=== PATIENT | male | born 1940 | race Caucasian/White ===

== ENCOUNTER → 2016-07-22 | Outpatient (CLI) | payer MEDICARE ==
[~2016-07-22] MED LIST: ASPI81TA85 PO; DULO30CA PO; FENT50PA TD; FURO40TA2 PO; HUMU70IN SC; LISI10TA4 PO; LUNE1TAB9 PO; METO25TAB PO; OXYC-299 PO; OXYCTAB PO; PLAV75TA PO; PRIL20CA PO; vitamin B PO
== END ==
LOC: M PT 08:46
PROVIDERS: ATTEND Nurse Practitioner Family
DX: Z74.09 Other reduced mobility (principal)
CPT/HCPCS: 97162; G8978; G8979; G8980

== ENCOUNTER 2016-09-10 09:26 | Emergency (ER) | payer MEDICARE, MEDICAID ==
[~2016-09-10 09:26] MED LIST changes: -PLAV75TA PO; +PLAV75TA38 PO; -PRIL20CA PO; +PRIL20CA9 PO
[2016-09-10] MEDS ORDERED: oxyCODONE 10 MG CR TAB As Ordered ONE (10:08)
--- NOTE | 2016-09-10 10:26 | REP ---
Clinical: Chest pain . Comparison: 07/13/2015 . Technique: PA and lateral. Findings: The mediastinum and cardiac silhouette are normal. The lung comer are essentially clear and without acute consolidation, effusion, or pneumothorax. However, trace left basilar atelectasis cannot be excluded and should be correlated clinically. The skeletal structures are intact and normal. Impression: Possible trace left basilar atelectasis. Signed by Jethro Goodwin MD 09/10/2016 10:18 A
[2016-09-10 10:41] LABS: BASO % 0.2 % (0.0-1.0); EOS % 0.3 % (0.0-3.0); LARGE UNSTAINED CELL # 0.1 K/mm3 (0.0-0.4); LARGE UNSTAINED CELL % 1.3 % (0.0-4.0); LYMPH # 0.8 K/mm3 (1.5-4.5); LYMPH % 8.6 % (24.0-44.0); MEAN CORPUSCULAR HEMOGLOBIN 29.6 pg (27.0-33.0); MEAN CORPUSCULAR HGB CONC 32.3 g/dl (32.0-36.5); MEAN CORPUSCULAR VOLUME 91.7 fl (80.0-96.0); MONO # 0.8 K/mm3 (0.0-0.8); MONO % 9.5 % (0.0-5.0); NEUTROPHILS # 6.8 K/mm3 (1.8-7.7); NEUTROPHILS % 80.1 % (36.0-66.0); PLATELET COUNT, AUTOMATED 152 k/mm3 (150-450); RED CELL DISTRIBUTION WIDTH 14.8 % (11.5-14.5); WHITE BLOOD COUNT 8.5 K/mm3 (4.0-10.0)
[2016-09-10 11:09] LABS: ALBUMIN 3.3 GM/DL (3.2-5.2); ALBUMIN/GLOBULIN RATIO 1.18 (1.00-1.93); ALKALINE PHOSPHATASE 78 U/L (45-117); ALT/SGPT 16 U/L (12-78); ANION GAP 7 MEQ/L (8-16); AST/SGOT 17 U/L (15-37); BILIRUBIN,DIRECT 0.2 MG/DL (0.0-0.2); BILIRUBIN,TOTAL 0.6 MG/DL (0.2-1.0); BLOOD UREA NITROGEN 16 MG/DL (7-18); CALCIUM LEVEL 8.4 MG/DL (8.8-10.2); CARBON DIOXIDE LEVEL 31 MEQ/L (21-32); CHLORIDE LEVEL 101 MEQ/L (98-107); CREATININE FOR GFR 1.11 MG/DL (0.70-1.30); GLOMERULAR FILTRATION RATE > 60.0 (>42); GLUCOSE, FASTING 219 MG/DL (83-110); SODIUM LEVEL 139 MEQ/L (136-145); TOTAL PROTEIN 6.1 GM/DL (6.4-8.2)
[2016-09-10] MEDS ORDERED: ISOVUE-370 76% 100ML VIAL (Q9967) As Ordered ONE (13:37)
--- NOTE | 2016-09-10 14:12 | REP ---
Clinical: Acute chest pain. Technique: Axial contrast enhanced images from the thoracic inlet to the upper abdomen using 100 ml Isovue 370 intravenous contrast material with coronal and sagittal re-formations. Findings: Satisfactory enhancement of the pulmonary vasculature is achieved and no filling defects are identified to suggest pulmonary embolus. Lung comer demonstrate minimal bibasilar atelectasis and small pleural reactions. Cardiomegaly is appreciated with atherosclerotic changes to the thoracic aorta and coronary arteries. No pericardial effusion. No significant adenopathy. Musculoskeletal structures are intact. Limited evaluation of the upper abdomen demonstrates bilateral renal cysts. Impression: No evidence for pulmonary embolus. Mild bibasilar atelectasis and small pleural reactions. Signed by Jethro Goodwin MD 09/10/2016 02:03 P
--- NOTE | 2016-09-10 14:31 | EDDOCDS ---
Physician Documentation [facility] Name: Jaden Peña Age: 75 yrs Sex: Male : 1940 Arrival Date: 09/10/2016 Time: 09:26 Bed 5 Private MD: Disposition: 09/10 14:05 Critical Care: Critical care not applicable. pc Disposition: 09/10/16 14:07 Discharged to Home/Self Care. Impression: Chest pain, unspecified. - Condition is Stable. - Discharge Instructions: Nonspecific Chest Pain. - Medication Reconciliation, Local Pharmacy Hours form. - Follow up: Emanuel Charles MD; When: Call to arrange an appointment; Reason: Further diagnostic work-up, To establish care. Follow up: Patsy Lamb; When: Call to arrange an appointment; Reason: Continuance of care. - Problem is new. - Symptoms have improved. HPI: 10:02 This 75 yrs old Male presents to ER via Ambulance with complaints of Chest pc Pain. 10:02 The history is obtained from the patient, the patient's spouse. Symptoms began suddenly pc at 22:00, and are unchanged since the onset. Symptoms are ongoing and are constant. Symptoms He was just laying in bed to go to sleep when he developed pain in his chest. At its worst, the symptoms were a 9 out of 10. In the emergency department, the symptoms are a 9 out of 10. The chest pain is described as a pressure, a tightness. It is located primarily in the substernal area. The pain radiates to the back. The chest pain was associated with it hurt to breath a few times last night but none today. The patient's known risk factors for coronary artery disease include: diabetes, high cholesterol, hypertension, a family history of coronary artery disease. The patient has not experienced similar symptoms in the past. The patient has not recently seen a physician. Historical: - Allergies: No known drug Allergies; - Home Meds: 1. vitamin E 400 unit Oral tab daily (Last dose: 09/10/2016 04:00) 2. fentanyl 75 mcg/hr Topical pt72 every 72 hours (Last dose: 09/10/2016 04:00) 3. Plavix 75 mg Oral tab 1 tab once daily (Last dose: 09/10/2016 04:00) 4. omeprazole 20 mg Oral cpDR 1 cap once daily (Last dose: 09/10/2016 04:00) 5. furosemide 40 mg Oral tab once daily (Last dose: 09/10/2016 04:00) 6. Vitamin B-12 1,000 mcg Oral tab daily (Last dose: 09/10/2016 04:00) 7. escitalopram oxalate 10 mg oral tab 1 tab once daily (Last dose: 09/10/2016 04:00) 8. metoprolol tartrate 100 mg Oral tab 2 times per day (Last dose: 09/10/2016 04:00) 9. Humalog 100 unit/mL Sub-Q soln 22 unit before meals (Last dose: 09/10/2016 04:00) 10. oxycodone 10 mg Oral tab 1 tab 5 times per day (Last dose: 09/10/2016 04:00) 11. Crestor 5 mg Oral tab 1 tab once daily (Last dose: 09/10/2016 04:00) 12. eszopiclone 2 mg oral tab nightly (Last dose: 09/09/2016) 13. Lyrica 75 mg oral cap 3 times per day (Last dose: 09/10/2016 04:00) 14. insulin levemir 40 unit daily in morning (Last dose: 09/10/2016 04:00) 15. aspirin 81 mg Oral TbEC 1 tab once daily (Last dose: 09/10/2016 04:00) - PMHx: Acute Renal Failure; neuropathy; Hypertension; Diabetes - IDDM: controlled; Chronic Pain; PVD; Spinal Stenosis; - PSHx: stents in left leg; - The history from nurses notes was reviewed: and I agree with what is documented. - Social history: Smoking status: Patient states former smoker of tobacco. No barriers to communication noted, The patient speaks fluent [place], Speaks appropriately for age. - : The pt / caregiver states he / she is on anticoagulants: Plavix. Home medication list is obtained from the patient. - Hospitalizations: : No recent hospitalization is reported. - Exposure Risk Screening:: None identified. - Immunization history:: All immunizations up-to-date. - Family history: Pertinent for diabetes, heart disease, hypertension. - Social history:: the patient is a non-smoker, the patient does not drink alcohol. ROS: 10:02 All systems are negative except as listed. The cardiovascular, respiratory, pc gastrointestinal and neurological components are also addressed in the HPI. Exam: 10:02 General Appearance: alert, no acute distress. pc 10:02 ENT: ear, nose and throat normal, pharynx normal. 10:02 Neck: supple, non-tender, no masses are appreciated, no carotid bruits. 10:02 Respiratory: no respiratory distress, normal breath sounds. 10:02 Respiratory: Chest tenderness in the mid-sternal area, is associated with palpation. 10:02 Cardiovascular: regular pulse rate, regular heart rhythm, normal heart sounds, equal and full pulses bilaterally. 10:02 Abdomen: soft, non-tender, no organomegaly, normal bowel sounds. 10:02 Skin: skin color is normal, warm, dry. 10:02 Extremities: The extremities have a grossly normal appearance, are non-tender, without acute ROM abnormalities, chronic stasis dermatitis . 10:02 Neuro: alert, oriented to person, place and time, cranial nerves normal as tested, no motor deficits, no sensory deficits. 10:02 Psych: normal mood. Vital Signs: 09:35 BP 138 / 71 (auto/); jo3 09:35 Pulse 86 MON; Pulse Ox 95% ; jo3 09:38 BP 138 / 71; Pulse 88; Resp 20; Temp 99.9; Pulse Ox 99% ; Weight 102.97 kg / 227.01 jo3 lbs; Height 5 ft. 9 in. (175.26 cm); Pain 10; 09:45 BP 122 / 58 (auto/); jo3 09:45 Pulse 82 MON; Pulse Ox 99% ; jo3 10:00 BP 139 / 62 (auto/); jo3 10:00 Pulse 86 MON; Pulse Ox 97% ; jo3 10:15 BP 129 / 60 (auto/); jo3 10:15 Pulse 80 MON; Pulse Ox 95% ; jo3 10:30 BP 134 / 63 (auto/); jo3 10:30 Pulse 76 MON; Pulse Ox 96% ; jo3 10:45 Pulse 76 MON; Pulse Ox 95% ; jo3 10:45 BP 132 / 64 (auto/); jo3 11:00 BP 128 / 60 (auto/); jo3 11:00 Pulse 80 MON; Pulse Ox 94% ; jo3 11:15 BP 124 / 56 (auto/); jo3 11:15 Pulse 80 MON; Pulse Ox 93% ; jo3 11:30 BP 124 / 60 (auto/); jo3 11:30 Pulse 80 MON; Pulse Ox 95% ; jo3 11:45 BP 128 / 59 (auto/); jo3 11:45 Pulse 74 MON; Pulse Ox 93% ; jo3 12:00 BP 119 / 59 (auto/); jo3 12:00 Pulse 76 MON; Pulse Ox 96% ; jo3 09:38 Body Mass Index 33.52 (102.97 kg, 175.26 cm) jo3 MDM: 09:29 ECG WITH READING ER PHYS+CARDIAG ordered. EDMS 10:01 Nurse General Duty/Pulse Ox/q 30 min VS ordered. pc 10:01 IV Saline Lock ordered. pc 10:01 Rhythm Strip to chart ordered. pc 10:02 Basic Metabolic Profile Ordered. EDMS 10:02 CBC with Diff Ordered. EDMS 10:02 Cardiac Injury Profile Ordered. EDMS 10:02 Troponin Ordered. EDMS 10:02 Chest, 2 View (pa\E\lat) Ordered. EDMS 10:02 Differential diagnosis: acute myocardial infarction, coronary artery disease pc esophagitis, gastritis, gastroesophageal reflux disease (GERD), pancreatitis, unstable angina. Plan: labs, EKG, imaging, meds. The patient was medicated with aspirin in the Emergency Department. Test interpretation: EKG. 10:06 oxyCODONE 10 mg PO once ordered. jo3 10:32 Financial registration complete. mm15 10:38 LIPASE Ordered. EDMS 10:38 LIVER PROFILE Ordered. EDMS 11:03 [facility] Payment Agreement was scanned into [employer] and attached to record. mm15 11:05 CBC with Diff Reviewed. pc 11:05 Chest, 2 View (pa\E\lat) Reviewed. pc 11:13 Basic Metabolic Profile Reviewed. pc 11:13 LIVER PROFILE Reviewed. pc 11:13 Cardiac Injury Profile Reviewed. pc 11:13 Troponin Reviewed. pc 11:13 LIPASE Reviewed. pc 11:14 Redraw CIP &Troponin (put time in details section) ordered. pc 11:14 Repeat EKG (put time details section) ordered. pc 11:15 Redraw CIP &Troponin (put time in details section) complete. deg 11:15 Repeat EKG (put time details section) complete. deg 11:16 ECG WITH READING ER PHYS ordered. EDMS 11:16 CARDIAC MARKER PANEL Ordered. EDMS 12:12 Test interpretation: EKG. pc 12:50 CARDIAC MARKER PANEL Reviewed. pc 13:32 CT Chest Angio R/O PE Ordered. EDMS 14:05 Data reviewed: old medical records, vital signs, nurses notes, EKG(s), lab test pc results, all radiology studies and available results. Test interpretation: LAB - all labs as ordered have been reviewed, interpreted and considered in the overall management of the clinical presentation; X-RAY - interpreted by Radiologist and personally reviewed, 1 view chest no acute disease, interpreted by Radiologist and personally reviewed, Chest CT; no PE, bibasilar atelectasis . The patient has been re-examined and re-evaluated. The patient's symptoms have markedly improved after treatment. Physician consultation: Dr. Emanuel Charles MD was contacted at 14:06, regarding patient's condition, and advises the medications/treatment as provided. and agrees with the treatment provided and advises the discharge plans as outlined. Disposition: The historical points, examination findings, and any diagnostic results supporting the provided diagnosis, were discussed with the patient or legal guardian. The need for outpatient follow up with the provider listed on their discharge instructions was discussed. They were encouraged to return to [facility], or the nearest ED, if symptoms worsen/persist, or for any other questions/concerns. EC:02 Rate is 84 beats/min. Rhythm is regular, Normal Sinus Rhythm with Occasional PVCs. QRS pc [place] is Normal. [place] interval is normal. QRS interval is normal. QT interval is normal. No Q waves. T waves are Normal. No ST changes noted. Clinical impression: Normal Sinus Rhythm and Occ. PVC, PRWP. No change from previous ECG in March,. 12:12 Rate is 78 beats/min. Rhythm is regular, Normal Sinus Rhythm. QRS [place] is Normal. [place] pc interval is normal. QRS interval is normal. QT interval is normal. No Q waves. T waves are Normal. No ST changes noted. Clinical impression: Normal Sinus Rhythm and PRWP. Administered Medications: 10:07 CANCELLED (Took prior to arrival ): Aspirin Chewable Tablet 324 mg PO once jo3 10:12 Drug: oxyCODONE 10 mg [oxycodone 5 mg tablet (2 tabs)] Route: PO; jo3 Signatures: Dispatcher [employer] EDSC Terrence Burton MD MD pc Murray, Denise, Metal Inspector Unit deg Jessica Amin RN RN jo3 Ana Sen RN RN Prema Constantino mm15 The chart was reviewed and I authenticate all verbal orders and agree with the evaluation and treatment provided.Corrections: (The following items were deleted from the chart) :56 Home Meds: aspirin 81 mg Oral TbEC 1 tab once daily; :56 Home Meds: insulin levemir 40 unit daily; in morning; jo:56 Home Meds: Crestor 5 mg Oral tab 1 tab once daily; :56 Home Meds: omeprazole 20 mg Oral cpDR 1 cap once daily; : Home Meds: Plavix 75 mg Oral tab 1 tab once daily; :56 Home Meds: escitalopram oxalate 10 mg oral tab 1 tab once daily; :56 Home Meds: oxycodone 10 mg Oral tab 1 tab 5 times per day; jo:56 Home Meds: Lyrica 75 mg oral cap 3 times per day; :56 Home Meds: furosemide 40 mg Oral tab once daily; :56 Home Meds: Humalog 100 unit/mL Sub-Q soln 22 unit before meals; 3 :56 Home Meds: Vitamin B-12 1,000 mcg Oral tab daily; jo:56 Home Meds: vitamin E 400 unit Oral tab daily; jo3 :56 Home Meds: fentanyl 75 mcg/hr Topical pt72 every 72 hours; pt out of this jo3 medication; :56 Home Meds: metoprolol tartrate 100 mg Oral tab 2 times per day; jo:56 Home Meds: eszopiclone 2 mg oral tab nightly; jo3 10:07 10:01 Aspirin Chewable Tablet 324 mg PO once ordered. pc jo3 10:37 10:03 LIVER PROFILE+LAB ordered. EDMS EDMS 10:37 10:03 LIPASE+LAB ordered. EDMS EDMS Attachments: 11:03 [facility] Payment Agreement mm15 [facility]
--- NOTE | 2016-09-10 14:32 | EDDOCDS ---
Nurse's Notes [facility] Name: Jaden Peña Age: 75 yrs Sex: Male : 1940 Arrival Date: 09/10/2016 Time: 09:26 Bed 5 Private MD: Diagnosis: Chest pain, unspecified Presentation: 09/10 09:28 Presenting complaint: EMS states: Chest pain that started last night at 2200. Pt went jo3 to Urgent Care in [place] this morning. No abnormalities noted on EKG or EMS EKG. 324mg ASA given at . 3 SL nitro given by EMS. Pain has decreased from a 10/10 to 8/10. 20g in LAC. Pain worsens with deep respiration. Pain is mid sternal and radiates around to mid back bilaterally. 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 Adult Sepsis Screening: The patient does not have new or worsening altered mentation. Suicide/Homicide risk assessment- the patient denies having any suicidal and/or homicidal ideations and does not present with any other emotional, behavioral or mental health complaints. Status: Patient is not a director of field service or dependent. Transition of care: patient was not received from another setting of care. 09:28 Acuity: WADE Level 2 jo3 09:28 Method Of Arrival: Ambulance jo3 10:03 Adult Sepsis Screening: Patient's respiratory rate is less than 22. Systolic blood jo3 pressure is greater than 100. Patient has a qSOFA score of 0- Negative Sepsis Screen. Triage Assessment: 09:47 General: Appears in no apparent distress, comfortable, Behavior is appropriate for age, jo3 cooperative, pleasant. Pain: Location: mid-sternal area Pain currently is 9 out of 10 on a pain scale. Pain radiates to Bilateral lateral rib area around rto mid back. The patient is triaged at the bedside. See Assessment in Nurses Notes section of ED record. Neurological: Level of Consciousness is awake, alert, Oriented to person, place, time. Cardiovascular: Capillary refill is brisk Chest pain is described as severe, radiates to bilateral back episodes are continuous began 2200 last night. Cardiovascular: Edema is 4+ to left midcalf, left ankle, right midcalf and right ankle pitting to left midcalf, left ankle, right midcalf and right ankle. Respiratory: Airway is patent Respiratory effort is even, unlabored, Breath sounds are clear bilaterally. Breath sounds are diminished in left posterior lower lobe and right posterior lower lobe. GI: Abdomen is obese, Bowel sounds present X 4 quads. : No deficits noted. Derm: Skin is pink, warm & dry. Historical: - Allergies: No known drug Allergies; - Home Meds: 1. vitamin E 400 unit Oral tab daily (Last dose: 09/10/2016 04:00) 2. fentanyl 75 mcg/hr Topical pt72 every 72 hours (Last dose: 09/10/2016 04:00) 3. Plavix 75 mg Oral tab 1 tab once daily (Last dose: 09/10/2016 04:00) 4. omeprazole 20 mg Oral cpDR 1 cap once daily (Last dose: 09/10/2016 04:00) 5. furosemide 40 mg Oral tab once daily (Last dose: 09/10/2016 04:00) 6. Vitamin B-12 1,000 mcg Oral tab daily (Last dose: 09/10/2016 04:00) 7. escitalopram oxalate 10 mg oral tab 1 tab once daily (Last dose: 09/10/2016 04:00) 8. metoprolol tartrate 100 mg Oral tab 2 times per day (Last dose: 09/10/2016 04:00) 9. Humalog 100 unit/mL Sub-Q soln 22 unit before meals (Last dose: 09/10/2016 04:00) 10. oxycodone 10 mg Oral tab 1 tab 5 times per day (Last dose: 09/10/2016 04:00) 11. Crestor 5 mg Oral tab 1 tab once daily (Last dose: 09/10/2016 04:00) 12. eszopiclone 2 mg oral tab nightly (Last dose: 09/09/2016) 13. Lyrica 75 mg oral cap 3 times per day (Last dose: 09/10/2016 04:00) 14. insulin levemir 40 unit daily in morning (Last dose: 09/10/2016 04:00) 15. aspirin 81 mg Oral TbEC 1 tab once daily (Last dose: 09/10/2016 04:00) - PMHx: Acute Renal Failure; neuropathy; Hypertension; Diabetes - IDDM: controlled; Chronic Pain; PVD; Spinal Stenosis; - PSHx: stents in left leg; - The history from nurses notes was reviewed: and I agree with what is documented. - Social history: Smoking status: Patient states former smoker of tobacco. No barriers to communication noted, The patient speaks fluent Palauan, Speaks appropriately for age. - : The pt / caregiver states he / she is on anticoagulants: Plavix. Home medication list is obtained from the patient. - Hospitalizations: : No recent hospitalization is reported. - Exposure Risk Screening:: None identified. - Immunization history:: All immunizations up-to-date. - Family history: Pertinent for diabetes, heart disease, hypertension. - Social history:: the patient is a non-smoker, the patient does not drink alcohol. Screenin:51 Screening information is obtained from the patient. Fall risk: No risks identified. jo3 Assistance ADL's: requires no assistance with activities of daily living. Abuse/DV Screen: The patient / caregiver reports he/she is: not in a situation that causes fear, pain or injury. Nutritional screening: No deficits noted. Advance Directives: There is no active DNR order. home support is adequate. Assessment: 09:52 Reassessment: see triage assessment . jo3 10:40 General: Appears in no apparent distress, comfortable, Behavior is appropriate for age, jo3 cooperative, pleasant. General: Resting on stretcher at this time. Family at bedside. awaiting results. Aware of plan of care . Neurological: Level of Consciousness is awake, alert, Oriented to person, place, time. Cardiovascular: Rhythm is sinus rhythm No ectopy. Respiratory: Airway is patent Respiratory effort is even, unlabored. Derm: Skin is pink, warm & dry. 11:40 Reassessment: Patient appears in no apparent distress at this time. No significant jo3 changes noted in physical assessment status. Awaiting cardiac marker draw at 1200. Aware of plan of care . 12:45 General: Appears in no apparent distress, comfortable, Behavior is appropriate for age, jo3 cooperative. Neurological: No deficits noted. Level of Consciousness is awake, alert, Oriented to person, place, time. Respiratory: Airway is patent Respiratory effort is even, unlabored. Derm: Skin is pink, warm & dry. 13:45 Reassessment: Patient appears in no apparent distress at this time. No significant jo3 changes noted. CT angio completed at this time. Awaiting results for disposition. Aware of plan of care . 14:17 General: Appears in no apparent distress, comfortable, Behavior is appropriate for age, dsf cooperative. Neurological: Level of Consciousness is awake, alert, Oriented to person, place, time. Cardiovascular: Capillary refill < 3 seconds. Respiratory: Airway is patent Respiratory effort is even, unlabored, Respiratory pattern is regular, symmetrical. Derm: Skin is pink, warm & dry. Vital Signs: 09:35 BP 138 / 71 (auto/); jo3 09:35 Pulse 86 MON; Pulse Ox 95% ; jo3 09:38 BP 138 / 71; Pulse 88; Resp 20; Temp 99.9; Pulse Ox 99% ; Weight 102.97 kg; Height 5 jo3 ft. 9 in. (175.26 cm); Pain 9/10; 09:45 BP 122 / 58 (auto/); jo3 09:45 Pulse 82 MON; Pulse Ox 99% ; jo3 10:00 BP 139 / 62 (auto/); jo3 10:00 Pulse 86 MON; Pulse Ox 97% ; jo3 10:15 BP 129 / 60 (auto/); jo3 10:15 Pulse 80 MON; Pulse Ox 95% ; jo3 10:30 BP 134 / 63 (auto/); jo3 10:30 Pulse 76 MON; Pulse Ox 96% ; jo3 10:45 Pulse 76 MON; Pulse Ox 95% ; jo3 10:45 BP 132 / 64 (auto/); jo3 11:00 BP 128 / 60 (auto/); jo3 11:00 Pulse 80 MON; Pulse Ox 94% ; jo3 11:15 BP 124 / 56 (auto/); jo3 11:15 Pulse 80 MON; Pulse Ox 93% ; jo3 11:30 BP 124 / 60 (auto/); jo3 11:30 Pulse 80 MON; Pulse Ox 95% ; jo3 11:45 BP 128 / 59 (auto/); jo3 11:45 Pulse 74 MON; Pulse Ox 93% ; jo3 12:00 BP 119 / 59 (auto/); jo3 12:00 Pulse 76 MON; Pulse Ox 96% ; jo3 09:38 Body Mass Index 33.52 (102.97 kg, 175.26 cm) jo3 Vitals: 09:32 Log In Time N/A - ambulance arrival. jo3 ED Course: 09:27 Patient visited by Brittney Reilly, Commuter Train Operator. deg 09:27 Patient moved to Waiting deg 09:27 Patient moved to 5 deg 09:32 Triage Initiated jo3 09:35 Terrence Burton MD is Attending Physician. pc 09:40 The patient / caregiver is instructed regarding the plan of care and ED course. Cardiac jo3 monitor on. Pulse ox on. NIBP on. 09:40 Maintain field IV. Dressing intact. Good blood return noted. Site clean & dry. Gauge & jo3 site: 20g in LAC . 10:02 Patient visited by Terrence Burton MD. pc 10:36 Basic Metabolic Profile Sent. jo3 10:36 CBC with Diff Sent. jo3 10:36 Cardiac Injury Profile Sent. jo3 10:36 Troponin Sent. jo3 10:40 Patient visited by Jessica Amin,CHACE. jo3 10:40 LIVER PROFILE Sent. jo3 10:40 LIPASE Sent. jo3 10:49 Chest, 2 View (pa\E\lat) Returned. EDMS 11:03 [facility] Payment Agreement was scanned into [email or web address] and attached to record. mm15 11:50 Patient visited by Terrence Burton MD. pc 11:52 Patient visited by Jessica Amin,CHACE. jo3 12:01 CARDIAC MARKER PANEL Sent. jo3 12:05 EKG done. (by ED staff). Reviewed by Terrence Burton MD. dem1 12:06 Patient visited by Jessica Amin,CHACE. jo3 12:10 Patient visited by Desirae Alva. dem1 13:18 Patient visited by Terrence Burton MD. pc 14:07 Emanuel Charles MD is Referral Physician. pc 14:07 Patsy Lamb is Referral Physician. pc 14:17 Discontinued lock intact, bleeding controlled, pressure dressing applied, No dsf redness/swelling at site. No procedures done that require assistance. Administered Medications: 10:07 CANCELLED (Took prior to arrival ): Aspirin Chewable Tablet 324 mg PO once jo3 10:12 Drug: oxyCODONE 10 mg [oxycodone 5 mg tablet (2 tabs)] Route: PO; jo3 Order Results: Lab Order: Basic Metabolic Profile; SPEC'M 09/10/16 10:33 Test: GLUCOSE, FASTING; Value: 219; Range: 83-110; Abnormal: Above high normal; Units: MG/DL; Status: F Test: BLOOD UREA NITROGEN; Value: 16; Range: 7-18; Units: MG/DL; Status: F Test: CREATININE FOR GFR; Value: 1.11; Range: 0.70-1.30; Units: MG/DL; Status: F Test: GLOMERULAR FILTRATION RATE; Value: > 60.0; Range: >42; Status: F Test: SODIUM LEVEL; Value: 139; Range: 136-145; Units: MEQ/L; Status: F Test: POTASSIUM SERUM; Value: 4.0; Range: 3.5-5.1; Units: MEQ/L; Status: F Test: CHLORIDE LEVEL; Value: 101; Range: 98-107; Units: MEQ/L; Status: F Test: CARBON DIOXIDE LEVEL; Value: 31; Range: 21-32; Units: MEQ/L; Status: F Test: ANION GAP; Value: 7; Range: 8-16; Abnormal: Below low normal; Units: MEQ/L; Status: F Test: CALCIUM LEVEL; Value: 8.4; Range: 8.8-10.2; Abnormal: Below low normal; Units: MG/DL; Status: F Test Note: ; Units are mL/min/1.73 m2 Chronic Kidney Disease Staging per NKF: Stage I & II GFR >=60 Normal to Mildly Decreased Stage III GFR 30-59 Moderately Decreased Stage IV GFR 15-29 Severely Decreased Stage V GFR <15 Very Little GFR Left ESRD GFR <15 on STENCIL MACHINE OPERATOR Lab Order: CBC with Diff; SPEC'M 09/10/16 10:33 Test: WHITE BLOOD COUNT; Value: 8.5; Range: 4.0-10.0; Units: K/mm3; Status: F Test: RED BLOOD COUNT; Value: 3.68; Range: 4.30-6.10; Abnormal: Below low normal; Units: M/mm3; Status: F Test: HEMOGLOBIN; Value: 10.9; Range: 14.0-18.0; Abnormal: Below low normal; Units: g/dl; Status: F Test: HEMATOCRIT; Value: 33.7; Range: 42.0-52.0; Abnormal: Below low normal; Units: %; Status: F Test: MEAN CORPUSCULAR VOLUME; Value: 91.7; Range: 80.0-96.0; Units: fl; Status: F Test: MEAN CORPUSCULAR HEMOGLOBIN; Value: 29.6; Range: 27.0-33.0; Units: pg; Status: F Test: MEAN CORPUSCULAR HGB CONC; Value: 32.3; Range: 32.0-36.5; Units: g/dl; Status: F Test: RED CELL DISTRIBUTION WIDTH; Value: 14.8; Range: 11.5-14.5; Abnormal: Above high normal; Units: %; Status: F Test: PLATELET COUNT, AUTOMATED; Value: 152; Range: 150-450; Units: k/mm3; Status: F Test: NEUTROPHILS %; Value: 80.1; Range: 36.0-66.0; Abnormal: Above high normal; Units: %; Status: F Test: LYMPH %; Value: 8.6; Range: 24.0-44.0; Abnormal: Below low normal; Units: %; Status: F Test: MONO %; Value: 9.5; Range: 0.0-5.0; Abnormal: Above high normal; Units: %; Status: F Test: EOS %; Value: 0.3; Range: 0.0-3.0; Units: %; Status: F Test: BASO %; Value: 0.2; Range: 0.0-1.0; Units: %; Status: F Test: LARGE UNSTAINED CELL %; Value: 1.3; Range: 0.0-4.0; Units: %; Status: F Test: NEUTROPHILS #; Value: 6.8; Range: 1.8-7.7; Units: K/mm3; Status: F Test: LYMPH #; Value: 0.8; Range: 1.5-4.5; Abnormal: Below low normal; Units: K/mm3; Status: F Test: MONO #; Value: 0.8; Range: 0.0-0.8; Units: K/mm3; Status: F Test: EOS #; Value: 0.0; Range: 0.0-0.50; Units: K/mm3; Status: F Test: BASO #; Value: 0.0; Range: 0.0-0.2; Units: K/mm3; Status: F Test: LARGE UNSTAINED CELL #; Value: 0.1; Range: 0.0-0.4; Units: K/mm3; Status: F Lab Order: Cardiac Injury Profile; [facility] 09/10/16 10:33 Test: CPK CREATINE PHOSPHOKINASE; Value: 135; Range: 39-308; Units: U/L; Status: F Test: CK-MB VALUE MASS; Value: 2.6; Range: 0.0-3.6; Units: NG/ML; Status: F Test: MB/CK RELATIVE INDEX; Value: 1.92; Range: < OR =4; Status: F Test Note: ; DIAGNOSIS CRITERIA MMB ng/ml Relative Index (RI) NON-AMI < or = 5 N/A MOSS ZONE > 5 < or = 4 AMI > 5 > 4 Lab Order: Troponin; [facility] 09/10/16 10:33 Test: TROPONIN I; Value: < 0.02; Range: < 0.10; Units: NG/ML; Status: F Test Note: ; Troponin I Reference Interval for sickweather LOCI: 99th Percentile= 0.00-0.045 ng/ml Risk Stratification: <= 0.10 ng/ml Decreased Risk for Adverse Clinical Events. 0.10-1.50 ng/ml Increased Risk for Adverse Clinical Events. Evaluation of additional criterion and/or repeat testing in 2-6 hours is suggested to rule out myocardial damage. >= 1.50 ng/ml Indicative of Myocardial Injury. Lab Order: LIPASE; [facility] 09/10/16 10:33 Test: LIPASE; Value: 86; Range: 73-393; Units: U/L; Status: F Lab Order: LIVER PROFILE; [facility] 09/10/16 10:33 Test: AST/SGOT; Value: 17; Range: 15-37; Units: U/L; Status: F Test: ALT/SGPT; Value: 16; Range: 12-78; Units: U/L; Status: F Test: ALKALINE PHOSPHATASE; Value: 78; Range: 45-117; Units: U/L; Status: F Test: BILIRUBIN,TOTAL; Value: 0.6; Range: 0.2-1.0; Units: MG/DL; Status: F Test: BILIRUBIN,DIRECT; Value: 0.2; Range: 0.0-0.2; Units: MG/DL; Status: F Test: TOTAL PROTEIN; Value: 6.1; Range: 6.4-8.2; Abnormal: Below low normal; Units: GM/DL; Status: F Test: ALBUMIN; Value: 3.3; Range: 3.2-5.2; Units: GM/DL; Status: F Test: ALBUMIN/GLOBULIN RATIO; Value: 1.18; Range: 1.00-1.93; Status: F Lab Order: CARDIAC MARKER PANEL; SPEC'M 09/10/16 11:58 Test: CPK CREATINE PHOSPHOKINASE; Value: 123; Range: 39-308; Units: U/L; Status: F Test: CK-MB VALUE MASS; Value: 2.6; Range: 0.0-3.6; Units: NG/ML; Status: F Test: MB/CK RELATIVE INDEX; Value: 2.11; Range: < OR =4; Status: F Test: TROPONIN I; Value: < 0.02; Range: < 0.10; Units: NG/ML; Status: F Test Note: ; DIAGNOSIS CRITERIA MMB ng/ml Relative Index (RI) NON-AMI < or = 5 N/A MOSS ZONE > 5 < or = 4 AMI > 5 > 4 Radiology Order: Chest, 2 View (pa\E\lat) Test: Chest, 2 View (pa\E\lat) REASON FOR EXAMINATION: Chest Pain; Clinical: Chest pain .; ; Comparison: 07/13/2015 .; ; Technique: PA and lateral.; ; Findings:; The mediastinum and cardiac silhouette are normal. The lung comer are; essentially clear and without acute consolidation, effusion, or pneumothorax.; However, trace left basilar atelectasis cannot be excluded and should be; correlated clinically. The skeletal structures are intact and normal.; ; Impression:; Possible trace left basilar atelectasis.; ; ; Signed by; Jethro Goodwin MD 09/10/2016 10:18 A; Outcome: 14:07 Discharge ordered by Provider. pc 14:18 Discharge Assessment: Patient awake, alert and oriented x 3. No cognitive and/or dsf functional deficits noted. Patient verbalized understanding of disposition instructions. patient administered narcotics - yes. Pt provided with safe discharge. The following High Risk Discharge criteria are identified: None. Discharged to home ambulatory. Condition: stable. Discharge instructions given to patient, Instructed on discharge instructions, follow up and referral plans. Demonstrated understanding of instructions, Pt was receptive of discharge instructions/ teaching. CT Study completed. Property sent home with patient. 14:30 Patient left the ED. dsf Signatures: Dispatcher [employer] EDMS Terrence Burton MD MD pc Murray, Denise, Commuter Train Operator Unit deg Jessica Amin RN RN jo3 Ana Sen RN RN dsf Desirae Alva1 Prema Nathan mm15 Corrections: (The following items were deleted from the chart) : Home Meds: aspirin 81 mg Oral TbEC 1 tab once daily; :56 Home Meds: insulin levemir 40 unit daily; in morning; : Home Meds: Crestor 5 mg Oral tab 1 tab once daily; :56 Home Meds: omeprazole 20 mg Oral cpDR 1 cap once daily; :56 Home Meds: Plavix 75 mg Oral tab 1 tab once daily; :56 Home Meds: escitalopram oxalate 10 mg oral tab 1 tab once daily; : Home Meds: oxycodone 10 mg Oral tab 1 tab 5 times per day; : Home Meds: Lyrica 75 mg oral cap 3 times per day; : Home Meds: furosemide 40 mg Oral tab once daily; : Home Meds: Humalog 100 unit/mL Sub-Q soln 22 unit before meals; : Home Meds: Vitamin B-12 1,000 mcg Oral tab daily; : Home Meds: vitamin E 400 unit Oral tab daily; : Home Meds: fentanyl 75 mcg/hr Topical pt72 every 72 hours; pt out of this jo3 medication; :56 Home Meds: metoprolol tartrate 100 mg Oral tab 2 times per day; :56 Home Meds: eszopiclone 2 mg oral tab nightly; jo3 jo3 10:37 10:36 LIPASE+LAB sent. jo3 EDMS 10:37 10:36 LIVER PROFILE+LAB sent. jo3 EDMS MTDD
--- NOTE | 2016-09-11 15:10 | ECGEPIP ---
Stationary ECG Study [facility] - ED Test Date: 2016-09-10 Pat Name: JAI MONTAÑO Department: Room: - Gender: M Epic Ambulatory Specialists: siddharth : 1940 Requested By: Terrence Tucker Order Number: [id number] Reading MD: Jaquelin Lucas Measurements Intervals [place] Rate: 84 P: 4 [place]: 170 QRS: 22 QRSD: 89 T: 58 QT: 348 QTc: 413 Interpretive Statements SINUS RHYTHM WITH OCCASIONAL VENTRICULAR PREMATURE COMPLEXES WITH OCCASIONAL SUPRAVENTRICULAR PREMATURE COMPLEXES POSSIBLE ANTERIOR MYOCARDIAL INFARCTION, OF INDETERMINATE AGE LOW VOLTAGE LIMB DECREASED RATE 04/06/14 Electronically Signed On 09-11-2016 15:10:17 EST by Jaquelin Lucas
--- NOTE | 2016-09-11 15:14 | ECGEPIP ---
Stationary ECG Study [facility] - ED Test Date: 2016-09-10 Pat Name: JAI MONTAÑO Department: Room: - Gender: M Transmission Assembler: cosme : 1940 Requested By: Terrence Tucker Order Number: [id number] Reading MD: Jaquelin Lucas Measurements Intervals [place] Rate: 78 P: 32 [place]: 177 QRS: 20 QRSD: 90 T: 90 QT: 364 QTc: 416 Interpretive Statements SINUS RHYTHM SEPTAL MYOCARDIAL INFARCTION, PROBABLY OLD NSTTW ABNORMALITY LOW VOLTAGE LIMB SIMILAR 09/10/16 9:36 Electronically Signed On 09-11-2016 15:13:56 EST by Jaquelin Lucas
--- NOTE | 2016-09-12 15:31 | EDDOCDS ---
Physician Documentation [facility] Name: Jaden Peña Age: 75 yrs Sex: Male : 1940 Arrival Date: 09/10/2016 Time: 09:26 Bed 5 Private MD: Disposition: 09/10 14:05 Critical Care: Critical care not applicable. pc Disposition: 09/10/16 14:07 Discharged to Home/Self Care. Impression: Chest pain, unspecified. - Condition is Stable. - Discharge Instructions: Nonspecific Chest Pain. - Medication Reconciliation, Local Pharmacy Hours form. - Follow up: Emanuel Charles MD; When: Call to arrange an appointment; Reason: Further diagnostic work-up, To establish care. Follow up: Patsy Lamb; When: Call to arrange an appointment; Reason: Continuance of care. - Problem is new. - Symptoms have improved. HPI: 10:02 This 75 yrs old Male presents to ER via Ambulance with complaints of Chest pc Pain. 10:02 The history is obtained from the patient, the patient's spouse. Symptoms began suddenly pc at 22:00, and are unchanged since the onset. Symptoms are ongoing and are constant. Symptoms He was just laying in bed to go to sleep when he developed pain in his chest. At its worst, the symptoms were a 9 out of 10. In the emergency department, the symptoms are a 9 out of 10. The chest pain is described as a pressure, a tightness. It is located primarily in the substernal area. The pain radiates to the back. The chest pain was associated with it hurt to breath a few times last night but none today. The patient's known risk factors for coronary artery disease include: diabetes, high cholesterol, hypertension, a family history of coronary artery disease. The patient has not experienced similar symptoms in the past. The patient has not recently seen a physician. Historical: - Allergies: No known drug Allergies; - Home Meds: 1. vitamin E 400 unit Oral tab daily (Last dose: 09/10/2016 04:00) 2. fentanyl 75 mcg/hr Topical pt72 every 72 hours (Last dose: 09/10/2016 04:00) 3. Plavix 75 mg Oral tab 1 tab once daily (Last dose: 09/10/2016 04:00) 4. omeprazole 20 mg Oral cpDR 1 cap once daily (Last dose: 09/10/2016 04:00) 5. furosemide 40 mg Oral tab once daily (Last dose: 09/10/2016 04:00) 6. Vitamin B-12 1,000 mcg Oral tab daily (Last dose: 09/10/2016 04:00) 7. escitalopram oxalate 10 mg oral tab 1 tab once daily (Last dose: 09/10/2016 04:00) 8. metoprolol tartrate 100 mg Oral tab 2 times per day (Last dose: 09/10/2016 04:00) 9. Humalog 100 unit/mL Sub-Q soln 22 unit before meals (Last dose: 09/10/2016 04:00) 10. oxycodone 10 mg Oral tab 1 tab 5 times per day (Last dose: 09/10/2016 04:00) 11. Crestor 5 mg Oral tab 1 tab once daily (Last dose: 09/10/2016 04:00) 12. eszopiclone 2 mg oral tab nightly (Last dose: 09/09/2016) 13. Lyrica 75 mg oral cap 3 times per day (Last dose: 09/10/2016 04:00) 14. insulin levemir 40 unit daily in morning (Last dose: 09/10/2016 04:00) 15. aspirin 81 mg Oral TbEC 1 tab once daily (Last dose: 09/10/2016 04:00) - PMHx: Acute Renal Failure; neuropathy; Hypertension; Diabetes - IDDM: controlled; Chronic Pain; PVD; Spinal Stenosis; - PSHx: stents in left leg; - The history from nurses notes was reviewed: and I agree with what is documented. - Social history: Smoking status: Patient states former smoker of tobacco. No barriers to communication noted, The patient speaks fluent [place], Speaks appropriately for age. - : The pt / caregiver states he / she is on anticoagulants: Plavix. Home medication list is obtained from the patient. - Hospitalizations: : No recent hospitalization is reported. - Exposure Risk Screening:: None identified. - Immunization history:: All immunizations up-to-date. - Family history: Pertinent for diabetes, heart disease, hypertension. - Social history:: the patient is a non-smoker, the patient does not drink alcohol. ROS: 10:02 All systems are negative except as listed. The cardiovascular, respiratory, pc gastrointestinal and neurological components are also addressed in the HPI. Exam: 10:02 General Appearance: alert, no acute distress. pc 10:02 ENT: ear, nose and throat normal, pharynx normal. 10:02 Neck: supple, non-tender, no masses are appreciated, no carotid bruits. 10:02 Respiratory: no respiratory distress, normal breath sounds. 10:02 Respiratory: Chest tenderness in the mid-sternal area, is associated with palpation. 10:02 Cardiovascular: regular pulse rate, regular heart rhythm, normal heart sounds, equal and full pulses bilaterally. 10:02 Abdomen: soft, non-tender, no organomegaly, normal bowel sounds. 10:02 Skin: skin color is normal, warm, dry. 10:02 Extremities: The extremities have a grossly normal appearance, are non-tender, without acute ROM abnormalities, chronic stasis dermatitis . 10:02 Neuro: alert, oriented to person, place and time, cranial nerves normal as tested, no motor deficits, no sensory deficits. 10:02 Psych: normal mood. Vital Signs: 09:35 BP 138 / 71 (auto/); jo3 09:35 Pulse 86 MON; Pulse Ox 95% ; jo3 09:38 BP 138 / 71; Pulse 88; Resp 20; Temp 99.9; Pulse Ox 99% ; Weight 102.97 kg / 227.01 jo3 lbs; Height 5 ft. 9 in. (175.26 cm); Pain 10; 09:45 BP 122 / 58 (auto/); jo3 09:45 Pulse 82 MON; Pulse Ox 99% ; jo3 10:00 BP 139 / 62 (auto/); jo3 10:00 Pulse 86 MON; Pulse Ox 97% ; jo3 10:15 BP 129 / 60 (auto/); jo3 10:15 Pulse 80 MON; Pulse Ox 95% ; jo3 10:30 BP 134 / 63 (auto/); jo3 10:30 Pulse 76 MON; Pulse Ox 96% ; jo3 10:45 Pulse 76 MON; Pulse Ox 95% ; jo3 10:45 BP 132 / 64 (auto/); jo3 11:00 BP 128 / 60 (auto/); jo3 11:00 Pulse 80 MON; Pulse Ox 94% ; jo3 11:15 BP 124 / 56 (auto/); jo3 11:15 Pulse 80 MON; Pulse Ox 93% ; jo3 11:30 BP 124 / 60 (auto/); jo3 11:30 Pulse 80 MON; Pulse Ox 95% ; jo3 11:45 BP 128 / 59 (auto/); jo3 11:45 Pulse 74 MON; Pulse Ox 93% ; jo3 12:00 BP 119 / 59 (auto/); jo3 12:00 Pulse 76 MON; Pulse Ox 96% ; jo3 09:38 Body Mass Index 33.52 (102.97 kg, 175.26 cm) jo3 MDM: 09:29 ECG WITH READING ER PHYS+CARDIAG ordered. EDMS 10:01 Manager Money/Pulse Ox/q 30 min VS ordered. pc 10:01 IV Saline Lock ordered. pc 10:01 Rhythm Strip to chart ordered. pc 10:02 Basic Metabolic Profile Ordered. EDMS 10:02 CBC with Diff Ordered. EDMS 10:02 Cardiac Injury Profile Ordered. EDMS 10:02 Troponin Ordered. EDMS 10:02 Chest, 2 View (pa\E\lat) Ordered. EDMS 10:02 Differential diagnosis: acute myocardial infarction, coronary artery disease pc esophagitis, gastritis, gastroesophageal reflux disease (GERD), pancreatitis, unstable angina. Plan: labs, EKG, imaging, meds. The patient was medicated with aspirin in the Emergency Department. Test interpretation: EKG. 10:06 oxyCODONE 10 mg PO once ordered. jo3 10:32 Financial registration complete. mm15 10:38 LIPASE Ordered. EDMS 10:38 LIVER PROFILE Ordered. EDMS 11:03 [facility] Payment Agreement was scanned into [employer] and attached to record. mm15 11:05 CBC with Diff Reviewed. pc 11:05 Chest, 2 View (pa\E\lat) Reviewed. pc 11:13 Basic Metabolic Profile Reviewed. pc 11:13 LIVER PROFILE Reviewed. pc 11:13 Cardiac Injury Profile Reviewed. pc 11:13 Troponin Reviewed. pc 11:13 LIPASE Reviewed. pc 11:14 Redraw CIP &Troponin (put time in details section) ordered. pc 11:14 Repeat EKG (put time details section) ordered. pc 11:15 Redraw CIP &Troponin (put time in details section) complete. deg 11:15 Repeat EKG (put time details section) complete. deg 11:16 ECG WITH READING ER PHYS ordered. EDMS 11:16 CARDIAC MARKER PANEL Ordered. EDMS 12:12 Test interpretation: EKG. pc 12:50 CARDIAC MARKER PANEL Reviewed. pc 13:32 CT Chest Angio R/O PE Ordered. EDMS 14:05 Data reviewed: old medical records, vital signs, nurses notes, EKG(s), lab test pc results, all radiology studies and available results. Test interpretation: LAB - all labs as ordered have been reviewed, interpreted and considered in the overall management of the clinical presentation; X-RAY - interpreted by Radiologist and personally reviewed, 1 view chest no acute disease, interpreted by Radiologist and personally reviewed, Chest CT; no PE, bibasilar atelectasis . The patient has been re-examined and re-evaluated. The patient's symptoms have markedly improved after treatment. Physician consultation: Dr. Emanuel Charles MD was contacted at 14:06, regarding patient's condition, and advises the medications/treatment as provided. and agrees with the treatment provided and advises the discharge plans as outlined. Disposition: The historical points, examination findings, and any diagnostic results supporting the provided diagnosis, were discussed with the patient or legal guardian. The need for outpatient follow up with the provider listed on their discharge instructions was discussed. They were encouraged to return to [facility], or the nearest ED, if symptoms worsen/persist, or for any other questions/concerns. EC:02 Rate is 84 beats/min. Rhythm is regular, Normal Sinus Rhythm with Occasional PVCs. QRS pc [place] is Normal. [place] interval is normal. QRS interval is normal. QT interval is normal. No Q waves. T waves are Normal. No ST changes noted. Clinical impression: Normal Sinus Rhythm and Occ. PVC, PRWP. No change from previous ECG in March,. 12:12 Rate is 78 beats/min. Rhythm is regular, Normal Sinus Rhythm. QRS [place] is Normal. OH pc interval is normal. QRS interval is normal. QT interval is normal. No Q waves. T waves are Normal. No ST changes noted. Clinical impression: Normal Sinus Rhythm and PRWP. Administered Medications: 10:07 CANCELLED (Took prior to arrival ): Aspirin Chewable Tablet 324 mg PO once jo3 10:12 Drug: oxyCODONE 10 mg [oxycodone 5 mg tablet (2 tabs)] Route: PO; jo3 Signatures: Dispatcher [employer] EDMN Terrence Burton MD MD pc Murray, Denise, Executive Staff Assistant Unit deg Jessica Amin RN RN jo3 Ana Sen RN RN Prema Constantino mm15 The chart was reviewed and I authenticate all verbal orders and agree with the evaluation and treatment provided.Corrections: (The following items were deleted from the chart) :56 Home Meds: aspirin 81 mg Oral TbEC 1 tab once daily; :56 Home Meds: insulin levemir 40 unit daily; in morning; jo:56 Home Meds: Crestor 5 mg Oral tab 1 tab once daily; :56 Home Meds: omeprazole 20 mg Oral cpDR 1 cap once daily; : Home Meds: Plavix 75 mg Oral tab 1 tab once daily; :56 Home Meds: escitalopram oxalate 10 mg oral tab 1 tab once daily; :56 Home Meds: oxycodone 10 mg Oral tab 1 tab 5 times per day; jo:56 Home Meds: Lyrica 75 mg oral cap 3 times per day; :56 Home Meds: furosemide 40 mg Oral tab once daily; :56 Home Meds: Humalog 100 unit/mL Sub-Q soln 22 unit before meals; 3 :56 Home Meds: Vitamin B-12 1,000 mcg Oral tab daily; jo:56 Home Meds: vitamin E 400 unit Oral tab daily; jo3 :56 Home Meds: fentanyl 75 mcg/hr Topical pt72 every 72 hours; pt out of this jo3 medication; :56 Home Meds: metoprolol tartrate 100 mg Oral tab 2 times per day; jo:56 Home Meds: eszopiclone 2 mg oral tab nightly; jo3 10:07 10:01 Aspirin Chewable Tablet 324 mg PO once ordered. pc jo3 10:37 10:03 LIVER PROFILE+LAB ordered. EDMS EDMS 10:37 10:03 LIPASE+LAB ordered. EDMS EDMS Attachments: 11:03 [facility] Payment Agreement mm15 Chart Complete MTDD
--- NOTE | 2016-09-12 15:31 | EDDOCDS ---
Nurse's Notes [facility] Name: Jaden Peña Age: 75 yrs Sex: Male : 1940 Arrival Date: 09/10/2016 Time: 09:26 Bed 5 Private MD: Diagnosis: Chest pain, unspecified Presentation: 09/10 09:28 Presenting complaint: EMS states: Chest pain that started last night at 2200. Pt went jo3 to Urgent Care in [place] this morning. No abnormalities noted on EKG or EMS EKG. 324mg ASA given at . 3 SL nitro given by EMS. Pain has decreased from a 10/10 to 8/10. 20g in LAC. Pain worsens with deep respiration. Pain is mid sternal and radiates around to mid back bilaterally. 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 Adult Sepsis Screening: The patient does not have new or worsening altered mentation. Suicide/Homicide risk assessment- the patient denies having any suicidal and/or homicidal ideations and does not present with any other emotional, behavioral or mental health complaints. Status: Patient is not a chief of service or dependent. Transition of care: patient was not received from another setting of care. 09:28 Acuity: WADE Level 2 jo3 09:28 Method Of Arrival: Ambulance jo3 10:03 Adult Sepsis Screening: Patient's respiratory rate is less than 22. Systolic blood jo3 pressure is greater than 100. Patient has a qSOFA score of 0- Negative Sepsis Screen. Triage Assessment: 09:47 General: Appears in no apparent distress, comfortable, Behavior is appropriate for age, jo3 cooperative, pleasant. Pain: Location: mid-sternal area Pain currently is 9 out of 10 on a pain scale. Pain radiates to Bilateral lateral rib area around rto mid back. The patient is triaged at the bedside. See Assessment in Nurses Notes section of ED record. Neurological: Level of Consciousness is awake, alert, Oriented to person, place, time. Cardiovascular: Capillary refill is brisk Chest pain is described as severe, radiates to bilateral back episodes are continuous began 2200 last night. Cardiovascular: Edema is 4+ to left midcalf, left ankle, right midcalf and right ankle pitting to left midcalf, left ankle, right midcalf and right ankle. Respiratory: Airway is patent Respiratory effort is even, unlabored, Breath sounds are clear bilaterally. Breath sounds are diminished in left posterior lower lobe and right posterior lower lobe. GI: Abdomen is obese, Bowel sounds present X 4 quads. : No deficits noted. Derm: Skin is pink, warm & dry. Historical: - Allergies: No known drug Allergies; - Home Meds: 1. vitamin E 400 unit Oral tab daily (Last dose: 09/10/2016 04:00) 2. fentanyl 75 mcg/hr Topical pt72 every 72 hours (Last dose: 09/10/2016 04:00) 3. Plavix 75 mg Oral tab 1 tab once daily (Last dose: 09/10/2016 04:00) 4. omeprazole 20 mg Oral cpDR 1 cap once daily (Last dose: 09/10/2016 04:00) 5. furosemide 40 mg Oral tab once daily (Last dose: 09/10/2016 04:00) 6. Vitamin B-12 1,000 mcg Oral tab daily (Last dose: 09/10/2016 04:00) 7. escitalopram oxalate 10 mg oral tab 1 tab once daily (Last dose: 09/10/2016 04:00) 8. metoprolol tartrate 100 mg Oral tab 2 times per day (Last dose: 09/10/2016 04:00) 9. Humalog 100 unit/mL Sub-Q soln 22 unit before meals (Last dose: 09/10/2016 04:00) 10. oxycodone 10 mg Oral tab 1 tab 5 times per day (Last dose: 09/10/2016 04:00) 11. Crestor 5 mg Oral tab 1 tab once daily (Last dose: 09/10/2016 04:00) 12. eszopiclone 2 mg oral tab nightly (Last dose: 09/09/2016) 13. Lyrica 75 mg oral cap 3 times per day (Last dose: 09/10/2016 04:00) 14. insulin levemir 40 unit daily in morning (Last dose: 09/10/2016 04:00) 15. aspirin 81 mg Oral TbEC 1 tab once daily (Last dose: 09/10/2016 04:00) - PMHx: Acute Renal Failure; neuropathy; Hypertension; Diabetes - IDDM: controlled; Chronic Pain; PVD; Spinal Stenosis; - PSHx: stents in left leg; - The history from nurses notes was reviewed: and I agree with what is documented. - Social history: Smoking status: Patient states former smoker of tobacco. No barriers to communication noted, The patient speaks fluent Bhutanese, Speaks appropriately for age. - : The pt / caregiver states he / she is on anticoagulants: Plavix. Home medication list is obtained from the patient. - Hospitalizations: : No recent hospitalization is reported. - Exposure Risk Screening:: None identified. - Immunization history:: All immunizations up-to-date. - Family history: Pertinent for diabetes, heart disease, hypertension. - Social history:: the patient is a non-smoker, the patient does not drink alcohol. Screenin:51 Screening information is obtained from the patient. Fall risk: No risks identified. jo3 Assistance ADL's: requires no assistance with activities of daily living. Abuse/DV Screen: The patient / caregiver reports he/she is: not in a situation that causes fear, pain or injury. Nutritional screening: No deficits noted. Advance Directives: There is no active DNR order. home support is adequate. Assessment: 09:52 Reassessment: see triage assessment . jo3 10:40 General: Appears in no apparent distress, comfortable, Behavior is appropriate for age, jo3 cooperative, pleasant. General: Resting on stretcher at this time. Family at bedside. awaiting results. Aware of plan of care . Neurological: Level of Consciousness is awake, alert, Oriented to person, place, time. Cardiovascular: Rhythm is sinus rhythm No ectopy. Respiratory: Airway is patent Respiratory effort is even, unlabored. Derm: Skin is pink, warm & dry. 11:40 Reassessment: Patient appears in no apparent distress at this time. No significant jo3 changes noted in physical assessment status. Awaiting cardiac marker draw at 1200. Aware of plan of care . 12:45 General: Appears in no apparent distress, comfortable, Behavior is appropriate for age, jo3 cooperative. Neurological: No deficits noted. Level of Consciousness is awake, alert, Oriented to person, place, time. Respiratory: Airway is patent Respiratory effort is even, unlabored. Derm: Skin is pink, warm & dry. 13:45 Reassessment: Patient appears in no apparent distress at this time. No significant jo3 changes noted. CT angio completed at this time. Awaiting results for disposition. Aware of plan of care . 14:17 General: Appears in no apparent distress, comfortable, Behavior is appropriate for age, dsf cooperative. Neurological: Level of Consciousness is awake, alert, Oriented to person, place, time. Cardiovascular: Capillary refill < 3 seconds. Respiratory: Airway is patent Respiratory effort is even, unlabored, Respiratory pattern is regular, symmetrical. Derm: Skin is pink, warm & dry. Vital Signs: 09:35 BP 138 / 71 (auto/); jo3 09:35 Pulse 86 MON; Pulse Ox 95% ; jo3 09:38 BP 138 / 71; Pulse 88; Resp 20; Temp 99.9; Pulse Ox 99% ; Weight 102.97 kg; Height 5 jo3 ft. 9 in. (175.26 cm); Pain 9/10; 09:45 BP 122 / 58 (auto/); jo3 09:45 Pulse 82 MON; Pulse Ox 99% ; jo3 10:00 BP 139 / 62 (auto/); jo3 10:00 Pulse 86 MON; Pulse Ox 97% ; jo3 10:15 BP 129 / 60 (auto/); jo3 10:15 Pulse 80 MON; Pulse Ox 95% ; jo3 10:30 BP 134 / 63 (auto/); jo3 10:30 Pulse 76 MON; Pulse Ox 96% ; jo3 10:45 Pulse 76 MON; Pulse Ox 95% ; jo3 10:45 BP 132 / 64 (auto/); jo3 11:00 BP 128 / 60 (auto/); jo3 11:00 Pulse 80 MON; Pulse Ox 94% ; jo3 11:15 BP 124 / 56 (auto/); jo3 11:15 Pulse 80 MON; Pulse Ox 93% ; jo3 11:30 BP 124 / 60 (auto/); jo3 11:30 Pulse 80 MON; Pulse Ox 95% ; jo3 11:45 BP 128 / 59 (auto/); jo3 11:45 Pulse 74 MON; Pulse Ox 93% ; jo3 12:00 BP 119 / 59 (auto/); jo3 12:00 Pulse 76 MON; Pulse Ox 96% ; jo3 09:38 Body Mass Index 33.52 (102.97 kg, 175.26 cm) jo3 Vitals: 09:32 Log In Time N/A - ambulance arrival. jo3 ED Course: 09:27 Patient visited by Brittney Reilly, Speech Therapy Director. deg 09:27 Patient moved to Waiting deg 09:27 Patient moved to 5 deg 09:32 Triage Initiated jo3 09:35 Terrence Burton MD is Attending Physician. pc 09:40 The patient / caregiver is instructed regarding the plan of care and ED course. Cardiac jo3 monitor on. Pulse ox on. NIBP on. 09:40 Maintain field IV. Dressing intact. Good blood return noted. Site clean & dry. Gauge & jo3 site: 20g in LAC . 10:02 Patient visited by Terrence Burton MD. pc 10:36 Basic Metabolic Profile Sent. jo3 10:36 CBC with Diff Sent. jo3 10:36 Cardiac Injury Profile Sent. jo3 10:36 Troponin Sent. jo3 10:40 Patient visited by Jessica Amin,CHACE. jo3 10:40 LIVER PROFILE Sent. jo3 10:40 LIPASE Sent. jo3 10:49 Chest, 2 View (pa\E\lat) Returned. EDMS 11:03 [facility] Payment Agreement was scanned into [employer] and attached to record. mm15 11:50 Patient visited by Terrence Burton MD. pc 11:52 Patient visited by Jessica Amin,CHACE. jo3 12:01 CARDIAC MARKER PANEL Sent. jo3 12:05 EKG done. (by ED staff). Reviewed by Terrence Burton MD. dem1 12:06 Patient visited by Jesscia Amin,CHACE. jo3 12:10 Patient visited by Desirae Alva. dem1 13:18 Patient visited by Terrence Burton MD. pc 14:07 Emanuel Charles MD is Referral Physician. pc 14:07 Patsy Lamb is Referral Physician. pc 14:17 Discontinued lock intact, bleeding controlled, pressure dressing applied, No dsf redness/swelling at site. No procedures done that require assistance. 14:56 CT Chest Angio R/O PE Returned. EDMS 09/11 15:14 EKG-ADULT Returned. EDMS 15:14 ECG WITH READING ER PHYS Returned. EDMS Administered Medications: 09/10 10:07 CANCELLED (Took prior to arrival ): Aspirin Chewable Tablet 324 mg PO once jo3 10:12 Drug: oxyCODONE 10 mg [oxycodone 5 mg tablet (2 tabs)] Route: PO; jo3 Order Results: Lab Order: Basic Metabolic Profile; SPEC'M 09/10/16 10:33 Test: GLUCOSE, FASTING; Value: 219; Range: 83-110; Abnormal: Above high normal; Units: MG/DL; Status: F Test: BLOOD UREA NITROGEN; Value: 16; Range: 7-18; Units: MG/DL; Status: F Test: CREATININE FOR GFR; Value: 1.11; Range: 0.70-1.30; Units: MG/DL; Status: F Test: GLOMERULAR FILTRATION RATE; Value: > 60.0; Range: >42; Status: F Test: SODIUM LEVEL; Value: 139; Range: 136-145; Units: MEQ/L; Status: F Test: POTASSIUM SERUM; Value: 4.0; Range: 3.5-5.1; Units: MEQ/L; Status: F Test: CHLORIDE LEVEL; Value: 101; Range: 98-107; Units: MEQ/L; Status: F Test: CARBON DIOXIDE LEVEL; Value: 31; Range: 21-32; Units: MEQ/L; Status: F Test: ANION GAP; Value: 7; Range: 8-16; Abnormal: Below low normal; Units: MEQ/L; Status: F Test: CALCIUM LEVEL; Value: 8.4; Range: 8.8-10.2; Abnormal: Below low normal; Units: MG/DL; Status: F Test Note: ; Units are mL/min/1.73 m2 Chronic Kidney Disease Staging per NKF: Stage I & II GFR >=60 Normal to Mildly Decreased Stage III GFR 30-59 Moderately Decreased Stage IV GFR 15-29 Severely Decreased Stage V GFR <15 Very Little GFR Left ESRD GFR <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 Lab Order: CBC with Diff; SPEC'09/10/16 10:33 Test: WHITE BLOOD COUNT; Value: 8.5; Range: 4.0-10.0; Units: K/mm3; Status: F Test: RED BLOOD COUNT; Value: 3.68; Range: 4.30-6.10; Abnormal: Below low normal; Units: M/mm3; Status: F Test: HEMOGLOBIN; Value: 10.9; Range: 14.0-18.0; Abnormal: Below low normal; Units: g/dl; Status: F Test: HEMATOCRIT; Value: 33.7; Range: 42.0-52.0; Abnormal: Below low normal; Units: %; Status: F Test: MEAN CORPUSCULAR VOLUME; Value: 91.7; Range: 80.0-96.0; Units: fl; Status: F Test: MEAN CORPUSCULAR HEMOGLOBIN; Value: 29.6; Range: 27.0-33.0; Units: pg; Status: F Test: MEAN CORPUSCULAR HGB CONC; Value: 32.3; Range: 32.0-36.5; Units: g/dl; Status: F Test: RED CELL DISTRIBUTION WIDTH; Value: 14.8; Range: 11.5-14.5; Abnormal: Above high normal; Units: %; Status: F Test: PLATELET COUNT, AUTOMATED; Value: 152; Range: 150-450; Units: k/mm3; Status: F Test: NEUTROPHILS %; Value: 80.1; Range: 36.0-66.0; Abnormal: Above high normal; Units: %; Status: F Test: LYMPH %; Value: 8.6; Range: 24.0-44.0; Abnormal: Below low normal; Units: %; Status: F Test: MONO %; Value: 9.5; Range: 0.0-5.0; Abnormal: Above high normal; Units: %; Status: F Test: EOS %; Value: 0.3; Range: 0.0-3.0; Units: %; Status: F Test: BASO %; Value: 0.2; Range: 0.0-1.0; Units: %; Status: F Test: LARGE UNSTAINED CELL %; Value: 1.3; Range: 0.0-4.0; Units: %; Status: F Test: NEUTROPHILS #; Value: 6.8; Range: 1.8-7.7; Units: K/mm3; Status: F Test: LYMPH #; Value: 0.8; Range: 1.5-4.5; Abnormal: Below low normal; Units: K/mm3; Status: F Test: MONO #; Value: 0.8; Range: 0.0-0.8; Units: K/mm3; Status: F Test: EOS #; Value: 0.0; Range: 0.0-0.50; Units: K/mm3; Status: F Test: BASO #; Value: 0.0; Range: 0.0-0.2; Units: K/mm3; Status: F Test: LARGE UNSTAINED CELL #; Value: 0.1; Range: 0.0-0.4; Units: K/mm3; Status: F Lab Order: Cardiac Injury Profile; [facility] 09/10/16 10:33 Test: CPK CREATINE PHOSPHOKINASE; Value: 135; Range: 39-308; Units: U/L; Status: F Test: CK-MB VALUE MASS; Value: 2.6; Range: 0.0-3.6; Units: NG/ML; Status: F Test: MB/CK RELATIVE INDEX; Value: 1.92; Range: < OR =4; Status: F Test Note: ; DIAGNOSIS CRITERIA MMB ng/ml Relative Index (RI) NON-AMI < or = 5 N/A [place]OSS [place]ONE > 5 < or = 4 AMI > 5 > 4 Lab Order: Troponin; [facility] 09/10/16 10:33 Test: TROPONIN I; Value: < 0.02; Range: < 0.10; Units: NG/ML; Status: F Test Note: ; Troponin I Reference Interval for [employer] LOCI: 99th Percentile= 0.00-0.045 ng/ml Risk Stratification: <= 0.10 ng/ml Decreased Risk for Adverse Clinical Events. 0.10-1.50 ng/ml Increased Risk for Adverse Clinical Events. Evaluation of additional criterion and/or repeat testing in 2-6 hours is suggested to rule out myocardial damage. >= 1.50 ng/ml Indicative of Myocardial Injury. Lab Order: LIPASE; [facility] 09/10/16 10:33 Test: LIPASE; Value: 86; Range: 73-393; Units: U/L; Status: F Lab Order: LIVER PROFILE; [facility] 09/10/16 10:33 Test: AST/SGOT; Value: 17; Range: 15-37; Units: U/L; Status: F Test: ALT/SGPT; Value: 16; Range: 12-78; Units: U/L; Status: F Test: ALKALINE PHOSPHATASE; Value: 78; Range: 45-117; Units: U/L; Status: F Test: BILIRUBIN,TOTAL; Value: 0.6; Range: 0.2-1.0; Units: MG/DL; Status: F Test: BILIRUBIN,DIRECT; Value: 0.2; Range: 0.0-0.2; Units: MG/DL; Status: F Test: TOTAL PROTEIN; Value: 6.1; Range: 6.4-8.2; Abnormal: Below low normal; Units: GM/DL; Status: F Test: ALBUMIN; Value: 3.3; Range: 3.2-5.2; Units: GM/DL; Status: F Test: ALBUMIN/GLOBULIN RATIO; Value: 1.18; Range: 1.00-1.93; Status: F Lab Order: CARDIAC MARKER PANEL; SPEC'M 09/10/16 11:58 Test: CPK CREATINE PHOSPHOKINASE; Value: 123; Range: 39-308; Units: U/L; Status: F Test: CK-MB VALUE MASS; Value: 2.6; Range: 0.0-3.6; Units: NG/ML; Status: F Test: MB/CK RELATIVE INDEX; Value: 2.11; Range: < OR =4; Status: F Test: TROPONIN I; Value: < 0.02; Range: < 0.10; Units: NG/ML; Status: F Test Note: ; DIAGNOSIS CRITERIA MMB ng/ml Relative Index (RI) NON-AMI < or = 5 N/A MOSS [place]ONE > 5 < or = 4 AMI > 5 > 4 Radiology Order: EKG-ADULT Test: EKG-ADULT REASON FOR EXAMINATION: Chest Pain; Stationary ECG Study; [facility] - ED; ; Test Date: 2016-09-10; Pat Name: JADEN PEÑA Department:; Room: -; Gender: M 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; : 1940 Requested By: Terrence Tucker; Order Number: [id number] Reading MD: Jaquelin Lucas; Measurements; Intervals [place]; Rate: 84 P: 4; [place]: 170 QRS: 22; QRSD: 89 T: 58; QT: 348; QTc: 413; Interpretive Statements; SINUS RHYTHM WITH OCCASIONAL VENTRICULAR PREMATURE COMPLEXES WITH OCCASIONAL; SUPRAVENTRICULAR PREMATURE COMPLEXES; POSSIBLE ANTERIOR MYOCARDIAL INFARCTION, OF INDETERMINATE AGE; LOW VOLTAGE LIMB; DECREASED RATE 04/06/14; Electronically Signed On 09-11-2016 15:10:17 EST by Jaquelin Lucas; Radiology Order: Chest, 2 View (pa\E\lat) Test: Chest, 2 View (pa\E\lat) REASON FOR EXAMINATION: Chest Pain; Clinical: Chest pain .; ; Comparison: 07/13/2015 .; ; Technique: PA and lateral.; ; Findings:; The mediastinum and cardiac silhouette are normal. The lung comer are; essentially clear and without acute consolidation, effusion, or pneumothorax.; However, trace left basilar atelectasis cannot be excluded and should be; correlated clinically. The skeletal structures are intact and normal.; ; Impression:; Possible trace left basilar atelectasis.; ; ; Signed by; Jethro Goodwin MD 09/10/2016 10:18 A; Radiology Order: CT Chest Angio R/O PE Test: CT Chest Angio R/O PE REASON FOR EXAMINATION: Chest Pain; Clinical: Acute chest pain.; ; Technique: Axial contrast enhanced images from the thoracic inlet to the upper; abdomen using 100 ml Isovue 370 intravenous contrast material with coronal and; sagittal re-formations.; ; Findings: Satisfactory enhancement of the pulmonary vasculature is achieved and; no filling defects are identified to suggest pulmonary embolus. Lung comer; demonstrate minimal bibasilar atelectasis and small pleural reactions.; Cardiomegaly is appreciated with atherosclerotic changes to the thoracic aorta; and coronary arteries. No pericardial effusion. No significant adenopathy.; Musculoskeletal structures are intact. Limited evaluation of the upper abdomen; demonstrates bilateral renal cysts.; ; ; ; Impression:; No evidence for pulmonary embolus.; Mild bibasilar atelectasis and small pleural reactions.; ; ; Signed by; Jethro Goodwin MD 09/10/2016 02:03 P; Outcome: 14:07 Discharge ordered by Provider. pc 14:18 Discharge Assessment: Patient awake, alert and oriented x 3. No cognitive and/or dsf functional deficits noted. Patient verbalized understanding of disposition instructions. patient administered narcotics - yes. Pt provided with safe discharge. The following High Risk Discharge criteria are identified: None. Discharged to home ambulatory. Condition: stable. Discharge instructions given to patient, Instructed on discharge instructions, follow up and referral plans. Demonstrated understanding of instructions, Pt was receptive of discharge instructions/ teaching. CT Study completed. Property sent home with patient. 14:30 Patient left the ED. dsf Signatures: Dispatcher [employer] Terrence Leslie MD MD pc Murray, Denise, Speech Therapy Director Unit deg Jessica Amin RN RN jo3 Fuller, Desiree, RN RN dsf Mack, Demeishia dem1 McGrath, Marlynn mm15 Corrections: (The following items were deleted from the chart) 09:56 Home Meds: aspirin 81 mg Oral TbEC 1 tab once daily; jo 09:56 Home Meds: insulin levemir 40 unit daily; in morning; 09:56 Home Meds: Crestor 5 mg Oral tab 1 tab once daily; 09:56 Home Meds: omeprazole 20 mg Oral cpDR 1 cap once daily; 09:56 Home Meds: Plavix 75 mg Oral tab 1 tab once daily; 09:56 Home Meds: escitalopram oxalate 10 mg oral tab 1 tab once daily; 09:56 Home Meds: oxycodone 10 mg Oral tab 1 tab 5 times per day; 09:56 Home Meds: Lyrica 75 mg oral cap 3 times per day; 09:56 Home Meds: furosemide 40 mg Oral tab once daily; 09:56 Home Meds: Humalog 100 unit/mL Sub-Q soln 22 unit before meals; 09:56 Home Meds: Vitamin B-12 1,000 mcg Oral tab daily; 09:56 Home Meds: vitamin E 400 unit Oral tab daily; 3 09:56 Home Meds: fentanyl 75 mcg/hr Topical pt72 every 72 hours; pt out of this jo3 medication; 09:56 Home Meds: metoprolol tartrate 100 mg Oral tab 2 times per day; 09:56 Home Meds: eszopiclone 2 mg oral tab nightly; jo3 jo3 10:37 10:36 LIPASE+LAB sent. jo3 ETELVINAHI 10:37 10:36 LIVER PROFILE+LAB sent. jo3 EDMS Chart Complete MTDD
--- NOTE | 2016-09-13 21:34 | EDDOCDS ---
Physician Documentation [facility] Name: Jaden Peña Age: 75 yrs Sex: Male : 1940 Arrival Date: 09/10/2016 Time: 09:26 Bed 5 Private MD: Disposition: 09/10 14:05 Critical Care: Critical care not applicable. pc Disposition: 09/10/16 14:07 Discharged to Home/Self Care. Impression: Chest pain, unspecified. - Condition is Stable. - Discharge Instructions: Nonspecific Chest Pain. - Medication Reconciliation, Local Pharmacy Hours form. - Follow up: Emanuel Charles MD; When: Call to arrange an appointment; Reason: Further diagnostic work-up, To establish care. Follow up: Patsy Lamb; When: Call to arrange an appointment; Reason: Continuance of care. - Problem is new. - Symptoms have improved. HPI: 10:02 This 75 yrs old Male presents to ER via Ambulance with complaints of Chest pc Pain. 10:02 The history is obtained from the patient, the patient's spouse. Symptoms began suddenly pc at 22:00, and are unchanged since the onset. Symptoms are ongoing and are constant. Symptoms He was just laying in bed to go to sleep when he developed pain in his chest. At its worst, the symptoms were a 9 out of 10. In the emergency department, the symptoms are a 9 out of 10. The chest pain is described as a pressure, a tightness. It is located primarily in the substernal area. The pain radiates to the back. The chest pain was associated with it hurt to breath a few times last night but none today. The patient's known risk factors for coronary artery disease include: diabetes, high cholesterol, hypertension, a family history of coronary artery disease. The patient has not experienced similar symptoms in the past. The patient has not recently seen a physician. Historical: - Allergies: No known drug Allergies; - Home Meds: 1. vitamin E 400 unit Oral tab daily (Last dose: 09/10/2016 04:00) 2. fentanyl 75 mcg/hr Topical pt72 every 72 hours (Last dose: 09/10/2016 04:00) 3. Plavix 75 mg Oral tab 1 tab once daily (Last dose: 09/10/2016 04:00) 4. omeprazole 20 mg Oral cpDR 1 cap once daily (Last dose: 09/10/2016 04:00) 5. furosemide 40 mg Oral tab once daily (Last dose: 09/10/2016 04:00) 6. Vitamin B-12 1,000 mcg Oral tab daily (Last dose: 09/10/2016 04:00) 7. escitalopram oxalate 10 mg oral tab 1 tab once daily (Last dose: 09/10/2016 04:00) 8. metoprolol tartrate 100 mg Oral tab 2 times per day (Last dose: 09/10/2016 04:00) 9. Humalog 100 unit/mL Sub-Q soln 22 unit before meals (Last dose: 09/10/2016 04:00) 10. oxycodone 10 mg Oral tab 1 tab 5 times per day (Last dose: 09/10/2016 04:00) 11. Crestor 5 mg Oral tab 1 tab once daily (Last dose: 09/10/2016 04:00) 12. eszopiclone 2 mg oral tab nightly (Last dose: 09/09/2016) 13. Lyrica 75 mg oral cap 3 times per day (Last dose: 09/10/2016 04:00) 14. insulin levemir 40 unit daily in morning (Last dose: 09/10/2016 04:00) 15. aspirin 81 mg Oral TbEC 1 tab once daily (Last dose: 09/10/2016 04:00) - PMHx: Acute Renal Failure; neuropathy; Hypertension; Diabetes - IDDM: controlled; Chronic Pain; PVD; Spinal Stenosis; - PSHx: stents in left leg; - The history from nurses notes was reviewed: and I agree with what is documented. - Social history: Smoking status: Patient states former smoker of tobacco. No barriers to communication noted, The patient speaks fluent [place], Speaks appropriately for age. - : The pt / caregiver states he / she is on anticoagulants: Plavix. Home medication list is obtained from the patient. - Hospitalizations: : No recent hospitalization is reported. - Exposure Risk Screening:: None identified. - Immunization history:: All immunizations up-to-date. - Family history: Pertinent for diabetes, heart disease, hypertension. - Social history:: the patient is a non-smoker, the patient does not drink alcohol. ROS: 10:02 All systems are negative except as listed. The cardiovascular, respiratory, pc gastrointestinal and neurological components are also addressed in the HPI. Exam: 10:02 General Appearance: alert, no acute distress. pc 10:02 ENT: ear, nose and throat normal, pharynx normal. 10:02 Neck: supple, non-tender, no masses are appreciated, no carotid bruits. 10:02 Respiratory: no respiratory distress, normal breath sounds. 10:02 Respiratory: Chest tenderness in the mid-sternal area, is associated with palpation. 10:02 Cardiovascular: regular pulse rate, regular heart rhythm, normal heart sounds, equal and full pulses bilaterally. 10:02 Abdomen: soft, non-tender, no organomegaly, normal bowel sounds. 10:02 Skin: skin color is normal, warm, dry. 10:02 Extremities: The extremities have a grossly normal appearance, are non-tender, without acute ROM abnormalities, chronic stasis dermatitis . 10:02 Neuro: alert, oriented to person, place and time, cranial nerves normal as tested, no motor deficits, no sensory deficits. 10:02 Psych: normal mood. Vital Signs: 09:35 BP 138 / 71 (auto/); jo3 09:35 Pulse 86 MON; Pulse Ox 95% ; jo3 09:38 BP 138 / 71; Pulse 88; Resp 20; Temp 99.9; Pulse Ox 99% ; Weight 102.97 kg / 227.01 jo3 lbs; Height 5 ft. 9 in. (175.26 cm); Pain 10; 09:45 BP 122 / 58 (auto/); jo3 09:45 Pulse 82 MON; Pulse Ox 99% ; jo3 10:00 BP 139 / 62 (auto/); jo3 10:00 Pulse 86 MON; Pulse Ox 97% ; jo3 10:15 BP 129 / 60 (auto/); jo3 10:15 Pulse 80 MON; Pulse Ox 95% ; jo3 10:30 BP 134 / 63 (auto/); jo3 10:30 Pulse 76 MON; Pulse Ox 96% ; jo3 10:45 Pulse 76 MON; Pulse Ox 95% ; jo3 10:45 BP 132 / 64 (auto/); jo3 11:00 BP 128 / 60 (auto/); jo3 11:00 Pulse 80 MON; Pulse Ox 94% ; jo3 11:15 BP 124 / 56 (auto/); jo3 11:15 Pulse 80 MON; Pulse Ox 93% ; jo3 11:30 BP 124 / 60 (auto/); jo3 11:30 Pulse 80 MON; Pulse Ox 95% ; jo3 11:45 BP 128 / 59 (auto/); jo3 11:45 Pulse 74 MON; Pulse Ox 93% ; jo3 12:00 BP 119 / 59 (auto/); jo3 12:00 Pulse 76 MON; Pulse Ox 96% ; jo3 09:38 Body Mass Index 33.52 (102.97 kg, 175.26 cm) jo3 MDM: 09:29 ECG WITH READING ER PHYS+CARDIAG ordered. EDMS 10:01 Building Consultant/Pulse Ox/q 30 min VS ordered. pc 10:01 IV Saline Lock ordered. pc 10:01 Rhythm Strip to chart ordered. pc 10:02 Basic Metabolic Profile Ordered. EDMS 10:02 CBC with Diff Ordered. EDMS 10:02 Cardiac Injury Profile Ordered. EDMS 10:02 Troponin Ordered. EDMS 10:02 Chest, 2 View (pa\E\lat) Ordered. EDMS 10:02 Differential diagnosis: acute myocardial infarction, coronary artery disease pc esophagitis, gastritis, gastroesophageal reflux disease (GERD), pancreatitis, unstable angina. Plan: labs, EKG, imaging, meds. The patient was medicated with aspirin in the Emergency Department. Test interpretation: EKG. 10:06 oxyCODONE 10 mg PO once ordered. jo3 10:32 Financial registration complete. mm15 10:38 LIPASE Ordered. EDMS 10:38 LIVER PROFILE Ordered. EDMS 11:03 [facility] Payment Agreement was scanned into [employer] and attached to record. mm15 11:05 CBC with Diff Reviewed. pc 11:05 Chest, 2 View (pa\E\lat) Reviewed. pc 11:13 Basic Metabolic Profile Reviewed. pc 11:13 LIVER PROFILE Reviewed. pc 11:13 Cardiac Injury Profile Reviewed. pc 11:13 Troponin Reviewed. pc 11:13 LIPASE Reviewed. pc 11:14 Redraw CIP &Troponin (put time in details section) ordered. pc 11:14 Repeat EKG (put time details section) ordered. pc 11:15 Redraw CIP &Troponin (put time in details section) complete. deg 11:15 Repeat EKG (put time details section) complete. deg 11:16 ECG WITH READING ER PHYS ordered. EDMS 11:16 CARDIAC MARKER PANEL Ordered. EDMS 12:12 Test interpretation: EKG. pc 12:50 CARDIAC MARKER PANEL Reviewed. pc 13:32 CT Chest Angio R/O PE Ordered. EDMS 14:05 Data reviewed: old medical records, vital signs, nurses notes, EKG(s), lab test pc results, all radiology studies and available results. Test interpretation: LAB - all labs as ordered have been reviewed, interpreted and considered in the overall management of the clinical presentation; X-RAY - interpreted by Radiologist and personally reviewed, 1 view chest no acute disease, interpreted by Radiologist and personally reviewed, Chest CT; no PE, bibasilar atelectasis . The patient has been re-examined and re-evaluated. The patient's symptoms have markedly improved after treatment. Physician consultation: Dr. Emanuel Charles MD was contacted at 14:06, regarding patient's condition, and advises the medications/treatment as provided. and agrees with the treatment provided and advises the discharge plans as outlined. Disposition: The historical points, examination findings, and any diagnostic results supporting the provided diagnosis, were discussed with the patient or legal guardian. The need for outpatient follow up with the provider listed on their discharge instructions was discussed. They were encouraged to return to [facility], or the nearest ED, if symptoms worsen/persist, or for any other questions/concerns. EC:02 Rate is 84 beats/min. Rhythm is regular, Normal Sinus Rhythm with Occasional PVCs. QRS pc [place] is Normal. [place] interval is normal. QRS interval is normal. QT interval is normal. No Q waves. T waves are Normal. No ST changes noted. Clinical impression: Normal Sinus Rhythm and Occ. PVC, PRWP. No change from previous ECG in March,. 12:12 Rate is 78 beats/min. Rhythm is regular, Normal Sinus Rhythm. QRS [place] is Normal. [place] pc interval is normal. QRS interval is normal. QT interval is normal. No Q waves. T waves are Normal. No ST changes noted. Clinical impression: Normal Sinus Rhythm and PRWP. Administered Medications: 10:07 CANCELLED (Took prior to arrival ): Aspirin Chewable Tablet 324 mg PO once jo3 10:12 Drug: oxyCODONE 10 mg [oxycodone 5 mg tablet (2 tabs)] Route: PO; jo3 Signatures: Dispatcher [employer] EDAZ Terrence Burton MD MD pc Murray, Denise, Soliciting Freight Agent Unit deg Jessica Amin RN RN jo3 Ana Sen RN RN Prema Constantino mm15 The chart was reviewed and I authenticate all verbal orders and agree with the evaluation and treatment provided.Corrections: (The following items were deleted from the chart) :56 Home Meds: aspirin 81 mg Oral TbEC 1 tab once daily; :56 Home Meds: insulin levemir 40 unit daily; in morning; jo:56 Home Meds: Crestor 5 mg Oral tab 1 tab once daily; :56 Home Meds: omeprazole 20 mg Oral cpDR 1 cap once daily; : Home Meds: Plavix 75 mg Oral tab 1 tab once daily; :56 Home Meds: escitalopram oxalate 10 mg oral tab 1 tab once daily; :56 Home Meds: oxycodone 10 mg Oral tab 1 tab 5 times per day; jo:56 Home Meds: Lyrica 75 mg oral cap 3 times per day; :56 Home Meds: furosemide 40 mg Oral tab once daily; :56 Home Meds: Humalog 100 unit/mL Sub-Q soln 22 unit before meals; 3 :56 Home Meds: Vitamin B-12 1,000 mcg Oral tab daily; jo:56 Home Meds: vitamin E 400 unit Oral tab daily; jo3 :56 Home Meds: fentanyl 75 mcg/hr Topical pt72 every 72 hours; pt out of this jo3 medication; :56 Home Meds: metoprolol tartrate 100 mg Oral tab 2 times per day; jo:56 Home Meds: eszopiclone 2 mg oral tab nightly; jo3 10:07 10:01 Aspirin Chewable Tablet 324 mg PO once ordered. pc jo3 10:37 10:03 LIVER PROFILE+LAB ordered. EDMS EDMS 10:37 10:03 LIPASE+LAB ordered. EDMS EDMS Attachments: 11:03 [facility] Payment Agreement mm15 Chart Complete MTDD
--- NOTE | 2016-09-13 21:34 | EDDOCDS ---
Physician Documentation [facility] Name: Jaden Peña Age: 75 yrs Sex: Male : 1940 Arrival Date: 09/10/2016 Time: 09:26 Bed 5 Private MD: Disposition: 09/10 14:05 Critical Care: Critical care not applicable. pc Disposition: 09/10/16 14:07 Discharged to Home/Self Care. Impression: Chest pain, unspecified. - Condition is Stable. - Discharge Instructions: Nonspecific Chest Pain. - Medication Reconciliation, Local Pharmacy Hours form. - Follow up: Emanuel Charles MD; When: Call to arrange an appointment; Reason: Further diagnostic work-up, To establish care. Follow up: Patsy Lamb; When: Call to arrange an appointment; Reason: Continuance of care. - Problem is new. - Symptoms have improved. HPI: 10:02 This 75 yrs old Male presents to ER via Ambulance with complaints of Chest pc Pain. 10:02 The history is obtained from the patient, the patient's spouse. Symptoms began suddenly pc at 22:00, and are unchanged since the onset. Symptoms are ongoing and are constant. Symptoms He was just laying in bed to go to sleep when he developed pain in his chest. At its worst, the symptoms were a 9 out of 10. In the emergency department, the symptoms are a 9 out of 10. The chest pain is described as a pressure, a tightness. It is located primarily in the substernal area. The pain radiates to the back. The chest pain was associated with it hurt to breath a few times last night but none today. The patient's known risk factors for coronary artery disease include: diabetes, high cholesterol, hypertension, a family history of coronary artery disease. The patient has not experienced similar symptoms in the past. The patient has not recently seen a physician. Historical: - Allergies: No known drug Allergies; - Home Meds: 1. vitamin E 400 unit Oral tab daily (Last dose: 09/10/2016 04:00) 2. fentanyl 75 mcg/hr Topical pt72 every 72 hours (Last dose: 09/10/2016 04:00) 3. Plavix 75 mg Oral tab 1 tab once daily (Last dose: 09/10/2016 04:00) 4. omeprazole 20 mg Oral cpDR 1 cap once daily (Last dose: 09/10/2016 04:00) 5. furosemide 40 mg Oral tab once daily (Last dose: 09/10/2016 04:00) 6. Vitamin B-12 1,000 mcg Oral tab daily (Last dose: 09/10/2016 04:00) 7. escitalopram oxalate 10 mg oral tab 1 tab once daily (Last dose: 09/10/2016 04:00) 8. metoprolol tartrate 100 mg Oral tab 2 times per day (Last dose: 09/10/2016 04:00) 9. Humalog 100 unit/mL Sub-Q soln 22 unit before meals (Last dose: 09/10/2016 04:00) 10. oxycodone 10 mg Oral tab 1 tab 5 times per day (Last dose: 09/10/2016 04:00) 11. Crestor 5 mg Oral tab 1 tab once daily (Last dose: 09/10/2016 04:00) 12. eszopiclone 2 mg oral tab nightly (Last dose: 09/09/2016) 13. Lyrica 75 mg oral cap 3 times per day (Last dose: 09/10/2016 04:00) 14. insulin levemir 40 unit daily in morning (Last dose: 09/10/2016 04:00) 15. aspirin 81 mg Oral TbEC 1 tab once daily (Last dose: 09/10/2016 04:00) - PMHx: Acute Renal Failure; neuropathy; Hypertension; Diabetes - IDDM: controlled; Chronic Pain; PVD; Spinal Stenosis; - PSHx: stents in left leg; - The history from nurses notes was reviewed: and I agree with what is documented. - Social history: Smoking status: Patient states former smoker of tobacco. No barriers to communication noted, The patient speaks fluent [place]ese, Speaks appropriately for age. - : The pt / caregiver states he / she is on anticoagulants: Plavix. Home medication list is obtained from the patient. - Hospitalizations: : No recent hospitalization is reported. - Exposure Risk Screening:: None identified. - Immunization history:: All immunizations up-to-date. - Family history: Pertinent for diabetes, heart disease, hypertension. - Social history:: the patient is a non-smoker, the patient does not drink alcohol. ROS: 10:02 All systems are negative except as listed. The cardiovascular, respiratory, pc gastrointestinal and neurological components are also addressed in the HPI. Exam: 10:02 General Appearance: alert, no acute distress. pc 10:02 ENT: ear, nose and throat normal, pharynx normal. 10:02 Neck: supple, non-tender, no masses are appreciated, no carotid bruits. 10:02 Respiratory: no respiratory distress, normal breath sounds. 10:02 Respiratory: Chest tenderness in the mid-sternal area, is associated with palpation. 10:02 Cardiovascular: regular pulse rate, regular heart rhythm, normal heart sounds, equal and full pulses bilaterally. 10:02 Abdomen: soft, non-tender, no organomegaly, normal bowel sounds. 10:02 Skin: skin color is normal, warm, dry. 10:02 Extremities: The extremities have a grossly normal appearance, are non-tender, without acute ROM abnormalities, chronic stasis dermatitis . 10:02 Neuro: alert, oriented to person, place and time, cranial nerves normal as tested, no motor deficits, no sensory deficits. 10:02 Psych: normal mood. Vital Signs: 09:35 BP 138 / 71 (auto/); jo3 09:35 Pulse 86 MON; Pulse Ox 95% ; jo3 09:38 BP 138 / 71; Pulse 88; Resp 20; Temp 99.9; Pulse Ox 99% ; Weight 102.97 kg / 227.01 jo3 lbs; Height 5 ft. 9 in. (175.26 cm); Pain 10; 09:45 BP 122 / 58 (auto/); jo3 09:45 Pulse 82 MON; Pulse Ox 99% ; jo3 10:00 BP 139 / 62 (auto/); jo3 10:00 Pulse 86 MON; Pulse Ox 97% ; jo3 10:15 BP 129 / 60 (auto/); jo3 10:15 Pulse 80 MON; Pulse Ox 95% ; jo3 10:30 BP 134 / 63 (auto/); jo3 10:30 Pulse 76 MON; Pulse Ox 96% ; jo3 10:45 Pulse 76 MON; Pulse Ox 95% ; jo3 10:45 BP 132 / 64 (auto/); jo3 11:00 BP 128 / 60 (auto/); jo3 11:00 Pulse 80 MON; Pulse Ox 94% ; jo3 11:15 BP 124 / 56 (auto/); jo3 11:15 Pulse 80 MON; Pulse Ox 93% ; jo3 11:30 BP 124 / 60 (auto/); jo3 11:30 Pulse 80 MON; Pulse Ox 95% ; jo3 11:45 BP 128 / 59 (auto/); jo3 11:45 Pulse 74 MON; Pulse Ox 93% ; jo3 12:00 BP 119 / 59 (auto/); jo3 12:00 Pulse 76 MON; Pulse Ox 96% ; jo3 09:38 Body Mass Index 33.52 (102.97 kg, 175.26 cm) jo3 MDM: 09:29 ECG WITH READING ER PHYS+CARDIAG ordered. EDMS 10:01 Bit Tapper/Pulse Ox/q 30 min VS ordered. pc 10:01 IV Saline Lock ordered. pc 10:01 Rhythm Strip to chart ordered. pc 10:02 Basic Metabolic Profile Ordered. EDMS 10:02 CBC with Diff Ordered. EDMS 10:02 Cardiac Injury Profile Ordered. EDMS 10:02 Troponin Ordered. EDMS 10:02 Chest, 2 View (pa\E\lat) Ordered. EDMS 10:02 Differential diagnosis: acute myocardial infarction, coronary artery disease pc esophagitis, gastritis, gastroesophageal reflux disease (GERD), pancreatitis, unstable angina. Plan: labs, EKG, imaging, meds. The patient was medicated with aspirin in the Emergency Department. Test interpretation: EKG. 10:06 oxyCODONE 10 mg PO once ordered. jo3 10:32 Financial registration complete. mm15 10:38 LIPASE Ordered. EDMS 10:38 LIVER PROFILE Ordered. EDMS 11:03 [facility] Payment Agreement was scanned into [employer] and attached to record. mm15 11:05 CBC with Diff Reviewed. pc 11:05 Chest, 2 View (pa\E\lat) Reviewed. pc 11:13 Basic Metabolic Profile Reviewed. pc 11:13 LIVER PROFILE Reviewed. pc 11:13 Cardiac Injury Profile Reviewed. pc 11:13 Troponin Reviewed. pc 11:13 LIPASE Reviewed. pc 11:14 Redraw CIP &Troponin (put time in details section) ordered. pc 11:14 Repeat EKG (put time details section) ordered. pc 11:15 Redraw CIP &Troponin (put time in details section) complete. deg 11:15 Repeat EKG (put time details section) complete. deg 11:16 ECG WITH READING ER PHYS ordered. EDMS 11:16 CARDIAC MARKER PANEL Ordered. EDMS 12:12 Test interpretation: EKG. pc 12:50 CARDIAC MARKER PANEL Reviewed. pc 13:32 CT Chest Angio R/O PE Ordered. EDMS 14:05 Data reviewed: old medical records, vital signs, nurses notes, EKG(s), lab test pc results, all radiology studies and available results. Test interpretation: LAB - all labs as ordered have been reviewed, interpreted and considered in the overall management of the clinical presentation; X-RAY - interpreted by Radiologist and personally reviewed, 1 view chest no acute disease, interpreted by Radiologist and personally reviewed, Chest CT; no PE, bibasilar atelectasis . The patient has been re-examined and re-evaluated. The patient's symptoms have markedly improved after treatment. Physician consultation: Dr. Emanuel Charles MD was contacted at 14:06, regarding patient's condition, and advises the medications/treatment as provided. and agrees with the treatment provided and advises the discharge plans as outlined. Disposition: The historical points, examination findings, and any diagnostic results supporting the provided diagnosis, were discussed with the patient or legal guardian. The need for outpatient follow up with the provider listed on their discharge instructions was discussed. They were encouraged to return to [facility], or the nearest ED, if symptoms worsen/persist, or for any other questions/concerns. EC:02 Rate is 84 beats/min. Rhythm is regular, Normal Sinus Rhythm with Occasional PVCs. QRS pc [place] is Normal. [place] interval is normal. QRS interval is normal. QT interval is normal. No Q waves. T waves are Normal. No ST changes noted. Clinical impression: Normal Sinus Rhythm and Occ. PVC, PRWP. No change from previous ECG in March,. 12:12 Rate is 78 beats/min. Rhythm is regular, Normal Sinus Rhythm. QRS [place] is Normal. [place] pc interval is normal. QRS interval is normal. QT interval is normal. No Q waves. T waves are Normal. No ST changes noted. Clinical impression: Normal Sinus Rhythm and PRWP. Administered Medications: 10:07 CANCELLED (Took prior to arrival ): Aspirin Chewable Tablet 324 mg PO once jo3 10:12 Drug: oxyCODONE 10 mg [oxycodone 5 mg tablet (2 tabs)] Route: PO; jo3 Signatures: Dispatcher [employer] EDIL Terrence Burton MD MD pc Murray, Denise, V Belt Skiver Unit deg Jessica Amin RN RN jo3 Ana Sen RN RN Prema Constantino mm15 The chart was reviewed and I authenticate all verbal orders and agree with the evaluation and treatment provided.Corrections: (The following items were deleted from the chart) :56 Home Meds: aspirin 81 mg Oral TbEC 1 tab once daily; :56 Home Meds: insulin levemir 40 unit daily; in morning; jo:56 Home Meds: Crestor 5 mg Oral tab 1 tab once daily; :56 Home Meds: omeprazole 20 mg Oral cpDR 1 cap once daily; : Home Meds: Plavix 75 mg Oral tab 1 tab once daily; :56 Home Meds: escitalopram oxalate 10 mg oral tab 1 tab once daily; :56 Home Meds: oxycodone 10 mg Oral tab 1 tab 5 times per day; jo:56 Home Meds: Lyrica 75 mg oral cap 3 times per day; :56 Home Meds: furosemide 40 mg Oral tab once daily; :56 Home Meds: Humalog 100 unit/mL Sub-Q soln 22 unit before meals; 3 :56 Home Meds: Vitamin B-12 1,000 mcg Oral tab daily; jo:56 Home Meds: vitamin E 400 unit Oral tab daily; jo3 :56 Home Meds: fentanyl 75 mcg/hr Topical pt72 every 72 hours; pt out of this jo3 medication; :56 Home Meds: metoprolol tartrate 100 mg Oral tab 2 times per day; jo:56 Home Meds: eszopiclone 2 mg oral tab nightly; jo3 10:07 10:01 Aspirin Chewable Tablet 324 mg PO once ordered. pc jo3 10:37 10:03 LIVER PROFILE+LAB ordered. EDMS EDMS 10:37 10:03 LIPASE+LAB ordered. EDMS EDMS Attachments: 11:03 [facility] Payment Agreement mm15 Chart Complete MTDD
--- NOTE | 2016-09-13 21:34 | EDDOCDS ---
Nurse's Notes [facility] Name: Jaden Peña Age: 75 yrs Sex: Male : 1940 Arrival Date: 09/10/2016 Time: 09:26 Bed 5 Private MD: Diagnosis: Chest pain, unspecified Presentation: 09/10 09:28 Presenting complaint: EMS states: Chest pain that started last night at 2200. Pt went jo3 to Urgent Care in [place] this morning. No abnormalities noted on EKG or EMS EKG. 324mg ASA given at . 3 SL nitro given by EMS. Pain has decreased from a 10/10 to 8/10. 20g in LAC. Pain worsens with deep respiration. Pain is mid sternal and radiates around to mid back bilaterally. Aspirin was taken DIRECTOR STRATEGY. Adult Sepsis Screening: The patient does not have new or worsening altered mentation. Suicide/Homicide risk assessment- the patient denies having any suicidal and/or homicidal ideations and does not present with any other emotional, behavioral or mental health complaints. Status: Patient is not a health equipment servicer or dependent. Transition of care: patient was not received from another setting of care. 09:28 Acuity: WADE Level 2 jo3 09:28 Method Of Arrival: Ambulance jo3 10:03 Adult Sepsis Screening: Patient's respiratory rate is less than 22. Systolic blood jo3 pressure is greater than 100. Patient has a qSOFA score of 0- Negative Sepsis Screen. Triage Assessment: 09:47 General: Appears in no apparent distress, comfortable, Behavior is appropriate for age, jo3 cooperative, pleasant. Pain: Location: mid-sternal area Pain currently is 9 out of 10 on a pain scale. Pain radiates to Bilateral lateral rib area around rto mid back. The patient is triaged at the bedside. See Assessment in Nurses Notes section of ED record. Neurological: Level of Consciousness is awake, alert, Oriented to person, place, time. Cardiovascular: Capillary refill is brisk Chest pain is described as severe, radiates to bilateral back episodes are continuous began 2200 last night. Cardiovascular: Edema is 4+ to left midcalf, left ankle, right midcalf and right ankle pitting to left midcalf, left ankle, right midcalf and right ankle. Respiratory: Airway is patent Respiratory effort is even, unlabored, Breath sounds are clear bilaterally. Breath sounds are diminished in left posterior lower lobe and right posterior lower lobe. GI: Abdomen is obese, Bowel sounds present X 4 quads. : No deficits noted. Derm: Skin is pink, warm & dry. Historical: - Allergies: No known drug Allergies; - Home Meds: 1. vitamin E 400 unit Oral tab daily (Last dose: 09/10/2016 04:00) 2. fentanyl 75 mcg/hr Topical pt72 every 72 hours (Last dose: 09/10/2016 04:00) 3. Plavix 75 mg Oral tab 1 tab once daily (Last dose: 09/10/2016 04:00) 4. omeprazole 20 mg Oral cpDR 1 cap once daily (Last dose: 09/10/2016 04:00) 5. furosemide 40 mg Oral tab once daily (Last dose: 09/10/2016 04:00) 6. Vitamin B-12 1,000 mcg Oral tab daily (Last dose: 09/10/2016 04:00) 7. escitalopram oxalate 10 mg oral tab 1 tab once daily (Last dose: 09/10/2016 04:00) 8. metoprolol tartrate 100 mg Oral tab 2 times per day (Last dose: 09/10/2016 04:00) 9. Humalog 100 unit/mL Sub-Q soln 22 unit before meals (Last dose: 09/10/2016 04:00) 10. oxycodone 10 mg Oral tab 1 tab 5 times per day (Last dose: 09/10/2016 04:00) 11. Crestor 5 mg Oral tab 1 tab once daily (Last dose: 09/10/2016 04:00) 12. eszopiclone 2 mg oral tab nightly (Last dose: 09/09/2016) 13. Lyrica 75 mg oral cap 3 times per day (Last dose: 09/10/2016 04:00) 14. insulin levemir 40 unit daily in morning (Last dose: 09/10/2016 04:00) 15. aspirin 81 mg Oral TbEC 1 tab once daily (Last dose: 09/10/2016 04:00) - PMHx: Acute Renal Failure; neuropathy; Hypertension; Diabetes - IDDM: controlled; Chronic Pain; PVD; Spinal Stenosis; - PSHx: stents in left leg; - The history from nurses notes was reviewed: and I agree with what is documented. - Social history: Smoking status: Patient states former smoker of tobacco. No barriers to communication noted, The patient speaks fluent Togolese, Speaks appropriately for age. - : The pt / caregiver states he / she is on anticoagulants: Plavix. Home medication list is obtained from the patient. - Hospitalizations: : No recent hospitalization is reported. - Exposure Risk Screening:: None identified. - Immunization history:: All immunizations up-to-date. - Family history: Pertinent for diabetes, heart disease, hypertension. - Social history:: the patient is a non-smoker, the patient does not drink alcohol. Screenin:51 Screening information is obtained from the patient. Fall risk: No risks identified. jo3 Assistance ADL's: requires no assistance with activities of daily living. Abuse/DV Screen: The patient / caregiver reports he/she is: not in a situation that causes fear, pain or injury. Nutritional screening: No deficits noted. Advance Directives: There is no active DNR order. home support is adequate. Assessment: 09:52 Reassessment: see triage assessment . jo3 10:40 General: Appears in no apparent distress, comfortable, Behavior is appropriate for age, jo3 cooperative, pleasant. General: Resting on stretcher at this time. Family at bedside. awaiting results. Aware of plan of care . Neurological: Level of Consciousness is awake, alert, Oriented to person, place, time. Cardiovascular: Rhythm is sinus rhythm No ectopy. Respiratory: Airway is patent Respiratory effort is even, unlabored. Derm: Skin is pink, warm & dry. 11:40 Reassessment: Patient appears in no apparent distress at this time. No significant jo3 changes noted in physical assessment status. Awaiting cardiac marker draw at 1200. Aware of plan of care . 12:45 General: Appears in no apparent distress, comfortable, Behavior is appropriate for age, jo3 cooperative. Neurological: No deficits noted. Level of Consciousness is awake, alert, Oriented to person, place, time. Respiratory: Airway is patent Respiratory effort is even, unlabored. Derm: Skin is pink, warm & dry. 13:45 Reassessment: Patient appears in no apparent distress at this time. No significant jo3 changes noted. CT angio completed at this time. Awaiting results for disposition. Aware of plan of care . 14:17 General: Appears in no apparent distress, comfortable, Behavior is appropriate for age, dsf cooperative. Neurological: Level of Consciousness is awake, alert, Oriented to person, place, time. Cardiovascular: Capillary refill < 3 seconds. Respiratory: Airway is patent Respiratory effort is even, unlabored, Respiratory pattern is regular, symmetrical. Derm: Skin is pink, warm & dry. Vital Signs: 09:35 BP 138 / 71 (auto/); jo3 09:35 Pulse 86 MON; Pulse Ox 95% ; jo3 09:38 BP 138 / 71; Pulse 88; Resp 20; Temp 99.9; Pulse Ox 99% ; Weight 102.97 kg; Height 5 jo3 ft. 9 in. (175.26 cm); Pain 9/10; 09:45 BP 122 / 58 (auto/); jo3 09:45 Pulse 82 MON; Pulse Ox 99% ; jo3 10:00 BP 139 / 62 (auto/); jo3 10:00 Pulse 86 MON; Pulse Ox 97% ; jo3 10:15 BP 129 / 60 (auto/); jo3 10:15 Pulse 80 MON; Pulse Ox 95% ; jo3 10:30 BP 134 / 63 (auto/); jo3 10:30 Pulse 76 MON; Pulse Ox 96% ; jo3 10:45 Pulse 76 MON; Pulse Ox 95% ; jo3 10:45 BP 132 / 64 (auto/); jo3 11:00 BP 128 / 60 (auto/); jo3 11:00 Pulse 80 MON; Pulse Ox 94% ; jo3 11:15 BP 124 / 56 (auto/); jo3 11:15 Pulse 80 MON; Pulse Ox 93% ; jo3 11:30 BP 124 / 60 (auto/); jo3 11:30 Pulse 80 MON; Pulse Ox 95% ; jo3 11:45 BP 128 / 59 (auto/); jo3 11:45 Pulse 74 MON; Pulse Ox 93% ; jo3 12:00 BP 119 / 59 (auto/); jo3 12:00 Pulse 76 MON; Pulse Ox 96% ; jo3 09:38 Body Mass Index 33.52 (102.97 kg, 175.26 cm) jo3 Vitals: 09:32 Log In Time N/A - ambulance arrival. jo3 ED Course: 09:27 Patient visited by Brittney Reilly, Envelope Maker. deg 09:27 Patient moved to Waiting deg 09:27 Patient moved to 5 deg 09:32 Triage Initiated jo3 09:35 Terernce Burton MD is Attending Physician. pc 09:40 The patient / caregiver is instructed regarding the plan of care and ED course. Cardiac jo3 monitor on. Pulse ox on. NIBP on. 09:40 Maintain field IV. Dressing intact. Good blood return noted. Site clean & dry. Gauge & jo3 site: 20g in LAC . 10:02 Patient visited by Terrence Burton MD. pc 10:36 Basic Metabolic Profile Sent. jo3 10:36 CBC with Diff Sent. jo3 10:36 Cardiac Injury Profile Sent. jo3 10:36 Troponin Sent. jo3 10:40 Patient visited by Jessica Amin,CHACE. jo3 10:40 LIVER PROFILE Sent. jo3 10:40 LIPASE Sent. jo3 10:49 Chest, 2 View (pa\E\lat) Returned. EDMS 11:03 [facility] Payment Agreement was scanned into [employer] and attached to record. mm15 11:50 Patient visited by Terrence Burton MD. pc 11:52 Patient visited by Jessica Amin,CHACE. jo3 12:01 CARDIAC MARKER PANEL Sent. jo3 12:05 EKG done. (by ED staff). Reviewed by Terrence Burton MD. dem1 12:06 Patient visited by Jessica Amin,CHACE. jo3 12:10 Patient visited by Desirae Alva. dem1 13:18 Patient visited by Terrence Burton MD. pc 14:07 Emanuel Charles MD is Referral Physician. pc 14:07 Patsy Lamb is Referral Physician. pc 14:17 Discontinued lock intact, bleeding controlled, pressure dressing applied, No dsf redness/swelling at site. No procedures done that require assistance. 14:56 CT Chest Angio R/O PE Returned. EDMS 09/11 15:14 EKG-ADULT Returned. EDMS 15:14 ECG WITH READING ER PHYS Returned. EDMS Administered Medications: 09/10 10:07 CANCELLED (Took prior to arrival ): Aspirin Chewable Tablet 324 mg PO once jo3 10:12 Drug: oxyCODONE 10 mg [oxycodone 5 mg tablet (2 tabs)] Route: PO; jo3 Order Results: Lab Order: Basic Metabolic Profile; SPEC'M 09/10/16 10:33 Test: GLUCOSE, FASTING; Value: 219; Range: 83-110; Abnormal: Above high normal; Units: MG/DL; Status: F Test: BLOOD UREA NITROGEN; Value: 16; Range: 7-18; Units: MG/DL; Status: F Test: CREATININE FOR GFR; Value: 1.11; Range: 0.70-1.30; Units: MG/DL; Status: F Test: GLOMERULAR FILTRATION RATE; Value: > 60.0; Range: >42; Status: F Test: SODIUM LEVEL; Value: 139; Range: 136-145; Units: MEQ/L; Status: F Test: POTASSIUM SERUM; Value: 4.0; Range: 3.5-5.1; Units: MEQ/L; Status: F Test: CHLORIDE LEVEL; Value: 101; Range: 98-107; Units: MEQ/L; Status: F Test: CARBON DIOXIDE LEVEL; Value: 31; Range: 21-32; Units: MEQ/L; Status: F Test: ANION GAP; Value: 7; Range: 8-16; Abnormal: Below low normal; Units: MEQ/L; Status: F Test: CALCIUM LEVEL; Value: 8.4; Range: 8.8-10.2; Abnormal: Below low normal; Units: MG/DL; Status: F Test Note: ; Units are mL/min/1.73 m2 Chronic Kidney Disease Staging per NKF: Stage I & II GFR >=60 Normal to Mildly Decreased Stage III GFR 30-59 Moderately Decreased Stage IV GFR 15-29 Severely Decreased Stage V GFR <15 Very Little GFR Left ESRD GFR <15 on ADJUNCT PROFESSOR OF [employer] HISTORY Lab Order: CBC with Diff; SPEC'09/10/16 10:33 Test: WHITE BLOOD COUNT; Value: 8.5; Range: 4.0-10.0; Units: K/mm3; Status: F Test: RED BLOOD COUNT; Value: 3.68; Range: 4.30-6.10; Abnormal: Below low normal; Units: M/mm3; Status: F Test: HEMOGLOBIN; Value: 10.9; Range: 14.0-18.0; Abnormal: Below low normal; Units: g/dl; Status: F Test: HEMATOCRIT; Value: 33.7; Range: 42.0-52.0; Abnormal: Below low normal; Units: %; Status: F Test: MEAN CORPUSCULAR VOLUME; Value: 91.7; Range: 80.0-96.0; Units: fl; Status: F Test: MEAN CORPUSCULAR HEMOGLOBIN; Value: 29.6; Range: 27.0-33.0; Units: pg; Status: F Test: MEAN CORPUSCULAR HGB CONC; Value: 32.3; Range: 32.0-36.5; Units: g/dl; Status: F Test: RED CELL DISTRIBUTION WIDTH; Value: 14.8; Range: 11.5-14.5; Abnormal: Above high normal; Units: %; Status: F Test: PLATELET COUNT, AUTOMATED; Value: 152; Range: 150-450; Units: k/mm3; Status: F Test: NEUTROPHILS %; Value: 80.1; Range: 36.0-66.0; Abnormal: Above high normal; Units: %; Status: F Test: LYMPH %; Value: 8.6; Range: 24.0-44.0; Abnormal: Below low normal; Units: %; Status: F Test: MONO %; Value: 9.5; Range: 0.0-5.0; Abnormal: Above high normal; Units: %; Status: F Test: EOS %; Value: 0.3; Range: 0.0-3.0; Units: %; Status: F Test: BASO %; Value: 0.2; Range: 0.0-1.0; Units: %; Status: F Test: LARGE UNSTAINED CELL %; Value: 1.3; Range: 0.0-4.0; Units: %; Status: F Test: NEUTROPHILS #; Value: 6.8; Range: 1.8-7.7; Units: K/mm3; Status: F Test: LYMPH #; Value: 0.8; Range: 1.5-4.5; Abnormal: Below low normal; Units: K/mm3; Status: F Test: MONO #; Value: 0.8; Range: 0.0-0.8; Units: K/mm3; Status: F Test: EOS #; Value: 0.0; Range: 0.0-0.50; Units: K/mm3; Status: F Test: BASO #; Value: 0.0; Range: 0.0-0.2; Units: K/mm3; Status: F Test: LARGE UNSTAINED CELL #; Value: 0.1; Range: 0.0-0.4; Units: K/mm3; Status: F Lab Order: Cardiac Injury Profile; [facility] 09/10/16 10:33 Test: CPK CREATINE PHOSPHOKINASE; Value: 135; Range: 39-308; Units: U/L; Status: F Test: CK-MB VALUE MASS; Value: 2.6; Range: 0.0-3.6; Units: NG/ML; Status: F Test: MB/CK RELATIVE INDEX; Value: 1.92; Range: < OR =4; Status: F Test Note: ; DIAGNOSIS CRITERIA MMB ng/ml Relative Index (RI) NON-AMI < or = 5 N/A MOSS [place]ONE > 5 < or = 4 AMI > 5 > 4 Lab Order: Troponin; [facility] 09/10/16 10:33 Test: TROPONIN I; Value: < 0.02; Range: < 0.10; Units: NG/ML; Status: F Test Note: ; Troponin I Reference Interval for Creactives LOCI: 99th Percentile= 0.00-0.045 ng/ml Risk Stratification: <= 0.10 ng/ml Decreased Risk for Adverse Clinical Events. 0.10-1.50 ng/ml Increased Risk for Adverse Clinical Events. Evaluation of additional criterion and/or repeat testing in 2-6 hours is suggested to rule out myocardial damage. >= 1.50 ng/ml Indicative of Myocardial Injury. Lab Order: LIPASE; [facility] 09/10/16 10:33 Test: LIPASE; Value: 86; Range: 73-393; Units: U/L; Status: F Lab Order: LIVER PROFILE; [facility] 09/10/16 10:33 Test: AST/SGOT; Value: 17; Range: 15-37; Units: U/L; Status: F Test: ALT/SGPT; Value: 16; Range: 12-78; Units: U/L; Status: F Test: ALKALINE PHOSPHATASE; Value: 78; Range: 45-117; Units: U/L; Status: F Test: BILIRUBIN,TOTAL; Value: 0.6; Range: 0.2-1.0; Units: MG/DL; Status: F Test: BILIRUBIN,DIRECT; Value: 0.2; Range: 0.0-0.2; Units: MG/DL; Status: F Test: TOTAL PROTEIN; Value: 6.1; Range: 6.4-8.2; Abnormal: Below low normal; Units: GM/DL; Status: F Test: ALBUMIN; Value: 3.3; Range: 3.2-5.2; Units: GM/DL; Status: F Test: ALBUMIN/GLOBULIN RATIO; Value: 1.18; Range: 1.00-1.93; Status: F Lab Order: CARDIAC MARKER PANEL; SPEC'M 09/10/16 11:58 Test: CPK CREATINE PHOSPHOKINASE; Value: 123; Range: 39-308; Units: U/L; Status: F Test: CK-MB VALUE MASS; Value: 2.6; Range: 0.0-3.6; Units: NG/ML; Status: F Test: MB/CK RELATIVE INDEX; Value: 2.11; Range: < OR =4; Status: F Test: TROPONIN I; Value: < 0.02; Range: < 0.10; Units: NG/ML; Status: F Test Note: ; DIAGNOSIS CRITERIA MMB ng/ml Relative Index (RI) NON-AMI < or = 5 N/A MOSS [place]ONE > 5 < or = 4 AMI > 5 > 4 Radiology Order: EKG-ADULT Test: EKG-ADULT REASON FOR EXAMINATION: Chest Pain; Stationary ECG Study; [facility] - ED; ; Test Date: 2016-09-10; Pat Name: JADEN PEÑA Department:; Room: -; Gender: M Branch Manager: [email or web address]; : 1940 Requested By: Terrence Tucker; Order Number: [id number] Reading MD: Jaquelin Lucas; Measurements; Intervals [place]; Rate: 84 P: 4; VA: 170 QRS: 22; QRSD: 89 T: 58; QT: 348; QTc: 413; Interpretive Statements; SINUS RHYTHM WITH OCCASIONAL VENTRICULAR PREMATURE COMPLEXES WITH OCCASIONAL; SUPRAVENTRICULAR PREMATURE COMPLEXES; POSSIBLE ANTERIOR MYOCARDIAL INFARCTION, OF INDETERMINATE AGE; LOW VOLTAGE LIMB; DECREASED RATE 04/06/14; Electronically Signed On 09-11-2016 15:10:17 EST by Jaquelin Lucas; Radiology Order: Chest, 2 View (pa\E\lat) Test: Chest, 2 View (pa\E\lat) REASON FOR EXAMINATION: Chest Pain; Clinical: Chest pain .; ; Comparison: 07/13/2015 .; ; Technique: PA and lateral.; ; Findings:; The mediastinum and cardiac silhouette are normal. The lung comer are; essentially clear and without acute consolidation, effusion, or pneumothorax.; However, trace left basilar atelectasis cannot be excluded and should be; correlated clinically. The skeletal structures are intact and normal.; ; Impression:; Possible trace left basilar atelectasis.; ; ; Signed by; Jethro Goodwin MD 09/10/2016 10:18 A; Radiology Order: CT Chest Angio R/O PE Test: CT Chest Angio R/O PE REASON FOR EXAMINATION: Chest Pain; Clinical: Acute chest pain.; ; Technique: Axial contrast enhanced images from the thoracic inlet to the upper; abdomen using 100 ml Isovue 370 intravenous contrast material with coronal and; sagittal re-formations.; ; Findings: Satisfactory enhancement of the pulmonary vasculature is achieved and; no filling defects are identified to suggest pulmonary embolus. Lung comer; demonstrate minimal bibasilar atelectasis and small pleural reactions.; Cardiomegaly is appreciated with atherosclerotic changes to the thoracic aorta; and coronary arteries. No pericardial effusion. No significant adenopathy.; Musculoskeletal structures are intact. Limited evaluation of the upper abdomen; demonstrates bilateral renal cysts.; ; ; ; Impression:; No evidence for pulmonary embolus.; Mild bibasilar atelectasis and small pleural reactions.; ; ; Signed by; Jethro Goodwin MD 09/10/2016 02:03 P; Outcome: 14:07 Discharge ordered by Provider. pc 14:18 Discharge Assessment: Patient awake, alert and oriented x 3. No cognitive and/or dsf functional deficits noted. Patient verbalized understanding of disposition instructions. patient administered narcotics - yes. Pt provided with safe discharge. The following High Risk Discharge criteria are identified: None. Discharged to home ambulatory. Condition: stable. Discharge instructions given to patient, Instructed on discharge instructions, follow up and referral plans. Demonstrated understanding of instructions, Pt was receptive of discharge instructions/ teaching. CT Study completed. Property sent home with patient. 14:30 Patient left the ED. dsf Signatures: Dispatcher [employer] Terrence Leslie MD MD pc Murray, Denise, Envelope Maker Unit deg Jessica Amni RN RN jo3 Fuller, Desiree, RN RN dsf Mack, Demeishia dem1 McGrath, Marlynn mm15 Corrections: (The following items were deleted from the chart) 09:56 Home Meds: aspirin 81 mg Oral TbEC 1 tab once daily; jo 09:56 Home Meds: insulin levemir 40 unit daily; in morning; 09:56 Home Meds: Crestor 5 mg Oral tab 1 tab once daily; 09:56 Home Meds: omeprazole 20 mg Oral cpDR 1 cap once daily; 09:56 Home Meds: Plavix 75 mg Oral tab 1 tab once daily; 09:56 Home Meds: escitalopram oxalate 10 mg oral tab 1 tab once daily; 09:56 Home Meds: oxycodone 10 mg Oral tab 1 tab 5 times per day; 09:56 Home Meds: Lyrica 75 mg oral cap 3 times per day; 09:56 Home Meds: furosemide 40 mg Oral tab once daily; 09:56 Home Meds: Humalog 100 unit/mL Sub-Q soln 22 unit before meals; 09:56 Home Meds: Vitamin B-12 1,000 mcg Oral tab daily; 09:56 Home Meds: vitamin E 400 unit Oral tab daily; 3 09:56 Home Meds: fentanyl 75 mcg/hr Topical pt72 every 72 hours; pt out of this jo3 medication; 09:56 Home Meds: metoprolol tartrate 100 mg Oral tab 2 times per day; 09:56 Home Meds: eszopiclone 2 mg oral tab nightly; jo3 jo3 10:37 10:36 LIPASE+LAB sent. jo3 [place] 10:37 10:36 LIVER PROFILE+LAB sent. jo3 EDMS Chart Complete MTDD
== END 2016-09-10 14:30 | disposition home or self-care (01) ==
LOC: M ED 09:26
DX: R07.9 Chest pain, unspecified (principal); N17.9 Acute kidney failure, unspecified; I10 Essential (primary) hypertension; E10.29 Type 1 diabetes mellitus with other diabetic kidney complication; G89.29 Other chronic pain; M48.00 Spinal stenosis, site unspecified; I73.9 Peripheral vascular disease, unspecified; G62.9 Polyneuropathy, unspecified; Z87.891 Personal history of nicotine dependence; Z79.2 Long term (current) use of antibiotics; Z79.82 Long term (current) use of aspirin; Z79.4 Long term (current) use of insulin; Z79.899 Other long term (current) drug therapy
CPT/HCPCS: 36415; 71020; 71275; 80048; 80076; 82550; 82553; 83690; 84484; 85025; 93005; 93041; 99285; Q9967

== ENCOUNTER → 2016-10-30 | Outpatient (CLI) | payer MEDICARE, MEDICAID ==
[2016-10-30 13:24] LABS: MEAN CORPUSCULAR HGB CONC 31.7 g/dl (32.0-36.5); MEAN CORPUSCULAR VOLUME 91.3 fl (80.0-96.0); RED CELL DISTRIBUTION WIDTH 15.2 % (11.5-14.5)
[2016-10-30 13:30] LABS: ALBUMIN 3.6 GM/DL (3.2-5.2); ALBUMIN/GLOBULIN RATIO 1.33 (1.00-1.93); BILIRUBIN,TOTAL 0.8 MG/DL (0.2-1.0); CREATININE FOR GFR 1.57 MG/DL (0.70-1.30); POTASSIUM SERUM 4.3 MEQ/L (3.5-5.1); TOTAL PROTEIN 6.3 GM/DL (6.4-8.2)
--- NOTE | 2016-10-30 13:53 | REP ---
Right knee series: Six views. History: Pain in the right knee. History of falls. Findings: Five views of the right knee demonstrate diffuse osteopenia and vascular calcification. There is soft tissue swelling in the region of the suprapatellar bursa suggestive of a joint effusion. No fracture is seen. Minimal patellar spurring is noted. Impression: Findings suggestive of a small joint effusion. No fracture seen. Mild patellar spurring. Signed by Mauro Elizalde MD 10/30/2016 03:13 P
== END ==
LOC: M ADAMS 09:52
PROVIDERS: ATTEND Nurse Practitioner Family
DX: M25.761 Osteophyte, right knee (principal); M25.561 Pain in right knee; I12.9 Hypertensive chronic kidney disease with stage 1 through stage 4 chronic kidney disease, or unspecified chronic kidney disease; E11.40 Type 2 diabetes mellitus with diabetic neuropathy, unspecified

== ENCOUNTER 2017-02-09 09:57 | Emergency (ER) | payer MEDICARE, MEDICAID ==
[~2017-02-09] VITALS: Ht 172.7 cm; Wt 112.7 kg
[~2017-02-09 09:57] MED LIST changes: -LUNE1TAB9 PO; +LUNE2TAB23 PO; +OXYC-141 PO; -OXYC-299 PO; +PLAV1TAB2 PO; -PLAV75TA38 PO
[2017-02-09 09:58] VITALS: BP 149/65
[2017-02-09] MEDS ORDERED: LYRI150C PO (10:31)
[2017-02-09] MEDS ORDERED: INSUDET SC (10:31)
[2017-02-09] MEDS ORDERED: METO100T5 PO (10:31)
[2017-02-09] MEDS ORDERED: SERT-155 PO (10:31)
[2017-02-09] MEDS ORDERED: TORS20TA2 PO (10:31)
[2017-02-09] MEDS ORDERED: ROSU5TAB PO (10:31)
[2017-02-09] MEDS ORDERED: HUMA100I5 SC (10:31)
[2017-02-09] MEDS ORDERED: GABA-282 PO (10:32)
[2017-02-09] MEDS ORDERED: OXYC1TAB16 PO (11:09)
[2017-02-09] MEDS ORDERED: FENT12PA TOP (11:09)
== END 2017-02-09 11:25 | disposition home or self-care (01) ==
LOC: M ED 09:57
DX: M51.36 Other intervertebral disc degeneration, lumbar region (principal); M54.31 Sciatica, right side; I10 Essential (primary) hypertension; E78.5 Hyperlipidemia, unspecified; Z95.1 Presence of aortocoronary bypass graft; Z87.891 Personal history of nicotine dependence; Z79.82 Long term (current) use of aspirin; Z79.4 Long term (current) use of insulin; Z79.899 Other long term (current) drug therapy

== ENCOUNTER → 2017-02-12 | Outpatient (CLI) | payer MEDICARE, MEDICAID ==
[~2017-02-12] MED LIST changes: +FENT12PA TOP; +GABA-282 PO; +HUMA100I5 SC; +INSUDET SC; +LYRI150C PO; +METO100T5 PO; +OXYC1TAB16 PO; +ROSU5TAB PO; +SERT-155 PO; +TORS20TA2 PO
--- NOTE | 2017-03-02 00:04 | ECWPNPC ---
PATIENT NAME: JAI MONTAÑO : 1940 GENDER: MALE VISIT DATE: 02/12/2017 DISCHARGE DATE: 02/12/17 1338 VISIT LOCKED DATE TIME: PHYSICIAN: LENA FUENTES RESOURCE: LENA FUENTES REASON FOR APPOINTMENT 1. BACK/LEGS PAIN HISTORY OF PRESENT ILLNESS NEW PATIENT CONSULT: WHEN DID YOUR PAIN FIRST START? . BRIEFLY DESCRIBE HOW YOUR PAIN STARTED? . HOW DOES YOUR PAIN CHANGE WITH TIME? . DOES YOUR PAIN AWAKEN YOU FROM SLEEP? . HOW MANY HOURS OF SLEEP DO YOU NORMALLY GET? . ANY DIAGNOSTIC TESTING? . FACILITY WHERE TESTS WERE DONE? ____. PAIN TREATMENT TREATMENT YES CANCER HAVE YOU EVER HAD ANY TYPE OF CANCER?NO NO. 76 YEAR OLD MALE PATIENT WITH HISTORY OF CHRONIC LOW BACK PAIN. PATIENT DESCRIBES THE PAIN SHARP, TENDER, THROBBING, SORE, AND HAVING IT ALL THE TIME WITH A PAIN SCORE OF 6/10. PATIENT STATES HE HAS HAD PAIN FOR A WHILE BUT IT HAS GOTTEN PROGRESSIVELY WORSE. PATIENT IS CURRENTLY USING OXYCODONE AND LYRICA PRESCRIBED BY HIS PRIMARY. PATIENT STATES THAT ANY TYPE OF ACTIVITY INCLUDING WALKING, STANDING, AND SITTING INCREASES THE PAIN IN HIS LOWER BACK. PATIENT DENIES UNEXPLAINABLE WEIGHT LOSS, FEVER, CHILLS, NEW CHANGES ON HIS URINARY OR BOWEL CONTROL. PAIN SCREENING: PATIENT HAS A COMPLAINT OF ACUTE OR CHRONIC PAIN :YES FALL RISK SCREENING: SCREENING :NO FALLS IN THE PAST YEAR TAPIA INVENTORY: QUESTIONNAIRE ASSESSEDTBD SCORE VALUE CALCULATED TBD CURRENT MEDICATIONS TAKING TORSEMIDE 20 MG TABLET ORALLY TAKING SERTRALINE HCL 50 MG TABLET 1 TABLET ORALLY ONCE A DAY TAKING LYRICA 150 MG CAPSULE 1 CAPSULE ORALLY TWICE A DAY TAKING PLAVIX 75 MG TABLET 1 TABLET ORALLY ONCE A DAY TAKING METOPROLOL TARTRATE 100 MG TABLET 1 TABLET WITH FOOD ORALLY TWICE A DAY TAKING FENTANYL 75 MCG/HR PATCH 72 HOUR 1 PATCH TO SKIN TRANSDERMAL TAKING EPINASTINE HCL 0.05 % SOLUTION 1 DROP INTO AFFECTED EYE OPHTHALMIC TWICE A DAY TAKING FLUTICASONE FUROATE 27.5 MCG/SPRAY SUSPENSION 1 PUFF IN EACH NOSTRIL NASALLY ONCE A DAY TAKING OMEPRAZOLE 20 MG CAPSULE DELAYED RELEASE 1 CAPSULE ORALLY ONCE A DAY TAKING CRESTOR 5 MG TABLET 1 TABLET ORALLY ONCE A DAY TAKING LOPRESSOR 100 MG TABLET 1 TABLET WITH FOOD ORALLY TWICE A DAY TAKING LUNESTA 2 MG TABLET 1 TABLET IMMEDIATELY BEFORE BEDTIME ORALLY ONCE A DAY TAKING ELESTAT 0.05 % SOLUTION 1 DROP INTO AFFECTED EYE OPHTHALMIC TWICE A DAY TAKING FLOVENT DISKUS 100 MCG/BLIST AEROSOL POWDER BREATH ACTIVATED 1 PUFF INHALATION TWICE A DAY TAKING LEVEMIR 100 UNIT/ML SOLUTION SUBCUTANEOUS TAKING BETAMETHASONE DIPROPIONATE 0.05 % GEL 1 APPLICATION TO AFFECTED AREA EXTERNALLY ONCE A DAY TAKING VITAMIN B-12 1000 MCG TABLET CHEWABLE ORALLY TAKING GABAPENTIN 300 MG TABLET 2 TABS ORALLY BEFORE BEDTIME TAKING OXYCODONE-ACETAMINOPHEN 10-325 MG TABLET 1 TABLET NEEDED ORALLY EVERY 6 HRS MEDICATION LIST REVIEWED AND RECONCILED WITH THE PATIENT PAST MEDICAL HISTORY HTN COPD HIGH CHOLESTEROL CHRONIC KIDNEY DISEASE SPINAL STENOSIS DIABETES ALLERGIES STATINS (FOR ALLERGY USE ONLY) GEMMA INHIBITOR (FOR ALLERGIES USE ONLY): RENAL FAILURE SURGICAL HISTORY VASCULAR STENTS IN LEGS 2007 FAMILY HISTORY FATHER: MOTHER: SIBLINGS: ALIVE, DIAGNOSED WITH HYPERTENSION, HEART DISEASE SON(S): ALIVE SOCIAL HISTORY GENERAL: TOBACCO USE ARE YOU A:FORMER SMOKER HOW LONG HAS IT BEEN SINCE YOU LAST SMOKED?> 10 YEARS ALCOHOL SCREENING POINTS0 INTERPRETATIONNEGATIVE PAIN CLINIC PFS, CLERGY, PUBLIC HEALTH REFERRALS CLERGY REFERRAL NEEDED?NO WAS THE PROVIDER NOTIFIED OF ANY PERTINENT INFO?NO PFS REFERRAL NEEDED?NO PUBLIC HEALTH REFERRAL NEEDED?NO PATIENT: ____. HOSPITALIZATION/MAJOR DIAGNOSTIC PROCEDURE KIDNEY FAILURE 2014 REVIEW OF SYSTEMS REVIEWED BY: PROVIDER: LENA FUENTES MD . CONSTITUTIONAL: ANY CHANGE IN YOUR MEDICAL CONDITION? NO . CHILLS NO . FEVER NO . INFECTION: DO YOU HAVE NEW INFECTIONS? NO . DO YOU HAVE HISTORY OF MRSA? NO . MUSCULOSKELETAL: ANY NEW PATTERNS OF PAIN OR NUMBNESS? NO . SYTEMIC LUPUS NO . GASTROENTEROLOGY: ANY NEW CHANGE IN BOWEL CONTROL? NO . BARRETTS ESOPHAGUS NO . CIRRHOSIS NO . HEPATITIS NO . LIVER FAILURE NO . ACID REFLUX NO . UNEXPLAINED WEIGHT LOSS NO . GENITOURINARY: ANY NEW CHANGE IN BLADDER CONTROL? NO . IS THERE A CHANCE YOU COULD BE ? NO . HEMATOLOGY/LYMPH: DO YOU TAKE ANY BLOOD THINNERS? (FOR EXAMPLE- COUMADIN, PLAVIX, AGGRENOX, PLATEL, PRADAXA, OR XARELTO) YES PLAVIX . WHEN WAS YOUR LAST DOSE? DATE: TIME: . LOW PLATELET COUNT NO . SICKLE CELL DISEASE NO . VON WILLIEBRANDS NO . FACTOR V LEIDEN NO . THALLASEMIA NO . ANEMIA NO . EASY BRUISING NO . NEUROLOGY: HAVE YOU FALLEN IN THE PAST 6 MONTHS? YES NEUROPATHY IN LEGS . ANY NEW EXTREMITY NUMBNESS OR WEAKNESS? YES . HEAD INJURY NO . DEMENTIA NO . CEREBRAL PALSY NO . MULTIPLE SCLEROSIS NO . DIZZINESS NO . HEADACHE NO . STROKES NO . VERTIGO NO . CARDIOLOGY: DO YOU HAVE A PACEMAKER OR DEFIBRILLATOR? NO . ANGINA NO . HEART ATTACK NO . HEART SURGERY NO . CONGESTIVE HEART FAILURE/FLUID OVERLOAD NO . CHEST PAIN NO . HIGH BLOOD PRESSURE NO . IRREGULAR HEART BEAT NO . RESPIRATORY: HAVE YOU BEEN SICK IN THE PAST WEEK? NO . FEVER NO . FLU LIKE SYMPTOMS? NO . CPAP NO . BYPAP NO . ASTHMA NO . EMPHYSEMA NO . CHRONIC LUNG DISEASES NO . SHORTNESS OF BREATH ON EXERTION NO . DO YOU USE ANY TYPE OF TOBACCO (SMOKE, SMOKELESS, CHEW)? NO . COUGH NO . SNORING NO . INTEGUMENTARY: DO YOU HAVE ANY RASHES OR OPEN SORES? NO . ALLERGIC/IMMUNO: ARE YOU ALLERGIC TO SHELLFISH OR IV DYE? NO . ANY NEW ALLERGIES? NO . PSYCHIATRIC: DO YOU HAVE THOUGHTS OF HURTING YOURSELF OR SOMEONE ELSE? NO . ARE YOU ABUSED, NEGLECTED, OR IN AN UNSAFE ENVIRONMENT? NO . ENDOCRINOLOGY: ARE YOU DIABETIC? YES . THYROID DISORDER NO . OTHER: DO YOU NEED ANY PRESCRIPTIONS? NO . IF YES, PLEASE LIST: ____ . ANY NEW PROBLEMS WITH YOUR MEDICATIONS? NO . WHEN DID YOU LAST EAT? ____ . WHEN DID YOU LAST DRINK? ____ . WHAT DID YOU LAST DRINK? ____ . NAME OF PERSON DRIVING YOU HOME? ____ . DO YOU HAVE ANY OTHER QUESTIONS OR CONCERNS NO . VITAL SIGNS WT 226 LBS, HT 68 IN, BMI 34.36 INDEX, BP 143/68 MM HG, HR 81 /MIN, RR 18 /MIN, TEMP 98.4 F, OXYGEN SAT % 93%, NA INITIALS SC 12:56. EXAMINATION : PATIENT IS ALERT O X 3 AND COOPERATIVE. TENDERNESS IN THE LOWER BACK AND PARASPINAL MUSCLE GROUP. MRI OF THE LUMBAR SPINE DONE ON 02/01/16 SHOWS MULTIPLE BULGING DISC AND HYPERTROPHY. ASSESSMENTS SPONDYLOSIS WITHOUT MYELOPATHY OR RADICULOPATHY, LUMBAR REGION - M47.816 (PRIMARY) SPONDYLOSIS WITHOUT MYELOPATHY OR RADICULOPATHY, LUMBOSACRAL REGION - M47.817 TREATMENT SPONDYLOSIS WITHOUT MYELOPATHY OR RADICULOPATHY, LUMBAR REGION NOTES: WE DISCUSSED SEVERAL ISSUES WITH MR. MONTAÑO'S PAIN MANAGEMENT CASE. AT THIS TIME THE PATIENT WILL CONTINUE WITH THE SAME MEDICATION REGIME BEFORE. PATIENT IS USING THE FENTANYL AND OXYCODONE FOR THE SOMATIC PAIN. PATIENT WILL SIGN A NARCOTIC AGREEMENT TODAY. PATIENT WILL PERFORM A URINE TOXICOLOGY WELL. WE DISCUSSED THE DCS SYSTEM AND GAVE THE PATIENT INFORMATION TO REVIEW. WE ALSO DISCUSSED MOVING FORWARD WITH LUMBAR FACET BLOCK AT THIS TIME THE PATIENT DOES NOT WANT TO MOVE FORWARD WITH INTERVENTIONS BUT WILL CONSIDER IT IN THE FUTURE. I WOULD ALSO LIKE TO SPEAK TO THE PATIENTS PRIMARY CARE PHYSICIAN ABOUT HIS CASE. PATIENT WILL RETURN TO THE CLINIC IN [address] DOMINGUEZ:THANK YOU FOR YOUR KIND REFERRAL OF MR. MONTAÑO. YOU WANT TO DISCUSS HER CASE WITH ME PLEASE CALL ME AT THE PAIN CENTER AT [phone]. SINCERELY,LENA FUENTES, [facility]. OTHERS REFILL FENTANYL PATCH 72 HOUR, 50 MCG/HR, 1 PATCH TO SKIN, TRANSDERMAL, Q 3 DAYS MDD1, 30 DAY(S), 10, REFILLS 0 REFILL OXYCODONE-ACETAMINOPHEN TABLET, 10-325 MG, 1 TABLET NEEDED, ORALLY, EVERY 4 HRS PRN FOR PAIN MDD5, 30 DAY(S), 140, REFILLS 0 PROCEDURE CODES FA211 ESTABILISHED PATIENT [facility]ILITY CHARGE G8427 DOC MEDS VERIFIED W/PT OR RE G8730 PAIN ASSESS POS TOOL F/U PLAN DOC DISPOSITION & COMMUNICATION FOLLOW UP 3 WEEKS ELECTRONICALLY SIGNED BY LENA FUENTES MD ON 03/01/2017 AT 08:04 PM EDT DISCLAIMER : THIS IS A VISIT SUMMARY EXTRACTED FROM THE [employer] CHART. IT IS NOT A COPY OF THE [employer] PROGRESS NOTE. MTDD
== END ==
LOC: M PAIN 12:40
PROVIDERS: ATTEND Anesthesiology
DX: G89.29 Other chronic pain (principal); M47.816 Spondylosis without myelopathy or radiculopathy, lumbar region; M47.817 Spondylosis without myelopathy or radiculopathy, lumbosacral region; I12.9 Hypertensive chronic kidney disease with stage 1 through stage 4 chronic kidney disease, or unspecified chronic kidney disease; J44.9 Chronic obstructive pulmonary disease, unspecified; E78.00 Pure hypercholesterolemia, unspecified; N18.9 Chronic kidney disease, unspecified; E11.9 Type 2 diabetes mellitus without complications; E66.9 Obesity, unspecified; Z68.34 Body mass index [BMI] 34.0-34.9, adult; Z88.8 Allergy status to other drugs, medicaments and biological substances; Z79.01 Long term (current) use of anticoagulants; Z79.891 Long term (current) use of opiate analgesic; Z79.899 Other long term (current) drug therapy

== ENCOUNTER → 2017-02-17 | Outpatient (REF) | payer MEDICARE, MEDICAID ==
[2017-02-17 13:47] LABS: ALBUMIN 3.6 GM/DL (3.2-5.2); ALBUMIN/GLOBULIN RATIO 1.24 (1.00-1.93); BILIRUBIN,TOTAL 0.5 MG/DL (0.2-1.0); CALCIUM LEVEL 8.7 MG/DL (8.8-10.2); CREATININE FOR GFR 1.35 MG/DL (0.70-1.30); GLOMERULAR FILTRATION RATE 54.7 (>42); POTASSIUM SERUM 3.5 MEQ/L (3.5-5.1); TOTAL PROTEIN 6.5 GM/DL (6.4-8.2)
== END ==
LOC: M SFHCADAM 11:03
PROVIDERS: ATTEND Family Medicine
DX: E11.69 Type 2 diabetes mellitus with other specified complication (principal); R60.9 Edema, unspecified
CPT/HCPCS: 80053; 82043; 83036; G0463

== ENCOUNTER → 2017-03-04 | Outpatient (REF) | payer MEDICARE | LOC: M LAB REF 19:47 → M SFHCADAM 19:47 | PROVIDERS: ATTEND Family Medicine | DX: E11.69 Type 2 diabetes mellitus with other specified complication (principal) ==

== ENCOUNTER → 2017-03-05 | Outpatient (CLI) | payer MEDICARE, MEDICAID ==
--- NOTE | 2017-03-21 23:43 | ECWPNPC ---
PATIENT NAME: JAI MONTAÑO : 1940 GENDER: MALE VISIT DATE: 03/05/2017 DISCHARGE DATE: 03/05/17 1129 VISIT LOCKED DATE TIME: PHYSICIAN: CHARLIE COTTON RESOURCE: CHARLIE COTTON REASON FOR APPOINTMENT 1. BACK PAIN HISTORY OF PRESENT ILLNESS HISTORY OF PRESENT ILLNESS: PAIN THE PATIENT DESCRIBES THE PAIN... FALL RISK SCREENING: SCREENING :NO FALLS IN THE PAST YEAR TODAY'S VISIT: NOTES: RATES PAIN LEVEL TODAY 5/10 AND CAN SPIKE TO 10/10 WHEN MEDS WEAR OFF. . WAS SEEN AT 02/12/[address] HOPPER WHO DID INCREASE FENTANYL TO 50 MCG/HR. HAS NOT HAD ANY ISSUES WITH CONSTIPATION OR SKIN ISSUES. NO OTHER ADVERSE REACTIONS. HAD BEEN ON THE OXY AND THEN FENT ADDED 4-5 YEARS AGO. PAIN IS FROM FEET TO THIGHS. HAS NUMBNESS IN LEGS AND FEET X 6 YEARS. HAS HAD SEVERAL FALLS AND DIFFICULTY WITH WALKING. SLEEP IS GOOD WITH CPAP. . CURRENT MEDICATIONS TAKING DULOXETINE HCL 30 MG CAPSULE DELAYED RELEASE PARTICLES 1 CAPSULE ORALLY TWICE A DAY TAKING EPINASTINE HCL 0.05 % SOLUTION 1 DROP INTO AFFECTED EYE OPHTHALMIC TWICE A DAY, NOTES: DUPLICATE TAKING TORSEMIDE 20 MG TABLET ORALLY TAKING SERTRALINE HCL 50 MG TABLET 1 TABLET ORALLY ONCE A DAY TAKING LYRICA 150 MG CAPSULE 1 CAPSULE ORALLY TWICE A DAY TAKING PLAVIX 75 MG TABLET 1 TABLET ORALLY ONCE A DAY TAKING METOPROLOL TARTRATE 100 MG TABLET 1 TABLET WITH FOOD ORALLY TWICE A DAY TAKING FLUTICASONE FUROATE 27.5 MCG/SPRAY SUSPENSION 1 PUFF IN EACH NOSTRIL NASALLY ONCE A DAY TAKING OMEPRAZOLE 20 MG CAPSULE DELAYED RELEASE 1 CAPSULE ORALLY ONCE A DAY TAKING CRESTOR 5 MG TABLET 1 TABLET ORALLY ONCE A DAY TAKING LUNESTA 2 MG TABLET 1 TABLET IMMEDIATELY BEFORE BEDTIME ORALLY ONCE A DAY TAKING ELESTAT 0.05 % SOLUTION 1 DROP INTO AFFECTED EYE OPHTHALMIC TWICE A DAY TAKING FLOVENT DISKUS 100 MCG/BLIST AEROSOL POWDER BREATH ACTIVATED 1 PUFF INHALATION TWICE A DAY TAKING LEVEMIR 100 UNIT/ML SOLUTION 40 UNITS SUBCUTANEOUS ONCE A DAY TAKING BETAMETHASONE DIPROPIONATE 0.05 % GEL 1 APPLICATION TO AFFECTED AREA EXTERNALLY ONCE A DAY TAKING VITAMIN B-12 1000 MCG TABLET CHEWABLE ORALLY TAKING FENTANYL 50 MCG/HR PATCH 72 HOUR 1 PATCH TO SKIN TRANSDERMAL Q 3 DAYS MDD1 TAKING OXYCODONE-ACETAMINOPHEN 10-325 MG TABLET 1 TABLET NEEDED ORALLY EVERY 4 HRS PRN FOR PAIN MDD5 TAKING HUMALOG KWIKPEN 100 UNIT/ML SOLUTION PEN-INJECTOR INJECT 25 30 UNITS UNDER THE SKIN UP TO 3 TIMES A DAY BEFORE MEALS DIRECTED MAXIMUM DAILY DOSE 12O UNITS SUBCUTANEOUS TAKING LOPRESSOR 100 MG TABLET 1 TABLET WITH FOOD ORALLY TWICE A DAY, NOTES: DUPLICATE DISCONTINUED GABAPENTIN 300 MG TABLET 2 TABS ORALLY BEFORE BEDTIME, NOTES: DISCONTINUED 03-04-17 BY MD MEDICATION LIST REVIEWED AND RECONCILED WITH THE PATIENT PAST MEDICAL HISTORY HTN COPD HIGH CHOLESTEROL CHRONIC KIDNEY DISEASE SPINAL STENOSIS DIABETES MELLITUS TYPE 2 WITH NEUROPATHY DEPRESSION OBSTRUCTIVE SLEEP APNEA, ON CPAP ALLERGIES GEMMA INHIBITOR (FOR ALLERGIES USE ONLY): RENAL FAILURE REVIEW OF SYSTEMS REVIEWED BY: PROVIDER: CHARLIE FREITAS . CONSTITUTIONAL: ANY CHANGE IN YOUR MEDICAL CONDITION? NO . CHILLS NO . FEVER NO . INFECTION: DO YOU HAVE NEW INFECTIONS? NO . DO YOU HAVE HISTORY OF MRSA? NO . MUSCULOSKELETAL: ANY NEW PATTERNS OF PAIN OR NUMBNESS? NO . GASTROENTEROLOGY: ANY NEW CHANGE IN BOWEL CONTROL? NO . GENITOURINARY: ANY NEW CHANGE IN BLADDER CONTROL? NO . IS THERE A CHANCE YOU COULD BE ? NO . HEMATOLOGY/LYMPH: DO YOU TAKE ANY BLOOD THINNERS? (FOR EXAMPLE- COUMADIN, PLAVIX, AGGRENOX, PLATEL, PRADAXA, OR XARELTO) NO . WHEN WAS YOUR LAST DOSE? DATE: TIME: . NEUROLOGY: HAVE YOU FALLEN IN THE PAST 6 MONTHS? YES . ANY NEW EXTREMITY NUMBNESS OR WEAKNESS? NO . CARDIOLOGY: DO YOU HAVE A PACEMAKER OR DEFIBRILLATOR? NO . RESPIRATORY: HAVE YOU BEEN SICK IN THE PAST WEEK? NO . FEVER NO . FLU LIKE SYMPTOMS? NO . COUGH NO . INTEGUMENTARY: DO YOU HAVE ANY RASHES OR OPEN SORES? NO . ALLERGIC/IMMUNO: ARE YOU ALLERGIC TO SHELLFISH OR IV DYE? NO . ANY NEW ALLERGIES? NO . PSYCHIATRIC: DO YOU HAVE THOUGHTS OF HURTING YOURSELF OR SOMEONE ELSE? NO . ARE YOU ABUSED, NEGLECTED, OR IN AN UNSAFE ENVIRONMENT? NO . ENDOCRINOLOGY: ARE YOU DIABETIC? YES A1C = 7 . OTHER: DO YOU NEED ANY PRESCRIPTIONS? NO . IF YES, PLEASE LIST: ____ . ANY NEW PROBLEMS WITH YOUR MEDICATIONS? NO . WHEN DID YOU LAST EAT? ____ . WHEN DID YOU LAST DRINK? ____ . WHAT DID YOU LAST DRINK? ____ . NAME OF PERSON DRIVING YOU HOME? ____ . DO YOU HAVE ANY OTHER QUESTIONS OR CONCERNS NO . VITAL SIGNS WT 227 LBS, HT 68 IN, BMI 34.51 INDEX, BP 124/60 MM HG, HR 85 /MIN, RR 18 /MIN, TEMP 98.0 F, OXYGEN SAT % 94%, NA INITIALS AW 1027, REVIEWED BY: CM. EXAMINATION GENERAL EXAMINATION: PSYCHALERT , ORIENTED X 3 , APPROPRIATE MOOD AND AFFECT . LUNGS:CLEAR TO AUSCULTATION BILATERALLY. HEART:HEART RATE REGULAR. MUSCULOSKELETAL:MUSCLE STRENGTH TESTING 5/5 BILATERAL LOWER EXTREMITIES. TENDER TO PALPATION OVER THE LUMBOSACRAL AXIS ., TRIGGER POINTS AND TIGHT FIBROUS BANDS ELICITED TO PAPATION JACY LUMBAR PARAVERTEBRAL MUSCULATURE. . 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 CLINICAL NOTES: [employer] REGISTRY REVIEWED . PROCEDURE CODES FA211 ESTABILISHED PATIENT [facility] CHARGE G8730 PAIN ASSESS POS TOOL F/U PLAN DOC G8427 DOC MEDS VERIFIED W/PT OR RE DISPOSITION & COMMUNICATION FOLLOW UP 1 MONTH (REASON: MED MANAGMENT/BACK/LEG PAIN) ELECTRONICALLY SIGNED BY VICKIE GROSSMAN ON 03/21/2017 AT 01:52 PM EDT DISCLAIMER : THIS IS A VISIT SUMMARY EXTRACTED FROM THE [employer] CHART. IT IS NOT A COPY OF THE [employer] PROGRESS NOTE. ANATOLIY
== END ==
LOC: M PAIN 10:15
PROVIDERS: ATTEND Nurse Practitioner Family
DX: G89.29 Other chronic pain (principal); M47.816 Spondylosis without myelopathy or radiculopathy, lumbar region; M47.817 Spondylosis without myelopathy or radiculopathy, lumbosacral region; E11.42 Type 2 diabetes mellitus with diabetic polyneuropathy; E66.9 Obesity, unspecified; I12.9 Hypertensive chronic kidney disease with stage 1 through stage 4 chronic kidney disease, or unspecified chronic kidney disease; J44.9 Chronic obstructive pulmonary disease, unspecified; N18.9 Chronic kidney disease, unspecified; F32.9 Major depressive disorder, single episode, unspecified; G47.33 Obstructive sleep apnea (adult) (pediatric); Z79.891 Long term (current) use of opiate analgesic; Z79.4 Long term (current) use of insulin; Z79.899 Other long term (current) drug therapy

== ENCOUNTER → 2017-03-11 | Outpatient (CLI) | payer MEDICARE, MEDICAID ==
--- NOTE | 2017-03-11 12:30 | REP ---
LEFT LOWER EXTREMITY DUPLEX DOPPLER VENOUS ULTRASOUND WITH EVALUATION FOR VENOUS REFLUX: Real-time compression and duplex Doppler interrogation of the left lower extremity deep venous system is performed. The left common femoral, superficial femoral, and popliteal veins are fully compressible with transducer pressure and demonstrate normal spontaneous and phasic flow without evidence of deep venous thrombosis. Evaluation for venous reflux demonstrates no reflux in any of the deep veins. There is an anterior accessory greater saphenous vein present without reflux. There is reflux in the greater saphenous vein at the saphenofemoral junction with a duration of 0.76 seconds, AP diameter of the vessel is 9 mm. There is no reflux in the more peripheral greater saphenous vein at the mid thigh, which measures 5 mm or at the knee where it measures 4 mm. There is no reflux in the lesser saphenous vein, which measures 1.4 mm. Please note that evaluation for reflux was performed with the bed tipped as the patient was unable to stand. A few collateral vessels are seen communicating with the greater saphenous vein, which do not demonstrate reflux. Signed by Sundeep Mcdaniel MD 03/11/2017 03:15 P
== END ==
LOC: M RAD 10:23
PROVIDERS: ATTEND Family Medicine
DX: R60.9 Edema, unspecified (principal)

== ENCOUNTER → 2017-03-12 | Outpatient (CLI) | payer MEDICARE, MEDICAID ==
--- NOTE | 2017-03-12 13:18 | REP ---
RIGHT LOWER EXTREMITY DUPLEX DOPPLER VENOUS ULTRASOUND WITH EVALUATION FOR VENOUS REFLUX: Real-time sonographic compression and duplex Doppler interrogation of the right lower extremity deep venous system is performed. There is no thrombus seen in the right common femoral vein or popliteal vein with those vessels fully compressible with transducer pressure demonstrating normal internal flow. There is partial thrombus in the distal femoral vein which could be acute or chronic. Evaluation for venous reflux is performed with the bed tipped. The patient is unable to stand. There is no reflux in any of the deep veins. There is no evidence of an anterior accessory greater saphenous vein. There is no reflux in any portion of the greater saphenous vein, which measures 5 mm at the saphenofemoral junction, 4 mm in the mid thigh and 3 mm at the level of the knee. There is no reflux in the lesser saphenous vein. IMPRESSION: Partial DVT right distal femoral vein. No evidence of maria t reflux in the superficial or deep system. Signed by Sundeep Mcdaniel MD 03/12/2017 05:21 P
== END ==
LOC: M RAD 10:27
PROVIDERS: ATTEND Family Medicine
DX: I82.411 Acute embolism and thrombosis of right femoral vein (principal)

== ENCOUNTER → 2017-03-17 | Outpatient (REF) | payer MEDICARE, MEDICAID ==
[2017-03-17 12:21] LABS: BASO % 0.5 % (0.0-1.0); EOS # 0.2 K/mm3 (0.0-0.50); EOS % 3.3 % (0.0-3.0); LARGE UNSTAINED CELL # 0.1 K/mm3 (0.0-0.4); LARGE UNSTAINED CELL % 2.3 % (0.0-4.0); LYMPH # 1.2 K/mm3 (1.5-4.5); LYMPH % 20.1 % (24.0-44.0); MEAN CORPUSCULAR HEMOGLOBIN 30.3 pg (27.0-33.0); MEAN CORPUSCULAR HGB CONC 32.5 g/dl (32.0-36.5); MEAN CORPUSCULAR VOLUME 93.1 fl (80.0-96.0); MONO # 0.5 K/mm3 (0.0-0.8); MONO % 8.3 % (0.0-5.0); NEUTROPHILS # 3.6 K/mm3 (1.8-7.7); NEUTROPHILS % 65.4 % (36.0-66.0); PLATELET COUNT, AUTOMATED 130 k/mm3 (150-450); RED CELL DISTRIBUTION WIDTH 15.4 % (11.5-14.5); WHITE BLOOD COUNT 5.5 K/mm3 (4.0-10.0)
[2017-03-17 13:26] LABS: CALCIUM LEVEL 8.5 MG/DL (8.8-10.2); CREATININE FOR GFR 1.52 MG/DL (0.70-1.30); GLOMERULAR FILTRATION RATE 47.7 (>42); POTASSIUM SERUM 4.4 MEQ/L (3.5-5.1)
== END ==
LOC: M SFHCADAM 09:17
PROVIDERS: ATTEND Family Medicine
DX: I82.4Y1 Acute embolism and thrombosis of unspecified deep veins of right proximal lower extremity (principal)
CPT/HCPCS: 80048; 85025; 85610; 85730; G0463

== ENCOUNTER → 2017-04-02 | Outpatient (CLI) | payer MEDICARE, MEDICAID ==
--- NOTE | 2017-04-29 00:56 | ECWPNPC ---
PATIENT NAME: JAI MONTAÑO : 1940 GENDER: MALE VISIT DATE: 04/02/2017 DISCHARGE DATE: 04/02/17 1210 VISIT LOCKED DATE TIME: PHYSICIAN: CHARLIE COTTON RESOURCE: CHARLIE COTTON REASON FOR APPOINTMENT 1. MED MANAGMENT/BACK/LEG PAIN HISTORY OF PRESENT ILLNESS FALL RISK SCREENING: SCREENING :NO FALLS IN THE PAST YEAR PAIN SCREENING: PATIENT HAS A COMPLAINT OF ACUTE OR CHRONIC PAIN :YES TODAY'S VISIT: NOTES: RATES PAIN TODAY 6/10. DESCRIBES PAIN CONSTANT, ACHINH, SHARP/STABBING, THROBBING. REPORTS RECENT FALL, NEW DIAGNOSIS OF DVT RIGHT - RECENTLY STARTED ON PLAVIX AND COUMADIN. DR MCCLOUD IS FOLLOWING WITH THIS. HAS AN ELECTRIC BURN TO LEFT FOREARM - DR DELCID IS MANAGING THIS. FEET BURNING , THROBBING. . CURRENT MEDICATIONS TAKING FENTANYL 50 MCG/HR PATCH 72 HOUR 1 PATCH TO SKIN TRANSDERMAL Q 3 DAYS MDD1 TAKING OXYCODONE-ACETAMINOPHEN 10-325 MG TABLET 1 TABLET NEEDED ORALLY EVERY 4 HRS PRN FOR PAIN MDD5 TAKING SERTRALINE HCL 50 MG TABLET 1 TABLET ORALLY ONCE A DAY TAKING LYRICA 150 MG CAPSULE 1 CAPSULE ORALLY TWICE A DAY TAKING PLAVIX 75 MG TABLET 1 TABLET ORALLY ONCE A DAY TAKING FLUTICASONE FUROATE 27.5 MCG/SPRAY SUSPENSION 1 PUFF IN EACH NOSTRIL NASALLY ONCE A DAY TAKING OMEPRAZOLE 20 MG CAPSULE DELAYED RELEASE 1 CAPSULE ORALLY ONCE A DAY TAKING CRESTOR 5 MG TABLET 1 TABLET ORALLY ONCE A DAY TAKING LUNESTA 2 MG TABLET 1 TABLET IMMEDIATELY BEFORE BEDTIME ORALLY ONCE A DAY TAKING ELESTAT 0.05 % SOLUTION 1 DROP INTO AFFECTED EYE OPHTHALMIC TWICE A DAY TAKING FLOVENT DISKUS 100 MCG/BLIST AEROSOL POWDER BREATH ACTIVATED 1 PUFF INHALATION TWICE A DAY TAKING LEVEMIR 100 UNIT/ML SOLUTION 40 UNITS SUBCUTANEOUS ONCE A DAY TAKING BETAMETHASONE DIPROPIONATE 0.05 % GEL 1 APPLICATION TO AFFECTED AREA EXTERNALLY ONCE A DAY TAKING VITAMIN B-12 1000 MCG TABLET CHEWABLE ORALLY TAKING HUMALOG KWIKPEN 100 UNIT/ML SOLUTION PEN-INJECTOR INJECT 25 30 UNITS UNDER THE SKIN UP TO 3 TIMES A DAY BEFORE MEALS DIRECTED MAXIMUM DAILY DOSE 12O UNITS SUBCUTANEOUS DAILY TAKING TORSEMIDE 20 MG TABLET 1 TAB ORALLY DAILY TAKING LOVENOX 100 MG/ML SOLUTION 1 ML SUBCUTANEOUS BID TAKING WARFARIN SODIUM 5 MG TABLET 1 TABLET ORALLY ONCE A DAY TAKING DULOXETINE HCL 30 MG CAPSULE DELAYED RELEASE PARTICLES 1 CAPSULE ORALLY TWICE A DAY TAKING METOPROLOL TARTRATE 100 MG TABLET 1 TABLET WITH FOOD ORALLY TWICE A DAY NOT-TAKING EPINASTINE HCL 0.05 % SOLUTION 1 DROP INTO AFFECTED EYE OPHTHALMIC TWICE A DAY, NOTES: DUPLICATE NOT-TAKING LOPRESSOR 100 MG TABLET 1 TABLET WITH FOOD ORALLY TWICE A DAY, NOTES: DUPLICATE NOT-TAKING DULOXETINE HCL 30 MG CAPSULE DELAYED RELEASE PARTICLES 1 CAPSULE ORALLY TWICE A DAY MEDICATION LIST REVIEWED AND RECONCILED WITH THE PATIENT PAST MEDICAL HISTORY HTN COPD HIGH CHOLESTEROL CHRONIC KIDNEY DISEASE SPINAL STENOSIS DIABETES MELLITUS TYPE 2 WITH NEUROPATHY DEPRESSION OBSTRUCTIVE SLEEP APNEA, ON CPAP MULTIPLE DVTS, 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 CAFFEINE: YES CAFFEINE USE?YES HOW OFTEN AND HOW MUCH? 2 CUPS PER DAY OCCUPATION: RETIRED. EXERCISE: NO REGULAR EXERCISE. MARITAL STATUS: . NO OTHERS AT HOME. PETS: NONE. LEARNING BARRIERS / SPECIAL NEEDS CHANGE FROM LAST VISIT?YES READINESS TO LEARN?YES LEARNING PREFERENCES?NO SPECIAL DEVICES?YES :[employer] IMMUNIZATION PROGRAM ELIGIBILITY STATUS UNCHANGED:__ PARENT LAST NAME:__ FIRST NAME, MIDDLE INITIAL:__ MOTHER'S MAIDEN NAME:__ MEDICAID/MEDICAID MANAGED CARE PLAN:__ NOT INSURED:__ /[place]:__ UNDERINSURED:__ CHILD HEALTH PLUS B__ INSURANCE:__ INFLUENZA VACCINE:__ FEMALE 6 MONTH RISK ASSESSMENT FOR STD DESCRIBE YOUR SEXUAL PARTNERS:MALE MONOGAMOUS?YES EVER INJECT DRUGS?NO IS THERE ANYTHING ELSE WE SHOULD TALK ABOUT CONCERNING YOUR SEXUAL HISTORY OR PRACTICE?YES PAIN CLINIC PFS, CLERGY, PUBLIC HEALTH REFERRALS WAS THE PROVIDER NOTIFIED OF ANY PERTINENT INFO?YES HAS THE PATIENT BEEN EDUCATED REGARDING HIS/HER PLAN OF CARE?YES HAS THE PATIENT BEEN EDUCATED REGARDING PAIN, THE RISK FOR PAIN, THE IMPORTANCE OF EFFECTIVE PAIN MANAGEMENT, AND THE PAIN ASSESSMENT PROCESS?YES REVIEWED BY: PATRICK. RETIRED: YES, WEEKS/MONTHS/YEARS. OCCUP EXPOSURE: NONE. NO TRAVEL OUTSIDE US. HOUSING: HOUSE. NO LONG-TERM. NO . NO . NO . NO COHABITATING. NO DOMESTIC VIOLENCE . NO ACADEMIC PROBLEMS. HE ENJOYS FISHING AND GARDENING. HOSPITALIZATION/MAJOR DIAGNOSTIC PROCEDURE KIDNEY FAILURE 2014 REVIEW OF SYSTEMS REVIEWED BY: PROVIDER: CHARLIE FREITAS . CONSTITUTIONAL: ANY CHANGE IN YOUR MEDICAL CONDITION? YES, BLOOD CLOT IN RIGHT LEG, FOUND AND TREATED IN FEBRUARY BY PCP, DR WEBER . CHILLS NO . FEVER NO . INFECTION: DO YOU HAVE NEW INFECTIONS? NO . DO YOU HAVE HISTORY OF MRSA? NO . MUSCULOSKELETAL: ANY NEW PATTERNS OF PAIN OR NUMBNESS? NO . SYTEMIC LUPUS NO . GASTROENTEROLOGY: ANY NEW CHANGE IN BOWEL CONTROL? NO . BARRETTS ESOPHAGUS NO . CIRRHOSIS NO . HEPATITIS NO . LIVER FAILURE NO . ACID REFLUX NO . UNEXPLAINED WEIGHT LOSS NO . GENITOURINARY: ANY NEW CHANGE IN BLADDER CONTROL? NO . IS THERE A CHANCE YOU COULD BE ? NO . HEMATOLOGY/LYMPH: DO YOU TAKE ANY BLOOD THINNERS? (FOR EXAMPLE- COUMADIN, PLAVIX, AGGRENOX, PLATEL, PRADAXA, OR XARELTO) NO . WHEN WAS YOUR LAST DOSE? DATE: TIME: . LOW PLATELET COUNT NO . SICKLE CELL DISEASE NO . VON WILLIEBRANDS NO . FACTOR V LEIDEN NO . THALLASEMIA NO . ANEMIA NO . EASY BRUISING NO . NEUROLOGY: HAVE YOU FALLEN IN THE PAST 6 MONTHS? YES, FELL AT HOME, WHILE USING WALKER, NO REPORT TO ED, NO INJURY, EDUCATED ABOUT CAUTION WITH AMBULATING AND REPORTING TO ED IF FALLS RESULT IN HEAD INJURY. . ANY NEW EXTREMITY NUMBNESS OR WEAKNESS? NO . HEAD INJURY NO . DEMENTIA NO . CEREBRAL PALSY NO . MULTIPLE SCLEROSIS NO . DIZZINESS NO . HEADACHE NO . STROKES NO . VERTIGO NO . CARDIOLOGY: DO YOU HAVE A PACEMAKER OR DEFIBRILLATOR? NO . ANGINA NO . HEART ATTACK NO . HEART SURGERY NO . CONGESTIVE HEART FAILURE/FLUID OVERLOAD NO . CHEST PAIN NO . HIGH BLOOD PRESSURE NO . IRREGULAR HEART BEAT NO . RESPIRATORY: HAVE YOU BEEN SICK IN THE PAST WEEK? NO . FEVER NO . FLU LIKE SYMPTOMS? NO . CPAP NO . BYPAP NO . ASTHMA NO . EMPHYSEMA NO . CHRONIC LUNG DISEASES NO . SHORTNESS OF BREATH ON EXERTION NO . COUGH NO . SNORING NO . INTEGUMENTARY: DO YOU HAVE ANY RASHES OR OPEN SORES? YES, PT HAS FRESH SURGICAL SITE ON LEFT FOREARM, PT WAS BURNED AND SURGICAL PROCEDURE TO REMOVE SKIN. . ALLERGIC/IMMUNO: ARE YOU ALLERGIC TO SHELLFISH OR IV DYE? NO . ANY NEW ALLERGIES? NO . PSYCHIATRIC: DO YOU HAVE THOUGHTS OF HURTING YOURSELF OR SOMEONE ELSE? NO . ARE YOU ABUSED, NEGLECTED, OR IN AN UNSAFE ENVIRONMENT? NO . ENDOCRINOLOGY: ARE YOU DIABETIC? YES, BS 148 THIS AM . THYROID DISORDER NO . OTHER: DO YOU NEED ANY PRESCRIPTIONS? YES, . IF YES, PLEASE LIST: ____ . ANY NEW PROBLEMS WITH YOUR MEDICATIONS? NO . WHEN DID YOU LAST EAT? ____ . WHEN DID YOU LAST DRINK? ____ . WHAT DID YOU LAST DRINK? ____ . NAME OF PERSON DRIVING YOU HOME? ____ . DO YOU HAVE ANY OTHER QUESTIONS OR CONCERNS NO . VITAL SIGNS WT 230 LBS, HT 68 IN, BMI 34.97 INDEX, BP 170/71 MM HG, HR 84 /MIN, RR 16 /MIN, TEMP 97.6 F, OXYGEN SAT % 96, NA INITIALS Y, BP SITTING DS. EXAMINATION GENERAL EXAMINATION: PSYCHALERT , ORIENTED X 3 , APPROPRIATE MOOD AND AFFECT . LUNGS:CLEAR TO AUSCULTATION BILATERALLY. HEART:HEART RATE REGULAR. MUSCULOSKELETAL:MUSCLE STRENGTH TESTING 5/5 BILATERAL LOWER EXTREMITIES. TENDER TO PALPATION OVER THE LUMBOSACRAL AXIS .TRIGGER POINTS AND TIGHT FIBROUS BANDS ELICITED WITH PALPATION OVER LUMBAR PARAVERTEBRAL MUSCULATURE. . 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 CALL [facility] ABOUT SCOOTER APPLICATION, FALLS CARE PLAN: 1. RECOMMEND REMOVING ALL THROW RUGS. 2. RECOMMEND NIGHT LIGHTS 3. RECOMMEND WEARING RUBBER SOLED SHOES AND TO NOT GO BAREFOOT. 4.. ADVISED TO CHANGE POSITION SLOWLY FROM SUPINE TO STANDING TO AVOID DIZZINESS. 5. ADVISED TO USE ASSISTIVE DEVICE SUCH CANE OR WALKER 6. USE [employer] SERVICES OR KEEP PORTABLE PHONE READILY AVAILABLE, #128 - SCREENING BMI AND F/U PLAN IN : BMI ABOVE NORMAL TODAY. DISCUSSED WITH PATIENT NUTRITIONAL FOOD CHOICES TO ASSIST WITH WEIGHT LOSS. RECCOMMENDED REDUCING SALT, SUGAR, SODA INTAKE. RECOMMEND INCREASE ACTIVITY TO INCLUDE WALKING ON A REGULAR BASIS. WILL NEED TO RE-EVAL IN FUTURE FOR OPTON OF DCS - NOW WITHONGOING TREATMENT WITH BLOOD THINNERS FOR DVT. CLINICAL NOTES: ISTOP REGISTRY REVIEWED AND DEMNOSTRATES COMPLLIANCE.( REF # [id number]) BRINGS IN MEDICATIONS WHICH IS APPROPRIATE FOR WHAT WAS DISPENSED. RECENT URINE TOXICOLOGY REVIEWED. NO UNAUTHORIZED MEDICATIONS. NO ILLICIT SUBSTANCES AND PRESCRIBED MEDICATIONS WERE PRESENT. PROCEDURE CODES FA211 ESTABILISHED PATIENT [facility] FACILITY CHARGE G8783 BP SCR PRFRM RCMDD DEFIND SCR INTVL G8730 PAIN ASSESS POS TOOL F/U PLAN DOC 3016F PT SCRND UNHLTHY [place] USE 1124F ACP DISCUSS-NO DSCNMKR DOCD 1036F TOBACCO NON-USER G8427 DOC MEDS VERIFIED W/PT OR RE G8417 BMI >=30 CALCUATE W/FOLLOWUP 3288F FALL RISK ASSESSMENT DOCD DISPOSITION & COMMUNICATION FOLLOW UP 2 MONTHS (REASON: LE NEUROPATHY) ELECTRONICALLY SIGNED BY VICKIE GROSSMAN ON 04/28/2017 AT 04:45 PM EDT DISCLAIMER : THIS IS A VISIT SUMMARY EXTRACTED FROM THE [employer] CHART. IT IS NOT A COPY OF THE [employer] PROGRESS NOTE. MTDD
== END ==
LOC: M PAIN 10:30
PROVIDERS: ATTEND Nurse Practitioner Family
DX: M47.816 Spondylosis without myelopathy or radiculopathy, lumbar region (principal); M47.817 Spondylosis without myelopathy or radiculopathy, lumbosacral region; E11.42 Type 2 diabetes mellitus with diabetic polyneuropathy; T23.372A Burn of third degree of left wrist, initial encounter; I82.4Y1 Acute embolism and thrombosis of unspecified deep veins of right proximal lower extremity; N18.9 Chronic kidney disease, unspecified; Z79.891 Long term (current) use of opiate analgesic; Z79.899 Other long term (current) drug therapy; Z79.01 Long term (current) use of anticoagulants; Z79.2 Long term (current) use of antibiotics; Z87.891 Personal history of nicotine dependence; Z79.4 Long term (current) use of insulin; Z88.8 Allergy status to other drugs, medicaments and biological substances

== ENCOUNTER → 2017-05-31 | Outpatient (CLI) | payer MEDICARE ==
--- NOTE | 2017-05-31 12:12 | REP ---
MRI LEFT KNEE: TECHNIQUE: Axial proton density fat saturation, sagittal proton density T2 STIR, water excitation, coronal proton density, proton density fat saturation. There is an extensive complex tear of the anterior and posterior horns of the medial meniscus. Lateral meniscus appears intact. The cruciate and collateral ligaments are intact. The extensor mechanism is intact. There is diffuse edema in the visualized distal biceps femoris muscle, which may indicate a muscle strain. There is mild diffuse chondromalacia of the patellar cartilage. There is moderate diffuse chondromalacia in the medial joint compartment with mild diffuse chondromalacia in the lateral joint compartment. Mild subchondral marrow edema is seen in the medial tibial plateau. Small subchondral cystic changes are seen centrally in the tibial plateau. There is a small joint effusion. A small amount of fluid is seen in the popliteal fossa. IMPRESSION: Extensive complex tear anterior and posterior horns medial meniscus. Moderate diffuse chondromalacia in the medial joint compartment with mild diffuse chondromalacia elsewhere. Mild subchondral cystic changes and marrow edema in the tibial plateau. Small joint effusion. There is diffuse edema in the distal biceps femoris muscle, which may indicate a muscle strain. Signed by Sundeep Mcdaniel MD 05/31/2017 12:45 P
== END ==
LOC: M RAD 09:56
PROVIDERS: ATTEND Family Medicine
DX: S83.242A Other tear of medial meniscus, current injury, left knee, initial encounter (principal); X58.XXXA Exposure to other specified factors, initial encounter; Y92.9 Unspecified place or not applicable; Y93.9 Activity, unspecified; Y99.9 Unspecified external cause status

== ENCOUNTER → 2017-06-02 | Outpatient (CLI) | payer MEDICARE ==
--- NOTE | 2017-06-18 01:51 | ECWPNPC ---
PATIENT NAME: JAI MONTAÑO : 1940 GENDER: MALE VISIT DATE: 06/02/2017 DISCHARGE DATE: 06/02/17 0943 VISIT LOCKED DATE TIME: PHYSICIAN: CHARLIE COTTON RESOURCE: CHARLIE COTTON REASON FOR APPOINTMENT 1. LE NEUROPATHY HISTORY OF PRESENT ILLNESS HISTORY OF PRESENT ILLNESS: PAIN THE PATIENT DESCRIBES THE PAIN... FALL RISK SCREENING: SCREENING :NO FALLS IN THE PAST YEAR TODAY'S VISIT: NOTES: MEDS ARE HELPFUL AND ALLOW FOR SLEEP. RATES PAIN TODAY 01/25. . CURRENT MEDICATIONS TAKING SERTRALINE HCL 50 MG TABLET 1 TABLET ORALLY ONCE A DAY TAKING FLUTICASONE FUROATE 27.5 MCG/SPRAY SUSPENSION 1 PUFF IN EACH NOSTRIL NASALLY ONCE A DAY TAKING OMEPRAZOLE 20 MG CAPSULE DELAYED RELEASE 1 CAPSULE ORALLY ONCE A DAY TAKING CRESTOR 5 MG TABLET 1 TABLET ORALLY ONCE A DAY TAKING ELESTAT 0.05 % SOLUTION 1 DROP INTO AFFECTED EYE OPHTHALMIC TWICE A DAY TAKING FLOVENT DISKUS 100 MCG/BLIST AEROSOL POWDER BREATH ACTIVATED 1 PUFF INHALATION TWICE A DAY TAKING LEVEMIR 100 UNIT/ML SOLUTION 40 UNITS SUBCUTANEOUS ONCE A DAY TAKING BETAMETHASONE DIPROPIONATE 0.05 % GEL 1 APPLICATION TO AFFECTED AREA EXTERNALLY ONCE A DAY TAKING VITAMIN B-12 1000 MCG TABLET CHEWABLE ORALLY TAKING HUMALOG KWIKPEN 100 UNIT/ML SOLUTION PEN-INJECTOR INJECT 25 30 UNITS UNDER THE SKIN UP TO 3 TIMES A DAY BEFORE MEALS DIRECTED MAXIMUM DAILY DOSE 12O UNITS SUBCUTANEOUS DAILY TAKING METOPROLOL TARTRATE 100 MG TABLET 1 TABLET WITH FOOD ORALLY TWICE A DAY TAKING GABAPENTIN 300 MG CAPSULE 2 TABLETS ORALLY AT BEDTIME TAKING PLAVIX 75 MG TABLET 1 TABLET ORALLY ONCE A DAY TAKING OXYCODONE-ACETAMINOPHEN 10-325 MG TABLET 1 TABLET NEEDED ORALLY EVERY 4 HRS PRN FOR PAIN MDD5 TAKING FENTANYL 50 MCG/HR PATCH 72 HOUR 1 PATCH TO SKIN TRANSDERMAL Q 3 DAYS MDD1 TAKING LYRICA 150 MG CAPSULE 1 CAPSULE ORALLY TWICE A DAY TAKING TORSEMIDE 20 MG TABLET 1 TAB ORALLY DAILY TAKING GABAPENTIN 100 MG CAPSULE 1 TABLET ORALLY IN THE A.M. TAKING DULOXETINE HCL 30 MG CAPSULE DELAYED RELEASE PARTICLES 1 CAPSULE ORALLY TWICE A DAY TAKING TORSEMIDE 20 MG TABLET 2 TABS ORALLY BID TAKING WARFARIN SODIUM 6 MG TABLET 1 TABLET ORALLY ONCE A DAY TAKING LUNESTA 2 MG TABLET 1 TABLET IMMEDIATELY BEFORE BEDTIME ORALLY ONCE A DAY TAKING WARFARIN SODIUM 4 MG TABLET 1 TABLET ORALLY EVERY OTHER DAY NOT-TAKING WARFARIN SODIUM 5 MG TABLET 1 TABLET ORALLY EVERY OTHER DAY 3 MG ON OTHER DAYS NOT-TAKING WARFARIN SODIUM 4 MG TABLET 1 TABLET ORALLY EVERY OTHER DAY, NOTES: DUPLICATE NOT-TAKING GABAPENTIN 300 MG CAPSULE 1 CAPSULE ORALLY TWO AT BEDTIME, NOTES: DUPLICATE NOT-TAKING LOVENOX 100 MG/ML SOLUTION 1 ML SUBCUTANEOUS BID NOT-TAKING EPINASTINE HCL 0.05 % SOLUTION 1 DROP INTO AFFECTED EYE OPHTHALMIC TWICE A DAY, NOTES: DUPLICATE NOT-TAKING LOPRESSOR 100 MG TABLET 1 TABLET WITH FOOD ORALLY TWICE A DAY, NOTES: DUPLICATE NOT-TAKING DULOXETINE HCL 30 MG CAPSULE DELAYED RELEASE PARTICLES 1 CAPSULE ORALLY TWICE A DAY MEDICATION LIST REVIEWED AND RECONCILED WITH THE PATIENT PAST MEDICAL HISTORY HTN COPD HIGH CHOLESTEROL CHRONIC KIDNEY DISEASE SPINAL STENOSIS DIABETES MELLITUS TYPE 2 WITH NEUROPATHY DEPRESSION OBSTRUCTIVE SLEEP APNEA, ON BIPAP MULTIPLE DVTS, 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 CONSTITUTIONAL: ANY CHANGE IN YOUR MEDICAL CONDITION? NO . CHILLS NO . FEVER NO . INFECTION: DO YOU HAVE NEW INFECTIONS? NO . DO YOU HAVE HISTORY OF MRSA? NO . MUSCULOSKELETAL: ANY NEW PATTERNS OF PAIN OR NUMBNESS? NO . GASTROENTEROLOGY: ANY NEW CHANGE IN BOWEL CONTROL? NO . GENITOURINARY: ANY NEW CHANGE IN BLADDER CONTROL? NO . IS THERE A CHANCE YOU COULD BE ? NO . HEMATOLOGY/LYMPH: DO YOU TAKE ANY BLOOD THINNERS? (FOR EXAMPLE- COUMADIN, PLAVIX, AGGRENOX, PLATEL, PRADAXA, OR XARELTO) YES . WHEN WAS YOUR LAST DOSE? DATE: TIME: . NEUROLOGY: HAVE YOU FALLEN IN THE PAST 6 MONTHS? YES PT REPORTS A FALL ABOUT 3 WEEKS AGO, FALLING ON HIS KNEE. HE SAW HIS PRIMARY DR. MCCLOUD FOR THIS, HAD AN MRI DONE. . ANY NEW EXTREMITY NUMBNESS OR WEAKNESS? NO . CARDIOLOGY: DO YOU HAVE A PACEMAKER OR DEFIBRILLATOR? NO . RESPIRATORY: HAVE YOU BEEN SICK IN THE PAST WEEK? NO . FEVER NO . FLU LIKE SYMPTOMS? NO . COUGH NO . INTEGUMENTARY: DO YOU HAVE ANY RASHES OR OPEN SORES? NO . ALLERGIC/IMMUNO: ARE YOU ALLERGIC TO SHELLFISH OR IV DYE? NO . ANY NEW ALLERGIES? NO . PSYCHIATRIC: DO YOU HAVE THOUGHTS OF HURTING YOURSELF OR SOMEONE ELSE? NO . ARE YOU ABUSED, NEGLECTED, OR IN AN UNSAFE ENVIRONMENT? NO . ENDOCRINOLOGY: ARE YOU DIABETIC? YES . OTHER: DO YOU NEED ANY PRESCRIPTIONS? YES . IF YES, PLEASE LIST: ____FENTANYL PATCH, OXYCODONE . ANY NEW PROBLEMS WITH YOUR MEDICATIONS? NO . WHEN DID YOU LAST EAT? ____ . WHEN DID YOU LAST DRINK? ____ . WHAT DID YOU LAST DRINK? ____ . NAME OF PERSON DRIVING YOU HOME? ____ . DO YOU HAVE ANY OTHER QUESTIONS OR CONCERNS NO . VITAL SIGNS WT 233.0 LBS, HT 68 IN, BMI 35.42 INDEX, BP 139/66 MM HG, HR 81 /MIN, RR 18 /MIN, TEMP 96.7 F, OXYGEN SAT % 96%, BLOOD GLUCOSE LEVEL 154 THIS AM, SAFE IN ENV? (Y/N) YES, NA INITIALS TL 0848, REVIEWED BY: SUMIT. EXAMINATION GENERAL EXAMINATION: PSYCHALERT , ORIENTED X 3 , APPROPRIATE MOOD AND AFFECT . LUNGS:CLEAR TO AUSCULTATION BILATERALLY. HEART:HEART RATE REGULAR. MUSCULOSKELETAL:MUSCLE STRENGTH TESTING 5/5 BILATERAL LOWER EXTREMITIES. TENDER TO PALPATION OVER THE LUMBOSACRAL AXIS .TRIGGER POINTS AND TIGHT FIBROUS BANDS ELICITED WITH PALPATION OVER LUMBAR PARAVERTEBRAL MUSCULATURE. . 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 CLINICAL NOTES: ISTOP REGISTRY REVIEWED AND DEMNOSTRATES COMPLLIANCE.(REF # [id number]) BRINGS IN MEDICATIONS WHICH IS APPROPRIATE FOR WHAT WAS DISPENSED. RECENT URINE TOXICOLOGY REVIEWED. NO UNAUTHORIZED MEDICATIONS. NO ILLICIT SUBSTANCES AND PRESCRIBED MEDICATIONS WERE PRESENT. PROCEDURE CODES FA211 ESTABILISHED PATIENT [facility] CHARGE G8730 PAIN ASSESS POS TOOL F/U PLAN DOC G8427 DOC MEDS VERIFIED W/PT OR RE DISPOSITION & COMMUNICATION FOLLOW UP 3 MONTHS (REASON: BACK/LEG PAIN) ELECTRONICALLY SIGNED BY VICKIE GROSSMAN ON 06/15/2017 AT 06:38 PM EST DISCLAIMER : THIS IS A VISIT SUMMARY EXTRACTED FROM THE [employer] CHART. IT IS NOT A COPY OF THE [employer] PROGRESS NOTE. ANATOLIY
== END ==
LOC: M PAIN 08:30
PROVIDERS: ATTEND Nurse Practitioner Family
DX: G89.29 Other chronic pain (principal); M47.816 Spondylosis without myelopathy or radiculopathy, lumbar region; M47.817 Spondylosis without myelopathy or radiculopathy, lumbosacral region; E11.42 Type 2 diabetes mellitus with diabetic polyneuropathy; I10 Essential (primary) hypertension; F32.9 Major depressive disorder, single episode, unspecified; G47.33 Obstructive sleep apnea (adult) (pediatric); Z88.8 Allergy status to other drugs, medicaments and biological substances; Z79.01 Long term (current) use of anticoagulants; Z79.4 Long term (current) use of insulin; Z79.891 Long term (current) use of opiate analgesic; Z79.899 Other long term (current) drug therapy

== ENCOUNTER → 2017-06-17 | Outpatient (REF) | payer MEDICARE ==
[2017-06-17 13:52] LABS: ANION GAP 6 MEQ/L (8-16); BLOOD UREA NITROGEN 18 MG/DL (7-18); CALCIUM LEVEL 8.7 MG/DL (8.8-10.2); CARBON DIOXIDE LEVEL 32 MEQ/L (21-32); CHLORIDE LEVEL 103 MEQ/L (98-107); CREATININE FOR GFR 1.22 MG/DL (0.70-1.30); FREE T4 0.76 NG/DL (0.76-1.46); GLOMERULAR FILTRATION RATE > 60.0 (>42); GLUCOSE, FASTING 196 MG/DL (83-110); POTASSIUM SERUM 4.4 MEQ/L (3.5-5.1); SODIUM LEVEL 141 MEQ/L (136-145)
== END ==
LOC: M SFHCADAM 09:35
PROVIDERS: ATTEND Family Medicine
DX: F32.9 Major depressive disorder, single episode, unspecified (principal); R60.9 Edema, unspecified; E11.69 Type 2 diabetes mellitus with other specified complication; Z79.01 Long term (current) use of anticoagulants
CPT/HCPCS: 80048; 83036; 83880; 84439; 84443; 85610; G0463

== ENCOUNTER → 2017-06-25 | Outpatient (CLI) | payer MEDICARE ==
--- NOTE | 2017-06-25 22:04 | ECHO ---
DATE OF PROCEDURE: 06/25/2017 REFERRING PHYSICIAN: Bhakti Smart DO PATIENT LOCATION: Outpatient REASON FOR ECHOCARDIOGRAM: Pedal edema. 2D MEASUREMENTS: IVS: 1.3 cm LV: 4.4 cm LVPW: 1.0 cm LA: 4.2 cm Aorta: 3.3 cm IVC: 1.7 cm DOPPLER MEASUREMENTS: Peak velocity across the aortic valve: 1.5 m/s Peak velocity across the LVOT: 0.7 m/s Mitral E: 0.9, Mitral A: 0.5, with a ratio of 1.7 2D COMMENTS: 1. Normal left ventricular size, with probably mildly increased left ventricular wall thickness. Left ventricular systolic function appeared to be normal estimated at 60%. The basal anterior septum appeared to be mildly hypokinetic in some views. 2. Mildly enlarged left atrium. Normal right atrium and right ventricle. 3. Normal aortic root. 5. No pericardial effusion seen. 6. Mildly calcified aortic valve with normal leaflet excursion. Mildly calcified mitral annulus with normal anterior mitral valve leaflet motion. Normal tricuspid vavle. The pulmonary valve and proximal pulmonary artery branches were not well visualized. 7. The inferior vena cava was normal in size, central venous pressure is probably normal. DOPPLER: Only trace mitral regurgitation detected. Assessment of the left ventricular diastolic function appeared to be normal. IMPRESSION: 1. Normal global left ventricular systolic and diastolic function. . 2. Aortic valve sclerosis without stenosis or aortic regurgitation. 3. Mitral annulus calcification with trace mitral regurgitation and a mildly enlarged left atrium. MTDD
== END ==
LOC: M CARPUL 09:00
PROVIDERS: ATTEND Family Medicine
DX: R60.9 Edema, unspecified (principal)

== ENCOUNTER → 2017-08-04 | Outpatient (REF) | payer MEDICARE ==
[2017-08-04 12:45] LABS: INR 4.99; PROTHROMBIN TIME 49.1 SECONDS (12.4-14.5)
== END ==
LOC: M SFHCADAM 08:50
DX: Z51.81 Encounter for therapeutic drug level monitoring (principal); Z79.01 Long term (current) use of anticoagulants
CPT/HCPCS: 85610

== ENCOUNTER 2017-08-08 08:08 | Inpatient (IN) | payer MEDICARE ==
[2017-08-08 08:39] LABS: HEMATOCRIT 26.4 % (42.0-52.0); HEMOGLOBIN 7.9 g/dl (14.0-18.0); MEAN CORPUSCULAR HEMOGLOBIN 27.4 pg (27.0-33.0); MEAN CORPUSCULAR HGB CONC 29.9 g/dl (32.0-36.5); MEAN CORPUSCULAR VOLUME 91.7 fl (80.0-96.0); PLATELET COUNT, AUTOMATED 199 10^3/uL (150-450); RED BLOOD COUNT 2.88 10^6/uL (4.30-6.10); RED CELL DISTRIBUTION WIDTH 15.6 % (11.5-14.5); WHITE BLOOD COUNT 8.6 10^3/uL (4.0-10.0)
[2017-08-08 08:49] LABS: INR 2.66; PROTHROMBIN TIME 29.5 SECONDS (12.4-14.5)
[2017-08-08 08:50] LABS: PARTIAL THROMBOPLASTIN TIME 42.7 SECONDS (26.8-37.9)
[2017-08-08 08:58] LABS: ALBUMIN 3.2 GM/DL (3.2-5.2); ALBUMIN/GLOBULIN RATIO 1.19 (1.00-1.93); ALKALINE PHOSPHATASE 103 U/L (45-117); ALT/SGPT 23 U/L (12-78); ANION GAP 5 MEQ/L (8-16); AST/SGOT 25 U/L (7-37); BILIRUBIN,TOTAL 0.4 MG/DL (0.2-1.0); BLOOD UREA NITROGEN 23 MG/DL (7-18); CALCIUM LEVEL 8.2 MG/DL (8.8-10.2); CARBON DIOXIDE LEVEL 34 MEQ/L (21-32); CHLORIDE LEVEL 104 MEQ/L (98-107); CREATININE FOR GFR 1.73 MG/DL (0.70-1.30); GLOMERULAR FILTRATION RATE 41.1 (>42); GLUCOSE, FASTING 253 MG/DL (83-110); POTASSIUM SERUM 3.8 MEQ/L (3.5-5.1); SODIUM LEVEL 143 MEQ/L (136-145); TOTAL PROTEIN 5.9 GM/DL (6.4-8.2)
[2017-08-08] MEDS ORDERED: LIDOCAINE 2% MDV 20 ML VIAL As Ordered (09:32)
[2017-08-08 10:05] LABS: CK-MB VALUE MASS 5.8 NG/ML (0.0-3.6); TROPONIN I < 0.02 NG/ML (< 0.10)
[2017-08-08 10:08] LABS: CPK CREATINE PHOSPHOKINASE 224 U/L (39-308); MB/CK RELATIVE INDEX 2.58 (< OR =4); NT-PRO BNP 536 PG/ML (<450)
[2017-08-08] MEDS: OMEPRAZOLE 20 MG CAP PO (13:00)
[2017-08-08] MEDS ORDERED: PERCOCET 5MG/325MG TAB As Ordered (13:13)
[2017-08-08] MEDS: FUROSEMIDE 100 MG/10 ML VIAL (J1940) IV (13:30)
[2017-08-08] MEDS: LEVEMIR (INSULIN DETEMIR) 1 UNITS/0.01ML SC (13:30)
[2017-08-08] MEDS ORDERED: GLUCAGON FOR INJ 1 MG VIAL (J1610) SC (13:30)
[2017-08-08] MEDS ORDERED: DEXTROSE 50% 50 ML SYRINGE IV (13:30)
[2017-08-08] MEDS: PERCOCET 5MG/325MG TAB PO ×3 (13:30→21:32)
[2017-08-08] MEDS ORDERED: GLUCOSE 4 GM CHEW TABLET PO (13:30)
[2017-08-08] MEDS ORDERED: METOCLOPRAMIDE INJ 10MG/2ML VIAL (J2765) IV (13:45)
[2017-08-08] MEDS ORDERED: ONDANSETRON 4 MG TAB (S0181) PO (13:45)
[2017-08-08] MEDS ORDERED: ACETAMINOPHEN TAB 650MG DOSE (2X325MG) PO (13:45)
[2017-08-08] MEDS: KCL 10MEQ IN 100ML SWI (KRUN) 10 MEQ in APPROPRIATE DILUENT 1 EA IV (13:50)
[2017-08-08] MEDS: PHYTONADIONE 2.5 MG **1/2 TAB PO (14:50)
[2017-08-08] MEDS: CYANOCOBALAMIN 500 MCG TAB PO (14:50)
[2017-08-08] MEDS: SERTRALINE HCL 50 MG TAB PO (14:50)
[2017-08-08 17:02] LABS: HEMOGLOBIN 9.3 g/dl (14.0-18.0); MEAN CORPUSCULAR HEMOGLOBIN 28.1 pg (27.0-33.0); MEAN CORPUSCULAR HGB CONC 32.1 g/dl (32.0-36.5); MEAN CORPUSCULAR VOLUME 87.6 fl (80.0-96.0); PLATELET COUNT, AUTOMATED 156 10^3/uL (150-450); RED BLOOD COUNT 3.31 10^6/uL (4.30-6.10); RED CELL DISTRIBUTION WIDTH 15.3 % (11.5-14.5); WHITE BLOOD COUNT 5.3 10^3/uL (4.0-10.0)
[2017-08-08 17:21] LABS: ALBUMIN 3.4 GM/DL (3.2-5.2); ANION GAP 8 MEQ/L (8-16); BLOOD UREA NITROGEN 22 MG/DL (7-18); CALCIUM LEVEL 7.8 MG/DL (8.8-10.2); CARBON DIOXIDE LEVEL 32 MEQ/L (21-32); CHLORIDE LEVEL 103 MEQ/L (98-107); CREATININE FOR GFR 1.44 MG/DL (0.70-1.30); GLOMERULAR FILTRATION RATE 50.8 (>42); GLUCOSE, FASTING 205 MG/DL (83-110); PHOSPHORUS LEVEL 2.7 MG/DL (2.5-4.9); POTASSIUM SERUM 3.2 MEQ/L (3.5-5.1); SODIUM LEVEL 143 MEQ/L (136-145)
[2017-08-08] MEDS: HumaLOG INSULIN (NovoLOG) PER UNIT SC ×2 (17:30→21:29)
[2017-08-08 17:38] LABS: IMMEDIATE SPIN CROSSMATCH 1 2
[2017-08-08] MEDS: PREGABALIN 75 MG CAP(LYRICA) PO (21:26)
[2017-08-08] MEDS: METOPROLOL TARTRATE 100 MG TAB PO (21:26)
[2017-08-08] MEDS: GABAPENTIN 300 MG CAP PO (21:27)
[2017-08-08] MEDS: ROSUVASTATIN 10 MG TAB (CRESTOR) PO (21:27)
[2017-08-08 21:32] LABS: BEDSIDE GLUCOSE 253 MG/DL (83-110)
[2017-08-09] MEDS: BISACODYL 5 MG TAB PO ×2 (00:01→08:32)
[2017-08-09] MEDS: GOLYTELY SOLN 4000 ML BTL PO (00:02)
[2017-08-09] MEDS ORDERED: SLF 3 ML SYR IV (00:15)
[2017-08-09] MEDS: SLF 3 ML SYR IV ×2 (04:21→13:05)
[2017-08-09 05:22] LABS: BASO % 0.5 % (0.0-1.0); EOS # 0.1 10^3/uL (0.0-0.50); EOS % 2.2 % (0.0-3.0); HEMATOCRIT 31.2 % (42.0-52.0); HEMOGLOBIN 10.1 g/dl (14.0-18.0); IMMATURE GRANULOCYTE % 0.3 % (0-0); LYMPH # 1.6 10^3/uL (1.5-4.5); LYMPH % 24.9 % (24.0-44.0); MEAN CORPUSCULAR HEMOGLOBIN 28.3 pg (27.0-33.0); MEAN CORPUSCULAR HGB CONC 32.4 g/dl (32.0-36.5); MEAN CORPUSCULAR VOLUME 87.4 fl (80.0-96.0); MONO # 0.9 10^3/uL (0.0-0.8); MONO % 14.5 % (0.0-5.0); NEUTROPHILS # 3.6 10^3/uL (1.8-7.7); NEUTROPHILS % 57.6 % (36.0-66.0); PLATELET COUNT, AUTOMATED 166 10^3/uL (150-450); RED BLOOD COUNT 3.57 10^6/uL (4.30-6.10); RED CELL DISTRIBUTION WIDTH 15.3 % (11.5-14.5); WHITE BLOOD COUNT 6.3 10^3/uL (4.0-10.0)
[2017-08-09 05:33] LABS: INR 1.72; PROTHROMBIN TIME 20.7 SECONDS (12.4-14.5)
[2017-08-09 05:46] LABS: ANION GAP 8 MEQ/L (8-16); BLOOD UREA NITROGEN 17 MG/DL (7-18); CALCIUM LEVEL 8.7 MG/DL (8.8-10.2); CARBON DIOXIDE LEVEL 35 MEQ/L (21-32); CHLORIDE LEVEL 101 MEQ/L (98-107); CREATININE FOR GFR 1.25 MG/DL (0.70-1.30); GLOMERULAR FILTRATION RATE 59.8 (>42); GLUCOSE, FASTING 152 MG/DL (83-110); POTASSIUM SERUM 3.4 MEQ/L (3.5-5.1); SODIUM LEVEL 144 MEQ/L (136-145)
[2017-08-09] MEDS: HumaLOG INSULIN (NovoLOG) PER UNIT SC ×4 (07:30→21:00)
[2017-08-09] MEDS: SERTRALINE HCL 50 MG TAB PO (08:31)
[2017-08-09] MEDS: GABAPENTIN 100 MG CAP PO (08:31)
[2017-08-09] MEDS: CYANOCOBALAMIN 500 MCG TAB PO (08:31)
[2017-08-09] MEDS: PREGABALIN 75 MG CAP(LYRICA) PO ×2 (08:31→21:08)
[2017-08-09] MEDS: PANTOPRAZOLE 40MG INJ (PROTONIX) (C9113) IV (08:31)
[2017-08-09] MEDS: METOPROLOL TARTRATE 100 MG TAB PO ×2 (08:34→21:09)
[2017-08-09] MEDS: PERCOCET 5MG/325MG TAB PO ×3 (08:35→16:52)
[2017-08-09] MEDS: FLUTICASONE PROP 0.05% NASAL SPRAY 16 GM (FLONASE) (09:00)
[2017-08-09] MEDS: LEVEMIR (INSULIN DETEMIR) 1 UNITS/0.01ML SC (09:00)
[2017-08-09 12:32] LABS: BEDSIDE GLUCOSE 201 MG/DL (83-110)
[2017-08-09] MEDS: POTASSIUM CHLORIDE 10 MEQ SR TABLET PO ×3 (12:58→21:08)
[2017-08-09] MEDS: D5W/0.45% SODIUM CHLORIDE 1,000 ML IV (13:05)
[2017-08-09 13:43] LABS: ANION GAP 6 MEQ/L (8-16); BLOOD UREA NITROGEN 13 MG/DL (7-18); CALCIUM LEVEL 8.3 MG/DL (8.8-10.2); CARBON DIOXIDE LEVEL 36 MEQ/L (21-32); CHLORIDE LEVEL 104 MEQ/L (98-107); CREATININE FOR GFR 1.07 MG/DL (0.70-1.30); GLOMERULAR FILTRATION RATE > 60.0 (>42); GLUCOSE, FASTING 198 MG/DL (70-100); POTASSIUM SERUM 3.4 MEQ/L (3.5-5.1); SODIUM LEVEL 146 MEQ/L (136-145)
[2017-08-09] MEDS ORDERED: LIDOCAINE 2% INJ 100 MG/5 ML SDV (FOR ANES.) As Ordered (14:47)
[2017-08-09] MEDS ORDERED: PROPOFOL 200 MG/20 ML VIAL As Ordered (14:47)
[2017-08-09 17:20] LABS: BEDSIDE GLUCOSE 132 MG/DL (83-110)
[2017-08-09] MEDS: ROSUVASTATIN 10 MG TAB (CRESTOR) PO (21:09)
[2017-08-09 21:19] LABS: BEDSIDE GLUCOSE 199 MG/DL (83-110)
[2017-08-09] MEDS: GABAPENTIN 300 MG CAP PO (21:58)
[2017-08-10 06:11] LABS: BASO % 0.4 % (0.0-1.0); EOS # 0.1 10^3/uL (0.0-0.50); EOS % 1.7 % (0.0-3.0); HEMATOCRIT 28.2 % (42.0-52.0); HEMOGLOBIN 8.8 g/dl (14.0-18.0); IMMATURE GRANULOCYTE % 0.4 % (0-0); LYMPH # 1.2 10^3/uL (1.5-4.5); LYMPH % 25.5 % (24.0-44.0); MEAN CORPUSCULAR HGB CONC 31.2 g/dl (32.0-36.5); MEAN CORPUSCULAR VOLUME 89.8 fl (80.0-96.0); MONO # 0.6 10^3/uL (0.0-0.8); MONO % 12.5 % (0.0-5.0); NEUTROPHILS # 2.8 10^3/uL (1.8-7.7); NEUTROPHILS % 59.5 % (36.0-66.0); PLATELET COUNT, AUTOMATED 143 10^3/uL (150-450); RED BLOOD COUNT 3.14 10^6/uL (4.30-6.10); RED CELL DISTRIBUTION WIDTH 15.8 % (11.5-14.5); WHITE BLOOD COUNT 4.7 10^3/uL (4.0-10.0)
[2017-08-10 06:20] LABS: INR 1.29; PROTHROMBIN TIME 16.4 SECONDS (12.4-14.5)
[2017-08-10] MEDS: SLF 3 ML SYR IV ×4 (06:33→22:08)
[2017-08-10 06:41] LABS: ANION GAP 8 MEQ/L (8-16); BLOOD UREA NITROGEN 9 MG/DL (7-18); CALCIUM LEVEL 8.4 MG/DL (8.8-10.2); CARBON DIOXIDE LEVEL 31 MEQ/L (21-32); CHLORIDE LEVEL 107 MEQ/L (98-107); CREATININE FOR GFR 0.89 MG/DL (0.70-1.30); GLOMERULAR FILTRATION RATE > 60.0 (>42); GLUCOSE, FASTING 166 MG/DL (70-100); MAGNESIUM LEVEL 2.2 MG/DL (1.8-2.4); SODIUM LEVEL 146 MEQ/L (136-145)
[2017-08-10] MEDS: SERTRALINE HCL 50 MG TAB PO (09:00)
[2017-08-10] MEDS: PREGABALIN 75 MG CAP(LYRICA) PO ×2 (09:12→22:05)
[2017-08-10] MEDS: METOPROLOL TARTRATE 100 MG TAB PO ×2 (09:12→22:06)
[2017-08-10] MEDS: GABAPENTIN 100 MG CAP PO (09:12)
[2017-08-10] MEDS: POTASSIUM CHLORIDE 10 MEQ SR TABLET PO ×3 (09:13→22:04)
[2017-08-10] MEDS: fentaNYL 50 MCG/HR PATCH TOP ×2 (09:13→09:28)
[2017-08-10] MEDS: HumaLOG INSULIN (NovoLOG) PER UNIT SC ×4 (09:14→22:07)
[2017-08-10] MEDS: PANTOPRAZOLE 40MG INJ (PROTONIX) (C9113) IV (09:14)
[2017-08-10] MEDS: CYANOCOBALAMIN 500 MCG TAB PO (09:14)
[2017-08-10] MEDS: FLUTICASONE PROP 0.05% NASAL SPRAY 16 GM (FLONASE) (09:14)
[2017-08-10] MEDS: LEVEMIR (INSULIN DETEMIR) 1 UNITS/0.01ML SC (09:15)
[2017-08-10] MEDS: BISACODYL 5 MG TAB PO (09:18)
[2017-08-10] MEDS: TORSEMIDE 20 MG TAB PO (09:18)
[2017-08-10] MEDS: FENTANYL REMOVAL DOCUMENTATION MISC XX (09:29)
[2017-08-10 13:23] LABS: BEDSIDE GLUCOSE 279 MG/DL (83-110)
[2017-08-10] MEDS: PERCOCET 5MG/325MG TAB PO (14:13)
[2017-08-10 17:40] LABS: BEDSIDE GLUCOSE 184 MG/DL (83-110)
[2017-08-10 20:52] LABS: BEDSIDE GLUCOSE 263 MG/DL (83-110)
[2017-08-10] MEDS: ROSUVASTATIN 10 MG TAB (CRESTOR) PO (22:03)
[2017-08-10] MEDS: GABAPENTIN 300 MG CAP PO (22:06)
[2017-08-11] MEDS: PERCOCET 5MG/325MG TAB PO ×4 (05:58→21:41)
[2017-08-11] MEDS: SLF 3 ML SYR IV ×3 (06:33→21:42)
[2017-08-11 06:55] LABS: BASO % 0.4 % (0.0-1.0); EOS # 0.1 10^3/uL (0.0-0.50); EOS % 1.9 % (0.0-3.0); HEMATOCRIT 29.4 % (42.0-52.0); HEMOGLOBIN 9.1 g/dl (14.0-18.0); IMMATURE GRANULOCYTE % 0.2 % (0-0); LYMPH # 1.5 10^3/uL (1.5-4.5); LYMPH % 28.5 % (24.0-44.0); MEAN CORPUSCULAR HEMOGLOBIN 28.3 pg (27.0-33.0); MEAN CORPUSCULAR VOLUME 91.3 fl (80.0-96.0); MONO # 0.7 10^3/uL (0.0-0.8); MONO % 12.9 % (0.0-5.0); NEUTROPHILS % 56.1 % (36.0-66.0); PLATELET COUNT, AUTOMATED 138 10^3/uL (150-450); RED BLOOD COUNT 3.22 10^6/uL (4.30-6.10); RED CELL DISTRIBUTION WIDTH 15.9 % (11.5-14.5); WHITE BLOOD COUNT 5.3 10^3/uL (4.0-10.0)
[2017-08-11 07:04] LABS: INR 1.11; PROTHROMBIN TIME 14.5 SECONDS (12.4-14.5)
[2017-08-11 07:11] LABS: ANION GAP 5 MEQ/L (8-16); BLOOD UREA NITROGEN 10 MG/DL (7-18); CALCIUM LEVEL 8.5 MG/DL (8.8-10.2); CARBON DIOXIDE LEVEL 34 MEQ/L (21-32); CHLORIDE LEVEL 104 MEQ/L (98-107); CREATININE FOR GFR 1.03 MG/DL (0.70-1.30); GLOMERULAR FILTRATION RATE > 60.0 (>42); GLUCOSE, FASTING 191 MG/DL (70-100); POTASSIUM SERUM 4.6 MEQ/L (3.5-5.1); SODIUM LEVEL 143 MEQ/L (136-145)
[2017-08-11] MEDS: HumaLOG INSULIN (NovoLOG) PER UNIT SC ×4 (08:51→21:00)
[2017-08-11] MEDS: LEVEMIR (INSULIN DETEMIR) 1 UNITS/0.01ML SC (08:52)
[2017-08-11] MEDS: BISACODYL 5 MG TAB PO (08:52)
[2017-08-11] MEDS: PREGABALIN 75 MG CAP(LYRICA) PO ×2 (08:52→21:41)
[2017-08-11] MEDS: FLUTICASONE PROP 0.05% NASAL SPRAY 16 GM (FLONASE) (08:52)
[2017-08-11] MEDS: GABAPENTIN 100 MG CAP PO (08:53)
[2017-08-11] MEDS: TORSEMIDE 20 MG TAB PO (08:53)
[2017-08-11] MEDS: CYANOCOBALAMIN 500 MCG TAB PO (08:53)
[2017-08-11] MEDS: POTASSIUM CHLORIDE 10 MEQ SR TABLET PO (08:53)
[2017-08-11] MEDS: SERTRALINE HCL 50 MG TAB PO (08:53)
[2017-08-11] MEDS: PANTOPRAZOLE 40MG TAB (PROTONIX) PO (08:53)
[2017-08-11] MEDS: METOPROLOL TARTRATE 100 MG TAB PO ×2 (08:54→21:00)
[2017-08-11 11:55] LABS: BEDSIDE GLUCOSE 273 MG/DL (83-110)
[2017-08-11 12:39] LABS: INR 1.06; PROTHROMBIN TIME 13.9 SECONDS (12.4-14.5)
[2017-08-11 16:54] LABS: BEDSIDE GLUCOSE 209 MG/DL (83-110)
[2017-08-11] MEDS: WARFARIN SOD 2 MG TAB PO (18:37)
[2017-08-11 20:41] LABS: BEDSIDE GLUCOSE 303 MG/DL (83-110)
[2017-08-11] MEDS: ROSUVASTATIN 10 MG TAB (CRESTOR) PO (21:00)
[2017-08-11] MEDS: GABAPENTIN 300 MG CAP PO (21:41)
[2017-08-12] MEDS: SLF 3 ML SYR IV (05:39)
[2017-08-12 06:56] LABS: ANION GAP 5 MEQ/L (8-16); BLOOD UREA NITROGEN 12 MG/DL (7-18); CARBON DIOXIDE LEVEL 32 MEQ/L (21-32); CHLORIDE LEVEL 104 MEQ/L (98-107); CREATININE FOR GFR 1.02 MG/DL (0.70-1.30); GLOMERULAR FILTRATION RATE > 60.0 (>42); GLUCOSE, FASTING 163 MG/DL (70-100); POTASSIUM SERUM 4.3 MEQ/L (3.5-5.1); SODIUM LEVEL 141 MEQ/L (136-145)
[2017-08-12 07:27] LABS: INR 1.01; PROTHROMBIN TIME 13.4 SECONDS (12.4-14.5)
[2017-08-12 07:31] LABS: BASO % 0.4 % (0.0-1.0); EOS # 0.1 10^3/uL (0.0-0.50); EOS % 2.4 % (0.0-3.0); HEMATOCRIT 32.1 % (42.0-52.0); HEMOGLOBIN 10.1 g/dl (14.0-18.0); IMMATURE GRANULOCYTE % 0.4 % (0-0); LYMPH # 1.3 10^3/uL (1.5-4.5); LYMPH % 24.9 % (24.0-44.0); MEAN CORPUSCULAR HEMOGLOBIN 28.4 pg (27.0-33.0); MEAN CORPUSCULAR HGB CONC 31.5 g/dl (32.0-36.5); MEAN CORPUSCULAR VOLUME 90.2 fl (80.0-96.0); MONO # 0.7 10^3/uL (0.0-0.8); MONO % 12.5 % (0.0-5.0); NEUTROPHILS # 3.2 10^3/uL (1.8-7.7); NEUTROPHILS % 59.4 % (36.0-66.0); PLATELET COUNT, AUTOMATED 123 10^3/uL (150-450); RED BLOOD COUNT 3.56 10^6/uL (4.30-6.10); WHITE BLOOD COUNT 5.4 10^3/uL (4.0-10.0)
[2017-08-12 07:34] LABS: POS COUNT POS FLAG
[2017-08-12] MEDS: CYANOCOBALAMIN 500 MCG TAB PO (08:19)
[2017-08-12] MEDS: PREGABALIN 75 MG CAP(LYRICA) PO (08:19)
[2017-08-12] MEDS: BISACODYL 5 MG TAB PO (08:19)
[2017-08-12] MEDS: GABAPENTIN 100 MG CAP PO (08:19)
[2017-08-12] MEDS: SERTRALINE HCL 50 MG TAB PO (08:19)
[2017-08-12] MEDS: PANTOPRAZOLE 40MG TAB (PROTONIX) PO (08:19)
[2017-08-12] MEDS: METOPROLOL TARTRATE 100 MG TAB PO (08:20)
[2017-08-12] MEDS: TORSEMIDE 20 MG TAB PO (08:20)
[2017-08-12] MEDS: LEVEMIR (INSULIN DETEMIR) 1 UNITS/0.01ML SC (08:20)
[2017-08-12] MEDS: HumaLOG INSULIN (NovoLOG) PER UNIT SC (08:21)
[2017-08-12] MEDS: PERCOCET 5MG/325MG TAB PO (08:26)
[2017-08-12] MEDS: FLUTICASONE PROP 0.05% NASAL SPRAY 16 GM (FLONASE) (09:00)
== END 2017-08-12 11:02 | disposition home or self-care (01) | DRG 92 ==
LOC: M MSPAV 08-10 14:28 → M ED 08:08 → M ED INP 12:28 → M PCU 18:15
PROC: 0DB78ZX Excision of Stomach, Pylorus, Via Natural or Artificial Opening Endoscopic, Diagnostic (ICD-10-PCS; principal; 2017-08-09 14:45)
PROC: 0DBM8ZZ Excision of Descending Colon, Via Natural or Artificial Opening Endoscopic (ICD-10-PCS; 2017-08-09 14:45)
PROC: 0DBC8ZX Excision of Ileocecal Valve, Via Natural or Artificial Opening Endoscopic, Diagnostic (ICD-10-PCS; 2017-08-09 14:45)
PROC: 30233N1 Transfusion of Nonautologous Red Blood Cells into Peripheral Vein, Percutaneous Approach (ICD-10-PCS; 2017-08-09 14:52)
DX: R29.6 Repeated falls (principal); I47.2 Ventricular tachycardia; D62 Acute posthemorrhagic anemia; I12.9 Hypertensive chronic kidney disease with stage 1 through stage 4 chronic kidney disease, or unspecified chronic kidney disease; J44.9 Chronic obstructive pulmonary disease, unspecified; N18.9 Chronic kidney disease, unspecified; R41.0 Disorientation, unspecified; K64.8 Other hemorrhoids; G47.33 Obstructive sleep apnea (adult) (pediatric); K64.4 Residual hemorrhoidal skin tags; D17.9 Benign lipomatous neoplasm, unspecified; D12.4 Benign neoplasm of descending colon; K57.30 Diverticulosis of large intestine without perforation or abscess without bleeding; K29.70 Gastritis, unspecified, without bleeding; E11.40 Type 2 diabetes mellitus with diabetic neuropathy, unspecified; E87.6 Hypokalemia; S01.91XA Laceration without foreign body of unspecified part of head, initial encounter; Z79.01 Long term (current) use of anticoagulants; Z79.02 Long term (current) use of antithrombotics/antiplatelets; Z79.82 Long term (current) use of aspirin; Z79.4 Long term (current) use of insulin; Z99.89 Dependence on other enabling machines and devices; Z86.718 Personal history of other venous thrombosis and embolism; Z95.9 Presence of cardiac and vascular implant and graft, unspecified; Z87.891 Personal history of nicotine dependence; W01.0XXA Fall on same level from slipping, tripping and stumbling without subsequent striking against object, initial encounter; Y93.01 Activity, walking, marching and hiking

== ENCOUNTER → 2017-08-26 | Outpatient (REF) | payer MEDICARE, MEDICAID ==
[2017-08-26 12:54] LABS: ALBUMIN 3.6 GM/DL (3.2-5.2); ALBUMIN/GLOBULIN RATIO 1.44 (1.00-1.93); ALKALINE PHOSPHATASE 94 U/L (45-117); ALT/SGPT 20 U/L (12-78); ANION GAP 8 MEQ/L (8-16); AST/SGOT 25 U/L (7-37); BILIRUBIN,TOTAL 0.4 MG/DL (0.2-1.0); BLOOD UREA NITROGEN 20 MG/DL (7-18); CALCIUM LEVEL 8.5 MG/DL (8.8-10.2); CARBON DIOXIDE LEVEL 33 MEQ/L (21-32); CHLORIDE LEVEL 99 MEQ/L (98-107); CREATININE FOR GFR 1.27 MG/DL (0.70-1.30); GLOMERULAR FILTRATION RATE 58.7 (>42); GLUCOSE, FASTING 264 MG/DL (70-100); POTASSIUM SERUM 3.6 MEQ/L (3.5-5.1); SODIUM LEVEL 140 MEQ/L (136-145); TOTAL PROTEIN 6.1 GM/DL (6.4-8.2)
[2017-08-26 12:55] LABS: INR 2.15; PROTHROMBIN TIME 24.8 SECONDS (12.4-14.5)
== END ==
LOC: M SFHCADAM 09:30
DX: R60.9 Edema, unspecified (principal); L03.119 Cellulitis of unspecified part of limb
CPT/HCPCS: 80053

== ENCOUNTER → 2017-08-30 | Outpatient (CLI) | payer MEDICARE, MEDICAID | LOC: M RAD 12:18 | DX: R60.9 Edema, unspecified (principal) | CPT/HCPCS: 93971 ==

== ENCOUNTER → 2017-09-02 | Outpatient (CLI) | payer MEDICARE | LOC: M PAIN 09:00 | DX: G62.9 Polyneuropathy, unspecified (principal); M47.816 Spondylosis without myelopathy or radiculopathy, lumbar region; E11.22 Type 2 diabetes mellitus with diabetic chronic kidney disease; E11.40 Type 2 diabetes mellitus with diabetic neuropathy, unspecified; I12.9 Hypertensive chronic kidney disease with stage 1 through stage 4 chronic kidney disease, or unspecified chronic kidney disease; N18.9 Chronic kidney disease, unspecified; J44.9 Chronic obstructive pulmonary disease, unspecified; E78.00 Pure hypercholesterolemia, unspecified; F32.9 Major depressive disorder, single episode, unspecified; G47.33 Obstructive sleep apnea (adult) (pediatric); I82.4Y1 Acute embolism and thrombosis of unspecified deep veins of right proximal lower extremity; Z79.4 Long term (current) use of insulin; Z79.01 Long term (current) use of anticoagulants; Z79.891 Long term (current) use of opiate analgesic; Z79.899 Other long term (current) drug therapy; Z88.8 Allergy status to other drugs, medicaments and biological substances; Z87.891 Personal history of nicotine dependence | CPT/HCPCS: G0463 ==

== ENCOUNTER → 2017-09-27 | Outpatient (CLI) | payer MEDICARE | LOC: M RAD 11:01 | DX: R60.0 Localized edema (principal) | CPT/HCPCS: 93970 ==

== ENCOUNTER → 2017-10-04 | Outpatient (REF) | payer MEDICARE ==
[2017-10-04 12:26] LABS: ALBUMIN 3.6 GM/DL (3.2-5.2); ALBUMIN/GLOBULIN RATIO 1.16 (1.00-1.93); ALKALINE PHOSPHATASE 100 U/L (45-117); ALT/SGPT 25 U/L (12-78); ANION GAP 8 MEQ/L (8-16); AST/SGOT 24 U/L (7-37); BILIRUBIN,TOTAL 0.6 MG/DL (0.2-1.0); BLOOD UREA NITROGEN 30 MG/DL (7-18); CALCIUM LEVEL 8.8 MG/DL (8.8-10.2); CARBON DIOXIDE LEVEL 33 MEQ/L (21-32); CHLORIDE LEVEL 103 MEQ/L (98-107); CREATININE FOR GFR 1.24 MG/DL (0.70-1.30); GLOMERULAR FILTRATION RATE > 60.0 (>42); GLUCOSE, FASTING 141 MG/DL (70-100); POTASSIUM SERUM 3.8 MEQ/L (3.5-5.1); SODIUM LEVEL 144 MEQ/L (136-145); TOTAL PROTEIN 6.7 GM/DL (6.4-8.2)
[2017-10-04 12:39] LABS: ESTIMATED AVERAGE GLUCOSE 183 MG/DL (60-110)
== END ==
LOC: M SFHCADAM 09:02
DX: R60.9 Edema, unspecified (principal); E11.69 Type 2 diabetes mellitus with other specified complication
CPT/HCPCS: 80053

== ENCOUNTER → 2017-10-14 | Outpatient (CLI) | payer MEDICARE | LOC: M ADAMS 08:51 | DX: M19.042 Primary osteoarthritis, left hand (principal); Z51.81 Encounter for therapeutic drug level monitoring; Z79.01 Long term (current) use of anticoagulants | CPT/HCPCS: 73130 ==

== ENCOUNTER 2017-10-28 12:28 | Inpatient (IN) | payer MEDICARE ==
[2017-10-28] MEDS: FLUTICASONE PROP 0.05% NASAL SPRAY 16 GM (FLONASE) (09:00)
[2017-10-28 13:59] LABS: BEDSIDE GLUCOSE 97 MG/DL (83-110)
[2017-10-28] MEDS ORDERED: LEVEMIR (INSULIN DETEMIR) 1 UNITS/0.01ML SC (14:00)
[2017-10-28] MEDS ORDERED: GLUCOSE 4 GM CHEW TABLET PO (16:45)
[2017-10-28] MEDS ORDERED: DEXTROSE 50% 50 ML SYRINGE IV (16:45)
[2017-10-28] MEDS ORDERED: GLUCAGON FOR INJ 1 MG VIAL (J1610) SC (16:45)
[2017-10-28] MEDS: PERCOCET 5MG/325MG TAB PO ×2 (17:29→21:56)
[2017-10-28] MEDS: HumaLOG INSULIN (NovoLOG) PER UNIT SC ×2 (17:30→21:47)
[2017-10-28 17:46] LABS: BEDSIDE GLUCOSE 104 MG/DL (83-110)
[2017-10-28] MEDS: FUROSEMIDE 100 MG/10 ML VIAL (J1940) IV (19:37)
[2017-10-28] MEDS: CYANOCOBALAMIN 500 MCG TAB PO (19:38)
[2017-10-28] MEDS: OMEPRAZOLE 20 MG CAP PO (19:38)
[2017-10-28 21:10] LABS: BEDSIDE GLUCOSE 310 MG/DL (83-110)
[2017-10-28] MEDS: ROSUVASTATIN 10 MG TAB (CRESTOR) PO (21:43)
[2017-10-28] MEDS: METOPROLOL TARTRATE 100 MG TAB PO (21:44)
[2017-10-28] MEDS: PREGABALIN 75 MG CAP(LYRICA) PO (21:45)
[2017-10-28] MEDS: GABAPENTIN 300 MG CAP PO (21:45)
[2017-10-28] MEDS: LEVEMIR (INSULIN DETEMIR) 1 UNITS/0.01ML SC (21:46)
[2017-10-29 06:29] LABS: HEMATOCRIT 34.7 % (42.0-52.0); HEMOGLOBIN 10.2 g/dl (13.5-17.5); MEAN CORPUSCULAR HGB CONC 29.4 g/dl (32.0-36.5); MEAN CORPUSCULAR VOLUME 81.6 fl (80.0-96.0); PLATELET COUNT, AUTOMATED 130 10^3/uL (150-450); RED BLOOD COUNT 4.25 10^6/uL (4.30-6.10); WHITE BLOOD COUNT 5.2 10^3/uL (4.0-10.0)
[2017-10-29 06:54] LABS: ALBUMIN 3.5 GM/DL (3.2-5.2); ALBUMIN/GLOBULIN RATIO 1.06 (1.00-1.93); ALKALINE PHOSPHATASE 100 U/L (45-117); ALT/SGPT 23 U/L (12-78); ANION GAP 6 MEQ/L (8-16); AST/SGOT 22 U/L (7-37); BILIRUBIN,TOTAL 0.3 MG/DL (0.2-1.0); BLOOD UREA NITROGEN 19 MG/DL (7-18); CARBON DIOXIDE LEVEL 33 MEQ/L (21-32); CHLORIDE LEVEL 106 MEQ/L (98-107); CREATININE FOR GFR 1.23 MG/DL (0.70-1.30); GLOMERULAR FILTRATION RATE > 60.0 (>42); GLUCOSE, FASTING 164 MG/DL (70-100); POTASSIUM SERUM 4.4 MEQ/L (3.5-5.1); SODIUM LEVEL 145 MEQ/L (136-145); TOTAL PROTEIN 6.8 GM/DL (6.4-8.2)
[2017-10-29] MEDS: METOPROLOL TARTRATE 100 MG TAB PO ×2 (08:10→21:30)
[2017-10-29] MEDS: GABAPENTIN 100 MG CAP PO (08:16)
[2017-10-29] MEDS: CYANOCOBALAMIN 500 MCG TAB PO (08:17)
[2017-10-29] MEDS: OMEPRAZOLE 20 MG CAP PO (08:17)
[2017-10-29] MEDS: PREGABALIN 75 MG CAP(LYRICA) PO ×2 (08:17→21:29)
[2017-10-29] MEDS: SERTRALINE HCL 50 MG TAB PO (08:17)
[2017-10-29] MEDS: HumaLOG INSULIN (NovoLOG) PER UNIT SC ×4 (08:18→21:31)
[2017-10-29] MEDS: LEVEMIR (INSULIN DETEMIR) 1 UNITS/0.01ML SC ×2 (08:19→21:31)
[2017-10-29] MEDS ORDERED: WARFARIN SOD 4 MG TAB PO (09:00)
[2017-10-29] MEDS ORDERED: LEVEMIR (INSULIN DETEMIR) 1 UNITS/0.01ML SC (09:00)
[2017-10-29] MEDS: PERCOCET 5MG/325MG TAB PO ×3 (09:45→21:32)
[2017-10-29 10:55] LABS: INR 1.84; PROTHROMBIN TIME 21.9 SECONDS (12.4-14.5)
[2017-10-29 12:09] LABS: BEDSIDE GLUCOSE 302 MG/DL (83-110)
[2017-10-29] MEDS: fentaNYL 50 MCG/HR PATCH TD (12:09)
[2017-10-29 12:30] LABS: NT-PRO BNP 1767 PG/ML (<450)
[2017-10-29] MEDS: TORSEMIDE 100 MG TAB PO (15:16)
[2017-10-29] MEDS: FLUTICASONE PROP 0.05% NASAL SPRAY 16 GM (FLONASE) (15:16)
[2017-10-29] MEDS: SPIRONOLACTONE 50 MG TAB PO (15:16)
[2017-10-29 16:58] LABS: BEDSIDE GLUCOSE 121 MG/DL (83-110)
[2017-10-29 20:40] LABS: BEDSIDE GLUCOSE 304 MG/DL (83-110)
[2017-10-29] MEDS: ROSUVASTATIN 10 MG TAB (CRESTOR) PO (21:29)
[2017-10-29] MEDS: GABAPENTIN 300 MG CAP PO (21:29)
[2017-10-30 06:02] LABS: BEDSIDE GLUCOSE 194 MG/DL (83-110)
[2017-10-30] MEDS: HumaLOG INSULIN (NovoLOG) PER UNIT SC ×4 (07:30→20:39)
[2017-10-30] MEDS: TORSEMIDE 100 MG TAB PO (08:24)
[2017-10-30] MEDS: GABAPENTIN 100 MG CAP PO (08:25)
[2017-10-30] MEDS: PREGABALIN 75 MG CAP(LYRICA) PO ×2 (08:25→20:37)
[2017-10-30] MEDS: CYANOCOBALAMIN 500 MCG TAB PO (08:25)
[2017-10-30] MEDS: OMEPRAZOLE 20 MG CAP PO (08:26)
[2017-10-30] MEDS: SERTRALINE HCL 50 MG TAB PO (08:26)
[2017-10-30] MEDS: LEVEMIR (INSULIN DETEMIR) 1 UNITS/0.01ML SC ×2 (08:26→20:40)
[2017-10-30] MEDS: METOPROLOL TARTRATE 100 MG TAB PO ×2 (08:26→20:39)
[2017-10-30] MEDS: SPIRONOLACTONE 50 MG TAB PO (08:26)
[2017-10-30] MEDS: FLUTICASONE PROP 0.05% NASAL SPRAY 16 GM (FLONASE) (08:27)
[2017-10-30] MEDS: PERCOCET 5MG/325MG TAB PO ×3 (08:31→22:09)
[2017-10-30] MEDS ORDERED: fentaNYL 50 MCG/HR PATCH TD (09:00)
[2017-10-30] MEDS ORDERED: SPIRONOLACTONE 50 MG TAB PO (09:00)
[2017-10-30] MEDS ORDERED: PROPOFOL 200 MG/20 ML VIAL As Ordered (11:13)
[2017-10-30] MEDS ORDERED: fentaNYL 100 MCG/2 ML INJECTION (J3010) As Ordered (11:14)
[2017-10-30] MEDS ORDERED: MIDAZOLAM INJ 2 MG/2 ML VIAL (J2250) As Ordered (11:14)
[2017-10-30] MEDS ORDERED: ETOMIDATE INJ 20MG/10ML VIAL As Ordered (11:34)
[2017-10-30] MEDS ORDERED: PHENYLephrine HCL 500 MCG/5 ML (100MCG/ML) SYRINGE (J2370) As Ordered (11:43)
[2017-10-30] MEDS ORDERED: ePHEDrine SULFATE 25 MG/5 ML(5MG/ML) SYRINGE As Ordered (12:00)
[2017-10-30] MEDS ORDERED: ONDANSETRON 4MG/2ML VIAL (J2405) As Ordered (12:00)
[2017-10-30] MEDS: ceFAZolin 2 GM/D5W 50 ML IV BAG (J0690 PER 500MG) As Ordered (12:03)
[2017-10-30 12:52] LABS: BEDSIDE GLUCOSE 181 MG/DL (83-110)
[2017-10-30] MEDS ORDERED: PERCOCET 5MG/325MG TAB PO (13:00)
[2017-10-30] MEDS: CLINDAMYCIN 600 MG in APPROPRIATE DILUENT 1 EA IV ×2 (15:54→22:08)
[2017-10-30 17:07] LABS: BEDSIDE GLUCOSE 235 MG/DL (83-110)
[2017-10-30] MEDS: GABAPENTIN 300 MG CAP PO (20:37)
[2017-10-30] MEDS: ROSUVASTATIN 10 MG TAB (CRESTOR) PO (20:37)
[2017-10-30 21:04] LABS: BEDSIDE GLUCOSE 335 MG/DL (83-110)
[2017-10-31] MEDS: PERCOCET 5MG/325MG TAB PO ×4 (05:51→19:34)
[2017-10-31 06:15] LABS: HEMOGLOBIN 10.5 g/dl (13.5-17.5); MEAN CORPUSCULAR VOLUME 80.1 fl (80.0-96.0); PLATELET COUNT, AUTOMATED 145 10^3/uL (150-450); RED BLOOD COUNT 4.37 10^6/uL (4.30-6.10); RED CELL DISTRIBUTION WIDTH 17.7 % (11.5-14.5); WHITE BLOOD COUNT 5.5 10^3/uL (4.0-10.0)
[2017-10-31 06:29] LABS: INR 1.23; PROTHROMBIN TIME 15.7 SECONDS (12.4-14.5)
[2017-10-31 06:35] LABS: ANION GAP 5 MEQ/L (8-16); BLOOD UREA NITROGEN 23 MG/DL (7-18); CALCIUM LEVEL 8.8 MG/DL (8.8-10.2); CARBON DIOXIDE LEVEL 33 MEQ/L (21-32); CHLORIDE LEVEL 105 MEQ/L (98-107); CREATININE FOR GFR 1.51 MG/DL (0.70-1.30); GLOMERULAR FILTRATION RATE 47.9 (>42); GLUCOSE, FASTING 170 MG/DL (70-100); POTASSIUM SERUM 4.1 MEQ/L (3.5-5.1); SODIUM LEVEL 143 MEQ/L (136-145)
[2017-10-31] MEDS: SERTRALINE HCL 50 MG TAB PO (08:15)
[2017-10-31] MEDS: CYANOCOBALAMIN 500 MCG TAB PO (08:15)
[2017-10-31] MEDS: TORSEMIDE 100 MG TAB PO (08:15)
[2017-10-31] MEDS: DOXYCYCLINE HYCLATE 100 MG TAB PO ×2 (08:15→20:56)
[2017-10-31] MEDS: PREGABALIN 75 MG CAP(LYRICA) PO ×2 (08:15→20:56)
[2017-10-31] MEDS: METOPROLOL TARTRATE 100 MG TAB PO ×2 (08:16→20:57)
[2017-10-31] MEDS: OMEPRAZOLE 20 MG CAP PO (08:16)
[2017-10-31] MEDS: GABAPENTIN 100 MG CAP PO (08:16)
[2017-10-31] MEDS: LEVEMIR (INSULIN DETEMIR) 1 UNITS/0.01ML SC ×2 (08:17→20:58)
[2017-10-31] MEDS: HumaLOG INSULIN (NovoLOG) PER UNIT SC ×4 (08:17→20:57)
[2017-10-31] MEDS: FLUTICASONE PROP 0.05% NASAL SPRAY 16 GM (FLONASE) (08:18)
[2017-10-31 11:59] LABS: BEDSIDE GLUCOSE 266 MG/DL (83-110)
[2017-10-31 16:45] LABS: BEDSIDE GLUCOSE 124 MG/DL (83-110)
[2017-10-31] MEDS: WARFARIN SOD 4 MG TAB PO (19:32)
[2017-10-31 20:17] LABS: BEDSIDE GLUCOSE 237 MG/DL (83-110)
[2017-10-31] MEDS: ROSUVASTATIN 10 MG TAB (CRESTOR) PO (20:56)
[2017-10-31] MEDS: GABAPENTIN 300 MG CAP PO (20:56)
[2017-11-01] MEDS: PERCOCET 5MG/325MG TAB PO ×5 (02:28→20:40)
[2017-11-01 06:21] LABS: BEDSIDE GLUCOSE 259 MG/DL (83-110)
[2017-11-01] MEDS: HumaLOG INSULIN (NovoLOG) PER UNIT SC ×4 (08:28→20:47)
[2017-11-01] MEDS: DOXYCYCLINE HYCLATE 100 MG TAB PO ×2 (08:29→20:40)
[2017-11-01] MEDS: SERTRALINE HCL 50 MG TAB PO (08:29)
[2017-11-01] MEDS: GABAPENTIN 100 MG CAP PO (08:29)
[2017-11-01] MEDS: TORSEMIDE 100 MG TAB PO (08:29)
[2017-11-01] MEDS: OMEPRAZOLE 20 MG CAP PO (08:29)
[2017-11-01] MEDS: PREGABALIN 75 MG CAP(LYRICA) PO ×2 (08:29→20:35)
[2017-11-01] MEDS: CYANOCOBALAMIN 500 MCG TAB PO (08:30)
[2017-11-01] MEDS: METOPROLOL TARTRATE 100 MG TAB PO ×2 (08:30→20:56)
[2017-11-01] MEDS: FLUTICASONE PROP 0.05% NASAL SPRAY 16 GM (FLONASE) (08:31)
[2017-11-01] MEDS: LEVEMIR (INSULIN DETEMIR) 1 UNITS/0.01ML SC ×2 (08:31→20:49)
[2017-11-01] MEDS: SPIRONOLACTONE 50 MG TAB PO (10:26)
[2017-11-01 11:25] LABS: BASO % 0.5 % (0.0-1.0); EOS # 0.1 10^3/uL (0.0-0.50); EOS % 1.4 % (0.0-3.0); HEMATOCRIT 35.8 % (42.0-52.0); HEMOGLOBIN 10.7 g/dl (13.5-17.5); IMMATURE GRANULOCYTE % 0.5 % (0-3.0); LYMPH # 1.6 10^3/uL (1.5-4.5); LYMPH % 19.4 % (24.0-44.0); MEAN CORPUSCULAR HEMOGLOBIN 23.8 pg (27.0-33.0); MEAN CORPUSCULAR HGB CONC 29.9 g/dl (32.0-36.5); MEAN CORPUSCULAR VOLUME 79.6 fl (80.0-96.0); MONO # 1.1 10^3/uL (0.0-0.8); MONO % 13.2 % (0.0-5.0); NEUTROPHILS # 5.4 10^3/uL (1.8-7.7); PLATELET COUNT, AUTOMATED 164 10^3/uL (150-450); RED CELL DISTRIBUTION WIDTH 17.9 % (11.5-14.5); WHITE BLOOD COUNT 8.3 10^3/uL (4.0-10.0)
[2017-11-01 11:37] LABS: INR 1.09; PROTHROMBIN TIME 14.3 SECONDS (12.4-14.5)
[2017-11-01 11:41] LABS: BEDSIDE GLUCOSE 179 MG/DL (83-110)
[2017-11-01] MEDS: fentaNYL 50 MCG/HR PATCH TD (11:47)
[2017-11-01] MEDS: FENTANYL REMOVAL DOCUMENTATION MISC XX (11:49)
[2017-11-01 12:24] LABS: ALBUMIN 3.7 GM/DL (3.2-5.2); ALBUMIN/GLOBULIN RATIO 1.28 (1.00-1.93); ALKALINE PHOSPHATASE 99 U/L (45-117); ALT/SGPT 19 U/L (12-78); ANION GAP 4 MEQ/L (8-16); AST/SGOT 20 U/L (7-37); BILIRUBIN,TOTAL 0.4 MG/DL (0.2-1.0); BLOOD UREA NITROGEN 27 MG/DL (7-18); CALCIUM LEVEL 8.8 MG/DL (8.8-10.2); CARBON DIOXIDE LEVEL 34 MEQ/L (21-32); CHLORIDE LEVEL 100 MEQ/L (98-107); CREATININE FOR GFR 1.53 MG/DL (0.70-1.30); GLOMERULAR FILTRATION RATE 47.2 (>42); GLUCOSE, FASTING 199 MG/DL (70-100); POTASSIUM SERUM 4.2 MEQ/L (3.5-5.1); SODIUM LEVEL 138 MEQ/L (136-145); TOTAL PROTEIN 6.6 GM/DL (6.4-8.2)
[2017-11-01] MEDS: ENOXAPARIN 100MG/1ML SYRINGE (J1650) SC (14:59)
[2017-11-01 17:02] LABS: BEDSIDE GLUCOSE 154 MG/DL (83-110)
[2017-11-01] MEDS: WARFARIN SOD 4 MG TAB PO (17:03)
[2017-11-01] MEDS: ROSUVASTATIN 10 MG TAB (CRESTOR) PO (20:40)
[2017-11-01] MEDS: GABAPENTIN 300 MG CAP PO (20:41)
[2017-11-01 21:04] LABS: BEDSIDE GLUCOSE 226 MG/DL (83-110)
[2017-11-02] MEDS: PERCOCET 5MG/325MG TAB PO ×4 (05:53→20:14)
[2017-11-02 06:49] LABS: BASO % 0.9 % (0.0-1.0); EOS # 0.1 10^3/uL (0.0-0.50); EOS % 1.7 % (0.0-3.0); HEMATOCRIT 35.9 % (42.0-52.0); HEMOGLOBIN 10.7 g/dl (13.5-17.5); IMMATURE GRANULOCYTE % 0.2 % (0-3.0); LYMPH # 1.4 10^3/uL (1.5-4.5); LYMPH % 30.6 % (24.0-44.0); MEAN CORPUSCULAR HEMOGLOBIN 23.5 pg (27.0-33.0); MEAN CORPUSCULAR HGB CONC 29.8 g/dl (32.0-36.5); MEAN CORPUSCULAR VOLUME 78.9 fl (80.0-96.0); MONO # 0.7 10^3/uL (0.0-0.8); MONO % 15.6 % (0.0-5.0); NEUTROPHILS # 2.4 10^3/uL (1.8-7.7); PLATELET COUNT, AUTOMATED 129 10^3/uL (150-450); RED BLOOD COUNT 4.55 10^6/uL (4.30-6.10); RED CELL DISTRIBUTION WIDTH 17.8 % (11.5-14.5); WHITE BLOOD COUNT 4.7 10^3/uL (4.0-10.0)
[2017-11-02 07:07] LABS: ALBUMIN 3.7 GM/DL (3.2-5.2); ANION GAP 4 MEQ/L (8-16); BLOOD UREA NITROGEN 26 MG/DL (7-18); CALCIUM LEVEL 9.1 MG/DL (8.8-10.2); CARBON DIOXIDE LEVEL 34 MEQ/L (21-32); CHLORIDE LEVEL 102 MEQ/L (98-107); CREATININE FOR GFR 1.53 MG/DL (0.70-1.30); GLOMERULAR FILTRATION RATE 47.2 (>42); GLUCOSE, FASTING 205 MG/DL (70-100); PHOSPHORUS LEVEL 3.6 MG/DL (2.5-4.9); POTASSIUM SERUM 4.3 MEQ/L (3.5-5.1); SODIUM LEVEL 140 MEQ/L (136-145)
[2017-11-02 07:13] LABS: INR 1.13; PROTHROMBIN TIME 14.7 SECONDS (12.4-14.5)
[2017-11-02 07:14] LABS: PARTIAL THROMBOPLASTIN TIME 30.4 SECONDS (26.8-37.9)
[2017-11-02] MEDS: LEVEMIR (INSULIN DETEMIR) 1 UNITS/0.01ML SC ×2 (08:33→20:13)
[2017-11-02] MEDS: SERTRALINE HCL 50 MG TAB PO (08:34)
[2017-11-02] MEDS: HumaLOG INSULIN (NovoLOG) PER UNIT SC ×4 (08:34→20:25)
[2017-11-02] MEDS: GABAPENTIN 100 MG CAP PO (08:34)
[2017-11-02] MEDS: PREGABALIN 75 MG CAP(LYRICA) PO ×2 (08:34→20:13)
[2017-11-02] MEDS: SPIRONOLACTONE 50 MG TAB PO (08:34)
[2017-11-02] MEDS: TORSEMIDE 100 MG TAB PO (08:35)
[2017-11-02] MEDS: METOPROLOL TARTRATE 100 MG TAB PO ×2 (08:35→20:15)
[2017-11-02] MEDS: DOXYCYCLINE HYCLATE 100 MG TAB PO ×2 (08:35→20:13)
[2017-11-02] MEDS: CYANOCOBALAMIN 500 MCG TAB PO (08:35)
[2017-11-02] MEDS: OMEPRAZOLE 20 MG CAP PO (08:36)
[2017-11-02] MEDS: FLUTICASONE PROP 0.05% NASAL SPRAY 16 GM (FLONASE) (08:36)
[2017-11-02 11:53] LABS: BEDSIDE GLUCOSE 246 MG/DL (83-110)
[2017-11-02] MEDS: ENOXAPARIN 150 MG/ML SYR (J1650) SC (15:01)
[2017-11-02 17:06] LABS: BEDSIDE GLUCOSE 135 MG/DL (83-110)
[2017-11-02] MEDS: WARFARIN SOD 3 MG TAB PO (17:48)
[2017-11-02] MEDS: GABAPENTIN 300 MG CAP PO (20:13)
[2017-11-02] MEDS: ROSUVASTATIN 10 MG TAB (CRESTOR) PO (20:14)
[2017-11-02 20:15] LABS: BEDSIDE GLUCOSE 219 MG/DL (83-110)
[2017-11-03] MEDS: PERCOCET 5MG/325MG TAB PO ×5 (05:25→21:26)
[2017-11-03 06:40] LABS: BEDSIDE GLUCOSE 188 MG/DL (83-110)
[2017-11-03 07:22] LABS: HEMATOCRIT 36.2 % (42.0-52.0); HEMOGLOBIN 10.8 g/dl (13.5-17.5); MEAN CORPUSCULAR HEMOGLOBIN 23.8 pg (27.0-33.0); MEAN CORPUSCULAR HGB CONC 29.8 g/dl (32.0-36.5); MEAN CORPUSCULAR VOLUME 79.9 fl (80.0-96.0); PLATELET COUNT, AUTOMATED 132 10^3/uL (150-450); RED BLOOD COUNT 4.53 10^6/uL (4.30-6.10); RED CELL DISTRIBUTION WIDTH 17.8 % (11.5-14.5); WHITE BLOOD COUNT 5.6 10^3/uL (4.0-10.0)
[2017-11-03 07:37] LABS: INR 1.12; PROTHROMBIN TIME 14.6 SECONDS (12.4-14.5)
[2017-11-03 07:38] LABS: ANION GAP 4 MEQ/L (8-16); BLOOD UREA NITROGEN 32 MG/DL (7-18); CALCIUM LEVEL 9.1 MG/DL (8.8-10.2); CARBON DIOXIDE LEVEL 33 MEQ/L (21-32); CHLORIDE LEVEL 102 MEQ/L (98-107); CREATININE FOR GFR 1.61 MG/DL (0.70-1.30); GLOMERULAR FILTRATION RATE 44.5 (>42); GLUCOSE, FASTING 174 MG/DL (70-100); POTASSIUM SERUM 3.9 MEQ/L (3.5-5.1); SODIUM LEVEL 139 MEQ/L (136-145)
[2017-11-03] MEDS: OMEPRAZOLE 20 MG CAP PO (08:12)
[2017-11-03] MEDS: CYANOCOBALAMIN 500 MCG TAB PO (08:13)
[2017-11-03] MEDS: HumaLOG INSULIN (NovoLOG) PER UNIT SC ×4 (08:13→21:00)
[2017-11-03] MEDS: PREGABALIN 75 MG CAP(LYRICA) PO ×2 (08:13→21:24)
[2017-11-03] MEDS: GABAPENTIN 100 MG CAP PO (08:13)
[2017-11-03] MEDS: SERTRALINE HCL 50 MG TAB PO (08:13)
[2017-11-03] MEDS: SPIRONOLACTONE 50 MG TAB PO (08:13)
[2017-11-03] MEDS: DOXYCYCLINE HYCLATE 100 MG TAB PO ×2 (08:13→21:24)
[2017-11-03] MEDS: LEVEMIR (INSULIN DETEMIR) 1 UNITS/0.01ML SC ×2 (08:15→21:25)
[2017-11-03] MEDS: FLUTICASONE PROP 0.05% NASAL SPRAY 16 GM (FLONASE) (08:15)
[2017-11-03] MEDS: METOPROLOL TARTRATE 100 MG TAB PO ×2 (08:15→21:26)
[2017-11-03 11:54] LABS: BEDSIDE GLUCOSE 330 MG/DL (83-110)
[2017-11-03] MEDS: ENOXAPARIN 150 MG/ML SYR (J1650) SC (15:22)
[2017-11-03 17:33] LABS: BEDSIDE GLUCOSE 192 MG/DL (83-110)
[2017-11-03] MEDS: WARFARIN SOD 5 MG TAB PO (17:39)
[2017-11-03] MEDS: GABAPENTIN 300 MG CAP PO (21:24)
[2017-11-03] MEDS: ROSUVASTATIN 10 MG TAB (CRESTOR) PO (21:25)
[2017-11-03 22:03] LABS: BEDSIDE GLUCOSE 190 MG/DL (83-110)
[2017-11-04] MEDS: PERCOCET 5MG/325MG TAB PO ×5 (04:59→23:36)
[2017-11-04 07:06] LABS: INR 1.28; PROTHROMBIN TIME 16.3 SECONDS (12.4-14.5)
[2017-11-04 07:25] LABS: ANION GAP 6 MEQ/L (8-16); BLOOD UREA NITROGEN 30 MG/DL (7-18); CARBON DIOXIDE LEVEL 29 MEQ/L (21-32); CHLORIDE LEVEL 105 MEQ/L (98-107); CREATININE FOR GFR 1.46 MG/DL (0.70-1.30); GLOMERULAR FILTRATION RATE 49.8 (>42); GLUCOSE, FASTING 182 MG/DL (70-100); POTASSIUM SERUM 4.1 MEQ/L (3.5-5.1); SODIUM LEVEL 140 MEQ/L (136-145)
[2017-11-04] MEDS: HumaLOG INSULIN (NovoLOG) PER UNIT SC ×4 (07:42→20:03)
[2017-11-04] MEDS: PREGABALIN 75 MG CAP(LYRICA) PO ×2 (07:46→20:20)
[2017-11-04] MEDS: DOXYCYCLINE HYCLATE 100 MG TAB PO ×2 (09:44→20:20)
[2017-11-04] MEDS: CYANOCOBALAMIN 500 MCG TAB PO (09:45)
[2017-11-04] MEDS: GABAPENTIN 100 MG CAP PO (09:45)
[2017-11-04] MEDS: METOPROLOL TARTRATE 100 MG TAB PO ×2 (09:46→20:20)
[2017-11-04] MEDS: SERTRALINE HCL 50 MG TAB PO (09:47)
[2017-11-04] MEDS: OMEPRAZOLE 20 MG CAP PO (09:47)
[2017-11-04] MEDS: SPIRONOLACTONE 50 MG TAB PO (09:47)
[2017-11-04] MEDS: LEVEMIR (INSULIN DETEMIR) 1 UNITS/0.01ML SC ×2 (09:48→20:21)
[2017-11-04] MEDS: FLUTICASONE PROP 0.05% NASAL SPRAY 16 GM (FLONASE) (09:49)
[2017-11-04 12:12] LABS: BEDSIDE GLUCOSE 188 MG/DL (83-110)
[2017-11-04] MEDS: fentaNYL 50 MCG/HR PATCH TD (12:52)
[2017-11-04] MEDS: FENTANYL REMOVAL DOCUMENTATION MISC XX (13:01)
[2017-11-04] MEDS: ENOXAPARIN 150 MG/ML SYR (J1650) SC (14:22)
[2017-11-04 17:30] LABS: BEDSIDE GLUCOSE 239 MG/DL (83-110)
[2017-11-04] MEDS: WARFARIN SOD 7.5 MG TAB PO (17:34)
[2017-11-04 19:49] LABS: BEDSIDE GLUCOSE 213 MG/DL (83-110)
[2017-11-04] MEDS: GABAPENTIN 300 MG CAP PO (20:20)
[2017-11-04] MEDS: ROSUVASTATIN 10 MG TAB (CRESTOR) PO (20:20)
[2017-11-05] MEDS: PERCOCET 5MG/325MG TAB PO (06:00)
[2017-11-05 07:28] LABS: INR 1.87; PROTHROMBIN TIME 22.2 SECONDS (12.4-14.5)
[2017-11-05 07:33] LABS: ANION GAP 3 MEQ/L (8-16); BLOOD UREA NITROGEN 22 MG/DL (7-18); CALCIUM LEVEL 8.9 MG/DL (8.8-10.2); CARBON DIOXIDE LEVEL 30 MEQ/L (21-32); CHLORIDE LEVEL 109 MEQ/L (98-107); CREATININE FOR GFR 1.19 MG/DL (0.70-1.30); GLOMERULAR FILTRATION RATE > 60.0 (>42); GLUCOSE, FASTING 189 MG/DL (70-100); POTASSIUM SERUM 4.2 MEQ/L (3.5-5.1); SODIUM LEVEL 142 MEQ/L (136-145)
[2017-11-05] MEDS: PREGABALIN 75 MG CAP(LYRICA) PO (08:56)
[2017-11-05] MEDS: GABAPENTIN 100 MG CAP PO (08:56)
[2017-11-05] MEDS: CYANOCOBALAMIN 500 MCG TAB PO (08:57)
[2017-11-05] MEDS: OMEPRAZOLE 20 MG CAP PO (08:57)
[2017-11-05] MEDS: DOXYCYCLINE HYCLATE 100 MG TAB PO (08:58)
[2017-11-05] MEDS: SPIRONOLACTONE 50 MG TAB PO (08:58)
[2017-11-05] MEDS: SERTRALINE HCL 50 MG TAB PO (08:58)
[2017-11-05] MEDS: METOPROLOL TARTRATE 100 MG TAB PO (08:58)
[2017-11-05] MEDS: HumaLOG INSULIN (NovoLOG) PER UNIT SC (09:00)
[2017-11-05] MEDS: FLUTICASONE PROP 0.05% NASAL SPRAY 16 GM (FLONASE) (09:00)
[2017-11-05] MEDS: LEVEMIR (INSULIN DETEMIR) 1 UNITS/0.01ML SC (09:00)
== END 2017-11-05 12:12 | disposition hospice, home (50) | DRG 906 ==
LOC: M SDC 12:28 → M MS5PR 16:33
PROVIDERS: Family Medicine
PROC: 0JBK0ZZ Excision of Left Hand Subcutaneous Tissue and Fascia, Open Approach (ICD-10-PCS; principal; 2017-10-30 11:24)
PROC: 0JCK0ZZ Extirpation of Matter from Left Hand Subcutaneous Tissue and Fascia, Open Approach (ICD-10-PCS; 2017-10-30 11:24)
DX: S61.042A Puncture wound with foreign body of left thumb without damage to nail, initial encounter (principal); L02.512 Cutaneous abscess of left hand; X58.XXXA Exposure to other specified factors, initial encounter; Y92.89 Other specified places as the place of occurrence of the external cause; Z79.01 Long term (current) use of anticoagulants; N18.3 Chronic kidney disease, stage 3 (moderate); E66.01 Morbid (severe) obesity due to excess calories; E11.40 Type 2 diabetes mellitus with diabetic neuropathy, unspecified; I12.9 Hypertensive chronic kidney disease with stage 1 through stage 4 chronic kidney disease, or unspecified chronic kidney disease; Z86.718 Personal history of other venous thrombosis and embolism; Z79.899 Other long term (current) drug therapy; I50.9 Heart failure, unspecified; I48.91 Unspecified atrial fibrillation; F32.9 Major depressive disorder, single episode, unspecified; M54.5 Low back pain

== ENCOUNTER → 2017-11-15 | Outpatient (REF) | payer MEDICARE ==
[2017-11-15 13:10] LABS: ANION GAP 5 MEQ/L (8-16); BLOOD UREA NITROGEN 21 MG/DL (7-18); CALCIUM LEVEL 8.7 MG/DL (8.8-10.2); CARBON DIOXIDE LEVEL 29 MEQ/L (21-32); CHLORIDE LEVEL 109 MEQ/L (98-107); CREATININE FOR GFR 1.34 MG/DL (0.70-1.30); GLUCOSE, FASTING 192 MG/DL (70-100); POTASSIUM SERUM 4.9 MEQ/L (3.5-5.1); SODIUM LEVEL 143 MEQ/L (136-145)
== END ==
LOC: M SFHCADAM 10:14
DX: R60.9 Edema, unspecified (principal)
CPT/HCPCS: 80048

== ENCOUNTER 2017-11-22 02:27 | Inpatient (IN) | payer MEDICARE ==
[2017-11-22] MEDS: FUROSEMIDE 100 MG/10 ML VIAL (J1940) IV (02:45)
[2017-11-22 02:46] LABS: ABG BASE EXCESS -1.9 (-2.0-2.0); ABG HCO3 23.4 MEQ/L (22.0-26.0); ABG O2 SATURATION 90.8 % (95.0-99.0); ABG PARTIAL PRESSURE CO2 41.9 mmHg (35.0-45.0); ABG PARTIAL PRESSURE O2 65.3 mmHg (75.0-100.0); ABG STANDARD HCO3 22.8 MEQ/L (22.0-26.0); ABG TOTAL CO2 24.7 MEQ/L (23.0-31.0); ABG pH (ARTERIAL) 7.365 UNITS (7.350-7.450)
[2017-11-22 02:47] LABS: BASO % 0.4 % (0.0-1.0); EOS # 0.1 10^3/uL (0.0-0.50); EOS % 1.8 % (0.0-3.0); HEMATOCRIT 36.9 % (42.0-52.0); HEMOGLOBIN 10.9 g/dl (13.5-17.5); IMMATURE GRANULOCYTE % 0.3 % (0-3.0); LYMPH # 1.1 10^3/uL (1.5-4.5); LYMPH % 16.8 % (24.0-44.0); MEAN CORPUSCULAR HEMOGLOBIN 23.9 pg (27.0-33.0); MEAN CORPUSCULAR HGB CONC 29.5 g/dl (32.0-36.5); MEAN CORPUSCULAR VOLUME 80.7 fl (80.0-96.0); MONO # 0.5 10^3/uL (0.0-0.8); MONO % 6.9 % (0.0-5.0); NEUTROPHILS # 4.9 10^3/uL (1.8-7.7); NEUTROPHILS % 73.8 % (36.0-66.0); PLATELET COUNT, AUTOMATED 133 10^3/uL (150-450); RED BLOOD COUNT 4.57 10^6/uL (4.30-6.10); RED CELL DISTRIBUTION WIDTH 19.1 % (11.5-14.5); WHITE BLOOD COUNT 6.7 10^3/uL (4.0-10.0)
[2017-11-22] MEDS: IPRATROPIUM 0.5MG/ALBUTEROL 2.5MG INH SOL UD 3ML (DUONEB)(J7620) NEB ×6 (02:58→19:22)
[2017-11-22 03:10] LABS: ANION GAP 6 MEQ/L (8-16); BLOOD UREA NITROGEN 25 MG/DL (7-18); CALCIUM LEVEL 8.7 MG/DL (8.8-10.2); CARBON DIOXIDE LEVEL 30 MEQ/L (21-32); CHLORIDE LEVEL 102 MEQ/L (98-107); CK-MB VALUE MASS 3.6 NG/ML (<3.6); CPK CREATINE PHOSPHOKINASE 207 U/L (39-308); GLOMERULAR FILTRATION RATE 44.8 (>42); GLUCOSE, FASTING 272 MG/DL (70-100); MB/CK RELATIVE INDEX 1.73 (< OR =4); NT-PRO BNP 937 PG/ML (<450); POTASSIUM SERUM 4.4 MEQ/L (3.5-5.1); SODIUM LEVEL 138 MEQ/L (136-145); TROPONIN I < 0.02 NG/ML (< 0.10)
[2017-11-22 03:29] LABS: INR 2.15; PARTIAL THROMBOPLASTIN TIME 24.9 SECONDS (26.8-37.9); PROTHROMBIN TIME 24.8 SECONDS (12.4-14.5)
[2017-11-22] MEDS: cefTRIAXone SOD 1 GM in D5W MINI-BAG PLUS 50 ML IV (03:37)
[2017-11-22] MEDS ORDERED: GLUCAGON FOR INJ 1 MG VIAL (J1610) SC (04:45)
[2017-11-22] MEDS ORDERED: GLUCOSE 4 GM CHEW TABLET PO (04:45)
[2017-11-22] MEDS ORDERED: DEXTROSE 50% 50 ML SYRINGE IV (04:45)
[2017-11-22] MEDS: metOLazone 2.5 MG TAB PO (04:48)
[2017-11-22] MEDS: VANCOMYCIN HCL 1,000 MG, VIAL MATE ADAPTER 1 EACH in D5W 250 ML IV (04:53)
[2017-11-22] MEDS: MEROPENEM INJ 1 GM in APPROPRIATE DILUENT 1 EA IV ×3 (06:15→21:07)
[2017-11-22] MEDS: PERCOCET 5MG/325MG TAB PO ×6 (06:16→23:14)
[2017-11-22] MEDS ORDERED: PREVNAR 13 VACCINE SYRINGE (CPT CODE:90670) IM (06:30)
[2017-11-22 08:47] LABS: BEDSIDE GLUCOSE 320 MG/DL (83-110)
[2017-11-22] MEDS: OMEPRAZOLE 20 MG CAP PO (08:50)
[2017-11-22] MEDS: CYANOCOBALAMIN 500 MCG TAB PO (08:50)
[2017-11-22] MEDS: PREGABALIN 75 MG CAP(LYRICA) PO ×2 (08:50→20:54)
[2017-11-22] MEDS: SERTRALINE HCL 50 MG TAB PO (08:50)
[2017-11-22] MEDS: METOPROLOL TARTRATE 100 MG TAB PO ×2 (08:51→20:55)
[2017-11-22] MEDS: SPIRONOLACTONE 50 MG TAB PO (08:51)
[2017-11-22] MEDS: GABAPENTIN 100 MG CAP PO (08:51)
[2017-11-22] MEDS: HumaLOG INSULIN (NovoLOG) PER UNIT SC ×4 (08:52→20:54)
[2017-11-22] MEDS: LEVEMIR (INSULIN DETEMIR) 1 UNITS/0.01ML SC ×2 (08:52→14:43)
[2017-11-22 09:34] LABS: HEMATOCRIT 30.5 % (42.0-52.0); HEMOGLOBIN 9.4 g/dl (13.5-17.5); MEAN CORPUSCULAR HEMOGLOBIN 24.4 pg (27.0-33.0); MEAN CORPUSCULAR HGB CONC 30.8 g/dl (32.0-36.5); MEAN CORPUSCULAR VOLUME 79.2 fl (80.0-96.0); PLATELET COUNT, AUTOMATED 126 10^3/uL (150-450); RED BLOOD COUNT 3.85 10^6/uL (4.30-6.10); RED CELL DISTRIBUTION WIDTH 19.3 % (11.5-14.5); WHITE BLOOD COUNT 10.5 10^3/uL (4.0-10.0)
[2017-11-22 09:45] LABS: INR 2.12; PROTHROMBIN TIME 24.5 SECONDS (12.4-14.5)
[2017-11-22 09:58] LABS: ANION GAP 8 MEQ/L (8-16); BLOOD UREA NITROGEN 29 MG/DL (7-18); CALCIUM LEVEL 7.9 MG/DL (8.8-10.2); CARBON DIOXIDE LEVEL 26 MEQ/L (21-32); CHLORIDE LEVEL 101 MEQ/L (98-107); CREATININE FOR GFR 1.79 MG/DL (0.70-1.30); GLOMERULAR FILTRATION RATE 39.4 (>42); GLUCOSE, FASTING 335 MG/DL (70-100); NT-PRO BNP 2316 PG/ML (<450); POTASSIUM SERUM 4.9 MEQ/L (3.5-5.1); SODIUM LEVEL 135 MEQ/L (136-145); TROPONIN I 0.03 NG/ML (< 0.10)
[2017-11-22] MEDS: FLUTICASONE PROP 0.05% NASAL SPRAY 16 GM (FLONASE) (10:41)
[2017-11-22] MEDS: FUROSEMIDE 40 MG/4 ML VIAL (J1940) IV ×2 (11:45→18:34)
[2017-11-22] MEDS: VANCOMYCIN HCL 750 MG, VIAL MATE ADAPTER 1 EACH in D5W 250 ML IV ×2 (11:45→23:05)
[2017-11-22 12:19] LABS: BEDSIDE GLUCOSE 386 MG/DL (83-110)
[2017-11-22 14:41] LABS: TROPONIN I < 0.02 NG/ML (< 0.10)
[2017-11-22 17:05] LABS: BEDSIDE GLUCOSE 334 MG/DL (83-110)
[2017-11-22] MEDS: WARFARIN SOD 4 MG TAB PO (17:12)
[2017-11-22] MEDS: GABAPENTIN 300 MG CAP PO (20:54)
[2017-11-22] MEDS: ROSUVASTATIN 10 MG TAB (CRESTOR) PO (20:54)
[2017-11-22 20:57] LABS: BEDSIDE GLUCOSE 347 MG/DL (83-110)
[2017-11-23] MEDS: IPRATROPIUM 0.5MG/ALBUTEROL 2.5MG INH SOL UD 3ML (DUONEB)(J7620) NEB ×4 (01:01→19:33)
[2017-11-23] MEDS: FUROSEMIDE 40 MG/4 ML VIAL (J1940) IV ×3 (03:02→17:57)
[2017-11-23 05:16] LABS: HEMATOCRIT 28.3 % (42.0-52.0); HEMOGLOBIN 8.7 g/dl (13.5-17.5); MEAN CORPUSCULAR HGB CONC 30.7 g/dl (32.0-36.5); PLATELET COUNT, AUTOMATED 119 10^3/uL (150-450); RED BLOOD COUNT 3.63 10^6/uL (4.30-6.10); RED CELL DISTRIBUTION WIDTH 18.9 % (11.5-14.5); WHITE BLOOD COUNT 7.9 10^3/uL (4.0-10.0)
[2017-11-23 05:25] LABS: INR 1.87; PROTHROMBIN TIME 22.1 SECONDS (12.4-14.5)
[2017-11-23 05:44] LABS: ANION GAP 6 MEQ/L (8-16); BLOOD UREA NITROGEN 33 MG/DL (7-18); CALCIUM LEVEL 8.3 MG/DL (8.8-10.2); CARBON DIOXIDE LEVEL 33 MEQ/L (21-32); CHLORIDE LEVEL 99 MEQ/L (98-107); CREATININE FOR GFR 1.63 MG/DL (0.70-1.30); GLOMERULAR FILTRATION RATE 43.9 (>42); GLUCOSE, FASTING 252 MG/DL (70-100); NT-PRO BNP 3388 PG/ML (<450); SODIUM LEVEL 138 MEQ/L (136-145)
[2017-11-23] MEDS: MEROPENEM INJ 1 GM in APPROPRIATE DILUENT 1 EA IV ×3 (05:46→21:41)
[2017-11-23 05:52] LABS: POTASSIUM SERUM 3.7 MEQ/L (3.5-5.1)
[2017-11-23] MEDS: PERCOCET 5MG/325MG TAB PO ×4 (05:53→20:12)
[2017-11-23] MEDS: FLUTICASONE PROP 0.05% NASAL SPRAY 16 GM (FLONASE) (08:08)
[2017-11-23] MEDS: HumaLOG INSULIN (NovoLOG) PER UNIT SC ×4 (08:08→21:40)
[2017-11-23] MEDS: LEVEMIR (INSULIN DETEMIR) 1 UNITS/0.01ML SC ×2 (08:08→14:07)
[2017-11-23] MEDS: SPIRONOLACTONE 50 MG TAB PO (08:09)
[2017-11-23] MEDS: fentaNYL 50 MCG/HR PATCH TD (08:09)
[2017-11-23] MEDS: PREGABALIN 75 MG CAP(LYRICA) PO ×2 (08:10→20:10)
[2017-11-23] MEDS: SERTRALINE HCL 50 MG TAB PO (08:10)
[2017-11-23] MEDS: CYANOCOBALAMIN 500 MCG TAB PO (08:10)
[2017-11-23] MEDS: FENTANYL REMOVAL DOCUMENTATION MISC XX (08:11)
[2017-11-23] MEDS: OMEPRAZOLE 20 MG CAP PO (08:11)
[2017-11-23] MEDS: METOPROLOL TARTRATE 100 MG TAB PO ×2 (08:11→20:13)
[2017-11-23] MEDS: GABAPENTIN 100 MG CAP PO (08:11)
[2017-11-23] MEDS ORDERED: PREVNAR 13 VACCINE SYRINGE (CPT CODE:90670) IM (09:00)
[2017-11-23 10:45] LABS: VANCOMYCIN LEVEL TROUGH 14.7 UG/ML (10.0-20.0)
[2017-11-23 11:46] LABS: BEDSIDE GLUCOSE 275 MG/DL (83-110)
[2017-11-23] MEDS: VANCOMYCIN HCL 750 MG, VIAL MATE ADAPTER 1 EACH in D5W 250 ML IV ×2 (11:53→22:58)
[2017-11-23] MEDS: methylPREDNISolone INJ 125 MG/2 ML VIAL (J2930) IV ×2 (11:54→17:57)
[2017-11-23] MEDS ORDERED: WARFARIN SOD 2 MG TAB PO (17:00)
[2017-11-23 17:07] LABS: BEDSIDE GLUCOSE 465 MG/DL (83-110)
[2017-11-23] MEDS: WARFARIN SOD 7.5 MG TAB PO (17:56)
[2017-11-23] MEDS: GABAPENTIN 300 MG CAP PO (20:10)
[2017-11-23] MEDS: ROSUVASTATIN 10 MG TAB (CRESTOR) PO (20:11)
[2017-11-23] MEDS ORDERED: PILL CRUSHER/CUTTER 1 EACH XX (20:30)
[2017-11-23 21:11] LABS: BEDSIDE GLUCOSE CONFIRMATION 493 MG/DL (LESS THAN 200)
[2017-11-23] MEDS: DIGOXIN INJ 0.5 MG/2 ML AMP (J1160) IV (21:40)
[2017-11-24] MEDS: IPRATROPIUM 0.5MG/ALBUTEROL 2.5MG INH SOL UD 3ML (DUONEB)(J7620) NEB ×4 (01:46→20:27)
[2017-11-24] MEDS: FUROSEMIDE 40 MG/4 ML VIAL (J1940) IV (03:16)
[2017-11-24] MEDS: methylPREDNISolone INJ 125 MG/2 ML VIAL (J2930) IV (03:16)
[2017-11-24] MEDS: PERCOCET 5MG/325MG TAB PO ×5 (03:25→23:42)
[2017-11-24] MEDS: MEROPENEM INJ 1 GM in APPROPRIATE DILUENT 1 EA IV ×3 (05:21→22:44)
[2017-11-24 05:27] LABS: HEMATOCRIT 30.3 % (42.0-52.0); HEMOGLOBIN 9.2 g/dl (13.5-17.5); MEAN CORPUSCULAR HEMOGLOBIN 23.7 pg (27.0-33.0); MEAN CORPUSCULAR HGB CONC 30.4 g/dl (32.0-36.5); MEAN CORPUSCULAR VOLUME 78.1 fl (80.0-96.0); PLATELET COUNT, AUTOMATED 118 10^3/uL (150-450); RED BLOOD COUNT 3.88 10^6/uL (4.30-6.10); RED CELL DISTRIBUTION WIDTH 19.3 % (11.5-14.5); WHITE BLOOD COUNT 7.1 10^3/uL (4.0-10.0)
[2017-11-24 05:35] LABS: INR 1.71; PROTHROMBIN TIME 20.6 SECONDS (12.4-14.5)
[2017-11-24 05:43] LABS: ANION GAP 8 MEQ/L (8-16); BLOOD UREA NITROGEN 39 MG/DL (7-18); CARBON DIOXIDE LEVEL 33 MEQ/L (21-32); CHLORIDE LEVEL 94 MEQ/L (98-107); CREATININE FOR GFR 1.68 MG/DL (0.70-1.30); GLOMERULAR FILTRATION RATE 42.4 (>42); POTASSIUM SERUM 4.2 MEQ/L (3.5-5.1); SODIUM LEVEL 135 MEQ/L (136-145)
[2017-11-24 05:46] LABS: GLUCOSE, FASTING 551 MG/DL (70-100)
[2017-11-24 06:17] LABS: NT-PRO BNP 4584 PG/ML (<450)
[2017-11-24] MEDS: HumaLOG INSULIN (NovoLOG) PER UNIT SC ×9 (06:38→23:39)
[2017-11-24] MEDS: SPIRONOLACTONE 50 MG TAB PO (07:56)
[2017-11-24] MEDS: METOPROLOL TARTRATE 100 MG TAB PO (07:56)
[2017-11-24] MEDS: NITROGLYCERIN 0.4 MG SUBL TABLET SL (08:22)
[2017-11-24] MEDS: METOPROLOL 5 MG/5 ML VIAL IV ×2 (08:52→09:21)
[2017-11-24] MEDS: FLUTICASONE PROP 0.05% NASAL SPRAY 16 GM (FLONASE) (09:00)
[2017-11-24 09:12] LABS: CK-MB VALUE MASS 1.3 NG/ML (<3.6); CPK CREATINE PHOSPHOKINASE 99 U/L (39-308); MB/CK RELATIVE INDEX 1.31 (< OR =4); TROPONIN I < 0.02 NG/ML (< 0.10)
[2017-11-24 09:17] LABS: BEDSIDE GLUCOSE 503 MG/DL (83-110)
[2017-11-24 09:17] LABS: BEDSIDE GLUCOSE 499 MG/DL (83-110)
[2017-11-24] MEDS: LEVEMIR (INSULIN DETEMIR) 1 UNITS/0.01ML SC ×2 (09:57→14:03)
[2017-11-24] MEDS: PREGABALIN 75 MG CAP(LYRICA) PO ×2 (09:58→20:13)
[2017-11-24] MEDS: CYANOCOBALAMIN 500 MCG TAB PO (09:58)
[2017-11-24] MEDS: GABAPENTIN 100 MG CAP PO (09:58)
[2017-11-24] MEDS: SERTRALINE HCL 50 MG TAB PO (09:58)
[2017-11-24] MEDS: OMEPRAZOLE 20 MG CAP PO (09:58)
[2017-11-24] MEDS: DIGOXIN INJ 0.5 MG/2 ML AMP (J1160) IV (11:19)
[2017-11-24] MEDS: DIGOXIN 0.25 MG TAB PO (11:19)
[2017-11-24] MEDS: VANCOMYCIN HCL 750 MG, VIAL MATE ADAPTER 1 EACH in D5W 250 ML IV ×2 (11:50→23:31)
[2017-11-24 12:24] LABS: BEDSIDE GLUCOSE CONFIRMATION 637 MG/DL (LESS THAN 200)
[2017-11-24] MEDS: HumuLIN R (REGULAR) INSULIN (NovoLIN R) **100U/ML** PER UNIT SC (12:51)
[2017-11-24] MEDS: METOPROLOL TART 50 MG TAB PO ×2 (12:59→17:29)
[2017-11-24 13:04] LABS: BEDSIDE GLUCOSE > 600 MG/DL (83-110)
[2017-11-24] MEDS: WARFARIN SOD 5 MG TAB PO (16:15)
[2017-11-24 16:17] LABS: CK-MB VALUE MASS 1.1 NG/ML (<3.6); CPK CREATINE PHOSPHOKINASE 79 U/L (39-308); MB/CK RELATIVE INDEX 1.39 (< OR =4); TROPONIN I 0.03 NG/ML (< 0.10)
[2017-11-24 17:03] LABS: ANION GAP 8 MEQ/L (8-16); BLOOD UREA NITROGEN 43 MG/DL (7-18); CALCIUM LEVEL 8.5 MG/DL (8.8-10.2); CARBON DIOXIDE LEVEL 32 MEQ/L (21-32); CHLORIDE LEVEL 94 MEQ/L (98-107); CREATININE FOR GFR 1.96 MG/DL (0.70-1.30); GLOMERULAR FILTRATION RATE 35.5 (>42); POTASSIUM SERUM 3.8 MEQ/L (3.5-5.1); SODIUM LEVEL 134 MEQ/L (136-145)
[2017-11-24 17:05] LABS: GLUCOSE, FASTING 697 MG/DL (70-100)
[2017-11-24 17:18] LABS: BEDSIDE GLUCOSE 576 MG/DL (83-110)
[2017-11-24 18:29] LABS: BEDSIDE GLUCOSE 521 MG/DL (83-110)
[2017-11-24 20:13] LABS: BEDSIDE GLUCOSE 339 MG/DL (83-110)
[2017-11-24] MEDS: ROSUVASTATIN 10 MG TAB (CRESTOR) PO (20:13)
[2017-11-24] MEDS: GABAPENTIN 300 MG CAP PO (20:13)
[2017-11-24] MEDS: FUROSEMIDE 100 MG/10 ML VIAL (J1940) IV (23:31)
[2017-11-24] MEDS: VERAPAMIL 40 MG TAB PO (23:38)
[2017-11-24 23:57] LABS: BEDSIDE GLUCOSE 230 MG/DL (83-110)
[2017-11-25] MEDS: NITROGLYCERIN 2% OINT 1 GM *U/D* PKT TOP ×6 (00:04→21:11)
[2017-11-25 00:14] LABS: CK-MB VALUE MASS 1.5 NG/ML (<3.6); CPK CREATINE PHOSPHOKINASE 75 U/L (39-308)
[2017-11-25 00:28] LABS: TROPONIN I 0.05 NG/ML (< 0.10)
[2017-11-25] MEDS: IPRATROPIUM 0.5MG/ALBUTEROL 2.5MG INH SOL UD 3ML (DUONEB)(J7620) NEB ×7 (02:50→20:20)
[2017-11-25 04:18] LABS: BEDSIDE GLUCOSE 328 MG/DL (83-110)
[2017-11-25] MEDS: HumaLOG INSULIN (NovoLOG) PER UNIT SC ×5 (04:22→21:07)
[2017-11-25] MEDS: PERCOCET 5MG/325MG TAB PO ×4 (04:23→19:43)
[2017-11-25 05:05] LABS: HEMATOCRIT 30.8 % (42.0-52.0); HEMOGLOBIN 9.5 g/dl (13.5-17.5); MEAN CORPUSCULAR HEMOGLOBIN 24.1 pg (27.0-33.0); MEAN CORPUSCULAR HGB CONC 30.8 g/dl (32.0-36.5); MEAN CORPUSCULAR VOLUME 78.2 fl (80.0-96.0); PLATELET COUNT, AUTOMATED 153 10^3/uL (150-450); RED BLOOD COUNT 3.94 10^6/uL (4.30-6.10); RED CELL DISTRIBUTION WIDTH 19.2 % (11.5-14.5); WHITE BLOOD COUNT 12.3 10^3/uL (4.0-10.0)
[2017-11-25 05:16] LABS: INR 2.32; PROTHROMBIN TIME 26.4 SECONDS (12.4-14.5)
[2017-11-25 05:35] LABS: ANION GAP 4 MEQ/L (8-16); BLOOD UREA NITROGEN 47 MG/DL (7-18); CALCIUM LEVEL 9.1 MG/DL (8.8-10.2); CARBON DIOXIDE LEVEL 37 MEQ/L (21-32); CHLORIDE LEVEL 98 MEQ/L (98-107); CREATININE FOR GFR 1.52 MG/DL (0.70-1.30); GLOMERULAR FILTRATION RATE 47.6 (>42); GLUCOSE, FASTING 247 MG/DL (70-100); NT-PRO BNP 5447 PG/ML (<450); POTASSIUM SERUM 3.8 MEQ/L (3.5-5.1); SODIUM LEVEL 139 MEQ/L (136-145)
[2017-11-25] MEDS ORDERED: VERAPAMIL 40 MG TAB PO ×2 (06:00→12:00)
[2017-11-25] MEDS: MEROPENEM INJ 1 GM in APPROPRIATE DILUENT 1 EA IV ×3 (06:15→21:08)
[2017-11-25] MEDS: VERAPAMIL 40 MG TAB PO (06:15)
[2017-11-25 07:31] LABS: BEDSIDE GLUCOSE 251 MG/DL (83-110)
[2017-11-25] MEDS: AMIODARONE HCL 150 MG in APPROPRIATE DILUENT 1 EA IV ×2 (08:06→09:06)
[2017-11-25] MEDS: AMIODARONE 200 MG TAB (PACERONE) PO ×4 (08:19→21:05)
[2017-11-25] MEDS: POTASSIUM CHLORIDE 10 MEQ SR TABLET PO (08:19)
[2017-11-25] MEDS: CYANOCOBALAMIN 500 MCG TAB PO (08:19)
[2017-11-25] MEDS: GABAPENTIN 100 MG CAP PO (08:20)
[2017-11-25] MEDS: OMEPRAZOLE 20 MG CAP PO (08:20)
[2017-11-25] MEDS: SERTRALINE HCL 50 MG TAB PO (08:20)
[2017-11-25] MEDS: TORSEMIDE 20 MG TAB PO ×2 (08:20→17:34)
[2017-11-25] MEDS: PREGABALIN 75 MG CAP(LYRICA) PO ×2 (08:20→21:05)
[2017-11-25] MEDS: LEVEMIR (INSULIN DETEMIR) 1 UNITS/0.01ML SC ×2 (08:21→15:02)
[2017-11-25] MEDS: VERAPAMIL 80 MG TAB PO ×5 (08:21→23:19)
[2017-11-25 12:02] LABS: BEDSIDE GLUCOSE 360 MG/DL (83-110)
[2017-11-25] MEDS: SPIRONOLACTONE 12.5MG PER 1/2 TABLET PO (12:05)
[2017-11-25] MEDS: VANCOMYCIN HCL 750 MG, VIAL MATE ADAPTER 1 EACH in D5W 250 ML IV ×2 (12:06→23:19)
[2017-11-25] MEDS: AMIODARONE 150MG/3ML INJ (J0282) IVP ×2 (15:10→18:43)
[2017-11-25] MEDS: FLUTICASONE PROP 0.05% NASAL SPRAY 16 GM (FLONASE) (15:18)
[2017-11-25 19:36] LABS: BEDSIDE GLUCOSE 497 MG/DL (83-110)
[2017-11-25 19:36] LABS: BEDSIDE GLUCOSE 460 MG/DL (83-110)
[2017-11-25 20:21] LABS: BEDSIDE GLUCOSE 553 MG/DL (83-110)
[2017-11-25] MEDS: GABAPENTIN 300 MG CAP PO (21:06)
[2017-11-25] MEDS: ROSUVASTATIN 10 MG TAB (CRESTOR) PO (21:06)
[2017-11-25 21:12] LABS: BEDSIDE GLUCOSE CONFIRMATION 551 MG/DL (LESS THAN 200)
[2017-11-26] MEDS: HumaLOG INSULIN (NovoLOG) PER UNIT SC ×6 (00:18→20:39)
[2017-11-26] MEDS: NITROGLYCERIN 2% OINT 1 GM *U/D* PKT TOP ×5 (00:18→16:18)
[2017-11-26 00:30] LABS: BEDSIDE GLUCOSE 476 MG/DL (83-110)
[2017-11-26] MEDS: IPRATROPIUM 0.5MG/ALBUTEROL 2.5MG INH SOL UD 3ML (DUONEB)(J7620) NEB ×6 (02:46→20:43)
[2017-11-26 04:24] LABS: BEDSIDE GLUCOSE 244 MG/DL (83-110)
[2017-11-26] MEDS: MEROPENEM INJ 1 GM in APPROPRIATE DILUENT 1 EA IV ×2 (05:21→13:58)
[2017-11-26] MEDS: PERCOCET 5MG/325MG TAB PO ×4 (05:24→18:50)
[2017-11-26] MEDS: VERAPAMIL 80 MG TAB PO ×3 (05:24→16:48)
[2017-11-26 05:33] LABS: HEMATOCRIT 32.2 % (42.0-52.0); HEMOGLOBIN 9.7 g/dl (13.5-17.5); MEAN CORPUSCULAR HEMOGLOBIN 23.6 pg (27.0-33.0); MEAN CORPUSCULAR HGB CONC 30.1 g/dl (32.0-36.5); MEAN CORPUSCULAR VOLUME 78.3 fl (80.0-96.0); PLATELET COUNT, AUTOMATED 145 10^3/uL (150-450); RED BLOOD COUNT 4.11 10^6/uL (4.30-6.10); RED CELL DISTRIBUTION WIDTH 19.3 % (11.5-14.5); WHITE BLOOD COUNT 6.9 10^3/uL (4.0-10.0)
[2017-11-26 05:42] LABS: INR 3.27; PROTHROMBIN TIME 34.9 SECONDS (12.4-14.5)
[2017-11-26 05:57] LABS: ANION GAP 6 MEQ/L (8-16); BLOOD UREA NITROGEN 46 MG/DL (7-18); CALCIUM LEVEL 8.8 MG/DL (8.8-10.2); CARBON DIOXIDE LEVEL 36 MEQ/L (21-32); CHLORIDE LEVEL 98 MEQ/L (98-107); CREATININE FOR GFR 1.45 MG/DL (0.70-1.30); GLOMERULAR FILTRATION RATE 50.2 (>42); GLUCOSE, FASTING 198 MG/DL (70-100); POTASSIUM SERUM 3.5 MEQ/L (3.5-5.1); SODIUM LEVEL 140 MEQ/L (136-145); TROPONIN I 0.04 NG/ML (< 0.10)
[2017-11-26 08:35] LABS: BEDSIDE GLUCOSE 308 MG/DL (83-110)
[2017-11-26] MEDS: FENTANYL REMOVAL DOCUMENTATION MISC XX (09:00)
[2017-11-26] MEDS: fentaNYL 50 MCG/HR PATCH TD (09:09)
[2017-11-26] MEDS: LEVEMIR (INSULIN DETEMIR) 1 UNITS/0.01ML SC ×2 (09:11→14:15)
[2017-11-26] MEDS: SERTRALINE HCL 50 MG TAB PO (09:12)
[2017-11-26] MEDS: OMEPRAZOLE 20 MG CAP PO (09:12)
[2017-11-26] MEDS: PREGABALIN 75 MG CAP(LYRICA) PO ×2 (09:12→20:40)
[2017-11-26] MEDS: GABAPENTIN 100 MG CAP PO (09:12)
[2017-11-26] MEDS: AMIODARONE 200 MG TAB (PACERONE) PO ×4 (09:12→20:39)
[2017-11-26] MEDS: TORSEMIDE 20 MG TAB PO ×2 (09:13→16:18)
[2017-11-26] MEDS: POTASSIUM CHLORIDE 10 MEQ SR TABLET PO ×3 (09:13→20:40)
[2017-11-26] MEDS: CYANOCOBALAMIN 500 MCG TAB PO (09:13)
[2017-11-26] MEDS: SPIRONOLACTONE 12.5MG PER 1/2 TABLET PO (09:14)
[2017-11-26 09:23] LABS: BEDSIDE GLUCOSE > 600 MG/DL (83-110)
[2017-11-26 09:23] LABS: BEDSIDE GLUCOSE > 600 MG/DL (83-110)
[2017-11-26] MEDS ORDERED: ONDANSETRON 4MG/2ML VIAL (J2405) IV (10:45)
[2017-11-26 12:31] LABS: BEDSIDE GLUCOSE 237 MG/DL (83-110)
[2017-11-26] MEDS: VANCOMYCIN HCL 750 MG, VIAL MATE ADAPTER 1 EACH in D5W 250 ML IV (12:35)
[2017-11-26] MEDS: FLUTICASONE PROP 0.05% NASAL SPRAY 16 GM (FLONASE) (12:47)
[2017-11-26 16:19] LABS: BEDSIDE GLUCOSE 293 MG/DL (83-110)
[2017-11-26] MEDS ORDERED: AMIODARONE HCL 150 MG/100 ML PREMIXED BAG (NEXTERONE) As Ordered (16:39)
[2017-11-26] MEDS ORDERED: AMIODARONE 150MG/3ML INJ (J0282) IVP (16:39)
[2017-11-26] MEDS: AMIODARONE HCL 150 MG in APPROPRIATE DILUENT 1 EA IV (16:49)
[2017-11-26] MEDS: VERAPAMIL 120 MG SR TAB PO (18:14)
[2017-11-26 20:32] LABS: BEDSIDE GLUCOSE 447 MG/DL (83-110)
[2017-11-26] MEDS: ROSUVASTATIN 10 MG TAB (CRESTOR) PO (20:39)
[2017-11-26] MEDS: GABAPENTIN 300 MG CAP PO (20:40)
[2017-11-26] MEDS: ISOSORBIDE DIN. (ISORDIL) 30 MG TAB PO (20:41)
[2017-11-26] MEDS: **hydrALAZINE HCL** 25 MG TAB PO (20:41)
[2017-11-27] MEDS: HumaLOG INSULIN (NovoLOG) PER UNIT SC ×6 (00:11→20:21)
[2017-11-27 00:16] LABS: BEDSIDE GLUCOSE 340 MG/DL (83-110)
[2017-11-27] MEDS: IPRATROPIUM 0.5MG/ALBUTEROL 2.5MG INH SOL UD 3ML (DUONEB)(J7620) NEB ×4 (01:45→19:28)
[2017-11-27] MEDS: PERCOCET 5MG/325MG TAB PO ×5 (04:11→22:29)
[2017-11-27 04:16] LABS: BEDSIDE GLUCOSE 181 MG/DL (83-110)
[2017-11-27 04:18] LABS: HEMATOCRIT 30.9 % (42.0-52.0); HEMOGLOBIN 9.4 g/dl (13.5-17.5); MEAN CORPUSCULAR HEMOGLOBIN 23.9 pg (27.0-33.0); MEAN CORPUSCULAR HGB CONC 30.4 g/dl (32.0-36.5); MEAN CORPUSCULAR VOLUME 78.4 fl (80.0-96.0); PLATELET COUNT, AUTOMATED 150 10^3/uL (150-450); RED BLOOD COUNT 3.94 10^6/uL (4.30-6.10); RED CELL DISTRIBUTION WIDTH 19.3 % (11.5-14.5); WHITE BLOOD COUNT 6.5 10^3/uL (4.0-10.0)
[2017-11-27 04:25] LABS: ANION GAP 5 MEQ/L (8-16); BLOOD UREA NITROGEN 47 MG/DL (7-18); CALCIUM LEVEL 8.7 MG/DL (8.8-10.2); CARBON DIOXIDE LEVEL 35 MEQ/L (21-32); CHLORIDE LEVEL 101 MEQ/L (98-107); CREATININE FOR GFR 1.51 MG/DL (0.70-1.30); GLOMERULAR FILTRATION RATE 47.9 (>42); GLUCOSE, FASTING 163 MG/DL (70-100); SODIUM LEVEL 141 MEQ/L (136-145)
[2017-11-27 04:30] LABS: PROTHROMBIN TIME 33.4 SECONDS (12.4-14.5)
[2017-11-27] MEDS: MOXIFLOXACIN 400 MG TAB PO (05:57)
[2017-11-27] MEDS: VERAPAMIL 120 MG SR TAB PO ×2 (05:58→17:47)
[2017-11-27] MEDS: ISOSORBIDE DIN. (ISORDIL) 30 MG TAB PO ×3 (08:41→20:18)
[2017-11-27] MEDS: FLUTICASONE PROP 0.05% NASAL SPRAY 16 GM (FLONASE) (08:41)
[2017-11-27] MEDS: LEVEMIR (INSULIN DETEMIR) 1 UNITS/0.01ML SC ×2 (08:41→14:00)
[2017-11-27] MEDS: CYANOCOBALAMIN 500 MCG TAB PO (08:42)
[2017-11-27] MEDS: PREGABALIN 75 MG CAP(LYRICA) PO ×2 (08:42→20:20)
[2017-11-27] MEDS: TORSEMIDE 20 MG TAB PO ×2 (08:42→16:30)
[2017-11-27] MEDS: GABAPENTIN 100 MG CAP PO (08:43)
[2017-11-27] MEDS: SERTRALINE HCL 50 MG TAB PO (08:43)
[2017-11-27] MEDS: **hydrALAZINE HCL** 25 MG TAB PO ×3 (08:43→20:19)
[2017-11-27] MEDS: OMEPRAZOLE 20 MG CAP PO (08:43)
[2017-11-27] MEDS: SPIRONOLACTONE 12.5MG PER 1/2 TABLET PO (08:43)
[2017-11-27] MEDS: POTASSIUM CHLORIDE 10 MEQ SR TABLET PO ×2 (08:43→20:19)
[2017-11-27] MEDS: AMIODARONE 200 MG TAB (PACERONE) PO ×4 (09:42→20:20)
[2017-11-27 12:03] LABS: BEDSIDE GLUCOSE 256 MG/DL (83-110)
[2017-11-27 12:03] LABS: BEDSIDE GLUCOSE 302 MG/DL (83-110)
[2017-11-27 16:31] LABS: BEDSIDE GLUCOSE 226 MG/DL (83-110)
[2017-11-27 20:17] LABS: BEDSIDE GLUCOSE 289 MG/DL (83-110)
[2017-11-27] MEDS: ROSUVASTATIN 10 MG TAB (CRESTOR) PO (20:20)
[2017-11-27] MEDS: GABAPENTIN 300 MG CAP PO (20:20)
[2017-11-28] MEDS ORDERED: PREGABALIN 75 MG CAP(LYRICA) PO (00:01)
[2017-11-28] MEDS: HumaLOG INSULIN (NovoLOG) PER UNIT SC ×6 (00:28→22:06)
[2017-11-28 00:31] LABS: BEDSIDE GLUCOSE 256 MG/DL (83-110)
[2017-11-28] MEDS: IPRATROPIUM 0.5MG/ALBUTEROL 2.5MG INH SOL UD 3ML (DUONEB)(J7620) NEB ×4 (02:00→20:00)
[2017-11-28] MEDS: PERCOCET 5MG/325MG TAB PO ×5 (03:56→22:07)
[2017-11-28 03:59] LABS: BEDSIDE GLUCOSE 158 MG/DL (83-110)
[2017-11-28 05:36] LABS: HEMATOCRIT 32.8 % (42.0-52.0); HEMOGLOBIN 9.9 g/dl (13.5-17.5); MEAN CORPUSCULAR HEMOGLOBIN 23.6 pg (27.0-33.0); MEAN CORPUSCULAR HGB CONC 30.2 g/dl (32.0-36.5); MEAN CORPUSCULAR VOLUME 78.1 fl (80.0-96.0); PLATELET COUNT, AUTOMATED 184 10^3/uL (150-450); RED CELL DISTRIBUTION WIDTH 19.4 % (11.5-14.5)
[2017-11-28 05:47] LABS: INR 2.43; PROTHROMBIN TIME 27.4 SECONDS (12.4-14.5)
[2017-11-28 05:49] LABS: ANION GAP 6 MEQ/L (8-16); BLOOD UREA NITROGEN 56 MG/DL (7-18); CARBON DIOXIDE LEVEL 33 MEQ/L (21-32); CHLORIDE LEVEL 101 MEQ/L (98-107); CREATININE FOR GFR 2.03 MG/DL (0.70-1.30); GLOMERULAR FILTRATION RATE 34.1 (>42); GLUCOSE, FASTING 102 MG/DL (70-100); POTASSIUM SERUM 4.4 MEQ/L (3.5-5.1); SODIUM LEVEL 140 MEQ/L (136-145)
[2017-11-28] MEDS: VERAPAMIL 120 MG SR TAB PO ×2 (06:20→17:22)
[2017-11-28] MEDS: MOXIFLOXACIN 400 MG TAB PO (06:20)
[2017-11-28 08:25] LABS: BEDSIDE GLUCOSE 307 MG/DL (83-110)
[2017-11-28] MEDS: LEVEMIR (INSULIN DETEMIR) 1 UNITS/0.01ML SC ×2 (08:26→13:22)
[2017-11-28] MEDS: PREGABALIN 75 MG CAP(LYRICA) PO ×2 (08:26→22:08)
[2017-11-28] MEDS: SPIRONOLACTONE 12.5MG PER 1/2 TABLET PO (08:27)
[2017-11-28] MEDS: ISOSORBIDE DIN. (ISORDIL) 30 MG TAB PO ×3 (08:32→22:08)
[2017-11-28] MEDS: POTASSIUM CHLORIDE 10 MEQ SR TABLET PO ×2 (08:32→22:09)
[2017-11-28] MEDS: TORSEMIDE 20 MG TAB PO (08:33)
[2017-11-28] MEDS: GABAPENTIN 100 MG CAP PO (08:33)
[2017-11-28] MEDS: CYANOCOBALAMIN 500 MCG TAB PO (08:33)
[2017-11-28] MEDS: SERTRALINE HCL 50 MG TAB PO (08:34)
[2017-11-28] MEDS: **hydrALAZINE HCL** 25 MG TAB PO ×3 (08:34→22:07)
[2017-11-28] MEDS: OMEPRAZOLE 20 MG CAP PO (08:35)
[2017-11-28] MEDS: AMIODARONE 200 MG TAB (PACERONE) PO ×4 (08:35→22:08)
[2017-11-28] MEDS: FLUTICASONE PROP 0.05% NASAL SPRAY 16 GM (FLONASE) (08:37)
[2017-11-28 11:42] LABS: BEDSIDE GLUCOSE 191 MG/DL (83-110)
[2017-11-28 15:49] LABS: BEDSIDE GLUCOSE 214 MG/DL (83-110)
[2017-11-28 21:08] LABS: BEDSIDE GLUCOSE 310 MG/DL (83-110)
[2017-11-28] MEDS: ROSUVASTATIN 10 MG TAB (CRESTOR) PO (22:09)
[2017-11-28] MEDS: GABAPENTIN 300 MG CAP PO (22:09)
[2017-11-29] MEDS: HumaLOG INSULIN (NovoLOG) PER UNIT SC ×7 (00:37→20:33)
[2017-11-29] MEDS: IPRATROPIUM 0.5MG/ALBUTEROL 2.5MG INH SOL UD 3ML (DUONEB)(J7620) NEB ×4 (02:00→21:12)
[2017-11-29] MEDS: VERAPAMIL 120 MG SR TAB PO ×2 (05:26→17:11)
[2017-11-29] MEDS: MOXIFLOXACIN 400 MG TAB PO (05:27)
[2017-11-29] MEDS: PERCOCET 5MG/325MG TAB PO ×4 (05:28→21:17)
[2017-11-29 06:11] LABS: HEMATOCRIT 31.6 % (42.0-52.0); HEMOGLOBIN 9.5 g/dl (13.5-17.5); MEAN CORPUSCULAR HEMOGLOBIN 23.4 pg (27.0-33.0); MEAN CORPUSCULAR HGB CONC 30.1 g/dl (32.0-36.5); MEAN CORPUSCULAR VOLUME 77.8 fl (80.0-96.0); PLATELET COUNT, AUTOMATED 194 10^3/uL (150-450); RED BLOOD COUNT 4.06 10^6/uL (4.30-6.10); RED CELL DISTRIBUTION WIDTH 19.5 % (11.5-14.5); WHITE BLOOD COUNT 7.8 10^3/uL (4.0-10.0)
[2017-11-29 06:20] LABS: INR 1.93; PROTHROMBIN TIME 22.7 SECONDS (12.4-14.5)
[2017-11-29 06:32] LABS: ANION GAP 6 MEQ/L (8-16); BLOOD UREA NITROGEN 52 MG/DL (7-18); CALCIUM LEVEL 8.9 MG/DL (8.8-10.2); CARBON DIOXIDE LEVEL 33 MEQ/L (21-32); CHLORIDE LEVEL 102 MEQ/L (98-107); CREATININE FOR GFR 2.04 MG/DL (0.70-1.30); GLOMERULAR FILTRATION RATE 33.9 (>42); GLUCOSE, FASTING 105 MG/DL (70-100); POTASSIUM SERUM 4.3 MEQ/L (3.5-5.1); SODIUM LEVEL 141 MEQ/L (136-145)
[2017-11-29] MEDS: FENTANYL REMOVAL DOCUMENTATION MISC XX (07:51)
[2017-11-29] MEDS: fentaNYL 50 MCG/HR PATCH TD (07:53)
[2017-11-29] MEDS: FLUTICASONE PROP 0.05% NASAL SPRAY 16 GM (FLONASE) (07:53)
[2017-11-29] MEDS: POTASSIUM CHLORIDE 10 MEQ SR TABLET PO ×2 (07:54→20:34)
[2017-11-29] MEDS: CYANOCOBALAMIN 500 MCG TAB PO (07:54)
[2017-11-29] MEDS: PREGABALIN 75 MG CAP(LYRICA) PO ×2 (07:55→20:34)
[2017-11-29] MEDS: **hydrALAZINE HCL** 25 MG TAB PO ×3 (07:55→20:35)
[2017-11-29] MEDS: LEVEMIR (INSULIN DETEMIR) 1 UNITS/0.01ML SC ×2 (07:56→12:40)
[2017-11-29] MEDS: SERTRALINE HCL 50 MG TAB PO (07:56)
[2017-11-29] MEDS: OMEPRAZOLE 20 MG CAP PO (07:56)
[2017-11-29] MEDS: GABAPENTIN 100 MG CAP PO (07:56)
[2017-11-29] MEDS: ISOSORBIDE DIN. (ISORDIL) 30 MG TAB PO ×3 (07:56→20:34)
[2017-11-29] MEDS: AMIODARONE 200 MG TAB (PACERONE) PO ×4 (07:56→20:35)
[2017-11-29] MEDS: SPIRONOLACTONE 12.5MG PER 1/2 TABLET PO (07:57)
[2017-11-29] MEDS ORDERED: DEXTROSE 50% 50 ML SYRINGE IV (08:15)
[2017-11-29] MEDS ORDERED: GLUCOSE 4 GM CHEW TABLET PO (08:15)
[2017-11-29] MEDS ORDERED: GLUCAGON FOR INJ 1 MG VIAL (J1610) SC (08:15)
[2017-11-29] MEDS: APIXABAN 2.5 MG TAB (ELIQUIS) PO ×2 (10:08→20:35)
[2017-11-29] MEDS: ROSUVASTATIN 10 MG TAB (CRESTOR) PO (20:33)
[2017-11-29] MEDS: GABAPENTIN 300 MG CAP PO (20:34)
[2017-11-29 20:44] LABS: BEDSIDE GLUCOSE 226 MG/DL (83-110)
[2017-11-29 20:44] LABS: BEDSIDE GLUCOSE 115 MG/DL (83-110)
[2017-11-29 20:44] LABS: BEDSIDE GLUCOSE 277 MG/DL (83-110)
[2017-11-29 20:44] LABS: BEDSIDE GLUCOSE 197 MG/DL (83-110)
[2017-11-29 20:44] LABS: BEDSIDE GLUCOSE 148 MG/DL (83-110)
[2017-11-30] MEDS: IPRATROPIUM 0.5MG/ALBUTEROL 2.5MG INH SOL UD 3ML (DUONEB)(J7620) NEB ×4 (02:00→20:27)
[2017-11-30] MEDS: MOXIFLOXACIN 400 MG TAB PO (05:16)
[2017-11-30] MEDS: VERAPAMIL 120 MG SR TAB PO ×2 (05:16→17:27)
[2017-11-30] MEDS: PERCOCET 5MG/325MG TAB PO ×4 (05:17→20:10)
[2017-11-30 06:04] LABS: HEMATOCRIT 28.5 % (42.0-52.0); HEMOGLOBIN 8.7 g/dl (13.5-17.5); MEAN CORPUSCULAR HGB CONC 30.5 g/dl (32.0-36.5); MEAN CORPUSCULAR VOLUME 78.5 fl (80.0-96.0); PLATELET COUNT, AUTOMATED 147 10^3/uL (150-450); RED BLOOD COUNT 3.63 10^6/uL (4.30-6.10); RED CELL DISTRIBUTION WIDTH 19.4 % (11.5-14.5)
[2017-11-30 06:17] LABS: INR 1.77; PROTHROMBIN TIME 21.2 SECONDS (12.4-14.5)
[2017-11-30 06:19] LABS: ANION GAP 6 MEQ/L (8-16); BLOOD UREA NITROGEN 46 MG/DL (7-18); CALCIUM LEVEL 8.6 MG/DL (8.8-10.2); CARBON DIOXIDE LEVEL 32 MEQ/L (21-32); CHLORIDE LEVEL 108 MEQ/L (98-107); CREATININE FOR GFR 1.79 MG/DL (0.70-1.30); GLOMERULAR FILTRATION RATE 39.4 (>42); GLUCOSE, FASTING 143 MG/DL (70-100); POTASSIUM SERUM 4.3 MEQ/L (3.5-5.1); SODIUM LEVEL 146 MEQ/L (136-145)
[2017-11-30] MEDS: HumaLOG INSULIN (NovoLOG) PER UNIT SC ×4 (08:35→20:08)
[2017-11-30] MEDS: OMEPRAZOLE 20 MG CAP PO (08:35)
[2017-11-30] MEDS: GABAPENTIN 100 MG CAP PO (08:35)
[2017-11-30] MEDS: SERTRALINE HCL 50 MG TAB PO (08:35)
[2017-11-30] MEDS: LEVEMIR (INSULIN DETEMIR) 1 UNITS/0.01ML SC ×2 (08:35→13:21)
[2017-11-30] MEDS: AMIODARONE 200 MG TAB (PACERONE) PO ×4 (08:35→20:08)
[2017-11-30] MEDS: SPIRONOLACTONE 12.5MG PER 1/2 TABLET PO (08:35)
[2017-11-30] MEDS: POTASSIUM CHLORIDE 10 MEQ SR TABLET PO ×2 (08:36→20:08)
[2017-11-30] MEDS: CYANOCOBALAMIN 500 MCG TAB PO (08:36)
[2017-11-30] MEDS: APIXABAN 2.5 MG TAB (ELIQUIS) PO ×2 (08:36→09:00)
[2017-11-30] MEDS: **hydrALAZINE HCL** 25 MG TAB PO ×3 (08:37→20:06)
[2017-11-30] MEDS: FLUTICASONE PROP 0.05% NASAL SPRAY 16 GM (FLONASE) (08:37)
[2017-11-30] MEDS: ISOSORBIDE DIN. (ISORDIL) 30 MG TAB PO ×3 (08:37→20:06)
[2017-11-30] MEDS: PREGABALIN 75 MG CAP(LYRICA) PO ×2 (08:37→20:07)
[2017-11-30] MEDS: TORSEMIDE 20 MG TAB PO ×2 (08:44→17:28)
[2017-11-30 10:45] LABS: BASO % 0.2 % (0.0-1.0); EOS # 0.3 10^3/uL (0.0-0.50); EOS % 3.2 % (0.0-3.0); HEMOGLOBIN 8.8 g/dl (13.5-17.5); IMMATURE GRANULOCYTE % 1.2 % (0-3.0); LYMPH # 1.3 10^3/uL (1.5-4.5); LYMPH % 13.9 % (24.0-44.0); MEAN CORPUSCULAR HGB CONC 30.3 g/dl (32.0-36.5); MONO % 11.4 % (0.0-5.0); NEUTROPHILS # 6.3 10^3/uL (1.8-7.7); NEUTROPHILS % 70.1 % (36.0-66.0); PLATELET COUNT, AUTOMATED 171 10^3/uL (150-450); RED BLOOD COUNT 3.67 10^6/uL (4.30-6.10); RED CELL DISTRIBUTION WIDTH 19.6 % (11.5-14.5)
[2017-11-30 19:40] LABS: BEDSIDE GLUCOSE 260 MG/DL (83-110)
[2017-11-30 19:40] LABS: BEDSIDE GLUCOSE 290 MG/DL (83-110)
[2017-11-30 19:40] LABS: BEDSIDE GLUCOSE 263 MG/DL (83-110)
[2017-11-30] MEDS: GABAPENTIN 300 MG CAP PO (20:07)
[2017-11-30] MEDS: ROSUVASTATIN 10 MG TAB (CRESTOR) PO (20:08)
[2017-11-30 20:58] LABS: BEDSIDE GLUCOSE 154 MG/DL (83-110)
[2017-12-01] MEDS: IPRATROPIUM 0.5MG/ALBUTEROL 2.5MG INH SOL UD 3ML (DUONEB)(J7620) NEB ×4 (01:11→20:00)
[2017-12-01] MEDS: PERCOCET 5MG/325MG TAB PO ×5 (03:26→23:52)
[2017-12-01] MEDS: VERAPAMIL 120 MG SR TAB PO ×2 (05:15→17:20)
[2017-12-01] MEDS: MOXIFLOXACIN 400 MG TAB PO (05:15)
[2017-12-01 07:40] LABS: HEMATOCRIT 28.5 % (42.0-52.0); HEMOGLOBIN 8.8 g/dl (13.5-17.5); MEAN CORPUSCULAR HEMOGLOBIN 24.3 pg (27.0-33.0); MEAN CORPUSCULAR HGB CONC 30.9 g/dl (32.0-36.5); MEAN CORPUSCULAR VOLUME 78.7 fl (80.0-96.0); PLATELET COUNT, AUTOMATED 238 10^3/uL (150-450); RED BLOOD COUNT 3.62 10^6/uL (4.30-6.10); RED CELL DISTRIBUTION WIDTH 19.6 % (11.5-14.5); WHITE BLOOD COUNT 8.7 10^3/uL (4.0-10.0)
[2017-12-01 07:53] LABS: INR 1.52; PROTHROMBIN TIME 18.7 SECONDS (12.4-14.5)
[2017-12-01 09:12] LABS: ANION GAP 9 MEQ/L (8-16); BLOOD UREA NITROGEN 44 MG/DL (7-18); CALCIUM LEVEL 8.6 MG/DL (8.8-10.2); CARBON DIOXIDE LEVEL 27 MEQ/L (21-32); CHLORIDE LEVEL 104 MEQ/L (98-107); GLOMERULAR FILTRATION RATE 34.7 (>42); GLUCOSE, FASTING 158 MG/DL (70-100); POTASSIUM SERUM 4.9 MEQ/L (3.5-5.1); SODIUM LEVEL 140 MEQ/L (136-145)
[2017-12-01] MEDS: LEVEMIR (INSULIN DETEMIR) 1 UNITS/0.01ML SC ×2 (09:29→13:32)
[2017-12-01] MEDS: HumaLOG INSULIN (NovoLOG) PER UNIT SC ×4 (09:29→21:00)
[2017-12-01] MEDS: POTASSIUM CHLORIDE 10 MEQ SR TABLET PO ×2 (09:30→21:00)
[2017-12-01] MEDS: PREGABALIN 75 MG CAP(LYRICA) PO ×2 (09:30→22:25)
[2017-12-01] MEDS: TORSEMIDE 20 MG TAB PO ×2 (09:30→17:20)
[2017-12-01] MEDS: AMIODARONE 200 MG TAB (PACERONE) PO (09:31)
[2017-12-01] MEDS: SPIRONOLACTONE 12.5MG PER 1/2 TABLET PO (09:31)
[2017-12-01] MEDS: OMEPRAZOLE 20 MG CAP PO (09:31)
[2017-12-01] MEDS: **hydrALAZINE HCL** 25 MG TAB PO ×3 (09:32→21:00)
[2017-12-01] MEDS: GABAPENTIN 100 MG CAP PO (09:32)
[2017-12-01] MEDS: CYANOCOBALAMIN 500 MCG TAB PO (09:32)
[2017-12-01] MEDS: ISOSORBIDE DIN. (ISORDIL) 30 MG TAB PO ×3 (09:32→21:00)
[2017-12-01] MEDS: MIRALAX *UNIT DOSE* 17GM PACKET PO (09:32)
[2017-12-01] MEDS: SERTRALINE HCL 50 MG TAB PO (09:32)
[2017-12-01] MEDS: DOCUSATE SODIUM 100 MG CAP PO ×2 (09:33→22:26)
[2017-12-01] MEDS: FLUTICASONE PROP 0.05% NASAL SPRAY 16 GM (FLONASE) (09:33)
[2017-12-01 12:15] LABS: BEDSIDE GLUCOSE 167 MG/DL (83-110)
[2017-12-01 19:36] LABS: BEDSIDE GLUCOSE 253 MG/DL (83-110)
[2017-12-01 19:59] LABS: BEDSIDE GLUCOSE 122 MG/DL (83-110)
[2017-12-01] MEDS: GABAPENTIN 300 MG CAP PO (22:25)
[2017-12-01] MEDS: SENNA 8.6 MG TAB (SENOKOT) PO (22:26)
[2017-12-01] MEDS: ROSUVASTATIN 10 MG TAB (CRESTOR) PO (22:27)
[2017-12-02] MEDS: IPRATROPIUM 0.5MG/ALBUTEROL 2.5MG INH SOL UD 3ML (DUONEB)(J7620) NEB ×4 (02:00→21:17)
[2017-12-02] MEDS: PERCOCET 5MG/325MG TAB PO ×5 (04:18→22:00)
[2017-12-02] MEDS: VERAPAMIL 120 MG SR TAB PO ×2 (05:50→17:50)
[2017-12-02] MEDS: MOXIFLOXACIN 400 MG TAB PO (05:50)
[2017-12-02 06:16] LABS: BEDSIDE GLUCOSE 132 MG/DL (83-110)
[2017-12-02 08:17] LABS: BASO % 0.3 % (0.0-1.0); EOS # 0.2 10^3/uL (0.0-0.50); EOS % 2.2 % (0.0-3.0); HEMATOCRIT 31.1 % (42.0-52.0); HEMOGLOBIN 9.3 g/dl (13.5-17.5); IMMATURE GRANULOCYTE % 1.3 % (0-3.0); LYMPH # 1.4 10^3/uL (1.5-4.5); LYMPH % 13.2 % (24.0-44.0); MEAN CORPUSCULAR HEMOGLOBIN 23.7 pg (27.0-33.0); MEAN CORPUSCULAR HGB CONC 29.9 g/dl (32.0-36.5); MEAN CORPUSCULAR VOLUME 79.3 fl (80.0-96.0); MONO # 0.9 10^3/uL (0.0-0.8); MONO % 8.8 % (0.0-5.0); NEUTROPHILS # 7.7 10^3/uL (1.8-7.7); NEUTROPHILS % 74.2 % (36.0-66.0); PLATELET COUNT, AUTOMATED 205 10^3/uL (150-450); RED BLOOD COUNT 3.92 10^6/uL (4.30-6.10); RED CELL DISTRIBUTION WIDTH 20.1 % (11.5-14.5); WHITE BLOOD COUNT 10.3 10^3/uL (4.0-10.0)
[2017-12-02 08:51] LABS: ALBUMIN 3.6 GM/DL (3.2-5.2); ALBUMIN/GLOBULIN RATIO 1.24 (1.00-1.93); ALKALINE PHOSPHATASE 97 U/L (45-117); ALT/SGPT 22 U/L (12-78); ANION GAP 5 MEQ/L (8-16); AST/SGOT 25 U/L (7-37); BILIRUBIN,TOTAL 0.6 MG/DL (0.2-1.0); BLOOD UREA NITROGEN 39 MG/DL (7-18); CALCIUM LEVEL 8.3 MG/DL (8.8-10.2); CARBON DIOXIDE LEVEL 31 MEQ/L (21-32); CHLORIDE LEVEL 105 MEQ/L (98-107); CREATININE FOR GFR 1.89 MG/DL (0.70-1.30); GLUCOSE, FASTING 115 MG/DL (70-100); POTASSIUM SERUM 4.4 MEQ/L (3.5-5.1); SODIUM LEVEL 141 MEQ/L (136-145); TOTAL PROTEIN 6.5 GM/DL (6.4-8.2)
[2017-12-02] MEDS: MIRALAX *UNIT DOSE* 17GM PACKET PO (09:00)
[2017-12-02] MEDS: POTASSIUM CHLORIDE 10 MEQ SR TABLET PO (09:00)
[2017-12-02] MEDS: AMIODARONE 200 MG TAB (PACERONE) PO (09:06)
[2017-12-02] MEDS: SPIRONOLACTONE 12.5MG PER 1/2 TABLET PO (09:06)
[2017-12-02] MEDS: SERTRALINE HCL 50 MG TAB PO (09:06)
[2017-12-02] MEDS: PREGABALIN 75 MG CAP(LYRICA) PO ×2 (09:06→20:23)
[2017-12-02] MEDS: CYANOCOBALAMIN 500 MCG TAB PO (09:06)
[2017-12-02] MEDS: ISOSORBIDE DIN. (ISORDIL) 30 MG TAB PO ×3 (09:06→20:23)
[2017-12-02] MEDS: OMEPRAZOLE 20 MG CAP PO (09:06)
[2017-12-02] MEDS: GABAPENTIN 100 MG CAP PO (09:07)
[2017-12-02] MEDS: **hydrALAZINE HCL** 25 MG TAB PO ×3 (09:07→20:23)
[2017-12-02] MEDS: DOCUSATE SODIUM 100 MG CAP PO ×2 (09:07→20:23)
[2017-12-02] MEDS: TORSEMIDE 20 MG TAB PO ×2 (09:07→16:16)
[2017-12-02] MEDS: LEVEMIR (INSULIN DETEMIR) 1 UNITS/0.01ML SC ×2 (09:08→13:04)
[2017-12-02] MEDS: HumaLOG INSULIN (NovoLOG) PER UNIT SC ×4 (09:08→21:00)
[2017-12-02] MEDS: FLUTICASONE PROP 0.05% NASAL SPRAY 16 GM (FLONASE) (09:08)
[2017-12-02] MEDS: fentaNYL 50 MCG/HR PATCH TD (09:09)
[2017-12-02] MEDS: FENTANYL REMOVAL DOCUMENTATION MISC XX (09:09)
[2017-12-02 12:11] LABS: BEDSIDE GLUCOSE 222 MG/DL (83-110)
[2017-12-02] MEDS: SENNA 8.6 MG TAB (SENOKOT) PO (20:23)
[2017-12-02] MEDS: ROSUVASTATIN 10 MG TAB (CRESTOR) PO (20:24)
[2017-12-02] MEDS: APIXABAN 2.5 MG TAB (ELIQUIS) PO (20:24)
[2017-12-02] MEDS: GABAPENTIN 300 MG CAP PO (20:24)
[2017-12-03] MEDS: IPRATROPIUM 0.5MG/ALBUTEROL 2.5MG INH SOL UD 3ML (DUONEB)(J7620) NEB ×4 (02:13→19:34)
[2017-12-03 02:47] LABS: BEDSIDE GLUCOSE 124 MG/DL (83-110)
[2017-12-03 02:47] LABS: BEDSIDE GLUCOSE 233 MG/DL (83-110)
[2017-12-03] MEDS: PERCOCET 5MG/325MG TAB PO ×3 (04:52→13:28)
[2017-12-03] MEDS: MOXIFLOXACIN 400 MG TAB PO (05:37)
[2017-12-03] MEDS: VERAPAMIL 120 MG SR TAB PO ×2 (05:37→17:25)
[2017-12-03 06:22] LABS: HEMOGLOBIN 8.8 g/dl (13.5-17.5); MEAN CORPUSCULAR HEMOGLOBIN 24.2 pg (27.0-33.0); MEAN CORPUSCULAR HGB CONC 30.3 g/dl (32.0-36.5); MEAN CORPUSCULAR VOLUME 79.9 fl (80.0-96.0); PLATELET COUNT, AUTOMATED 176 10^3/uL (150-450); RED BLOOD COUNT 3.63 10^6/uL (4.30-6.10); RED CELL DISTRIBUTION WIDTH 20.3 % (11.5-14.5); WHITE BLOOD COUNT 9.8 10^3/uL (4.0-10.0)
[2017-12-03 06:50] LABS: ANION GAP 6 MEQ/L (8-16); BLOOD UREA NITROGEN 38 MG/DL (7-18); CALCIUM LEVEL 8.4 MG/DL (8.8-10.2); CARBON DIOXIDE LEVEL 31 MEQ/L (21-32); CHLORIDE LEVEL 105 MEQ/L (98-107); CREATININE FOR GFR 1.99 MG/DL (0.70-1.30); GLOMERULAR FILTRATION RATE 34.9 (>42); GLUCOSE, FASTING 145 MG/DL (70-100); POTASSIUM SERUM 4.3 MEQ/L (3.5-5.1); SODIUM LEVEL 142 MEQ/L (136-145)
[2017-12-03] MEDS: MIRALAX *UNIT DOSE* 17GM PACKET PO (07:46)
[2017-12-03] MEDS: DOCUSATE SODIUM 100 MG CAP PO ×2 (07:47→20:35)
[2017-12-03] MEDS: LEVEMIR (INSULIN DETEMIR) 1 UNITS/0.01ML SC ×2 (07:47→14:59)
[2017-12-03] MEDS: HumaLOG INSULIN (NovoLOG) PER UNIT SC ×4 (07:47→20:33)
[2017-12-03] MEDS: SPIRONOLACTONE 12.5MG PER 1/2 TABLET PO (07:48)
[2017-12-03] MEDS: PREGABALIN 75 MG CAP(LYRICA) PO ×2 (07:48→20:35)
[2017-12-03] MEDS: TORSEMIDE 20 MG TAB PO ×2 (07:48→17:25)
[2017-12-03] MEDS: **hydrALAZINE HCL** 25 MG TAB PO ×3 (07:48→20:40)
[2017-12-03] MEDS: CYANOCOBALAMIN 500 MCG TAB PO (07:48)
[2017-12-03] MEDS: APIXABAN 2.5 MG TAB (ELIQUIS) PO (07:49)
[2017-12-03] MEDS: GABAPENTIN 100 MG CAP PO (07:49)
[2017-12-03] MEDS: OMEPRAZOLE 20 MG CAP PO (07:49)
[2017-12-03] MEDS: SERTRALINE HCL 50 MG TAB PO (07:49)
[2017-12-03] MEDS: ISOSORBIDE DIN. (ISORDIL) 30 MG TAB PO ×3 (07:49→20:40)
[2017-12-03] MEDS: AMIODARONE 200 MG TAB (PACERONE) PO (07:49)
[2017-12-03] MEDS: FLUTICASONE PROP 0.05% NASAL SPRAY 16 GM (FLONASE) (07:50)
[2017-12-03] MEDS: ROSUVASTATIN 10 MG TAB (CRESTOR) PO (20:34)
[2017-12-03] MEDS: SENNA 8.6 MG TAB (SENOKOT) PO (20:35)
[2017-12-03] MEDS: GABAPENTIN 300 MG CAP PO (20:35)
[2017-12-03] MEDS: RIVAROXABAN 15 MG TAB (XARELTO) PO (20:35)
[2017-12-03 20:52] LABS: BEDSIDE GLUCOSE 266 MG/DL (83-110)
[2017-12-04] MEDS: IPRATROPIUM 0.5MG/ALBUTEROL 2.5MG INH SOL UD 3ML (DUONEB)(J7620) NEB ×4 (01:14→20:25)
[2017-12-04] MEDS: VERAPAMIL 120 MG SR TAB PO ×2 (05:22→17:08)
[2017-12-04] MEDS: PERCOCET 5MG/325MG TAB PO ×5 (05:23→22:42)
[2017-12-04 06:20] LABS: BEDSIDE GLUCOSE 215 MG/DL (83-110)
[2017-12-04 06:20] LABS: BEDSIDE GLUCOSE 381 MG/DL (83-110)
[2017-12-04] MEDS: HumaLOG INSULIN (NovoLOG) PER UNIT SC ×4 (08:10→20:38)
[2017-12-04] MEDS: SPIRONOLACTONE 12.5MG PER 1/2 TABLET PO (08:10)
[2017-12-04] MEDS: AMIODARONE 200 MG TAB (PACERONE) PO (08:11)
[2017-12-04] MEDS: CYANOCOBALAMIN 500 MCG TAB PO (08:11)
[2017-12-04] MEDS: TORSEMIDE 20 MG TAB PO ×2 (08:11→17:08)
[2017-12-04] MEDS: ISOSORBIDE DIN. (ISORDIL) 30 MG TAB PO ×3 (08:12→20:34)
[2017-12-04] MEDS: PREGABALIN 75 MG CAP(LYRICA) PO ×2 (08:12→20:33)
[2017-12-04] MEDS: OMEPRAZOLE 20 MG CAP PO (08:12)
[2017-12-04] MEDS: SERTRALINE HCL 50 MG TAB PO (08:12)
[2017-12-04] MEDS: DOCUSATE SODIUM 100 MG CAP PO ×2 (08:13→20:33)
[2017-12-04] MEDS: GABAPENTIN 100 MG CAP PO (08:13)
[2017-12-04] MEDS: LEVEMIR (INSULIN DETEMIR) 1 UNITS/0.01ML SC ×2 (08:13→14:04)
[2017-12-04] MEDS: MIRALAX *UNIT DOSE* 17GM PACKET PO (08:13)
[2017-12-04] MEDS: **hydrALAZINE HCL** 25 MG TAB PO ×3 (08:13→20:34)
[2017-12-04] MEDS: FLUTICASONE PROP 0.05% NASAL SPRAY 16 GM (FLONASE) (08:14)
[2017-12-04 16:19] LABS: BEDSIDE GLUCOSE 238 MG/DL (83-110)
[2017-12-04 16:19] LABS: BEDSIDE GLUCOSE 209 MG/DL (83-110)
[2017-12-04 16:59] LABS: BEDSIDE GLUCOSE 252 MG/DL (83-110)
[2017-12-04] MEDS: GABAPENTIN 300 MG CAP PO (20:33)
[2017-12-04] MEDS: RIVAROXABAN 15 MG TAB (XARELTO) PO (20:33)
[2017-12-04] MEDS: ROSUVASTATIN 10 MG TAB (CRESTOR) PO (20:34)
[2017-12-04] MEDS: SENNA 8.6 MG TAB (SENOKOT) PO (20:34)
[2017-12-04 21:25] LABS: BEDSIDE GLUCOSE 174 MG/DL (83-110)
[2017-12-05] MEDS: IPRATROPIUM 0.5MG/ALBUTEROL 2.5MG INH SOL UD 3ML (DUONEB)(J7620) NEB ×4 (04:38→20:52)
[2017-12-05] MEDS: VERAPAMIL 120 MG SR TAB PO ×2 (05:10→17:37)
[2017-12-05] MEDS: PERCOCET 5MG/325MG TAB PO ×5 (05:11→22:43)
[2017-12-05 06:07] LABS: HEMATOCRIT 27.9 % (42.0-52.0); HEMOGLOBIN 8.4 g/dl (13.5-17.5); MEAN CORPUSCULAR HEMOGLOBIN 23.7 pg (27.0-33.0); MEAN CORPUSCULAR HGB CONC 30.1 g/dl (32.0-36.5); MEAN CORPUSCULAR VOLUME 78.8 fl (80.0-96.0); PLATELET COUNT, AUTOMATED 150 10^3/uL (150-450); RED BLOOD COUNT 3.54 10^6/uL (4.30-6.10); RED CELL DISTRIBUTION WIDTH 20.7 % (11.5-14.5); WHITE BLOOD COUNT 8.1 10^3/uL (4.0-10.0)
[2017-12-05 06:26] LABS: ALBUMIN 3.1 GM/DL (3.2-5.2); ALBUMIN/GLOBULIN RATIO 0.91 (1.00-1.93); ALKALINE PHOSPHATASE 92 U/L (45-117); ALT/SGPT 17 U/L (12-78); ANION GAP 7 MEQ/L (8-16); AST/SGOT 18 U/L (7-37); BILIRUBIN,TOTAL 0.5 MG/DL (0.2-1.0); BLOOD UREA NITROGEN 26 MG/DL (7-18); CALCIUM LEVEL 8.5 MG/DL (8.8-10.2); CARBON DIOXIDE LEVEL 29 MEQ/L (21-32); CHLORIDE LEVEL 107 MEQ/L (98-107); CREATININE FOR GFR 1.58 MG/DL (0.70-1.30); GLOMERULAR FILTRATION RATE 45.5 (>42); GLUCOSE, FASTING 173 MG/DL (70-100); POTASSIUM SERUM 3.8 MEQ/L (3.5-5.1); SODIUM LEVEL 143 MEQ/L (136-145); TOTAL PROTEIN 6.5 GM/DL (6.4-8.2)
[2017-12-05] MEDS: MIRALAX *UNIT DOSE* 17GM PACKET PO (08:14)
[2017-12-05] MEDS: GABAPENTIN 100 MG CAP PO (08:15)
[2017-12-05] MEDS: SPIRONOLACTONE 12.5MG PER 1/2 TABLET PO (08:15)
[2017-12-05] MEDS: SERTRALINE HCL 50 MG TAB PO (08:15)
[2017-12-05] MEDS: HumaLOG INSULIN (NovoLOG) PER UNIT SC ×4 (08:15→22:35)
[2017-12-05] MEDS: DOCUSATE SODIUM 100 MG CAP PO ×2 (08:16→22:32)
[2017-12-05] MEDS: OMEPRAZOLE 20 MG CAP PO (08:16)
[2017-12-05] MEDS: ISOSORBIDE DIN. (ISORDIL) 30 MG TAB PO ×3 (08:16→22:34)
[2017-12-05] MEDS: AMIODARONE 200 MG TAB (PACERONE) PO (08:16)
[2017-12-05] MEDS: TORSEMIDE 20 MG TAB PO ×2 (08:16→17:37)
[2017-12-05] MEDS: CYANOCOBALAMIN 500 MCG TAB PO (08:16)
[2017-12-05] MEDS: PREGABALIN 75 MG CAP(LYRICA) PO ×2 (08:16→22:34)
[2017-12-05] MEDS: **hydrALAZINE HCL** 25 MG TAB PO ×3 (08:17→22:31)
[2017-12-05] MEDS: LEVEMIR (INSULIN DETEMIR) 1 UNITS/0.01ML SC ×2 (08:17→13:38)
[2017-12-05] MEDS: FLUTICASONE PROP 0.05% NASAL SPRAY 16 GM (FLONASE) (08:19)
[2017-12-05] MEDS: FENTANYL REMOVAL DOCUMENTATION MISC XX (08:23)
[2017-12-05] MEDS: fentaNYL 50 MCG/HR PATCH TD (08:28)
[2017-12-05] MEDS: ROSUVASTATIN 10 MG TAB (CRESTOR) PO (22:33)
[2017-12-05] MEDS: SENNA 8.6 MG TAB (SENOKOT) PO (22:34)
[2017-12-05] MEDS: GABAPENTIN 300 MG CAP PO (22:34)
[2017-12-05] MEDS: RIVAROXABAN 15 MG TAB (XARELTO) PO (22:34)
[2017-12-06] MEDS: IPRATROPIUM 0.5MG/ALBUTEROL 2.5MG INH SOL UD 3ML (DUONEB)(J7620) NEB ×4 (01:54→20:27)
[2017-12-06] MEDS: VERAPAMIL 120 MG SR TAB PO ×2 (05:08→17:33)
[2017-12-06] MEDS: PERCOCET 5MG/325MG TAB PO ×5 (05:09→22:11)
[2017-12-06 06:31] LABS: HEMATOCRIT 27.4 % (42.0-52.0); HEMOGLOBIN 8.3 g/dl (13.5-17.5); MEAN CORPUSCULAR HGB CONC 30.3 g/dl (32.0-36.5); MEAN CORPUSCULAR VOLUME 79.2 fl (80.0-96.0); PLATELET COUNT, AUTOMATED 148 10^3/uL (150-450); RED BLOOD COUNT 3.46 10^6/uL (4.30-6.10); RED CELL DISTRIBUTION WIDTH 20.5 % (11.5-14.5); WHITE BLOOD COUNT 8.1 10^3/uL (4.0-10.0)
[2017-12-06 06:50] LABS: ALBUMIN 2.9 GM/DL (3.2-5.2); ALBUMIN/GLOBULIN RATIO 0.83 (1.00-1.93); ALKALINE PHOSPHATASE 93 U/L (45-117); ALT/SGPT 18 U/L (12-78); ANION GAP 6 MEQ/L (8-16); AST/SGOT 17 U/L (7-37); BILIRUBIN,TOTAL 0.6 MG/DL (0.2-1.0); BLOOD UREA NITROGEN 25 MG/DL (7-18); CALCIUM LEVEL 8.5 MG/DL (8.8-10.2); CARBON DIOXIDE LEVEL 30 MEQ/L (21-32); CHLORIDE LEVEL 106 MEQ/L (98-107); CREATININE FOR GFR 1.64 MG/DL (0.70-1.30); GLOMERULAR FILTRATION RATE 43.6 (>42); GLUCOSE, FASTING 156 MG/DL (70-100); POTASSIUM SERUM 3.7 MEQ/L (3.5-5.1); SODIUM LEVEL 142 MEQ/L (136-145); TOTAL PROTEIN 6.4 GM/DL (6.4-8.2)
[2017-12-06 07:05] LABS: BEDSIDE GLUCOSE 238 MG/DL (83-110)
[2017-12-06 07:05] LABS: BEDSIDE GLUCOSE 281 MG/DL (83-110)
[2017-12-06 07:06] LABS: BEDSIDE GLUCOSE 336 MG/DL (83-110)
[2017-12-06] MEDS: ISOSORBIDE DIN. (ISORDIL) 30 MG TAB PO ×3 (08:34→20:05)
[2017-12-06] MEDS: PREGABALIN 75 MG CAP(LYRICA) PO ×2 (08:34→20:05)
[2017-12-06] MEDS: CYANOCOBALAMIN 500 MCG TAB PO (08:34)
[2017-12-06] MEDS: TORSEMIDE 20 MG TAB PO ×2 (08:35→16:27)
[2017-12-06] MEDS: SERTRALINE HCL 50 MG TAB PO (08:35)
[2017-12-06] MEDS: DOCUSATE SODIUM 100 MG CAP PO ×2 (08:35→20:04)
[2017-12-06] MEDS: GABAPENTIN 100 MG CAP PO (08:35)
[2017-12-06] MEDS: OMEPRAZOLE 20 MG CAP PO (08:35)
[2017-12-06] MEDS: SPIRONOLACTONE 25 MG TAB PO (08:35)
[2017-12-06] MEDS: AMIODARONE 200 MG TAB (PACERONE) PO (08:35)
[2017-12-06] MEDS: **hydrALAZINE HCL** 25 MG TAB PO ×3 (08:35→20:05)
[2017-12-06] MEDS: FLUTICASONE PROP 0.05% NASAL SPRAY 16 GM (FLONASE) (08:36)
[2017-12-06] MEDS: LEVEMIR (INSULIN DETEMIR) 1 UNITS/0.01ML SC ×2 (08:37→12:55)
[2017-12-06] MEDS: HumaLOG INSULIN (NovoLOG) PER UNIT SC ×4 (08:37→22:11)
[2017-12-06] MEDS: MIRALAX *UNIT DOSE* 17GM PACKET PO (08:39)
[2017-12-06 12:40] LABS: BEDSIDE GLUCOSE 281 MG/DL (83-110)
[2017-12-06 16:44] LABS: BEDSIDE GLUCOSE 263 MG/DL (83-110)
[2017-12-06] MEDS: RIVAROXABAN 15 MG TAB (XARELTO) PO (20:04)
[2017-12-06] MEDS: SENNA 8.6 MG TAB (SENOKOT) PO (20:04)
[2017-12-06] MEDS: GABAPENTIN 300 MG CAP PO (20:04)
[2017-12-06] MEDS: ROSUVASTATIN 10 MG TAB (CRESTOR) PO (20:05)
[2017-12-06 23:25] LABS: BEDSIDE GLUCOSE 311 MG/DL (83-110)
[2017-12-07] MEDS: IPRATROPIUM 0.5MG/ALBUTEROL 2.5MG INH SOL UD 3ML (DUONEB)(J7620) NEB ×4 (01:47→20:45)
[2017-12-07] MEDS: PERCOCET 5MG/325MG TAB PO ×5 (04:32→21:03)
[2017-12-07] MEDS: VERAPAMIL 120 MG SR TAB PO ×2 (05:07→16:47)
[2017-12-07 05:51] LABS: HEMATOCRIT 28.1 % (42.0-52.0); HEMOGLOBIN 8.3 g/dl (13.5-17.5); MEAN CORPUSCULAR HEMOGLOBIN 23.4 pg (27.0-33.0); MEAN CORPUSCULAR HGB CONC 29.5 g/dl (32.0-36.5); MEAN CORPUSCULAR VOLUME 79.4 fl (80.0-96.0); PLATELET COUNT, AUTOMATED 150 10^3/uL (150-450); RED BLOOD COUNT 3.54 10^6/uL (4.30-6.10); RED CELL DISTRIBUTION WIDTH 20.5 % (11.5-14.5); WHITE BLOOD COUNT 9.9 10^3/uL (4.0-10.0)
[2017-12-07 06:22] LABS: ALBUMIN 2.9 GM/DL (3.2-5.2); ALBUMIN/GLOBULIN RATIO 1.04 (1.00-1.93); ALKALINE PHOSPHATASE 89 U/L (45-117); ALT/SGPT 17 U/L (12-78); ANION GAP 6 MEQ/L (8-16); AST/SGOT 17 U/L (7-37); BILIRUBIN,TOTAL 0.6 MG/DL (0.2-1.0); BLOOD UREA NITROGEN 27 MG/DL (7-18); CALCIUM LEVEL 8.4 MG/DL (8.8-10.2); CARBON DIOXIDE LEVEL 30 MEQ/L (21-32); CHLORIDE LEVEL 105 MEQ/L (98-107); CREATININE FOR GFR 1.57 MG/DL (0.70-1.30); GLOMERULAR FILTRATION RATE 45.8 (>42); GLUCOSE, FASTING 206 MG/DL (70-100); POTASSIUM SERUM 4.2 MEQ/L (3.5-5.1); SODIUM LEVEL 141 MEQ/L (136-145); TOTAL PROTEIN 5.7 GM/DL (6.4-8.2)
[2017-12-07] MEDS: CYANOCOBALAMIN 500 MCG TAB PO (08:01)
[2017-12-07] MEDS: DOCUSATE SODIUM 100 MG CAP PO ×2 (08:01→20:55)
[2017-12-07] MEDS: MIRALAX *UNIT DOSE* 17GM PACKET PO (08:01)
[2017-12-07] MEDS: SPIRONOLACTONE 25 MG TAB PO (08:02)
[2017-12-07] MEDS: SERTRALINE HCL 50 MG TAB PO (08:02)
[2017-12-07] MEDS: GABAPENTIN 100 MG CAP PO (08:02)
[2017-12-07] MEDS: PREGABALIN 75 MG CAP(LYRICA) PO ×2 (08:02→20:56)
[2017-12-07] MEDS: OMEPRAZOLE 20 MG CAP PO (08:02)
[2017-12-07] MEDS: AMIODARONE 200 MG TAB (PACERONE) PO (08:03)
[2017-12-07] MEDS: TORSEMIDE 20 MG TAB PO ×2 (08:03→16:44)
[2017-12-07] MEDS: ISOSORBIDE DIN. (ISORDIL) 30 MG TAB PO ×3 (08:03→20:56)
[2017-12-07] MEDS: **hydrALAZINE HCL** 25 MG TAB PO ×3 (08:03→20:56)
[2017-12-07] MEDS: HumaLOG INSULIN (NovoLOG) PER UNIT SC ×4 (08:04→20:57)
[2017-12-07] MEDS: LEVEMIR (INSULIN DETEMIR) 1 UNITS/0.01ML SC ×2 (08:04→14:12)
[2017-12-07] MEDS: FLUTICASONE PROP 0.05% NASAL SPRAY 16 GM (FLONASE) (08:04)
[2017-12-07] MEDS: methylPREDNISolone INJ 40 MG/1 ML VIAL (J2920) IV (15:17)
[2017-12-07] MEDS: CEFTAROLINE FOSAMIL 400 MG in D5W MINI-BAG PLUS 50 ML IV (15:17)
[2017-12-07 16:36] LABS: BEDSIDE GLUCOSE 353 MG/DL (83-110)
[2017-12-07 20:31] LABS: BEDSIDE GLUCOSE 334 MG/DL (83-110)
[2017-12-07] MEDS: RIVAROXABAN 15 MG TAB (XARELTO) PO (20:55)
[2017-12-07] MEDS: ROSUVASTATIN 10 MG TAB (CRESTOR) PO (20:56)
[2017-12-07] MEDS: GABAPENTIN 300 MG CAP PO (20:56)
[2017-12-07] MEDS: SENNA 8.6 MG TAB (SENOKOT) PO (20:56)
[2017-12-08] MEDS: IPRATROPIUM 0.5MG/ALBUTEROL 2.5MG INH SOL UD 3ML (DUONEB)(J7620) NEB ×4 (01:53→20:21)
[2017-12-08] MEDS: methylPREDNISolone INJ 40 MG/1 ML VIAL (J2920) IV ×2 (03:08→16:38)
[2017-12-08] MEDS: CEFTAROLINE FOSAMIL 400 MG in D5W MINI-BAG PLUS 50 ML IV ×2 (03:08→16:43)
[2017-12-08] MEDS: PERCOCET 5MG/325MG TAB PO ×4 (03:15→20:10)
[2017-12-08] MEDS: VERAPAMIL 120 MG SR TAB PO ×2 (05:50→20:11)
[2017-12-08 06:40] LABS: HEMATOCRIT 25.3 % (42.0-52.0); HEMOGLOBIN 7.7 g/dl (13.5-17.5); MEAN CORPUSCULAR HGB CONC 30.4 g/dl (32.0-36.5); MEAN CORPUSCULAR VOLUME 78.8 fl (80.0-96.0); PLATELET COUNT, AUTOMATED 137 10^3/uL (150-450); RED BLOOD COUNT 3.21 10^6/uL (4.30-6.10); RED CELL DISTRIBUTION WIDTH 20.3 % (11.5-14.5); WHITE BLOOD COUNT 8.5 10^3/uL (4.0-10.0)
[2017-12-08 07:00] LABS: ALBUMIN 2.6 GM/DL (3.2-5.2); ALBUMIN/GLOBULIN RATIO 0.68 (1.00-1.93); ALKALINE PHOSPHATASE 88 U/L (45-117); ALT/SGPT 14 U/L (12-78); ANION GAP 7 MEQ/L (8-16); AST/SGOT 12 U/L (7-37); BILIRUBIN,TOTAL 0.5 MG/DL (0.2-1.0); BLOOD UREA NITROGEN 41 MG/DL (7-18); CALCIUM LEVEL 8.4 MG/DL (8.8-10.2); CARBON DIOXIDE LEVEL 27 MEQ/L (21-32); CHLORIDE LEVEL 100 MEQ/L (98-107); CREATININE FOR GFR 2.05 MG/DL (0.70-1.30); GLOMERULAR FILTRATION RATE 33.7 (>42); SODIUM LEVEL 134 MEQ/L (136-145); TOTAL PROTEIN 6.4 GM/DL (6.4-8.2)
[2017-12-08 07:02] LABS: GLUCOSE, FASTING 458 MG/DL (70-100)
[2017-12-08 07:03] LABS: POTASSIUM SERUM 5.3 MEQ/L (3.5-5.1)
[2017-12-08] MEDS: **hydrALAZINE HCL** 25 MG TAB PO ×3 (08:16→20:57)
[2017-12-08] MEDS: fentaNYL 50 MCG/HR PATCH TD (08:17)
[2017-12-08] MEDS: FENTANYL REMOVAL DOCUMENTATION MISC XX (08:17)
[2017-12-08] MEDS: MIRALAX *UNIT DOSE* 17GM PACKET PO (08:18)
[2017-12-08] MEDS: HumaLOG INSULIN (NovoLOG) PER UNIT SC ×5 (08:18→20:11)
[2017-12-08] MEDS: AMIODARONE 200 MG TAB (PACERONE) PO (08:18)
[2017-12-08] MEDS: PREGABALIN 75 MG CAP(LYRICA) PO ×2 (08:18→20:58)
[2017-12-08] MEDS: CYANOCOBALAMIN 500 MCG TAB PO (08:18)
[2017-12-08] MEDS: ISOSORBIDE DIN. (ISORDIL) 30 MG TAB PO ×3 (08:18→20:58)
[2017-12-08] MEDS: TORSEMIDE 20 MG TAB PO ×2 (08:19→16:38)
[2017-12-08] MEDS: DOCUSATE SODIUM 100 MG CAP PO ×2 (08:19→20:58)
[2017-12-08] MEDS: SERTRALINE HCL 50 MG TAB PO (08:19)
[2017-12-08] MEDS: SPIRONOLACTONE 25 MG TAB PO (08:20)
[2017-12-08] MEDS: OMEPRAZOLE 20 MG CAP PO (08:20)
[2017-12-08] MEDS: FLUTICASONE PROP 0.05% NASAL SPRAY 16 GM (FLONASE) (08:20)
[2017-12-08] MEDS: GABAPENTIN 100 MG CAP PO (08:20)
[2017-12-08] MEDS: LEVEMIR (INSULIN DETEMIR) 1 UNITS/0.01ML SC ×2 (08:21→13:18)
[2017-12-08 08:26] LABS: BEDSIDE GLUCOSE 387 MG/DL (83-110)
[2017-12-08 08:26] LABS: BEDSIDE GLUCOSE 450 MG/DL (83-110)
[2017-12-08 09:43] LABS: ABG BASE EXCESS -1.2 (-2.0-2.0); ABG HCO3 23.8 MEQ/L (22.0-26.0); ABG O2 SATURATION 86.6 % (95.0-99.0); ABG STANDARD HCO3 23.3 MEQ/L (22.0-26.0); ABG pH (ARTERIAL) 7.381 UNITS (7.350-7.450)
[2017-12-08] MEDS: FUROSEMIDE 100 MG/10 ML VIAL (J1940) IV (10:11)
[2017-12-08 10:36] LABS: CK-MB VALUE MASS 2.3 NG/ML (<3.6); CPK CREATINE PHOSPHOKINASE 113 U/L (39-308); MB/CK RELATIVE INDEX 2.03 (< OR =4); TROPONIN I < 0.02 NG/ML (< 0.10)
[2017-12-08 12:46] LABS: BEDSIDE GLUCOSE 536 MG/DL (83-110)
[2017-12-08 13:39] LABS: NT-PRO BNP 5019 PG/ML (<450)
[2017-12-08 14:19] LABS: ABG BASE EXCESS -0.8 (-2.0-2.0); ABG HCO3 24.6 MEQ/L (22.0-26.0); ABG O2 SATURATION 94.6 % (95.0-99.0); ABG PARTIAL PRESSURE O2 81.4 mmHg (75.0-100.0); ABG STANDARD HCO3 23.8 MEQ/L (22.0-26.0); ABG pH (ARTERIAL) 7.366 UNITS (7.350-7.450)
[2017-12-08 14:23] LABS: HEMATOCRIT 27.7 % (42.0-52.0); HEMOGLOBIN 8.4 g/dl (13.5-17.5); MEAN CORPUSCULAR HEMOGLOBIN 23.8 pg (27.0-33.0); MEAN CORPUSCULAR HGB CONC 30.3 g/dl (32.0-36.5); MEAN CORPUSCULAR VOLUME 78.5 fl (80.0-96.0); PLATELET COUNT, AUTOMATED 162 10^3/uL (150-450); RED BLOOD COUNT 3.53 10^6/uL (4.30-6.10); RED CELL DISTRIBUTION WIDTH 20.4 % (11.5-14.5); WHITE BLOOD COUNT 10.1 10^3/uL (4.0-10.0)
[2017-12-08 14:24] LABS: POSITIVE MORPH POS FLAG
[2017-12-08 17:51] LABS: BEDSIDE GLUCOSE 434 MG/DL (83-110)
[2017-12-08 20:00] LABS: BEDSIDE GLUCOSE 499 MG/DL (83-110)
[2017-12-08] MEDS: ROSUVASTATIN 10 MG TAB (CRESTOR) PO (20:57)
[2017-12-08] MEDS: GABAPENTIN 300 MG CAP PO (20:57)
[2017-12-08] MEDS: SENNA 8.6 MG TAB (SENOKOT) PO (20:58)
[2017-12-08] MEDS: RIVAROXABAN 15 MG TAB (XARELTO) PO (20:58)
[2017-12-09] MEDS: IPRATROPIUM 0.5MG/ALBUTEROL 2.5MG INH SOL UD 3ML (DUONEB)(J7620) NEB ×4 (01:31→20:10)
[2017-12-09] MEDS: CEFTAROLINE FOSAMIL 400 MG in D5W MINI-BAG PLUS 50 ML IV ×2 (03:10→16:22)
[2017-12-09] MEDS: methylPREDNISolone INJ 40 MG/1 ML VIAL (J2920) IV ×2 (03:10→16:22)
[2017-12-09] MEDS: PERCOCET 5MG/325MG TAB PO ×4 (04:20→20:42)
[2017-12-09 05:12] LABS: HEMATOCRIT 26.2 % (42.0-52.0); HEMOGLOBIN 7.7 g/dl (13.5-17.5); LYMPH # 0.3 10^3/uL (1.5-4.5); LYMPH % 3.1 % (24.0-44.0); MEAN CORPUSCULAR HEMOGLOBIN 23.3 pg (27.0-33.0); MEAN CORPUSCULAR HGB CONC 29.4 g/dl (32.0-36.5); MEAN CORPUSCULAR VOLUME 79.4 fl (80.0-96.0); MONO # 0.4 10^3/uL (0.0-0.8); NEUTROPHILS % 91.9 % (36.0-66.0); PLATELET COUNT, AUTOMATED 138 10^3/uL (150-450); RED CELL DISTRIBUTION WIDTH 20.4 % (11.5-14.5); WHITE BLOOD COUNT 8.7 10^3/uL (4.0-10.0)
[2017-12-09 05:32] LABS: ALBUMIN 2.8 GM/DL (3.2-5.2); ALBUMIN/GLOBULIN RATIO 0.76 (1.00-1.93); ALKALINE PHOSPHATASE 89 U/L (45-117); ALT/SGPT 14 U/L (12-78); ANION GAP 7 MEQ/L (8-16); AST/SGOT 12 U/L (7-37); BILIRUBIN,TOTAL 0.4 MG/DL (0.2-1.0); BLOOD UREA NITROGEN 56 MG/DL (7-18); CALCIUM LEVEL 8.8 MG/DL (8.8-10.2); CARBON DIOXIDE LEVEL 28 MEQ/L (21-32); CHLORIDE LEVEL 101 MEQ/L (98-107); GLOMERULAR FILTRATION RATE 31.1 (>42); POTASSIUM SERUM 4.9 MEQ/L (3.5-5.1); SODIUM LEVEL 136 MEQ/L (136-145); TOTAL PROTEIN 6.5 GM/DL (6.4-8.2)
[2017-12-09 05:34] LABS: GLUCOSE, FASTING 456 MG/DL (70-100)
[2017-12-09] MEDS: VERAPAMIL 120 MG SR TAB PO ×2 (05:55→18:16)
[2017-12-09] MEDS: FLUTICASONE PROP 0.05% NASAL SPRAY 16 GM (FLONASE) (09:00)
[2017-12-09] MEDS: CYANOCOBALAMIN 500 MCG TAB PO (09:03)
[2017-12-09] MEDS: MIRALAX *UNIT DOSE* 17GM PACKET PO (09:03)
[2017-12-09] MEDS: AMIODARONE 200 MG TAB (PACERONE) PO (09:03)
[2017-12-09] MEDS: HumaLOG INSULIN (NovoLOG) PER UNIT SC ×4 (09:04→20:43)
[2017-12-09] MEDS: SERTRALINE HCL 50 MG TAB PO (09:04)
[2017-12-09] MEDS: OMEPRAZOLE 20 MG CAP PO (09:04)
[2017-12-09] MEDS: DOCUSATE SODIUM 100 MG CAP PO ×2 (09:04→20:41)
[2017-12-09] MEDS: PREGABALIN 75 MG CAP(LYRICA) PO ×2 (09:04→20:41)
[2017-12-09] MEDS: LEVEMIR (INSULIN DETEMIR) 1 UNITS/0.01ML SC ×2 (09:05→13:05)
[2017-12-09] MEDS: **hydrALAZINE HCL** 25 MG TAB PO ×3 (09:06→20:42)
[2017-12-09] MEDS: GABAPENTIN 100 MG CAP PO (09:09)
[2017-12-09] MEDS: ISOSORBIDE DIN. (ISORDIL) 30 MG TAB PO ×3 (09:09→20:43)
[2017-12-09 12:15] LABS: BEDSIDE GLUCOSE 498 MG/DL (83-110)
[2017-12-09 17:47] LABS: BEDSIDE GLUCOSE 491 MG/DL (83-110)
[2017-12-09 20:08] LABS: BEDSIDE GLUCOSE 409 MG/DL (83-110)
[2017-12-09] MEDS: SENNA 8.6 MG TAB (SENOKOT) PO (20:41)
[2017-12-09] MEDS: GABAPENTIN 300 MG CAP PO (20:41)
[2017-12-09] MEDS: ROSUVASTATIN 10 MG TAB (CRESTOR) PO (20:41)
[2017-12-10] MEDS: PERCOCET 5MG/325MG TAB PO ×6 (02:02→23:19)
[2017-12-10] MEDS: methylPREDNISolone INJ 40 MG/1 ML VIAL (J2920) IV (02:03)
[2017-12-10] MEDS: IPRATROPIUM 0.5MG/ALBUTEROL 2.5MG INH SOL UD 3ML (DUONEB)(J7620) NEB ×4 (02:51→20:10)
[2017-12-10] MEDS: CEFTAROLINE FOSAMIL 400 MG in D5W MINI-BAG PLUS 50 ML IV (04:01)
[2017-12-10 05:19] LABS: HEMATOCRIT 24.9 % (42.0-52.0); HEMOGLOBIN 7.5 g/dl (13.5-17.5); IMMATURE GRANULOCYTE % 0.9 % (0-3.0); LYMPH % 3.3 % (24.0-44.0); MEAN CORPUSCULAR HEMOGLOBIN 23.7 pg (27.0-33.0); MEAN CORPUSCULAR HGB CONC 30.1 g/dl (32.0-36.5); MEAN CORPUSCULAR VOLUME 78.8 fl (80.0-96.0); MONO # 0.2 10^3/uL (0.0-0.8); MONO % 4.1 % (0.0-5.0); NEUTROPHILS # 5.3 10^3/uL (1.8-7.7); NEUTROPHILS % 91.7 % (36.0-66.0); PLATELET COUNT, AUTOMATED 131 10^3/uL (150-450); RED BLOOD COUNT 3.16 10^6/uL (4.30-6.10); RED CELL DISTRIBUTION WIDTH 20.1 % (11.5-14.5); WHITE BLOOD COUNT 5.8 10^3/uL (4.0-10.0)
[2017-12-10 05:48] LABS: ALBUMIN 2.8 GM/DL (3.2-5.2); ALBUMIN/GLOBULIN RATIO 0.82 (1.00-1.93); ALKALINE PHOSPHATASE 77 U/L (45-117); ALT/SGPT 15 U/L (12-78); ANION GAP 7 MEQ/L (8-16); AST/SGOT 9 U/L (7-37); BILIRUBIN,TOTAL 0.4 MG/DL (0.2-1.0); BLOOD UREA NITROGEN 57 MG/DL (7-18); CALCIUM LEVEL 8.6 MG/DL (8.8-10.2); CARBON DIOXIDE LEVEL 28 MEQ/L (21-32); CHLORIDE LEVEL 102 MEQ/L (98-107); CREATININE FOR GFR 1.82 MG/DL (0.70-1.30); GLOMERULAR FILTRATION RATE 38.6 (>42); POTASSIUM SERUM 4.4 MEQ/L (3.5-5.1); SODIUM LEVEL 137 MEQ/L (136-145); TOTAL PROTEIN 6.2 GM/DL (6.4-8.2)
[2017-12-10 06:01] LABS: LYMPH # 0.2 10^3/uL (1.5-4.5); POSITIVE DIFF POS FLAG; POSITIVE MORPH POS FLAG
[2017-12-10 06:09] LABS: GLUCOSE, FASTING 405 MG/DL (70-100)
[2017-12-10] MEDS: VERAPAMIL 120 MG SR TAB PO ×2 (06:33→18:37)
[2017-12-10 08:04] LABS: FERRITIN 33 NG/ML (26-388); IRON (FE) 10 UG/DL (65-175); PERCENT SATURATION 3.1 % (19.7-50.0); TOTAL IRON BINDING CAPACITY 319 UG/DL (250-450)
[2017-12-10] MEDS: HumaLOG INSULIN (NovoLOG) PER UNIT SC ×4 (08:14→20:47)
[2017-12-10] MEDS: CYANOCOBALAMIN 500 MCG TAB PO (08:15)
[2017-12-10] MEDS: **hydrALAZINE HCL** 25 MG TAB PO ×3 (08:15→20:04)
[2017-12-10] MEDS: SERTRALINE HCL 50 MG TAB PO (08:15)
[2017-12-10] MEDS: AMIODARONE 200 MG TAB (PACERONE) PO (08:15)
[2017-12-10] MEDS: PREGABALIN 75 MG CAP(LYRICA) PO ×2 (08:15→20:05)
[2017-12-10] MEDS: OMEPRAZOLE 20 MG CAP PO (08:15)
[2017-12-10] MEDS: DOCUSATE SODIUM 100 MG CAP PO ×2 (08:15→20:05)
[2017-12-10] MEDS: LEVEMIR (INSULIN DETEMIR) 1 UNITS/0.01ML SC ×2 (08:16→14:31)
[2017-12-10] MEDS: GABAPENTIN 100 MG CAP PO (08:21)
[2017-12-10] MEDS: MIRALAX *UNIT DOSE* 17GM PACKET PO (08:21)
[2017-12-10] MEDS: ISOSORBIDE DIN. (ISORDIL) 30 MG TAB PO ×3 (08:21→20:05)
[2017-12-10 11:37] LABS: BEDSIDE GLUCOSE 427 MG/DL (83-110)
[2017-12-10] MEDS: FLUTICASONE PROP 0.05% NASAL SPRAY 16 GM (FLONASE) (11:41)
[2017-12-10 17:54] LABS: BEDSIDE GLUCOSE 376 MG/DL (83-110)
[2017-12-10] MEDS: ROSUVASTATIN 10 MG TAB (CRESTOR) PO (20:05)
[2017-12-10] MEDS: SENNA 8.6 MG TAB (SENOKOT) PO (20:05)
[2017-12-10] MEDS: GABAPENTIN 300 MG CAP PO (20:05)
[2017-12-10] MEDS: predniSONE 20 MG TAB PO (20:05)
[2017-12-10 20:46] LABS: BEDSIDE GLUCOSE 365 MG/DL (83-110)
[2017-12-11] MEDS: IPRATROPIUM 0.5MG/ALBUTEROL 2.5MG INH SOL UD 3ML (DUONEB)(J7620) NEB ×4 (02:00→20:27)
[2017-12-11] MEDS: PERCOCET 5MG/325MG TAB PO ×5 (03:34→22:51)
[2017-12-11 04:12] LABS: HEMATOCRIT 25.3 % (42.0-52.0); HEMOGLOBIN 7.7 g/dl (13.5-17.5); IMMATURE GRANULOCYTE % 0.7 % (0-3.0); LYMPH % 3.2 % (24.0-44.0); MEAN CORPUSCULAR HEMOGLOBIN 23.9 pg (27.0-33.0); MEAN CORPUSCULAR HGB CONC 30.4 g/dl (32.0-36.5); MEAN CORPUSCULAR VOLUME 78.6 fl (80.0-96.0); MONO # 0.4 10^3/uL (0.0-0.8); MONO % 6.3 % (0.0-5.0); NEUTROPHILS % 89.8 % (36.0-66.0); PLATELET COUNT, AUTOMATED 128 10^3/uL (150-450); RED BLOOD COUNT 3.22 10^6/uL (4.30-6.10); WHITE BLOOD COUNT 5.6 10^3/uL (4.0-10.0)
[2017-12-11 04:33] LABS: LYMPH # 0.2 10^3/uL (1.5-4.5); POSITIVE DIFF POS FLAG
[2017-12-11 04:35] LABS: ALBUMIN/GLOBULIN RATIO 0.94 (1.00-1.93); ALKALINE PHOSPHATASE 74 U/L (45-117); ALT/SGPT 16 U/L (12-78); ANION GAP 4 MEQ/L (8-16); AST/SGOT 12 U/L (7-37); BILIRUBIN,TOTAL 0.4 MG/DL (0.2-1.0); BLOOD UREA NITROGEN 58 MG/DL (7-18); CALCIUM LEVEL 8.7 MG/DL (8.8-10.2); CARBON DIOXIDE LEVEL 32 MEQ/L (21-32); CHLORIDE LEVEL 103 MEQ/L (98-107); CREATININE FOR GFR 1.72 MG/DL (0.70-1.30); GLOMERULAR FILTRATION RATE 41.3 (>42); GLUCOSE, FASTING 312 MG/DL (70-100); POTASSIUM SERUM 4.5 MEQ/L (3.5-5.1); SODIUM LEVEL 139 MEQ/L (136-145); TOTAL PROTEIN 6.2 GM/DL (6.4-8.2)
[2017-12-11] MEDS: VERAPAMIL 120 MG SR TAB PO ×2 (05:03→18:17)
[2017-12-11] MEDS: HumaLOG INSULIN (NovoLOG) PER UNIT SC ×4 (07:54→21:25)
[2017-12-11] MEDS: FENTANYL REMOVAL DOCUMENTATION MISC XX (09:00)
[2017-12-11] MEDS: FLUTICASONE PROP 0.05% NASAL SPRAY 16 GM (FLONASE) (09:38)
[2017-12-11] MEDS: FUROSEMIDE 40 MG/4 ML VIAL (J1940) IV (09:39)
[2017-12-11] MEDS: MIRALAX *UNIT DOSE* 17GM PACKET PO (09:40)
[2017-12-11] MEDS: LEVEMIR (INSULIN DETEMIR) 1 UNITS/0.01ML SC ×2 (09:40→14:05)
[2017-12-11] MEDS: DOCUSATE SODIUM 100 MG CAP PO ×2 (09:40→21:26)
[2017-12-11] MEDS: ISOSORBIDE DIN. (ISORDIL) 30 MG TAB PO ×3 (09:41→21:26)
[2017-12-11] MEDS: GABAPENTIN 100 MG CAP PO (09:41)
[2017-12-11] MEDS: CYANOCOBALAMIN 500 MCG TAB PO (09:41)
[2017-12-11] MEDS: predniSONE 20 MG TAB PO ×2 (09:41→21:26)
[2017-12-11] MEDS: OMEPRAZOLE 20 MG CAP PO (09:41)
[2017-12-11] MEDS: PREGABALIN 75 MG CAP(LYRICA) PO ×2 (09:41→21:26)
[2017-12-11] MEDS: AMIODARONE 200 MG TAB (PACERONE) PO (09:41)
[2017-12-11] MEDS: SERTRALINE HCL 50 MG TAB PO (09:42)
[2017-12-11] MEDS: **hydrALAZINE HCL** 25 MG TAB PO ×3 (09:42→21:27)
[2017-12-11] MEDS: fentaNYL 50 MCG/HR PATCH TD (09:58)
[2017-12-11 12:29] LABS: BEDSIDE GLUCOSE 363 MG/DL (83-110)
[2017-12-11] MEDS ORDERED: SLF 3 ML SYR IV (15:00)
[2017-12-11 17:01] LABS: BEDSIDE GLUCOSE 396 MG/DL (83-110)
[2017-12-11 19:48] LABS: BEDSIDE GLUCOSE 425 MG/DL (83-110)
[2017-12-11] MEDS: ROSUVASTATIN 10 MG TAB (CRESTOR) PO (21:25)
[2017-12-11] MEDS: GABAPENTIN 300 MG CAP PO (21:26)
[2017-12-11] MEDS: SENNA 8.6 MG TAB (SENOKOT) PO (21:26)
[2017-12-11] MEDS: SLF 3 ML SYR IV (21:27)
[2017-12-12] MEDS: IPRATROPIUM 0.5MG/ALBUTEROL 2.5MG INH SOL UD 3ML (DUONEB)(J7620) NEB ×4 (02:24→20:08)
[2017-12-12] MEDS: PERCOCET 5MG/325MG TAB PO ×5 (02:51→21:32)
[2017-12-12] MEDS: SLF 3 ML SYR IV ×3 (05:15→21:49)
[2017-12-12] MEDS: VERAPAMIL 120 MG SR TAB PO ×2 (05:18→17:21)
[2017-12-12 05:27] LABS: HEMATOCRIT 23.6 % (42.0-52.0); HEMOGLOBIN 7.2 g/dl (13.5-17.5); IMMATURE GRANULOCYTE % 0.9 % (0-3.0); LYMPH % 4.5 % (24.0-44.0); MEAN CORPUSCULAR HEMOGLOBIN 23.7 pg (27.0-33.0); MEAN CORPUSCULAR HGB CONC 30.5 g/dl (32.0-36.5); MEAN CORPUSCULAR VOLUME 77.6 fl (80.0-96.0); MONO # 0.4 10^3/uL (0.0-0.8); MONO % 8.2 % (0.0-5.0); NEUTROPHILS # 3.7 10^3/uL (1.8-7.7); NEUTROPHILS % 86.4 % (36.0-66.0); PLATELET COUNT, AUTOMATED 116 10^3/uL (150-450); RED BLOOD COUNT 3.04 10^6/uL (4.30-6.10); RED CELL DISTRIBUTION WIDTH 19.9 % (11.5-14.5); WHITE BLOOD COUNT 4.3 10^3/uL (4.0-10.0)
[2017-12-12 05:41] LABS: ANION GAP 3 MEQ/L (8-16); BLOOD UREA NITROGEN 52 MG/DL (7-18); CALCIUM LEVEL 8.3 MG/DL (8.8-10.2); CARBON DIOXIDE LEVEL 32 MEQ/L (21-32); CHLORIDE LEVEL 104 MEQ/L (98-107); CREATININE FOR GFR 1.65 MG/DL (0.70-1.30); GLOMERULAR FILTRATION RATE 43.3 (>42); GLUCOSE, FASTING 386 MG/DL (70-100); POTASSIUM SERUM 4.7 MEQ/L (3.5-5.1); SODIUM LEVEL 139 MEQ/L (136-145)
[2017-12-12 05:44] LABS: LYMPH # 0.2 10^3/uL (1.5-4.5); POSITIVE DIFF POS FLAG
[2017-12-12] MEDS: HumaLOG INSULIN (NovoLOG) PER UNIT SC ×5 (08:31→21:33)
[2017-12-12] MEDS: DOCUSATE SODIUM 100 MG CAP PO ×2 (08:31→21:32)
[2017-12-12] MEDS: SERTRALINE HCL 50 MG TAB PO (08:31)
[2017-12-12] MEDS: AMIODARONE 200 MG TAB (PACERONE) PO (08:31)
[2017-12-12] MEDS: CYANOCOBALAMIN 500 MCG TAB PO (08:31)
[2017-12-12] MEDS: PREGABALIN 75 MG CAP(LYRICA) PO ×2 (08:31→21:32)
[2017-12-12] MEDS: OMEPRAZOLE 20 MG CAP PO (08:31)
[2017-12-12] MEDS: GABAPENTIN 100 MG CAP PO (08:31)
[2017-12-12] MEDS: predniSONE 20 MG TAB PO ×2 (08:32→21:32)
[2017-12-12] MEDS: MIRALAX *UNIT DOSE* 17GM PACKET PO (08:32)
[2017-12-12] MEDS: LEVEMIR (INSULIN DETEMIR) 1 UNITS/0.01ML SC ×2 (08:32→13:07)
[2017-12-12] MEDS: FLUTICASONE PROP 0.05% NASAL SPRAY 16 GM (FLONASE) (08:33)
[2017-12-12] MEDS: ISOSORBIDE DIN. (ISORDIL) 30 MG TAB PO ×4 (08:33→21:00)
[2017-12-12] MEDS: **hydrALAZINE HCL** 25 MG TAB PO ×4 (08:33→21:00)
[2017-12-12] MEDS: FUROSEMIDE 100 MG/10 ML VIAL (J1940) IV (10:44)
[2017-12-12 11:27] LABS: BEDSIDE GLUCOSE 554 MG/DL (83-110)
[2017-12-12 11:59] LABS: HEMATOCRIT 28.6 % (42.0-52.0); HEMOGLOBIN 8.6 g/dl (13.5-17.5)
[2017-12-12 12:22] LABS: BEDSIDE GLUCOSE CONFIRMATION 563 MG/DL (LESS THAN 200)
[2017-12-12 17:18] LABS: BEDSIDE GLUCOSE 473 MG/DL (83-110)
[2017-12-12 21:10] LABS: BEDSIDE GLUCOSE 507 MG/DL (83-110)
[2017-12-12] MEDS: SENNA 8.6 MG TAB (SENOKOT) PO (21:32)
[2017-12-12] MEDS: ROSUVASTATIN 10 MG TAB (CRESTOR) PO (21:32)
[2017-12-12] MEDS: GABAPENTIN 300 MG CAP PO (21:33)
[2017-12-13 03:31] LABS: HEMATOCRIT 24.4 % (42.0-52.0); HEMOGLOBIN 7.5 g/dl (13.5-17.5); IMMATURE GRANULOCYTE % 1.3 % (0-3.0); LYMPH % 5.2 % (24.0-44.0); MEAN CORPUSCULAR HGB CONC 30.7 g/dl (32.0-36.5); MONO # 0.4 10^3/uL (0.0-0.8); MONO % 9.3 % (0.0-5.0); NEUTROPHILS # 3.9 10^3/uL (1.8-7.7); NEUTROPHILS % 84.2 % (36.0-66.0); PLATELET COUNT, AUTOMATED 109 10^3/uL (150-450); RED BLOOD COUNT 3.13 10^6/uL (4.30-6.10); RED CELL DISTRIBUTION WIDTH 19.6 % (11.5-14.5); WHITE BLOOD COUNT 4.6 10^3/uL (4.0-10.0)
[2017-12-13 03:34] LABS: LYMPH # 0.2 10^3/uL (1.5-4.5); POSITIVE DIFF POS FLAG
[2017-12-13] MEDS: IPRATROPIUM 0.5MG/ALBUTEROL 2.5MG INH SOL UD 3ML (DUONEB)(J7620) NEB ×4 (03:49→20:05)
[2017-12-13 03:50] LABS: ANION GAP 5 MEQ/L (8-16); BLOOD UREA NITROGEN 48 MG/DL (7-18); CALCIUM LEVEL 8.2 MG/DL (8.8-10.2); CARBON DIOXIDE LEVEL 30 MEQ/L (21-32); CHLORIDE LEVEL 105 MEQ/L (98-107); CREATININE FOR GFR 1.63 MG/DL (0.70-1.30); GLOMERULAR FILTRATION RATE 43.9 (>42); GLUCOSE, FASTING 347 MG/DL (70-100); POTASSIUM SERUM 4.5 MEQ/L (3.5-5.1); SODIUM LEVEL 140 MEQ/L (136-145)
[2017-12-13] MEDS: VERAPAMIL 120 MG SR TAB PO ×2 (05:17→17:48)
[2017-12-13] MEDS: PERCOCET 5MG/325MG TAB PO ×4 (05:17→20:55)
[2017-12-13] MEDS: SLF 3 ML SYR IV ×3 (05:18→22:00)
[2017-12-13] MEDS: LEVEMIR (INSULIN DETEMIR) 1 UNITS/0.01ML SC ×2 (08:10→15:31)
[2017-12-13] MEDS: HumaLOG INSULIN (NovoLOG) PER UNIT SC ×4 (08:10→20:56)
[2017-12-13] MEDS: ISOSORBIDE DIN. (ISORDIL) 30 MG TAB PO ×3 (08:10→20:52)
[2017-12-13] MEDS: **hydrALAZINE HCL** 25 MG TAB PO ×3 (08:11→20:52)
[2017-12-13] MEDS: DOCUSATE SODIUM 100 MG CAP PO ×2 (08:11→20:51)
[2017-12-13] MEDS: AMIODARONE 200 MG TAB (PACERONE) PO (08:11)
[2017-12-13] MEDS: OMEPRAZOLE 20 MG CAP PO (08:11)
[2017-12-13] MEDS: PREGABALIN 75 MG CAP(LYRICA) PO ×2 (08:11→20:51)
[2017-12-13] MEDS: predniSONE 20 MG TAB PO (08:11)
[2017-12-13] MEDS: SERTRALINE HCL 50 MG TAB PO (08:11)
[2017-12-13] MEDS: CYANOCOBALAMIN 500 MCG TAB PO (08:11)
[2017-12-13] MEDS: GABAPENTIN 100 MG CAP PO (08:12)
[2017-12-13] MEDS: MIRALAX *UNIT DOSE* 17GM PACKET PO (08:12)
[2017-12-13] MEDS: FLUTICASONE PROP 0.05% NASAL SPRAY 16 GM (FLONASE) (08:12)
[2017-12-13] MEDS: FUROSEMIDE 100 MG/10 ML VIAL (J1940) IV ×2 (09:43→17:45)
[2017-12-13 11:39] LABS: BEDSIDE GLUCOSE 321 MG/DL (83-110)
[2017-12-13 12:56] LABS: HEMATOCRIT 29.3 % (42.0-52.0); HEMOGLOBIN 8.7 g/dl (13.5-17.5)
[2017-12-13 17:41] LABS: BEDSIDE GLUCOSE 376 MG/DL (83-110)
[2017-12-13 20:43] LABS: BEDSIDE GLUCOSE 443 MG/DL (83-110)
[2017-12-13] MEDS: ROSUVASTATIN 10 MG TAB (CRESTOR) PO (20:50)
[2017-12-13] MEDS: GABAPENTIN 300 MG CAP PO (20:50)
[2017-12-13] MEDS: SENNA 8.6 MG TAB (SENOKOT) PO (20:52)
[2017-12-14] MEDS: IPRATROPIUM 0.5MG/ALBUTEROL 2.5MG INH SOL UD 3ML (DUONEB)(J7620) NEB ×4 (02:52→20:00)
[2017-12-14] MEDS: VERAPAMIL 120 MG SR TAB PO ×2 (05:06→17:00)
[2017-12-14] MEDS: PERCOCET 5MG/325MG TAB PO ×4 (05:08→17:52)
[2017-12-14] MEDS: SLF 3 ML SYR IV ×3 (05:09→21:13)
[2017-12-14 05:25] LABS: ANION GAP 6 MEQ/L (8-16); BLOOD UREA NITROGEN 39 MG/DL (7-18); CALCIUM LEVEL 8.3 MG/DL (8.8-10.2); CARBON DIOXIDE LEVEL 33 MEQ/L (21-32); CHLORIDE LEVEL 105 MEQ/L (98-107); CREATININE FOR GFR 1.51 MG/DL (0.70-1.30); GLOMERULAR FILTRATION RATE 47.9 (>42); GLUCOSE, FASTING 272 MG/DL (70-100); POTASSIUM SERUM 3.8 MEQ/L (3.5-5.1); SODIUM LEVEL 144 MEQ/L (136-145)
[2017-12-14] MEDS: MIRALAX *UNIT DOSE* 17GM PACKET PO (08:00)
[2017-12-14] MEDS: HumaLOG INSULIN (NovoLOG) PER UNIT SC ×4 (08:00→21:11)
[2017-12-14] MEDS: LEVEMIR (INSULIN DETEMIR) 1 UNITS/0.01ML SC ×2 (08:00→13:37)
[2017-12-14] MEDS: DOCUSATE SODIUM 100 MG CAP PO ×2 (08:01→21:13)
[2017-12-14] MEDS: GABAPENTIN 100 MG CAP PO (08:01)
[2017-12-14] MEDS: CYANOCOBALAMIN 500 MCG TAB PO (08:02)
[2017-12-14] MEDS: predniSONE 20 MG TAB PO (08:02)
[2017-12-14] MEDS: AMIODARONE 200 MG TAB (PACERONE) PO (08:02)
[2017-12-14] MEDS: OMEPRAZOLE 20 MG CAP PO (08:02)
[2017-12-14] MEDS: PREGABALIN 75 MG CAP(LYRICA) PO ×2 (08:03→21:13)
[2017-12-14] MEDS: SERTRALINE HCL 50 MG TAB PO (08:03)
[2017-12-14] MEDS: FENTANYL REMOVAL DOCUMENTATION MISC XX (08:04)
[2017-12-14] MEDS: fentaNYL 50 MCG/HR PATCH TD (08:04)
[2017-12-14] MEDS: FLUTICASONE PROP 0.05% NASAL SPRAY 16 GM (FLONASE) (08:12)
[2017-12-14] MEDS: **hydrALAZINE HCL** 25 MG TAB PO ×3 (09:37→21:13)
[2017-12-14] MEDS: ISOSORBIDE DIN. (ISORDIL) 30 MG TAB PO ×3 (09:38→21:12)
[2017-12-14 11:27] LABS: HEMATOCRIT 28.6 % (42.0-52.0); HEMOGLOBIN 8.7 g/dl (13.5-17.5); MEAN CORPUSCULAR HEMOGLOBIN 23.6 pg (27.0-33.0); MEAN CORPUSCULAR HGB CONC 30.4 g/dl (32.0-36.5); MEAN CORPUSCULAR VOLUME 77.5 fl (80.0-96.0); PLATELET COUNT, AUTOMATED 119 10^3/uL (150-450); RED BLOOD COUNT 3.69 10^6/uL (4.30-6.10); RED CELL DISTRIBUTION WIDTH 19.7 % (11.5-14.5); WHITE BLOOD COUNT 8.4 10^3/uL (4.0-10.0)
[2017-12-14 11:57] LABS: BEDSIDE GLUCOSE 261 MG/DL (83-110)
[2017-12-14] MEDS: FUROSEMIDE 100 MG/10 ML VIAL (J1940) IV (12:00)
[2017-12-14 16:49] LABS: BEDSIDE GLUCOSE 271 MG/DL (83-110)
[2017-12-14 20:46] LABS: BEDSIDE GLUCOSE 323 MG/DL (83-110)
[2017-12-14] MEDS: ROSUVASTATIN 10 MG TAB (CRESTOR) PO (21:12)
[2017-12-14] MEDS: SENNA 8.6 MG TAB (SENOKOT) PO (21:12)
[2017-12-14] MEDS: GABAPENTIN 300 MG CAP PO (21:12)
[2017-12-15] MEDS: IPRATROPIUM 0.5MG/ALBUTEROL 2.5MG INH SOL UD 3ML (DUONEB)(J7620) NEB ×3 (02:00→21:09)
[2017-12-15] MEDS: PERCOCET 5MG/325MG TAB PO ×4 (03:52→18:11)
[2017-12-15] MEDS: VERAPAMIL 120 MG SR TAB PO ×2 (06:08→18:11)
[2017-12-15] MEDS: SLF 3 ML SYR IV ×3 (06:09→21:16)
[2017-12-15 06:37] LABS: HEMATOCRIT 28.9 % (42.0-52.0); HEMOGLOBIN 8.7 g/dl (13.5-17.5); MEAN CORPUSCULAR HEMOGLOBIN 23.5 pg (27.0-33.0); MEAN CORPUSCULAR HGB CONC 30.1 g/dl (32.0-36.5); MEAN CORPUSCULAR VOLUME 78.1 fl (80.0-96.0); PLATELET COUNT, AUTOMATED 107 10^3/uL (150-450); RED CELL DISTRIBUTION WIDTH 19.4 % (11.5-14.5); WHITE BLOOD COUNT 7.6 10^3/uL (4.0-10.0)
[2017-12-15 06:54] LABS: ALBUMIN 2.7 GM/DL (3.2-5.2); ALKALINE PHOSPHATASE 97 U/L (45-117); ALT/SGPT 22 U/L (12-78); ANION GAP 4 MEQ/L (8-16); AST/SGOT 22 U/L (7-37); BILIRUBIN,TOTAL 0.6 MG/DL (0.2-1.0); BLOOD UREA NITROGEN 33 MG/DL (7-18); CALCIUM LEVEL 8.5 MG/DL (8.8-10.2); CARBON DIOXIDE LEVEL 35 MEQ/L (21-32); CHLORIDE LEVEL 104 MEQ/L (98-107); CREATININE FOR GFR 1.28 MG/DL (0.70-1.30); GLUCOSE, FASTING 137 MG/DL (70-100); MAGNESIUM LEVEL 2.6 MG/DL (1.8-2.4); POTASSIUM SERUM 3.6 MEQ/L (3.5-5.1); SODIUM LEVEL 143 MEQ/L (136-145); TOTAL PROTEIN 5.7 GM/DL (6.4-8.2)
[2017-12-15] MEDS: LEVEMIR (INSULIN DETEMIR) 1 UNITS/0.01ML SC ×2 (08:07→18:12)
[2017-12-15] MEDS: HumaLOG INSULIN (NovoLOG) PER UNIT SC ×4 (08:07→21:13)
[2017-12-15] MEDS: GABAPENTIN 100 MG CAP PO (08:12)
[2017-12-15] MEDS: SERTRALINE HCL 50 MG TAB PO (08:12)
[2017-12-15] MEDS: OMEPRAZOLE 20 MG CAP PO (08:12)
[2017-12-15] MEDS: PREGABALIN 75 MG CAP(LYRICA) PO ×2 (08:12→21:14)
[2017-12-15] MEDS: DOCUSATE SODIUM 100 MG CAP PO ×2 (08:12→21:14)
[2017-12-15] MEDS: CYANOCOBALAMIN 500 MCG TAB PO (08:12)
[2017-12-15] MEDS: predniSONE 20 MG TAB PO (08:12)
[2017-12-15] MEDS: ISOSORBIDE DIN. (ISORDIL) 30 MG TAB PO ×3 (08:13→21:14)
[2017-12-15] MEDS: AMIODARONE 200 MG TAB (PACERONE) PO (08:13)
[2017-12-15] MEDS: MIRALAX *UNIT DOSE* 17GM PACKET PO (08:15)
[2017-12-15] MEDS: **hydrALAZINE HCL** 25 MG TAB PO ×3 (08:15→21:15)
[2017-12-15] MEDS: FLUTICASONE PROP 0.05% NASAL SPRAY 16 GM (FLONASE) (08:16)
[2017-12-15 11:47] LABS: BEDSIDE GLUCOSE 211 MG/DL (83-110)
[2017-12-15] MEDS: SENNA 8.6 MG TAB (SENOKOT) PO (21:13)
[2017-12-15] MEDS: ROSUVASTATIN 10 MG TAB (CRESTOR) PO (21:13)
[2017-12-15] MEDS: GABAPENTIN 300 MG CAP PO (21:14)
[2017-12-16] MEDS: PERCOCET 5MG/325MG TAB PO ×3 (00:30→10:53)
[2017-12-16] MEDS: IPRATROPIUM 0.5MG/ALBUTEROL 2.5MG INH SOL UD 3ML (DUONEB)(J7620) NEB ×2 (02:13→07:45)
[2017-12-16] MEDS: VERAPAMIL 120 MG SR TAB PO (05:30)
[2017-12-16] MEDS: SLF 3 ML SYR IV (05:31)
[2017-12-16 05:52] LABS: ANION GAP 6 MEQ/L (8-16); BLOOD UREA NITROGEN 28 MG/DL (7-18); CALCIUM LEVEL 8.4 MG/DL (8.8-10.2); CARBON DIOXIDE LEVEL 31 MEQ/L (21-32); CHLORIDE LEVEL 106 MEQ/L (98-107); CREATININE FOR GFR 1.17 MG/DL (0.70-1.30); GLOMERULAR FILTRATION RATE > 60.0 (>42); GLUCOSE, FASTING 197 MG/DL (70-100); POTASSIUM SERUM 3.6 MEQ/L (3.5-5.1); SODIUM LEVEL 143 MEQ/L (136-145)
[2017-12-16 06:34] LABS: HEMATOCRIT 26.9 % (42.0-52.0); HEMOGLOBIN 8.1 g/dl (13.5-17.5); MEAN CORPUSCULAR HEMOGLOBIN 23.3 pg (27.0-33.0); MEAN CORPUSCULAR HGB CONC 30.1 g/dl (32.0-36.5); MEAN CORPUSCULAR VOLUME 77.3 fl (80.0-96.0); RED BLOOD COUNT 3.48 10^6/uL (4.30-6.10); RED CELL DISTRIBUTION WIDTH 19.7 % (11.5-14.5); WHITE BLOOD COUNT 6.8 10^3/uL (4.0-10.0)
[2017-12-16 07:19] LABS: PLATELET COUNT, AUTOMATED 97 10^3/uL (150-450)
[2017-12-16 07:20] LABS: IMMATURE PLATELET FRACTION % 13.8 % (0.0-10.9)
[2017-12-16] MEDS: OMEPRAZOLE 20 MG CAP PO (07:47)
[2017-12-16] MEDS: ISOSORBIDE DIN. (ISORDIL) 30 MG TAB PO (07:47)
[2017-12-16] MEDS: AMIODARONE 200 MG TAB (PACERONE) PO (07:47)
[2017-12-16] MEDS: PREGABALIN 75 MG CAP(LYRICA) PO (07:47)
[2017-12-16] MEDS: GABAPENTIN 100 MG CAP PO (07:47)
[2017-12-16] MEDS: DOCUSATE SODIUM 100 MG CAP PO (07:47)
[2017-12-16] MEDS: predniSONE 20 MG TAB PO (07:47)
[2017-12-16] MEDS: SERTRALINE HCL 50 MG TAB PO (07:47)
[2017-12-16] MEDS: HumaLOG INSULIN (NovoLOG) PER UNIT SC ×2 (07:48→11:50)
[2017-12-16] MEDS: **hydrALAZINE HCL** 25 MG TAB PO (07:48)
[2017-12-16] MEDS: CYANOCOBALAMIN 500 MCG TAB PO (07:48)
[2017-12-16] MEDS: MIRALAX *UNIT DOSE* 17GM PACKET PO ×2 (07:48→08:00)
[2017-12-16] MEDS: FLUTICASONE PROP 0.05% NASAL SPRAY 16 GM (FLONASE) (07:49)
[2017-12-16] MEDS: LEVEMIR (INSULIN DETEMIR) 1 UNITS/0.01ML SC (07:49)
[2017-12-16 10:11] LABS: BEDSIDE GLUCOSE 292 MG/DL (83-110)
[2017-12-16 10:12] LABS: BEDSIDE GLUCOSE 357 MG/DL (83-110)
== END 2017-12-16 12:22 | disposition home health service (06) | DRG 291 ==
LOC: M ICU 12-08 12:28 → M MSPAV 11-28 19:52 → M PCU 11-25 13:53 → M MSPAV 12-14 18:43 → M ED 02:27 → M ED INP 04:43 → M PCU 05:35
DX: I13.0 Hypertensive heart and chronic kidney disease with heart failure and stage 1 through stage 4 chronic kidney disease, or unspecified chronic kidney disease (principal); I50.33 Acute on chronic diastolic (congestive) heart failure; J18.9 Pneumonia, unspecified organism; J96.01 Acute respiratory failure with hypoxia; I47.1 Supraventricular tachycardia; R04.89 Hemorrhage from other sites in respiratory passages; D68.32 Hemorrhagic disorder due to extrinsic circulating anticoagulants; I82.612 Acute embolism and thrombosis of superficial veins of left upper extremity; J44.1 Chronic obstructive pulmonary disease with (acute) exacerbation; N18.3 Chronic kidney disease, stage 3 (moderate); G47.33 Obstructive sleep apnea (adult) (pediatric); Z79.01 Long term (current) use of anticoagulants; E66.01 Morbid (severe) obesity due to excess calories; I73.9 Peripheral vascular disease, unspecified; K21.9 Gastro-esophageal reflux disease without esophagitis; E11.40 Type 2 diabetes mellitus with diabetic neuropathy, unspecified; E78.5 Hyperlipidemia, unspecified; E53.8 Deficiency of other specified B group vitamins; F39 Unspecified mood [affective] disorder; E11.65 Type 2 diabetes mellitus with hyperglycemia; Z79.899 Other long term (current) drug therapy; Z88.8 Allergy status to other drugs, medicaments and biological substances; I48.91 Unspecified atrial fibrillation; Z87.891 Personal history of nicotine dependence

== ENCOUNTER 2017-12-20 09:14 | Inpatient (IN) | payer MEDICARE ==
[2017-12-20] MEDS: CHLORHEXIDINE ORAL RINSE 0.12%/15ML 120ML BOTTLE MT ×2 (09:00→19:49)
[2017-12-20] MEDS: NS 1,000 ML IV (09:20)
[2017-12-20] MEDS: FUROSEMIDE 100 MG/10 ML VIAL (J1940) IV ×3 (09:30→23:40)
[2017-12-20] MEDS ORDERED: IPRATROPIUM 0.5MG/ALBUTEROL 2.5MG INH SOL UD 3ML (DUONEB)(J7620) NEB (09:30)
[2017-12-20 09:38] LABS: ABG BASE EXCESS -2.6 (-2.0-2.0); ABG HCO3 23.7 MEQ/L (22.0-26.0); ABG O2 SATURATION 83.7 % (95.0-99.0); ABG PARTIAL PRESSURE CO2 47.5 mmHg (35.0-45.0); ABG PARTIAL PRESSURE O2 57.9 mmHg (75.0-100.0); ABG STANDARD HCO3 22.1 MEQ/L (22.0-26.0); ABG TOTAL CO2 25.1 MEQ/L (23.0-31.0); ABG pH (ARTERIAL) 7.315 UNITS (7.350-7.450); BASO % 0.1 % (0.0-1.0); EOS # 0.2 10^3/uL (0.0-0.50); HEMATOCRIT 30.6 % (42.0-52.0); IMMATURE GRANULOCYTE % 1.2 % (0-3.0); LYMPH % 4.3 % (24.0-44.0); MEAN CORPUSCULAR HEMOGLOBIN 23.7 pg (27.0-33.0); MEAN CORPUSCULAR HGB CONC 29.4 g/dl (32.0-36.5); MEAN CORPUSCULAR VOLUME 80.7 fl (80.0-96.0); MONO % 9.1 % (0.0-5.0); NEUTROPHILS # 20.3 10^3/uL (1.8-7.7); NEUTROPHILS % 84.3 % (36.0-66.0); PLATELET COUNT, AUTOMATED 151 10^3/uL (150-450); RED BLOOD COUNT 3.79 10^6/uL (4.30-6.10); RED CELL DISTRIBUTION WIDTH 21.1 % (11.5-14.5); WHITE BLOOD COUNT 24.1 10^3/uL (4.0-10.0)
[2017-12-20 09:45] LABS: MONO # 2.2 10^3/uL (0.0-0.8); POSITIVE DIFF POS FLAG
[2017-12-20] MEDS: CEFEPIME HCL 2 GM in D5W MINI-BAG PLUS 50 ML IV (09:56)
[2017-12-20 10:08] LABS: ALBUMIN 2.8 GM/DL (3.2-5.2); ALBUMIN/GLOBULIN RATIO 0.82 (1.00-1.93); ALKALINE PHOSPHATASE 118 U/L (45-117); ALT/SGPT 30 U/L (12-78); ANION GAP 9 MEQ/L (8-16); AST/SGOT 40 U/L (7-37); BILIRUBIN,DIRECT 0.3 MG/DL (0.0-0.2); BILIRUBIN,TOTAL 0.7 MG/DL (0.2-1.0); BLOOD UREA NITROGEN 25 MG/DL (7-18); CARBON DIOXIDE LEVEL 26 MEQ/L (21-32); CHLORIDE LEVEL 107 MEQ/L (98-107); CPK CREATINE PHOSPHOKINASE 207 U/L (39-308); CREATININE FOR GFR 1.77 MG/DL (0.70-1.30); GLOMERULAR FILTRATION RATE 39.9 (>42); GLUCOSE, FASTING 304 MG/DL (70-100); POTASSIUM SERUM 4.5 MEQ/L (3.5-5.1); SODIUM LEVEL 142 MEQ/L (136-145); TOTAL PROTEIN 6.2 GM/DL (6.4-8.2); TROPONIN I 0.09 NG/ML (< 0.10)
[2017-12-20 10:14] LABS: CK-MB VALUE MASS 6.5 NG/ML (<3.6); MB/CK RELATIVE INDEX 3.14 (< OR =4); NT-PRO BNP 4140 PG/ML (<450)
[2017-12-20 10:32] LABS: AMYLASE 41 U/L (25-115)
[2017-12-20 10:42] LABS: INR 1.05; PROTHROMBIN TIME 13.8 SECONDS (12.4-14.5)
[2017-12-20 10:44] LABS: ABG BASE EXCESS -0.3 (-2.0-2.0); ABG HCO3 24.9 MEQ/L (22.0-26.0); ABG O2 SATURATION 96.1 % (95.0-99.0); ABG PARTIAL PRESSURE CO2 43.5 mmHg (35.0-45.0); ABG PARTIAL PRESSURE O2 89.8 mmHg (75.0-100.0); ABG STANDARD HCO3 24.2 MEQ/L (22.0-26.0); ABG TOTAL CO2 26.3 MEQ/L (23.0-31.0); ABG pH (ARTERIAL) 7.376 UNITS (7.350-7.450)
[2017-12-20] MEDS ORDERED: ONDANSETRON 4MG/2ML VIAL (J2405) IV (11:15)
[2017-12-20] MEDS ORDERED: ACETAMINOPHEN 650 MG SUPP PR (11:15)
[2017-12-20 12:34] LABS: CPK CREATINE PHOSPHOKINASE 188 U/L (39-308); MAGNESIUM LEVEL 2.8 MG/DL (1.8-2.4); TROPONIN I 0.12 NG/ML (< 0.10)
[2017-12-20 12:35] LABS: CK-MB VALUE MASS 5.7 NG/ML (<3.6); MB/CK RELATIVE INDEX 3.03 (< OR =4)
[2017-12-20] MEDS: ACETAMINOPHEN 500 MG TAB PO ×2 (12:35→19:49)
[2017-12-20] MEDS: IPRATROPIUM 0.5MG/ALBUTEROL 2.5MG INH SOL UD 3ML (DUONEB)(J7620) NEB ×2 (13:41→19:57)
[2017-12-20] MEDS ORDERED: DEXTROSE 50% 50 ML SYRINGE IV (16:00)
[2017-12-20] MEDS ORDERED: GLUCAGON FOR INJ 1 MG VIAL (J1610) SC (16:00)
[2017-12-20] MEDS: fentaNYL 25 MCG/HR PATCH TOP (16:33)
[2017-12-20 17:16] LABS: BEDSIDE GLUCOSE 296 MG/DL (83-110)
[2017-12-20] MEDS: HumaLOG INSULIN (NovoLOG) PER UNIT SC ×2 (17:37→23:40)
[2017-12-20 19:28] LABS: CK-MB VALUE MASS 5.9 NG/ML (<3.6); CPK CREATINE PHOSPHOKINASE 208 U/L (39-308); MB/CK RELATIVE INDEX 2.83 (< OR =4); TROPONIN I 0.21 NG/ML (< 0.10)
[2017-12-20 23:37] LABS: BEDSIDE GLUCOSE 348 MG/DL (83-110)
[2017-12-21] MEDS: IPRATROPIUM 0.5MG/ALBUTEROL 2.5MG INH SOL UD 3ML (DUONEB)(J7620) NEB ×4 (02:53→20:29)
[2017-12-21 04:52] LABS: BASO % 0.1 % (0.0-1.0); EOS # 0.1 10^3/uL (0.0-0.50); EOS % 0.6 % (0.0-3.0); HEMATOCRIT 27.6 % (42.0-52.0); HEMOGLOBIN 8.2 g/dl (13.5-17.5); IMMATURE GRANULOCYTE % 0.7 % (0-3.0); LYMPH # 0.5 10^3/uL (1.5-4.5); LYMPH % 3.3 % (24.0-44.0); MEAN CORPUSCULAR HEMOGLOBIN 23.4 pg (27.0-33.0); MEAN CORPUSCULAR HGB CONC 29.7 g/dl (32.0-36.5); MEAN CORPUSCULAR VOLUME 78.9 fl (80.0-96.0); MONO # 0.8 10^3/uL (0.0-0.8); MONO % 5.4 % (0.0-5.0); NEUTROPHILS # 12.7 10^3/uL (1.8-7.7); NEUTROPHILS % 89.9 % (36.0-66.0); RED CELL DISTRIBUTION WIDTH 20.9 % (11.5-14.5); WHITE BLOOD COUNT 14.1 10^3/uL (4.0-10.0)
[2017-12-21 04:55] LABS: PLATELET COUNT, AUTOMATED 84 10^3/uL (150-450)
[2017-12-21 05:15] LABS: ALBUMIN 2.5 GM/DL (3.2-5.2); ALBUMIN/GLOBULIN RATIO 0.71 (1.00-1.93); ALKALINE PHOSPHATASE 119 U/L (45-117); ALT/SGPT 26 U/L (12-78); ANION GAP 7 MEQ/L (8-16); AST/SGOT 39 U/L (7-37); BILIRUBIN,TOTAL 0.7 MG/DL (0.2-1.0); BLOOD UREA NITROGEN 22 MG/DL (7-18); CALCIUM LEVEL 7.6 MG/DL (8.8-10.2); CARBON DIOXIDE LEVEL 31 MEQ/L (21-32); CHLORIDE LEVEL 106 MEQ/L (98-107); CK-MB VALUE MASS 3.9 NG/ML (<3.6); CPK CREATINE PHOSPHOKINASE 263 U/L (39-308); CREATININE FOR GFR 1.49 MG/DL (0.70-1.30); GLOMERULAR FILTRATION RATE 48.7 (>42); GLUCOSE, FASTING 237 MG/DL (70-100); MB/CK RELATIVE INDEX 1.48 (< OR =4); POTASSIUM SERUM 3.5 MEQ/L (3.5-5.1); SODIUM LEVEL 144 MEQ/L (136-145); TROPONIN I 0.18 NG/ML (< 0.10)
[2017-12-21] MEDS: FUROSEMIDE 100 MG/10 ML VIAL (J1940) IV ×4 (05:44→23:46)
[2017-12-21] MEDS: HumaLOG INSULIN (NovoLOG) PER UNIT SC ×4 (05:44→23:46)
[2017-12-21] MEDS: ACETAMINOPHEN 500 MG TAB PO (07:29)
[2017-12-21] MEDS: FLUTICASONE PROP 0.05% NASAL SPRAY 16 GM (FLONASE) ×2 (09:00→09:43)
[2017-12-21] MEDS: MIRALAX *UNIT DOSE* 17GM PACKET PO ×2 (09:00→09:40)
[2017-12-21] MEDS ORDERED: LEVEMIR (INSULIN DETEMIR) 1 UNITS/0.01ML SC ×2 (09:00→14:00)
[2017-12-21] MEDS: CHLORHEXIDINE ORAL RINSE 0.12%/15ML 120ML BOTTLE MT ×2 (09:37→20:17)
[2017-12-21] MEDS: **hydrALAZINE HCL** 25 MG TAB PO ×3 (09:38→20:18)
[2017-12-21] MEDS: DOCUSATE SODIUM 100 MG CAP PO ×2 (09:38→20:17)
[2017-12-21] MEDS: predniSONE 10 MG TAB PO (09:39)
[2017-12-21] MEDS: ISOSORBIDE DIN. (ISORDIL) 30 MG TAB PO ×3 (09:39→20:18)
[2017-12-21] MEDS: PREGABALIN 75 MG CAP(LYRICA) PO ×2 (09:40→20:18)
[2017-12-21] MEDS: AMIODARONE 200 MG TAB (PACERONE) PO (09:41)
[2017-12-21] MEDS: GABAPENTIN 100 MG CAP PO (09:41)
[2017-12-21] MEDS: CYANOCOBALAMIN 500 MCG TAB PO (09:42)
[2017-12-21] MEDS: OMEPRAZOLE 20 MG CAP PO (09:42)
[2017-12-21] MEDS: SERTRALINE HCL 50 MG TAB PO (09:43)
[2017-12-21] MEDS: PERCOCET 5MG/325MG TAB PO ×4 (09:52→23:47)
[2017-12-21] MEDS ORDERED: ISOVUE-300 61% 50ML VIAL (Q9967) As Ordered (10:32)
[2017-12-21] MEDS ORDERED: LIDOCAINE 2% MDV 20 ML VIAL As Ordered (10:32)
[2017-12-21 14:08] LABS: ANION GAP 9 MEQ/L (8-16); BLOOD UREA NITROGEN 21 MG/DL (7-18); CALCIUM LEVEL 7.7 MG/DL (8.8-10.2); CARBON DIOXIDE LEVEL 29 MEQ/L (21-32); CHLORIDE LEVEL 104 MEQ/L (98-107); CREATININE FOR GFR 1.55 MG/DL (0.70-1.30); GLOMERULAR FILTRATION RATE 46.5 (>42); GLUCOSE, FASTING 320 MG/DL (70-100); POTASSIUM SERUM 3.6 MEQ/L (3.5-5.1); SODIUM LEVEL 142 MEQ/L (136-145)
[2017-12-21 15:04] LABS: BEDSIDE GLUCOSE 243 MG/DL (83-110)
[2017-12-21] MEDS: POTASSIUM CHLORIDE 10 MEQ SR TABLET PO ×2 (15:06→19:01)
[2017-12-21 17:34] LABS: BEDSIDE GLUCOSE 462 MG/DL (83-110)
[2017-12-21] MEDS: GABAPENTIN 300 MG CAP PO (20:18)
[2017-12-21] MEDS: ROSUVASTATIN 10 MG TAB (CRESTOR) PO (20:19)
[2017-12-21] MEDS: SENNA 8.6 MG TAB (SENOKOT) PO (20:19)
[2017-12-21] MEDS ORDERED: METOPROLOL TART 25 MG TABLET As Ordered (21:33)
[2017-12-21] MEDS: VERAPAMIL 120 MG SR TAB PO (21:34)
[2017-12-21] MEDS: METOPROLOL TART 25 MG TABLET PO (21:34)
[2017-12-21 23:41] LABS: BEDSIDE GLUCOSE 353 MG/DL (83-110)
[2017-12-22] MEDS: IPRATROPIUM 0.5MG/ALBUTEROL 2.5MG INH SOL UD 3ML (DUONEB)(J7620) NEB ×4 (00:51→19:55)
[2017-12-22 05:05] LABS: EOS # 0.1 10^3/uL (0.0-0.50); EOS % 0.7 % (0.0-3.0); HEMATOCRIT 24.5 % (42.0-52.0); HEMOGLOBIN 7.2 g/dl (13.5-17.5); IMMATURE GRANULOCYTE % 0.8 % (0-3.0); LYMPH # 0.6 10^3/uL (1.5-4.5); LYMPH % 5.3 % (24.0-44.0); MEAN CORPUSCULAR HEMOGLOBIN 23.2 pg (27.0-33.0); MEAN CORPUSCULAR HGB CONC 29.4 g/dl (32.0-36.5); MEAN CORPUSCULAR VOLUME 78.8 fl (80.0-96.0); MONO # 0.6 10^3/uL (0.0-0.8); MONO % 5.2 % (0.0-5.0); NEUTROPHILS # 10.5 10^3/uL (1.8-7.7); RED BLOOD COUNT 3.11 10^6/uL (4.30-6.10); RED CELL DISTRIBUTION WIDTH 20.5 % (11.5-14.5); WHITE BLOOD COUNT 11.9 10^3/uL (4.0-10.0)
[2017-12-22 05:09] LABS: PLATELET COUNT, AUTOMATED 69 10^3/uL (150-450)
[2017-12-22 05:10] LABS: IMMATURE PLATELET FRACTION % 10.8 % (0.0-10.9)
[2017-12-22 05:24] LABS: ANION GAP 4 MEQ/L (8-16); AST/SGOT 48 U/L (7-37); BLOOD UREA NITROGEN 22 MG/DL (7-18); CARBON DIOXIDE LEVEL 34 MEQ/L (21-32); CHLORIDE LEVEL 106 MEQ/L (98-107); CREATININE FOR GFR 1.61 MG/DL (0.70-1.30); GLOMERULAR FILTRATION RATE 44.5 (>42); GLUCOSE, FASTING 239 MG/DL (70-100); POTASSIUM SERUM 3.8 MEQ/L (3.5-5.1); SODIUM LEVEL 144 MEQ/L (136-145)
[2017-12-22 05:25] LABS: ALBUMIN 2.2 GM/DL (3.2-5.2); ALBUMIN/GLOBULIN RATIO 0.65 (1.00-1.93); ALKALINE PHOSPHATASE 141 U/L (45-117); ALT/SGPT 24 U/L (12-78); BILIRUBIN,TOTAL 0.7 MG/DL (0.2-1.0); MAGNESIUM LEVEL 2.1 MG/DL (1.8-2.4); TOTAL PROTEIN 5.6 GM/DL (6.4-8.2)
[2017-12-22] MEDS: HumaLOG INSULIN (NovoLOG) PER UNIT SC ×4 (05:32→23:31)
[2017-12-22] MEDS: METOPROLOL TART 25 MG TABLET PO ×4 (05:33→23:30)
[2017-12-22] MEDS: FUROSEMIDE 100 MG/10 ML VIAL (J1940) IV ×3 (05:33→18:09)
[2017-12-22] MEDS: PERCOCET 5MG/325MG TAB PO ×4 (05:34→20:23)
[2017-12-22] MEDS: CYANOCOBALAMIN 500 MCG TAB PO (09:24)
[2017-12-22] MEDS: GABAPENTIN 100 MG CAP PO (09:24)
[2017-12-22] MEDS: PREGABALIN 75 MG CAP(LYRICA) PO ×2 (09:24→20:21)
[2017-12-22] MEDS: ISOSORBIDE DIN. (ISORDIL) 30 MG TAB PO ×3 (09:24→20:22)
[2017-12-22] MEDS: AMIODARONE 200 MG TAB (PACERONE) PO (09:24)
[2017-12-22] MEDS: SERTRALINE HCL 50 MG TAB PO (09:25)
[2017-12-22] MEDS: predniSONE 10 MG TAB PO (09:25)
[2017-12-22] MEDS: DOCUSATE SODIUM 100 MG CAP PO ×2 (09:25→20:21)
[2017-12-22] MEDS: **hydrALAZINE HCL** 25 MG TAB PO ×3 (09:25→20:21)
[2017-12-22] MEDS: OMEPRAZOLE 20 MG CAP PO (09:25)
[2017-12-22] MEDS: VERAPAMIL 120 MG SR TAB PO ×2 (09:26→20:23)
[2017-12-22] MEDS: CHLORHEXIDINE ORAL RINSE 0.12%/15ML 120ML BOTTLE MT ×2 (09:27→21:00)
[2017-12-22] MEDS: MIRALAX *UNIT DOSE* 17GM PACKET PO ×2 (09:27→09:48)
[2017-12-22] MEDS: FLUTICASONE PROP 0.05% NASAL SPRAY 16 GM (FLONASE) (09:47)
[2017-12-22 12:41] LABS: BEDSIDE GLUCOSE 274 MG/DL (83-110)
[2017-12-22 18:04] LABS: BEDSIDE GLUCOSE 329 MG/DL (83-110)
[2017-12-22] MEDS: GABAPENTIN 300 MG CAP PO (20:21)
[2017-12-22] MEDS: ROSUVASTATIN 10 MG TAB (CRESTOR) PO (20:22)
[2017-12-22] MEDS: SENNA 8.6 MG TAB (SENOKOT) PO (20:22)
[2017-12-22] MEDS: MORPHINE 4 MG/ML 1ML VIAL/SYRINGE (J2270) IV (22:14)
[2017-12-22] MEDS ORDERED: HEPARIN SOD (PORCINE) 5000 UNITS/ML VIAL IV (22:15)
[2017-12-22] MEDS: HEPARIN DRIP 25,000 UNITS in APPROPRIATE DILUENT 1 EA IV (22:27)
[2017-12-22 23:29] LABS: BEDSIDE GLUCOSE 305 MG/DL (83-110)
[2017-12-23] MEDS: IPRATROPIUM 0.5MG/ALBUTEROL 2.5MG INH SOL UD 3ML (DUONEB)(J7620) NEB ×4 (01:24→19:18)
[2017-12-23] MEDS: MORPHINE 4 MG/ML 1ML VIAL/SYRINGE (J2270) IV (03:44)
[2017-12-23 04:36] LABS: BASO % 0.1 % (0.0-1.0); EOS # 0.2 10^3/uL (0.0-0.50); EOS % 1.4 % (0.0-3.0); HEMATOCRIT 24.8 % (42.0-52.0); HEMOGLOBIN 7.4 g/dl (13.5-17.5); IMMATURE GRANULOCYTE % 0.5 % (0-3.0); LYMPH # 0.9 10^3/uL (1.5-4.5); LYMPH % 6.5 % (24.0-44.0); MEAN CORPUSCULAR HEMOGLOBIN 23.6 pg (27.0-33.0); MEAN CORPUSCULAR HGB CONC 29.8 g/dl (32.0-36.5); MONO # 0.7 10^3/uL (0.0-0.8); MONO % 4.9 % (0.0-5.0); NEUTROPHILS # 12.4 10^3/uL (1.8-7.7); NEUTROPHILS % 86.6 % (36.0-66.0); RED BLOOD COUNT 3.14 10^6/uL (4.30-6.10); RED CELL DISTRIBUTION WIDTH 20.5 % (11.5-14.5); WHITE BLOOD COUNT 14.3 10^3/uL (4.0-10.0)
[2017-12-23 04:48] LABS: PARTIAL THROMBOPLASTIN TIME 49.6 SECONDS (26.8-37.9)
[2017-12-23 04:52] LABS: PLATELET COUNT, AUTOMATED 49 10^3/uL (150-450); POS COUNT POS FLAG
[2017-12-23 04:58] LABS: ALBUMIN 2.2 GM/DL (3.2-5.2); ALBUMIN/GLOBULIN RATIO 0.63 (1.00-1.93); ALKALINE PHOSPHATASE 177 U/L (45-117); ALT/SGPT 29 U/L (12-78); ANION GAP 8 MEQ/L (8-16); AST/SGOT 75 U/L (7-37); BILIRUBIN,TOTAL 0.7 MG/DL (0.2-1.0); CARBON DIOXIDE LEVEL 29 MEQ/L (21-32); CHLORIDE LEVEL 105 MEQ/L (98-107); GLOMERULAR FILTRATION RATE 34.7 (>42); GLUCOSE, FASTING 193 MG/DL (70-100); POTASSIUM SERUM 3.9 MEQ/L (3.5-5.1); SODIUM LEVEL 142 MEQ/L (136-145); TOTAL PROTEIN 5.7 GM/DL (6.4-8.2)
[2017-12-23 05:06] LABS: BLOOD UREA NITROGEN 35 MG/DL (7-18)
[2017-12-23] MEDS: METOPROLOL TART 25 MG TABLET PO ×3 (05:27→18:28)
[2017-12-23] MEDS: HumaLOG INSULIN (NovoLOG) PER UNIT SC ×4 (05:27→23:05)
[2017-12-23] MEDS: SERTRALINE HCL 50 MG TAB PO (08:09)
[2017-12-23] MEDS: predniSONE 20 MG TAB PO (08:09)
[2017-12-23] MEDS: MIRALAX *UNIT DOSE* 17GM PACKET PO (08:09)
[2017-12-23] MEDS: DOCUSATE SODIUM 100 MG CAP PO ×2 (08:10→20:47)
[2017-12-23] MEDS: OMEPRAZOLE 20 MG CAP PO (08:10)
[2017-12-23] MEDS: CYANOCOBALAMIN 500 MCG TAB PO (08:10)
[2017-12-23] MEDS: PREGABALIN 75 MG CAP(LYRICA) PO ×2 (08:10→20:44)
[2017-12-23] MEDS: GABAPENTIN 100 MG CAP PO (08:10)
[2017-12-23] MEDS: FLUTICASONE PROP 0.05% NASAL SPRAY 16 GM (FLONASE) (08:11)
[2017-12-23] MEDS: CHLORHEXIDINE ORAL RINSE 0.12%/15ML 120ML BOTTLE MT ×2 (08:11→20:43)
[2017-12-23] MEDS: **hydrALAZINE HCL** 25 MG TAB PO ×3 (08:48→20:44)
[2017-12-23] MEDS: VERAPAMIL 120 MG SR TAB PO ×2 (08:49→20:45)
[2017-12-23] MEDS: ISOSORBIDE DIN. (ISORDIL) 30 MG TAB PO ×3 (08:49→20:44)
[2017-12-23] MEDS ORDERED: FENTANYL REMOVAL DOCUMENTATION MISC XX (09:00)
[2017-12-23] MEDS: fentaNYL 25 MCG/HR PATCH TOP (09:31)
[2017-12-23 10:35] LABS: HEMOGLOBIN 7.3 g/dl (13.5-17.5)
[2017-12-23 11:01] LABS: PARTIAL THROMBOPLASTIN TIME 48.2 SECONDS (26.8-37.9)
[2017-12-23] MEDS ORDERED: ISOVUE-300 61% 50ML VIAL (Q9967) As Ordered (11:16)
[2017-12-23] MEDS ORDERED: ALTEPLASE 2 MG/2 ML VIAL (J2997 PER 1MG) As Ordered (11:59)
[2017-12-23] MEDS: PERCOCET 5MG/325MG TAB PO ×2 (15:50→20:46)
[2017-12-23] MEDS: HEPARIN DRIP 25,000 UNITS in APPROPRIATE DILUENT 1 EA IV (16:03)
[2017-12-23 17:05] LABS: PARTIAL THROMBOPLASTIN TIME 44.9 SECONDS (26.8-37.9)
[2017-12-23] MEDS: FUROSEMIDE 40 MG/4 ML VIAL (J1940) IV (17:39)
[2017-12-23 17:48] LABS: IMMEDIATE SPIN CROSSMATCH 1 2
[2017-12-23 18:21] LABS: BEDSIDE GLUCOSE 430 MG/DL (83-110)
[2017-12-23 18:25] LABS: BEDSIDE GLUCOSE 461 MG/DL (83-110)
[2017-12-23 18:27] LABS: ABG BASE EXCESS -1.2 (-2.0-2.0); ABG HCO3 23.4 MEQ/L (22.0-26.0); ABG O2 SATURATION 97.8 % (95.0-99.0); ABG PARTIAL PRESSURE CO2 38.4 mmHg (35.0-45.0); ABG PARTIAL PRESSURE O2 110.9 mmHg (75.0-100.0); ABG STANDARD HCO3 23.5 MEQ/L (22.0-26.0); ABG TOTAL CO2 24.6 MEQ/L (23.0-31.0); ABG pH (ARTERIAL) 7.403 UNITS (7.350-7.450)
[2017-12-23] MEDS: SENNA 8.6 MG TAB (SENOKOT) PO (20:43)
[2017-12-23] MEDS: ROSUVASTATIN 10 MG TAB (CRESTOR) PO (20:44)
[2017-12-23] MEDS: GABAPENTIN 300 MG CAP PO (20:44)
[2017-12-23 22:41] LABS: HEMOGLOBIN 9.1 g/dl (13.5-17.5)
[2017-12-23 22:41] LABS: HEMATOCRIT 29.2 % (42.0-52.0)
[2017-12-23 22:54] LABS: PARTIAL THROMBOPLASTIN TIME 46.1 SECONDS (26.8-37.9)
[2017-12-23 23:05] LABS: BEDSIDE GLUCOSE 356 MG/DL (83-110)
[2017-12-24] MEDS: METOPROLOL TART 25 MG TABLET PO ×4 (00:14→18:34)
[2017-12-24] MEDS: PERCOCET 5MG/325MG TAB PO ×2 (00:57→08:50)
[2017-12-24] MEDS: IPRATROPIUM 0.5MG/ALBUTEROL 2.5MG INH SOL UD 3ML (DUONEB)(J7620) NEB ×4 (01:38→20:41)
[2017-12-24 04:56] LABS: BASO % 0.1 % (0.0-1.0); HEMATOCRIT 29.9 % (42.0-52.0); HEMOGLOBIN 9.4 g/dl (13.5-17.5); IMMATURE GRANULOCYTE % 0.6 % (0-3.0); LYMPH # 0.7 10^3/uL (1.5-4.5); LYMPH % 3.9 % (24.0-44.0); MEAN CORPUSCULAR HEMOGLOBIN 24.9 pg (27.0-33.0); MEAN CORPUSCULAR HGB CONC 31.4 g/dl (32.0-36.5); MEAN CORPUSCULAR VOLUME 79.3 fl (80.0-96.0); MONO # 0.9 10^3/uL (0.0-0.8); NEUTROPHILS # 15.3 10^3/uL (1.8-7.7); NEUTROPHILS % 90.4 % (36.0-66.0); PLATELET COUNT, AUTOMATED 45 10^3/uL (150-450); RED BLOOD COUNT 3.77 10^6/uL (4.30-6.10); RED CELL DISTRIBUTION WIDTH 19.3 % (11.5-14.5)
[2017-12-24 05:00] LABS: IMMATURE PLATELET FRACTION % 12.3 % (0.0-10.9)
[2017-12-24 05:07] LABS: PARTIAL THROMBOPLASTIN TIME 41.1 SECONDS (26.8-37.9)
[2017-12-24 05:44] LABS: ALBUMIN 2.3 GM/DL (3.2-5.2); ALBUMIN/GLOBULIN RATIO 0.66 (1.00-1.93); ALKALINE PHOSPHATASE 238 U/L (45-117); ALT/SGPT 40 U/L (12-78); ANION GAP 10 MEQ/L (8-16); AST/SGOT 88 U/L (7-37); BILIRUBIN,TOTAL 0.9 MG/DL (0.2-1.0); BLOOD UREA NITROGEN 54 MG/DL (7-18); CALCIUM LEVEL 8.1 MG/DL (8.8-10.2); CARBON DIOXIDE LEVEL 27 MEQ/L (21-32); CHLORIDE LEVEL 105 MEQ/L (98-107); CREATININE FOR GFR 2.07 MG/DL (0.70-1.30); GLOMERULAR FILTRATION RATE 33.3 (>42); GLUCOSE, FASTING 307 MG/DL (70-100); POTASSIUM SERUM 4.1 MEQ/L (3.5-5.1); SODIUM LEVEL 142 MEQ/L (136-145); TOTAL PROTEIN 5.8 GM/DL (6.4-8.2)
[2017-12-24] MEDS: HumaLOG INSULIN (NovoLOG) PER UNIT SC ×3 (05:51→18:33)
[2017-12-24] MEDS: GABAPENTIN 100 MG CAP PO (08:48)
[2017-12-24] MEDS: SERTRALINE HCL 50 MG TAB PO (08:48)
[2017-12-24] MEDS: CYANOCOBALAMIN 500 MCG TAB PO (08:48)
[2017-12-24] MEDS: predniSONE 20 MG TAB PO (08:48)
[2017-12-24] MEDS: **hydrALAZINE HCL** 25 MG TAB PO ×3 (08:49→21:00)
[2017-12-24] MEDS: DOCUSATE SODIUM 100 MG CAP PO ×2 (08:49→20:01)
[2017-12-24] MEDS: ISOSORBIDE DIN. (ISORDIL) 30 MG TAB PO ×3 (08:49→21:15)
[2017-12-24] MEDS: PREGABALIN 75 MG CAP(LYRICA) PO ×2 (08:49→20:00)
[2017-12-24] MEDS: OMEPRAZOLE 20 MG CAP PO (08:49)
[2017-12-24] MEDS: VERAPAMIL 120 MG SR TAB PO ×2 (08:50→21:15)
[2017-12-24] MEDS: CHLORHEXIDINE ORAL RINSE 0.12%/15ML 120ML BOTTLE MT ×2 (08:51→20:01)
[2017-12-24] MEDS: MIRALAX *UNIT DOSE* 17GM PACKET PO (09:29)
[2017-12-24] MEDS: FLUTICASONE PROP 0.05% NASAL SPRAY 16 GM (FLONASE) (09:30)
[2017-12-24] MEDS: LIDOCAINE 1% SDV INJ 30 ML VIAL As Ordered (09:38)
[2017-12-24] MEDS: BUPIVACAINE HCL 0.5% 30 ML VIAL As Ordered (09:38)
[2017-12-24] MEDS: ceFAZolin 2 GM/D5W 50 ML IV BAG (J0690 PER 500MG) As Ordered (10:26)
[2017-12-24] MEDS ORDERED: PHENYLEPHRINE INJ 10MG/ML VIAL (J2370) As Ordered (10:26)
[2017-12-24] MEDS ORDERED: MIDAZOLAM INJ 2 MG/2 ML VIAL (J2250) As Ordered ×2 (10:26→10:40)
[2017-12-24] MEDS ORDERED: LIDOCAINE 2% INJ 100 MG/5 ML SDV (FOR ANES.) As Ordered (10:26)
[2017-12-24] MEDS ORDERED: ETOMIDATE INJ 20MG/10ML VIAL As Ordered (10:26)
[2017-12-24] MEDS ORDERED: fentaNYL 100 MCG/2 ML INJECTION (J3010) As Ordered (10:26)
[2017-12-24] MEDS ORDERED: ROCURONIUM BROMIDE 50 MG/5 ML VIAL As Ordered (10:26)
[2017-12-24] MEDS ORDERED: PHENYLephrine HCL 500 MCG/5 ML (100MCG/ML) SYRINGE (J2370) As Ordered (10:26)
[2017-12-24 11:37] LABS: ABG BASE EXCESS 0.2 (-2.0-2.0); ABG HCO3 28.6 MEQ/L (22.0-26.0); ABG O2 SATURATION 91.6 % (95.0-99.0); ABG PARTIAL PRESSURE O2 76.2 mmHg (75.0-100.0); ABG STANDARD HCO3 24.6 MEQ/L (22.0-26.0); ABG TOTAL CO2 30.7 MEQ/L (23.0-31.0)
[2017-12-24 11:40] LABS: ABG pH (ARTERIAL) 7.243 UNITS (7.350-7.450)
[2017-12-24 11:41] LABS: ABG PARTIAL PRESSURE CO2 67.9 mmHg (35.0-45.0)
[2017-12-24 11:44] LABS: BEDSIDE GLUCOSE 260 MG/DL (83-110)
[2017-12-24] MEDS: MIDAZOLAM INJ 2 MG/2 ML VIAL (J2250) IV ×7 (12:02→23:21)
[2017-12-24] MEDS: MORPHINE 4 MG/ML 1ML VIAL/SYRINGE (J2270) IV ×4 (12:03→19:56)
[2017-12-24] MEDS ORDERED: ONDANSETRON 4MG/2ML VIAL (J2405) IV (12:15)
[2017-12-24] MEDS: LR 1,000 ML IV (12:15)
[2017-12-24] MEDS ORDERED: NORCO, ANEXSIA 5/325MG TABLET (HYDROcodone/ACETAMINOPHEN) PO (12:15)
[2017-12-24] MEDS ORDERED: fentaNYL 100 MCG/2 ML INJECTION (J3010) IV (12:15)
[2017-12-24 13:12] LABS: ABG O2 SATURATION 90.3 % (95.0-99.0); ABG PARTIAL PRESSURE CO2 52.1 mmHg (35.0-45.0); ABG PARTIAL PRESSURE O2 70.4 mmHg (75.0-100.0); ABG STANDARD HCO3 21.9 MEQ/L (22.0-26.0); ABG TOTAL CO2 25.6 MEQ/L (23.0-31.0); ABG pH (ARTERIAL) 7.281 UNITS (7.350-7.450)
[2017-12-24 16:08] LABS: BEDSIDE GLUCOSE 395 MG/DL (83-110)
[2017-12-24 16:18] LABS: HEMATOCRIT 29.2 % (42.0-52.0)
[2017-12-24] MEDS: NS 500 ML IV (16:50)
[2017-12-24] MEDS ORDERED: PILL CRUSHER/CUTTER 1 EACH XX (17:15)
[2017-12-24 17:51] LABS: BEDSIDE GLUCOSE 471 MG/DL (83-110)
[2017-12-24] MEDS: ROSUVASTATIN 10 MG TAB (CRESTOR) PO (20:00)
[2017-12-24] MEDS: SENNA 8.6 MG TAB (SENOKOT) PO (20:01)
[2017-12-24] MEDS: GABAPENTIN 300 MG CAP PO (20:01)
[2017-12-24] MEDS: SODIUM CHLORIDE 0.9% 1000 ML IV (21:45)
[2017-12-24 21:57] LABS: HEMATOCRIT 27.7 % (42.0-52.0)
[2017-12-24 21:57] LABS: HEMOGLOBIN 8.4 g/dl (13.5-17.5)
[2017-12-24] MEDS: KCL 20MEQ IN D5/0.45NS 1000ML 1,000 ML IV (22:00)
[2017-12-25] MEDS: METOPROLOL TART 25 MG TABLET PO ×3 (00:23→12:48)
[2017-12-25] MEDS: HumaLOG INSULIN (NovoLOG) PER UNIT SC ×3 (00:41→12:48)
[2017-12-25] MEDS: ACETAMINOPHEN 500 MG TAB PO (00:42)
[2017-12-25] MEDS: MIDAZOLAM INJ 2 MG/2 ML VIAL (J2250) IV ×3 (00:42→10:41)
[2017-12-25] MEDS: MORPHINE 4 MG/ML 1ML VIAL/SYRINGE (J2270) IV ×6 (00:43→22:54)
[2017-12-25 00:54] LABS: BEDSIDE GLUCOSE 388 MG/DL (83-110)
[2017-12-25] MEDS: IPRATROPIUM 0.5MG/ALBUTEROL 2.5MG INH SOL UD 3ML (DUONEB)(J7620) NEB ×3 (02:02→14:54)
[2017-12-25 05:09] LABS: HEMOGLOBIN 7.7 g/dl (13.5-17.5)
[2017-12-25 05:09] LABS: HEMATOCRIT 25.7 % (42.0-52.0)
[2017-12-25 05:11] LABS: HEMATOCRIT 25.5 % (42.0-52.0); HEMOGLOBIN 7.7 g/dl (13.5-17.5); IMMATURE GRANULOCYTE % 0.7 % (0-3.0); LYMPH # 0.5 10^3/uL (1.5-4.5); LYMPH % 4.2 % (24.0-44.0); MEAN CORPUSCULAR HEMOGLOBIN 24.5 pg (27.0-33.0); MEAN CORPUSCULAR HGB CONC 30.2 g/dl (32.0-36.5); MEAN CORPUSCULAR VOLUME 81.2 fl (80.0-96.0); MONO # 0.7 10^3/uL (0.0-0.8); MONO % 5.9 % (0.0-5.0); NEUTROPHILS % 89.2 % (36.0-66.0); RED BLOOD COUNT 3.14 10^6/uL (4.30-6.10); RED CELL DISTRIBUTION WIDTH 19.9 % (11.5-14.5); WHITE BLOOD COUNT 11.2 10^3/uL (4.0-10.0)
[2017-12-25 05:12] LABS: PLATELET COUNT, AUTOMATED 24 10^3/uL (150-450); POS COUNT POS FLAG
[2017-12-25 05:14] LABS: IMMATURE PLATELET FRACTION % 11.7 % (0.0-10.9)
[2017-12-25 05:37] LABS: ALBUMIN 2.1 GM/DL (3.2-5.2); ALBUMIN/GLOBULIN RATIO 0.64 (1.00-1.93); ALKALINE PHOSPHATASE 174 U/L (45-117); ALT/SGPT 26 U/L (12-78); ANION GAP 8 MEQ/L (8-16); AST/SGOT 27 U/L (7-37); BILIRUBIN,TOTAL 0.4 MG/DL (0.2-1.0); BLOOD UREA NITROGEN 75 MG/DL (7-18); CARBON DIOXIDE LEVEL 28 MEQ/L (21-32); CHLORIDE LEVEL 106 MEQ/L (98-107); CREATININE FOR GFR 3.61 MG/DL (0.70-1.30); GLOMERULAR FILTRATION RATE 17.5 (>42); GLUCOSE, FASTING 374 MG/DL (70-100); SODIUM LEVEL 142 MEQ/L (136-145); TOTAL PROTEIN 5.4 GM/DL (6.4-8.2)
[2017-12-25 05:50] LABS: POTASSIUM SERUM 5.3 MEQ/L (3.5-5.1)
[2017-12-25 06:07] LABS: ABG BASE EXCESS -1.1 (-2.0-2.0); ABG HCO3 24.8 MEQ/L (22.0-26.0); ABG O2 SATURATION 97.9 % (95.0-99.0); ABG PARTIAL PRESSURE CO2 47.3 mmHg (35.0-45.0); ABG PARTIAL PRESSURE O2 114.1 mmHg (75.0-100.0); ABG STANDARD HCO3 23.6 MEQ/L (22.0-26.0); ABG TOTAL CO2 26.3 MEQ/L (23.0-31.0); ABG pH (ARTERIAL) 7.338 UNITS (7.350-7.450)
[2017-12-25] MEDS: D5W/0.45% SODIUM CHLORIDE 1,000 ML IV (08:58)
[2017-12-25] MEDS: CHLORHEXIDINE ORAL RINSE 0.12%/15ML 120ML BOTTLE MT (08:58)
[2017-12-25] MEDS: CYANOCOBALAMIN 500 MCG TAB PO (08:59)
[2017-12-25] MEDS: SERTRALINE HCL 50 MG TAB PO (08:59)
[2017-12-25] MEDS: PREGABALIN 75 MG CAP(LYRICA) PO (08:59)
[2017-12-25] MEDS: GABAPENTIN 100 MG CAP PO (08:59)
[2017-12-25] MEDS: FLUTICASONE PROP 0.05% NASAL SPRAY 16 GM (FLONASE) (09:00)
[2017-12-25] MEDS: predniSONE 20 MG TAB PO (09:02)
[2017-12-25 10:15] LABS: HEMOGLOBIN 8.3 g/dl (13.5-17.5)
[2017-12-25] MEDS: OMEPRAZOLE 20 MG CAP PO (10:27)
[2017-12-25] MEDS: DOCUSATE SODIUM 100 MG CAP PO (10:28)
[2017-12-25] MEDS: MIRALAX *UNIT DOSE* 17GM PACKET PO (10:28)
[2017-12-25 11:51] LABS: BEDSIDE GLUCOSE 383 MG/DL (83-110)
[2017-12-25 12:04] LABS: IMMEDIATE SPIN CROSSMATCH 1 2
[2017-12-25 12:25] LABS: ANION GAP 7 MEQ/L (8-16); BLOOD UREA NITROGEN 79 MG/DL (7-18); CARBON DIOXIDE LEVEL 29 MEQ/L (21-32); CHLORIDE LEVEL 105 MEQ/L (98-107); CREATININE FOR GFR 3.82 MG/DL (0.70-1.30); GLOMERULAR FILTRATION RATE 16.4 (>42); GLUCOSE, FASTING 397 MG/DL (70-100); SODIUM LEVEL 141 MEQ/L (136-145)
[2017-12-25 12:38] LABS: POTASSIUM SERUM 5.6 MEQ/L (3.5-5.1)
[2017-12-25] MEDS: LEVEMIR (INSULIN DETEMIR) 1 UNITS/0.01ML SC (12:47)
[2017-12-25] MEDS: VERAPAMIL 80 MG TAB PO (13:50)
[2017-12-25] MEDS ORDERED: HYOSCYAMINE SULFATE 0.125 MG SUBL TABLET PO (15:00)
[2017-12-25] MEDS: LORazepam 2 MG/ML VIAL (J2060) IV ×2 (15:39→18:33)
[2017-12-25] MEDS: SCOPOLAMINE 1MG TRANSDERMAL PATCH TOP (15:40)
[2017-12-25] MEDS ORDERED: LEVEMIR (INSULIN DETEMIR) 1 UNITS/0.01ML SC (21:00)
[2017-12-26] MEDS: LORazepam 2 MG/ML VIAL (J2060) IV (00:58)
== END 2017-12-26 01:46 | disposition expired | DRG 166 ==
LOC: M MSPAV 12-25 21:15 → M ED 09:14 → M ED INP 11:02 → M ICU 14:40
PROC: 0Y6J0Z1 Detachment at Left Lower Leg, High, Open Approach (ICD-10-PCS; principal; 2017-12-24 09:38)
PROC: 02HV33Z Insertion of Infusion Device into Superior Vena Cava, Percutaneous Approach (ICD-10-PCS; 2017-12-24 10:18)
PROC: 30233N1 Transfusion of Nonautologous Red Blood Cells into Peripheral Vein, Percutaneous Approach (ICD-10-PCS; 2017-12-24 10:18)
PROC: 047J3ZZ Dilation of Left External Iliac Artery, Percutaneous Approach (ICD-10-PCS; 2017-12-24 10:18)
PROC: 047Q3ZZ Dilation of Left Anterior Tibial Artery, Percutaneous Approach (ICD-10-PCS; 2017-12-24 10:18)
PROC: 047L3DZ Dilation of Left Femoral Artery with Intraluminal Device, Percutaneous Approach (ICD-10-PCS; 2017-12-24 10:18)
PROC: 047N3ZZ Dilation of Left Popliteal Artery, Percutaneous Approach (ICD-10-PCS; 2017-12-24 10:18)
PROC: 06H03DZ Insertion of Intraluminal Device into Inferior Vena Cava, Percutaneous Approach (ICD-10-PCS; 2017-12-24 10:18)
PROC: B41GYZZ Fluoroscopy of Left Lower Extremity Arteries using Other Contrast (ICD-10-PCS; 2017-12-24 10:18)
DX: J96.01 Acute respiratory failure with hypoxia (principal); I50.33 Acute on chronic diastolic (congestive) heart failure; N17.9 Acute kidney failure, unspecified; J44.1 Chronic obstructive pulmonary disease with (acute) exacerbation; I47.1 Supraventricular tachycardia; I82.412 Acute embolism and thrombosis of left femoral vein; I48.92 Unspecified atrial flutter; D64.9 Anemia, unspecified; E87.5 Hyperkalemia; I95.9 Hypotension, unspecified; E66.01 Morbid (severe) obesity due to excess calories; N18.3 Chronic kidney disease, stage 3 (moderate); D69.6 Thrombocytopenia, unspecified; G47.33 Obstructive sleep apnea (adult) (pediatric); K21.9 Gastro-esophageal reflux disease without esophagitis; E11.40 Type 2 diabetes mellitus with diabetic neuropathy, unspecified; F32.9 Major depressive disorder, single episode, unspecified; E78.5 Hyperlipidemia, unspecified; E11.51 Type 2 diabetes mellitus with diabetic peripheral angiopathy without gangrene; Z95.9 Presence of cardiac and vascular implant and graft, unspecified; Z87.891 Personal history of nicotine dependence; Z88.8 Allergy status to other drugs, medicaments and biological substances; Z86.718 Personal history of other venous thrombosis and embolism; Z99.81 Dependence on supplemental oxygen; Z79.4 Long term (current) use of insulin; Z79.899 Other long term (current) drug therapy